=== PATIENT | female | born 1935 | race Hispanic/Latino ===

== ENCOUNTER 2017-06-08 20:28 | Emergency (ER) | payer MEDICARE, OTHER ==
[2017-06-08 20:29] VITALS: BMI 43.8
[2017-06-08] MEDS ORDERED: Sodium Chloride 0.9% 1,000 ML IV SCH (20:45)
[2017-06-08 21:02] LABS: HEMOGLOBIN 10.6 g/dL (12.0-16.0); MEAN CELL VOLUME 77.6 fl (80.0-105.0); MEAN CORPUSCULAR HEMOGLOBIN 25.8 pg (25.0-35.0); MEAN CORPUSCULAR HGB CONC 33.2 g/dl (31.0-37.0); MEAN PLATELET VOLUME 9.8 fl (7.0-11.0); RBC 4.11 10^6/uL (3.5-6.1); RED CELL DISTRIBUTION WIDTH 13.7 % (11.5-14.5); WHITE BLOOD COUNT 10.4 10^3/ul (4.5-11.0)
--- NOTE | 2017-06-08 21:04 | ED PDOC ---
Arrival/HPI - General Chief Complaint: GI Problem Time Seen by Provider: 06/08/17 20:30 Historian: Patient - History of Present Illness Narrative History of Present Illness (Text): 06/08/17 20:35 Basia Ruiz is an 82 year old female, whose past medical history includes hypertension, CABG, aortic valve replacement, CAD, type 2 diabetes, anemia, peripheral vascular disease, and bilateral AKA, who presents to the Emergency department complaining of diarrhea for the past 5 days. Patient reports occasional nausea.Some abdominal cramping earlier in the week none now.. Patient denies any history of known fever, recent travel, vomiting, chest pain, shortness of breath, or any other complaints. Patient states she has been toleration PO liquids and her appetite has been fine. PMD: Dr. Nidia Grover Time/Duration: < week (5 days) Symptom Onset: Gradual Symptom Course: Unchanged Quality: Cramping Activities at Onset: Light Context: Home Past Medical History - Provider Review Nursing Documentation Reviewed: Yes - Past History Past History: Non-Contributing - Infectious Disease Hx of Infectious Diseases: None - Tetanus Immunization Tetanus Immunization: Unknown - Reproductive Menopause: No - Cardiac Hx Cardiac Disorders: Yes Hx Hypertension: Yes - Pulmonary Hx Respiratory Disorders: No Other/Comment: FORMER SMOKER - Neurological Hx Paralysis: No - HEENT Hx Deafness: Yes - Renal Hx Renal Disorder: No - Endocrine/Metabolic Hx Diabetes Mellitus Type 1: Yes Hx Diabetes Mellitus Type 2: Yes - Hematological/Oncological Hx Blood Transfusions: Yes Hx Blood Transfusion Reaction: No - Integumentary Hx Dermatological Disorder: No - Musculoskeletal/Rheumatological Hx Musculoskeletal Disorders: Yes - Gastrointestinal Hx Gastrointestinal Disorders: No - Genitourinary/Gynecological Hx Genitourinary Disorders: Yes Hx Incontinence: Yes - Psychiatric Hx Emotional Abuse: No Hx Physical Abuse: No Hx Substance Use: No - Surgical History Other/Comment: BILAT BKA left leg stump surgery 2 months ago ,suman in place - Anesthesia Hx Anesthesia Reactions: No Hx Malignant Hyperthermia: No - Suicidal Assessment Feels Threatened In Home Enviroment: No Family/Social History - Physician Review Nursing Documentation Reviewed: Yes Family/Social History: Unknown Family HX Smoking Status: Former Smoker Hx Alcohol Use: No Hx Substance Use: No Hx Substance Use Treatment: No Allergies/Home Meds Allergies/Adverse Reactions: Allergies No Known Allergies Allergy (Verified 07/08/15 16:38) Home Medications: Home Meds Medication Instructions Recorded Confirmed Insulin Lispro Protamin/Lispro 10 ml SC AMHS 11/16/15 11/16/15 [Humalog Mix75/25 75 U/ml-25 U/ml 3 ml] amLODIPine [Norvasc] 10 mg PO DAILY 11/16/15 06/08/17 ALPRAZolam [Xanax] 0.25 mg PO DAILY PRN 06/08/17 06/08/17 Aspirin [Aspirin Chewable] 81 mg PO DAILY 06/08/17 06/08/17 Cetirizine HCl [All Day Allergy 10 mg PO DAILY 06/08/17 06/08/17 Relief] Review of Systems - Physician Review All systems were reviewed & negative as marked: Yes - Review of Systems Constitutional: Normal. absent: Fevers Eyes: Normal ENT: Normal Respiratory: Normal. absent: SOB, Cough Cardiovascular: Normal. absent: Chest Pain Gastrointestinal: Abdominal Pain, Diarrhea, Nausea. absent: Vomiting, Appetite Changes Genitourinary Female: Normal. absent: Dysuria, Frequency, Hematuria, Urine Output Changes Musculoskeletal: Normal. absent: Back Pain, Neck Pain Skin: Normal. absent: Rash Neurological: Normal. absent: Headache, Dizziness Endocrine: Normal Hemo/Lymphatic: Normal Psychiatric: Normal Physical Exam Vital Signs Reviewed: Yes Vital Signs Temp Pulse Resp BP Pulse Ox 06/08/17 23:00 98.7 F 75 17 145/84 98 06/08/17 21:28 100.3 F H 75 17 160/88 H 96 Temperature: Febrile Blood Pressure: Normal Pulse: Regular Respiratory Rate: Normal Appearance: Positive for: Well-Appearing, Non-Toxic, Comfortable Pain Distress: None Mental Status: Positive for: Alert and Oriented X 3 - Systems Exam Head: Present: Atraumatic, Normocephalic Pupils: Present: PERRL Extroacular Muscles: Present: EOMI Conjunctiva: Present: Normal Mouth: Present: Moist Mucous Membranes Neck: Present: Normal Range of Motion. No: Meningeal Signs, MIDLINE TENDERNESS , Paraspinal Tenderness Respiratory/Chest: Present: Clear to Auscultation, Good Air Exchange. No: Respiratory Distress, Accessory Muscle Use Cardiovascular: Present: Regular Rate and Rhythm, Normal S1, S2. No: Murmurs Abdomen: Present: Normal Bowel Sounds. No: Tenderness, Distention, Peritoneal Signs Back: Present: Normal Inspection Upper Extremity: Present: Normal Inspection. No: Cyanosis, Edema Lower Extremity: Present: NORMAL PULSES, Normal ROM, Neurovascularly Intact, Capillary Refill < 2 s, Other (Bilateral AKA). No: Edema, Tenderness, Swelling , Erythema, Deformity, Temperature Abnormalties Neurological: Present: GCS=15, CN II-XII Intact, Speech Normal Skin: Present: Warm, Dry, Normal Color. No: Rashes Psychiatric: Present: Alert, Oriented x 3, Normal Insight, Normal Concentration Medical Decision Making ED Course and Treatment: 06/08/17 20:35 Impression: 82 year old female complaining of diarrhea with occasional nausea, abdominal cramping, and chills x5 days. Differential Diagnosis included but are not limited to: gastroenteritis Plan: -- EKG -- Chest X-ray -- Labs, VBG, lipase, blood cultures -- Urinalysis, urine cultures -- IV fluids -- Zofran -- Pepcid -- Tylenol -- Reassess and disposition Prior Visits: Notes and results from previous visits were reviewed. On 10/31/2016, pt was seen in the Emergency department for high blood pressure. Pt was d/c home. Progress Notes: Reviewed EKG, sinus rhythm at 79 bpm. 1st degree AV block. Sinus arrhythmia. Anterior infarct. Non-specific ST/T wave changes. 06/08/17 22:45 Reviewed radiology, Chest X-ray shows no acute processes. 06/08/17 23:[address] Grover, who is aware and agrees with plan.Recommends short course of Cipro.Pt is stable for d/c home and outpatient follow-up in his office. 06/08/17 23:18 On reevaluation the patient is in no acute distress. I have discussed the results and plan with the patient, who expresses understanding. Patient is stable for discharge. - Lab Interpretations Lab Results: 06/08/17 20:50 06/08/17 20:50 Lab Results 06/08/17 20:50: pO2 48, VBG pH 7.34, VBG pCO2 50.0, VBG HCO3 27.0, VBG Total CO2 28.5 H, VBG O2 Sat (Calc) 87.3 H, VBG Base Excess 0.6, VBG Potassium 3.6, Sodium 136.0, Chloride 104.0, Glucose 162 H, Lactate 0.9, FiO2 21.0, Venous Blood Potassium 3.6 06/08/17 20:50: PT 11.4, INR 1.06, APTT 28.2 06/08/17 20:50: WBC 10.4, RBC 4.11, Hgb 10.6 L, Hct 31.9 L, MCV 77.6 L, MCH 25.8 , MCHC 33.2, RDW 13.7, Plt Count 232, MPV 9.8 06/08/17 20:50: Sodium 136, Chloride 99, Potassium 3.7, Carbon Dioxide 24, Anion Gap 17, BUN 28 H, Creatinine 0.9, Est GFR ( Amer) > 60, Est GFR ( Non-Af Amer) > 60, Random Glucose 159 H, Calcium 9.4, Total Bilirubin 0.5, AST 17, ALT 14, Alkaline Phosphatase 85, Total Protein 7.4, Albumin 3.7, Globulin 3.6, Albumin/Globulin Ratio 1.0 L, Lipase 18 L I have reviewed the lab results: Yes - RAD Interpretation Radiology Orders: 06/08/17 20:54 CHEST PORTABLE [RAD] Stat Rolling Machine Operator: ED Physician - EKG Interpretation Interpreted by ED Physician: Yes Type: 12 lead EKG - Medication Orders Current Medication Orders: Discontinued Medications Acetaminophen (Tylenol 325mg Tab) 650 mg PO STAT STA Stop: 06/08/17 20:56 Last Admin: 06/08/17 21:09 Dose: 650 mg Ciprofloxacin (Cipro) 250 mg PO STAT STA PRN Reason: Protocol Stop: 06/08/17 23:12 Last Admin: 06/09/17 00:04 Dose: 250 mg Famotidine (Pepcid) 20 mg IVP STAT STA Stop: 06/08/17 20:46 Last Admin: 06/08/17 21:09 Dose: 20 mg Sodium Chloride (Sodium Chloride 0.9%) 1,000 mls @ 100 mls/hr IV .Q10H CONSUELO Last Admin: 06/08/17 21:06 Dose: 100 mls/hr Ondansetron HCl (Zofran Inj) 4 mg IVP ONCE ONE Stop: 06/08/17 20:46 Last Admin: 06/08/17 21:09 Dose: 4 mg - Scribe Statement The provider has reviewed the documentation as recorded by the Gabriella Cazares Provider Scribe Attestation: All medical record entries made by the Scribe were at my direction and personally dictated by me. I have reviewed the chart and agree that the record accurately reflects my personal performance of the history, physical exam, medical decision making, and the department course for this patient. I have also personally directed, reviewed, and agree with the discharge instructions and disposition. Disposition/Present on Arrival - Present on Arrival Any Indicators Present on Arrival: No History of DVT/PE: No History of Uncontrolled Diabetes: Yes Urinary Catheter: No History of Decub. Ulcer: No History Surgical Site Infection Following: None - Disposition Have Diagnosis and Disposition been Completed?: Yes Diagnosis: Gastroenteritis Disposition: HOME/ ROUTINE Disposition Time: 23:18 Patient Plan: Discharge Condition: GOOD Discharge Instructions (ExitCare): Gastroenteritis (ED) Additional Instructions: Take meds as prescribed/continue to drink liquids to remain well hydrated/ follow up with on Saturday as he requested Prescriptions: Ciprofloxacin HCl [Cipro] 250 mg PO BID #6 tablet Referrals: Donald Grover JD, MD [Primary Care Provider] - Follow up with primary Forms: [employer] (Maori)
[2017-06-08 21:14] LABS: INR 1.06 (0.93-1.08); PARTIAL THROMBOPLASTIN TIME 28.2 Seconds (23.7-30.8); PROTHROMBIN TIME 11.4 Seconds (9.9-11.8); VENOUS BLOOD GAS BASE EXCESS 0.6 mmol/L (0.0-2.0); VENOUS BLOOD GAS PO2 48 mm/Hg (30-55); VENOUS BLOOD PH 7.34 (7.32-7.43)
[2017-06-08 21:17] LABS: ALBUMIN 3.7 g/dL (3.0-4.8); ALT/SGPT 14 U/L (7-56); AST/SGOT 17 U/L (15-39); BLOOD UREA NITROGEN 28 mg/dL (7-21); CALCIUM 9.4 mg/dL (8.4-10.5); GFR AFRICAN-AMERICAN > 60; GFR NON-AFRICAN AMERICAN > 60; LIPASE 18 U/L (23-300)
[2017-06-08 21:29] VITALS: PULSE 75; RESP 17
[2017-06-09 05:47] VITALS: BP 145/84; TEMP 98.7; O2SAT 98
--- NOTE | 2017-06-09 08:59 | RAD ---
HISTORY: Sepsis Patient Technique: Portable study performed @ 22:21. COMPARISON: 03/16/2015. FINDINGS: LUNGS: No active pulmonary disease. PLEURA: No significant pleural effusion identified, no pneumothorax apparent. CARDIOVASCULAR: No radiographic findings to suggest acute or significant cardiovascular disease. OSSEOUS STRUCTURES: No significant abnormalities. VISUALIZED UPPER ABDOMEN: Normal. OTHER FINDINGS: None. IMPRESSION: No active disease. No significant interval change compared to the prior examination(s). No preliminary report provided by emergency department personnel.
--- NOTE | 2017-06-09 13:58 | CARD ---
APPROVED REPORT EKG Measurement Heart [id number] <Conclusion> Sinus rhythm with marked sinus arrhythmia with 1st degree AV block Anterior infarct, age undetermined Abnormal ECG
== END 2017-06-09 00:25 | disposition home or self-care (01) ==
LOC: ED 20:28
DX: K52.9 Noninfective gastroenteritis and colitis, unspecified (principal); I25.10 Atherosclerotic heart disease of native coronary artery without angina pectoris; I10 Essential (primary) hypertension; E11.9 Type 2 diabetes mellitus without complications; I73.9 Peripheral vascular disease, unspecified; Z95.1 Presence of aortocoronary bypass graft; Z95.2 Presence of prosthetic heart valve; Z87.891 Personal history of nicotine dependence
CPT/HCPCS: 71010; 80053; 82803; 83690; 85027; 85610; 85730; 87040; 93005; 96374; 96375; 99284; J2405; J7040

== ENCOUNTER 2017-10-13 17:18 | Observation (INO) | payer MEDICARE, OTHER ==
[2017-10-13 17:34] VITALS: BMI 36.6
[2017-10-13] MEDS ORDERED: Oxycodone/Acetaminophen 5/325 mg Tab PO STA (17:47)
--- NOTE | 2017-10-13 17:47 | ED PDOC ---
"Arrival/HPI - General Historian: Patient <Jeramie Pino - Last Filed: 10/13/17 22:04> <Luke Fleming - Last Filed: 10/13/17 22:26> - General Chief Complaint: Back Pain Time Seen by Provider: 10/13/17 17:31 - History of Present Illness Narrative History of Present Illness (Text): 10/13/17 17:39 82 year old female, pmh including chf/htn, nkda, complaining of lt. sided rib pain and lower back s/p fall from the wheel chair today. Pt. stated that she is chronic wheel chair bound, trying to get on the van with one of the belts came loose, making her fall on the lower back and landed on the lt. sided rib region against the handle of the wheel chair, no abdominal or pelvic pain, no numbness or tingling, no night sweat, no rash, no LOC, no chest pain or shortness of breath, no other medical or psychological complaints. (Jeramie Pino) Past Medical History - Provider Review Nursing Documentation Reviewed: Yes - Past History Past History: Non-Contributing - Infectious Disease Hx of Infectious Diseases: None - Tetanus Immunization Tetanus Immunization: Unknown - Cardiac Hx Cardiac Disorders: Yes Hx Hypertension: Yes - Pulmonary Hx Respiratory Disorders: No Other/Comment: FORMER SMOKER - Neurological Hx Neurological Disorder: No Hx Paralysis: No - HEENT Hx HEENT Disorder: Yes Hx Deafness: Yes - Renal Hx Renal Disorder: No - Endocrine/Metabolic Hx Diabetes Mellitus Type 1: Yes Hx Diabetes Mellitus Type 2: Yes - Hematological/Oncological Hx Blood Transfusions: Yes Hx Blood Transfusion Reaction: No - Integumentary Hx Dermatological Disorder: No - Musculoskeletal/Rheumatological Hx Musculoskeletal Disorders: Yes - Gastrointestinal Hx Gastrointestinal Disorders: No - Genitourinary/Gynecological Hx Genitourinary Disorders: Yes Hx Incontinence: Yes - Psychiatric Hx Emotional Abuse: No Hx Physical Abuse: No Hx Substance Use: No - Surgical History Other/Comment: BILAT BKA - Anesthesia Hx Anesthesia: Yes Hx Anesthesia Reactions: No Hx Malignant Hyperthermia: No - Suicidal Assessment Feels Threatened In Home Enviroment: No <Jeramie Pino - Last Filed: 10/13/17 22:04> Family/Social History - Physician Review Nursing Documentation Reviewed: Yes Family/Social History: Unknown Family HX Smoking Status: Former Smoker Hx Alcohol Use: No Hx Substance Use: No Hx Substance Use Treatment: No <Jeramie Pino - Last Filed: 10/13/17 22:04> Allergies/Home Meds <Jeramie Pino - Last Filed: 10/13/17 22:04> <Luke Fleming - Last Filed: 10/13/17 22:26> Allergies/Adverse Reactions: Allergies No Known Allergies Allergy (Verified 10/13/17 17:28) Home Medications: Home Meds Medication Instructions Recorded Confirmed Insulin Lispro Protamin/Lispro 10 ml SC AMHS 11/16/15 10/13/17 [Humalog Mix75/25 75 U/ml-25 U/ml 3 ml] amLODIPine [Norvasc] 10 mg PO DAILY 11/16/15 10/13/17 Aspirin [Aspirin Chewable] 81 mg PO DAILY 06/08/17 10/13/17 Review of Systems - Review of Systems Constitutional: absent: Fatigue, Fevers Eyes: absent: Vision Changes ENT: absent: Hearing Changes Respiratory: absent: SOB, Cough Cardiovascular: absent: Chest Pain Gastrointestinal: absent: Abdominal Pain, Nausea, Vomiting Musculoskeletal: Back Pain, Myalgias. absent: Arthralgias, Neck Pain, Joint Swelling Skin: absent: Rash, Pruritis, Skin Lesions Neurological: absent: Headache, Dizziness Psychiatric: absent: Anxiety, Depression, Suicidal Ideation <PinoJeramie Tom - Last Filed: 10/13/17 22:04> Physical Exam Vital Signs Reviewed: Yes Temperature: Afebrile Blood Pressure: Hypertensive Pulse: Regular Respiratory Rate: Normal Appearance: Positive for: Well-Appearing, Non-Toxic, Comfortable Pain Distress: None Mental Status: Positive for: Alert and Oriented X 3 - Systems Exam Head: Present: Atraumatic, Normocephalic Pupils: Present: PERRL Extroacular Muscles: Present: EOMI Conjunctiva: Present: Normal Ears: Present: NORMAL TM, Normal Canal. No: Erythema Mouth: Present: Moist Mucous Membranes Pharnyx: No: ERYTHEMA, EXUDATE, TONSILS ENLARGED, Uvular Deviation, Muffled/ Hoarse Voice Nose (External): Present: Atraumatic. No: Abrasion, Contusion, Laceration Nose (Internal): Present: Normal Inspection, No Active Bleeding, Moist. No: Septal Deviation, Septal Hematoma, Epistaxis Neck: Present: Normal Range of Motion, Trachea Midline. No: MIDLINE TENDERNESS , Paraspinal Tenderness, Lymphadenopathy Respiratory/Chest: Present: Clear to Auscultation, Good Air Exchange, Other ( Chest: mild +ttp on lt. lateral rib region, no bruising, no ecchymosis, FROM without limitation, sensation intact, motor 5/5. ). No: Respiratory Distress, Accessory Muscle Use, Wheezes, Decreased Breath Sounds, Rales (.), Retracting, Rhonchi Cardiovascular: Present: Regular Rate and Rhythm, Normal S1, S2. No: Murmurs Abdomen: Present: Normal Bowel Sounds. No: Tenderness, Distention, Peritoneal Signs Back: Present: Normal Inspection, Other (LS spine: +ttp on the lt. paraspinal muscle region, no midline tenderness or step off, no bruising or ecchymosis, FROM without limitation, sensation intact, motor 5/5. ). No: CVA Tenderness, Midline Tenderness, Pain with Leg Raise, Decubitus Ulcer Upper Extremity: Present: Normal Inspection, Other (Bilateral shoulder: no tenderness or swelling, no clavicle tenderness, FROM without limitation, sensation intact, motor 5/5. ). No: Cyanosis, Edema Lower Extremity: Present: Normal Inspection, NORMAL PULSES, Normal ROM, Neurovascularly Intact, Capillary Refill < 2 s. No: Edema, Tenderness, Swelling , Deformity Neurological: Present: GCS=15, Speech Normal, Motor Func Grossly Intact, Gait Normal, Memory Normal Skin: Present: Warm, Dry, Normal Color. No: Rashes Psychiatric: Present: Alert, Oriented x 3, Normal Insight, Normal Concentration <Jeramie Pino - Last Filed: 10/13/17 22:04> Vital Signs Temp Pulse Resp BP Pulse Ox 10/13/17 21:00 98.6 F 80 18 150/77 100 10/13/17 19:28 97 H 198/70 H 10/13/17 19:20 98.5 F 70 16 146/89 100 10/13/17 17:32 97.9 F 88 15 205/74 H 98 Medical Decision Making - RAD Interpretation Portrait Studio Photographer: Radiologist <Jeramie Pino - Last Filed: 10/13/17 22:04> <Luke Fleming - Last Filed: 10/13/17 22:26> ED Course and Treatment: 10/13/17 17:59 -CT head -Lt. rib/chest xray -Percocet/clonidine -Observe and reassess 10/13/17 21:12 -Lt. rib xray: Unremarkable left rib x-rays. -Chest xray: Emergency room wet read, no active disease -LS spine: IMPRESSION: Deformity involving L4-S1 as visualized. Concern for underlying fracture. Followup cross-sectional imaging recommended. Multilevel degenerative changes. Loss in disc height with disc osteophyte formation. -CT Head: Moderate age-appropriate atrophy and associated chronic white matter ischemic changes, with no evidence of an acute intracranial abnormality. An extra-axial lesion near the brainstem likely meningioma 1.9 cm. No significant mass effect. Also noted is a chronic calcified meningioma located in the anterior vertex left of midline, 12 mm. -Pt. has no headache/dizziness/change in vision, no numbness or tingling, bilateral lower extremities amputated, no radiating pain on the upper extremities, no neurological deficits. -Case discussed with Dr. Fleming and endorsed to him about the CT head and other radiology studies, suggest observation over night, he will put in labs/ radiology study and call Dr. Grover. (Jeramie Pino) 10/13/17 22:23 Case was d/w PMD who accepted to his service.Requested on consult. (Luke Fleming) - Lab Interpretations Lab Results: Lab Results 10/13/17 21:14: POC Glucose (mg/dL) 237 H - RAD Interpretation Radiology Orders: 10/13/17 17:47 HEAD W/O CONTRAST [CT] Stat 10/13/17 17:52 CHEST PORTABLE [RAD] Stat LS SPINE WITH OBL > 18 YRS OLD [RAD] Stat RIBS LEFT [RAD] Stat Lt. rib: FINDINGS: Lungs: Unremarkable as visualized. No consolidation. Pleural space: Unremarkable. No pneumothorax. Bones/joints: There are sternal wires consistent with previous sternotomy incision. No acute fracture. IMPRESSION: Unremarkable left rib x-rays. Thank you for allowing us to participate in the care of your patient. Dictated and Authenticated by: Gaston Hodge MD 10/13/2017 9:02 PM Eastern Time ([place] & [place]) -------- Chest xray: LS spine: FINDINGS: Vertebrae/discs: Deformity involving L4-S1 as visualized. Concern for underlying fracture. Followup cross-sectional imaging recommended. Multilevel degenerative changes. Loss in disc height with disc osteophyte formation. Soft tissues: Vascular calcification. IMPRESSION: Deformity involving L4-S1 as visualized. Concern for underlying fracture. Followup cross-sectional imaging recommended. Multilevel degenerative changes. Loss in disc height with disc osteophyte formation. Thank you for allowing us to participate in the care of your patient. Dictated and Authenticated by: Madeline Morrissey MD 10/13/2017 9:53 PM Eastern Time ([place] & [place]) --------- CT Head: FINDINGS: Brain: A calcified meningioma is present involving the left anterior vertex a tear to the falx left of midline 12 mm. Benign bilateral globus pallidus calcifications are present. Additional intra-axial densities present in the cerebellopontine angle anterior to the mukund measuring approximately 1.9 cm. Image 8 series #2. No deformity of the adjacent brain stem or mass effect seen. Moderate volume loss is seen in keeping with age, with moderate decrease in attenuation of the periventricular white matter likely related to small vessel ischemic change. The brain otherwise appears unremarkable. ROCIO CORADO | Preliminary Radiology Report SLIP SHEETER (QA) DISCREPANCY? If there is a discrepancy between the preliminary and final interpretation, please notify [facility] via [email or web address]. If you do not have access to our QA portal, call our QA team at [phone] CONFIDENTIALITY STATEMENT This report is intended only for the use of the referring physician, and only in accordance with law, If you received this in error, call [phone] Page 2 of 2 There is normal padgett-white matter differentiation, demonstrating no edema, mass effect, acute hemorrhage, or additional focal mass. Ventricles: Unremarkable. No ventriculomegaly. Bones/joints: Unremarkable. No acute fracture. Soft tissues: Unremarkable. Sinuses: Sinuses are clear without air-fluid levels, or mucoperiosteal thickening. Mastoid air cells: Unremarkable as visualized. No mastoid effusion. IMPRESSION: Moderate age-appropriate atrophy and associated chronic white matter ischemic changes, with no evidence of an acute intracranial abnormality. An extra-axial lesion near the brainstem likely meningioma 1.9 cm. No significant mass effect. Also noted is a chronic calcified meningioma located in the anterior vertex left of midline, 12 mm. Thank you for allowing us to participate in the care of your patient. Dictated and Authenticated by: Gaston Hodge MD 10/13/2017 8:42 PM Eastern Time ([place] & [place]) (Jeramie Pino) - Medication Orders Current Medication Orders: Oxycodone/Acetaminophen (Percocet 5/325 Mg Tab) 1 tab PO Q4H PRN PRN Reason: Pain, moderate (4-7) Stop: 10/14/17 11:00 Discontinued Medications Clonidine HCl (Catapres) 0.2 mg PO STAT STA Stop: 10/13/17 17:48 Last Admin: 10/13/17 19:28 Dose: 0.2 mg MAR Pulse and Blood Pressure Document 10/13/17 19:28 AB (Rec: 10/13/17 19:29 AB [id number]) Pulse Pulse Rate (60-90 beats/min) 97 Blood Pressure Blood Pressure (100/60-150/90 mm Hg) 198/70 Oxycodone/Acetaminophen (Percocet 5/325 Mg Tab) 1 tab PO STAT STA Stop: 10/13/17 17:48 Last Admin: 10/13/17 19:24 Dose: 1 tab MAR Pain Assessment Document 10/13/17 19:24 AB (Rec: 10/13/17 19:28 AB [facility] [id number]) Pain Reassessment Is this a pain reassessment? Yes Sleep Is patient sleeping during reassessment? No Presence of Pain Presence of Pain Yes Pain Scale Used Pain Scale Used Numeric Location Pain Location Body Site Back Description Description Constant Aggravating Factors ADL's Alleviating Factors/Management Medication Techniques Alleviating Factors Medication - PA / TRANSFORMER BUILDER / Resident Statement LELIA has reviewed & agrees with the documentation as recorded. <Jeramie Pino - Last Filed: 10/13/17 22:04> - PA / TRANSFORMER BUILDER / Resident Statement / has reviewed & agrees with the documentation as recorded. / has examined the patient and agrees with the treatment plan. <Luke Fleming - Last Filed: 10/13/17 22:26> Disposition/Present on Arrival - Present on Arrival Any Indicators Present on Arrival: No History of DVT/PE: No History of Uncontrolled Diabetes: Yes Urinary Catheter: No History of Decub. Ulcer: No History Surgical Site Infection Following: None - Disposition Have Diagnosis and Disposition been Completed?: Yes Disposition Time: 22:02 Patient Plan: Observation <Jeramie Pino - Last Filed: 10/13/17 22:04> <Luke Fleming - Last Filed: 10/13/17 22:26> - Disposition Diagnosis: Accidental fall, Meningioma, Rib injury, Back pain, Lumbar vertebral fracture Patient Problems: Current Active Problems Problem Status Onset Accidental fall Acute Back pain Acute Lumbar vertebral fracture Acute Meningioma Acute Rib injury Acute Condition: STABLE Prescriptions: Acetaminophen [Tylenol 325mg tab] 2 tab PO QID PRN #30 tab PRN Reason: Other Lidocaine 5% [Lidoderm] 1 patch TOP DAILY PRN #14 patch PRN Reason: Other"
--- NOTE | 2017-10-13 21:53 | RAD ---
EXAM: XR Lumbar Spine CLINICAL HISTORY: 82 years old, female; Injury or trauma; Fall; Initial encounter; Blunt trauma (contusions or hematomas); Additional info: Lower back pain S/P fall TECHNIQUE: Frontal, lateral and views of the lumbar spine. COMPARISON: CR - LS SPINE WITH OBL > 18 YRS OLD 2015-11-16 16:18 FINDINGS: Vertebrae/discs: Deformity involving L4-S1 as visualized. Concern for underlying fracture. Followup cross-sectional imaging recommended. Multilevel degenerative changes. Loss in disc height with disc osteophyte formation. Soft tissues: Vascular calcification. IMPRESSION: Deformity involving L4-S1 as visualized. Concern for underlying fracture. Followup cross-sectional imaging recommended. Multilevel degenerative changes. Loss in disc height with disc osteophyte formation.
[2017-10-13] MEDS ORDERED: Oxycodone/Acetaminophen 5/325 mg Tab PO PRN (22:21)
[2017-10-13 23:01] LABS: HEMATOCRIT 31.2 % (36.0-48.0); MEAN CELL VOLUME 80.8 fl (80.0-105.0); MEAN CORPUSCULAR HEMOGLOBIN 25.1 pg (25.0-35.0); MEAN CORPUSCULAR HGB CONC 31.1 g/dl (31.0-37.0); RED CELL DISTRIBUTION WIDTH 14.5 % (11.5-14.5); WHITE BLOOD COUNT 9.4 10^3/ul (4.5-11.0)
[2017-10-13 23:05] LABS: ALB/GLOB RATIO 0.9 (1.1-1.8); ALKALINE PHOSPHATASE 98 U/L (38-126); ALT/SGPT 23 U/L (7-56); AST/SGOT 25 U/L (14-36); BILIRUBIN,TOTAL 0.3 mg/dL (0.2-1.3); BLOOD UREA NITROGEN 32 mg/dL (7-21); CALCIUM 9.5 mg/dL (8.4-10.5); CARBON DIOXIDE 27 mmol/L (21-33); CHLORIDE 102 mmol/L (98-107); GFR AFRICAN-AMERICAN > 60; GLUCOSE,RANDOM 284 mg/dL (70-110); POTASSIUM 4.9 mmol/L (3.6-5.0); SODIUM 137 mmol/L (132-148); TOTAL PROTEIN 7.6 g/dL (5.8-8.3)
[2017-10-13 23:21] LABS: INR 1.06 (0.93-1.08); PARTIAL THROMBOPLASTIN TIME 28.4 Seconds (25.1-36.5)
[2017-10-14 02:27] VITALS: RESP 20
[2017-10-14 08:28] VITALS: PULSE 67; TEMP 98; O2SAT 96
--- NOTE | 2017-10-14 08:48 | CT ---
PROCEDURE: CT HEAD WITHOUT CONTRAST. HISTORY: fall COMPARISON: 03/22/2014 TECHNIQUE: Axial computed tomography images were obtained through the head/brain without intravenous contrast. Radiation dose: Total exam DLP = 678.13 mGy-cm. This CT exam was performed using one or more of the following dose reduction techniques: Automated exposure control, adjustment of the mA and/or kV according to patient size, and/or use of iterative reconstruction technique. FINDINGS: HEMORRHAGE: No intracranial hemorrhage. 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 Apparent extra-axial mass left anterior to mukund/ medulla (series 2, image 7 and 8). Possible meningioma. Recommend evaluation with gadolinium enhanced magnetic resonance imaging. No other cranial mass. Mild diffuse age-appropriate cerebral atrophy. Mild periventricular white matter lucency consistent with chronic white matter ischemic change. VENTRICLES: Unremarkable. No hydrocephalus. CALVARIUM: Unremarkable. PARANASAL SINUSES: Unremarkable as visualized. No significant inflammatory changes. MASTOID AIR CELLS: Unremarkable as visualized. No inflammatory changes. OTHER FINDINGS: None. IMPRESSION: Calcified left anterior falx meningioma. Suspect extra-axial mass left antro lateral to midbrain/medulla. Recommend further evaluation with gadolinium enhanced magnetic resonance imaging. Age-appropriate involutional change. No intracranial hemorrhage or evidence of acute infarct. Preliminary interpretation of this examination was reported by [facility]) at 8:42 p.m. on 10/13/2017. There is concurrence of this report with the preliminary interpretation.
[2017-10-14 09:22] VITALS: BP 179/69
--- NOTE | 2017-10-14 10:29 | RAD ---
HISTORY: medical clearance COMPARISON: Chest x-ray performed 06/08/17 TECHNIQUE: Chest, one view. FINDINGS: LUNGS: No focal consolidation. Please note that chest x-ray has limited sensitivity for the detection of pulmonary masses. PLEURA: No significant pleural effusion identified. No definite pneumothorax . CARDIOVASCULAR: Median sternotomy wires. Heart size appears top normal. OSSEOUS STRUCTURES: Degenerative changes. VISUALIZED UPPER ABDOMEN: Unremarkable. OTHER FINDINGS: None. IMPRESSION: No acute findings identified. See above.
[2017-10-14] MEDS ORDERED: Insulin Reg-MEDIUM-Coverage SC SCH (11:30)
[2017-10-14] MEDS ORDERED: Influenza Vaccine 60 mcg/0.5 mL SYR (4YR UP) IM ONE (12:25)
--- NOTE | 2017-10-14 12:45 | HP ---
HISTORY OF PRESENT ILLNESS: The patient is an 82-year-old female, admitted through the emergency department on 10/13/2017 after a fall from a wheelchair with complaint of back pain. X-ray of the lumbosacral spine showed a possible compression fracture of L5 and the patient was admitted for further evaluation and management. The patient's pain is greatly diminished and she is requesting discharge. PAST MEDICAL HISTORY: Includes type 2 diabetes mellitus and hypertension. She is status post coronary artery bypass graft and aortic valve replacement. PAST SURGICAL HISTORY: The patient is status post bilateral above knee amputations for peripheral vascular disease with history of gangrene of the lower extremities. MEDICATIONS: The patient is on amlodipine 10 mg daily as well as Lispro 75/25 10 units daily. SOCIAL HISTORY: The patient has no history of alcohol or tobacco use. She lives at home with her family. She is dependent with ADLs and IADLs and is essentially bed and wheelchair bound. ALLERGIES: SHE HAS NO KNOWN DRUG ALLERGIES. REVIEW OF SYSTEMS: The patient denies any chest pain, shortness of breath. No swelling of the stumps of the lower extremities. PHYSICAL EXAMINATION: GENERAL: The patient is a well-developed female, in no acute distress. VITAL SIGNS: Blood pressure 179/69, temperature 98, pulse 67, respiratory rate 20. HEENT: Head is normocephalic, atraumatic. Pupils equal, round and reactive to light. Extraocular movements intact. NECK: Supple. No thyromegaly. No carotid bruit. No adenopathy. LUNGS: Clear. HEART: Regular rate and rhythm. ABDOMEN: Soft, nontender. Bowel sounds are normoactive. EXTREMITIES: Status post bilateral above-knee amputations. Stumps are clear and healed. NEUROLOGICAL: The patient is awake and oriented x3 without focal sensorimotor deficits. SKIN: Warm and dry. LABORATORY DATA: WBC is 9.4, hemoglobin 9.7, hematocrit 31.2. Sodium 137, potassium 4.9, chloride 102, CO2 of 27, BUN 32, creatinine 0.9, glucose is 284. IMPRESSION: 1. Back pain, status post fall. No evidence of syncope with possible compression fracture of lumbar spine. 2. Type 2 diabetes mellitus. 3. Hypertension. 4. Coronary artery disease, status post coronary artery bypass graft/aortic valve replacement. PLAN: The patient is medically stable and requesting discharge to home at the present time. Her pain is greatly diminished.. ALMA DELIA Lowe MD
--- NOTE | 2017-10-14 14:05 | RAD ---
PROCEDURE: Radiographs of the Chest and Left Ribs. HISTORY: lt. rib pain s/p fall COMPARISON: None available. TECHNIQUE: Frontal radiograph of the chest and multiple oblique radiographs of the left ribs were obtained. FINDINGS: LEFT RIBS: No appreciable displaced fracture. LUNGS: No focal consolidation identified. PLEURA: No significant pleural effusion. No definite pneumothorax. CARDIOVASCULAR: Median sternotomy wires. Prosthetic cardiac valve. Atherosclerotic calcifications of the aorta. OTHER FINDINGS: None. IMPRESSION: No appreciable displaced left rib fracture.
[2017-10-16] MEDS ORDERED: Influenza Vaccine 60 mcg/0.5 mL SYR (4YR UP) IM ONE (10:00)
[2017-10-16] MEDS ORDERED: Pneumococcal 23-Valent Vaccine IM ONE (10:00)
== END 2017-10-14 15:42 | disposition home or self-care (01) ==
LOC: ED 17:18 → ERH 22:19 → 5RNO 10-14 00:49
PROVIDERS: ADMIT Internal Medicine; ATTEND Internal Medicine
DX: M54.9 Dorsalgia, unspecified (principal); W05.0XXA Fall from non-moving wheelchair, initial encounter; E11.51 Type 2 diabetes mellitus with diabetic peripheral angiopathy without gangrene; I25.10 Atherosclerotic heart disease of native coronary artery without angina pectoris; I11.0 Hypertensive heart disease with heart failure; I50.9 Heart failure, unspecified; D32.9 Benign neoplasm of meninges, unspecified; Z99.3 Dependence on wheelchair; Z89.611 Acquired absence of right leg above knee; Z89.612 Acquired absence of left leg above knee; Z95.2 Presence of prosthetic heart valve; Z95.1 Presence of aortocoronary bypass graft; Y93.9 Activity, unspecified; Y92.9 Unspecified place or not applicable; Z87.891 Personal history of nicotine dependence
CPT/HCPCS: 70450; 71010; 71100; 72110; 80053; 82948; 85027; 85610; 85730; 90674; 99284; G0008; G0378

== ENCOUNTER 2018-05-06 15:04 | Inpatient (IN) | payer MEDICARE, OTHER ==
--- NOTE | 2018-05-06 16:26 | RAD ---
Date of service: 05/06/2018 HISTORY: r/o infiltrate COMPARISON: 10/13/2017. FINDINGS: LUNGS: The lungs are well inflated. There is mild pulmonary venous congestion. No focal consolidation. PLEURA: No significant pleural effusion identified, no pneumothorax apparent. CARDIOVASCULAR: The heart is normal in size. Status post CABG. There is prominent central vasculature. OSSEOUS STRUCTURES: No significant abnormalities. VISUALIZED UPPER ABDOMEN: Normal. OTHER FINDINGS: None. IMPRESSION: No active pulmonary disease.
--- NOTE | 2018-05-06 16:28 | ED PDOC ---
Arrival/HPI - General Historian: Patient - History of Present Illness Time/Duration: 24 hours Symptom Course: Unchanged Activities at Onset: Rest Context: Home <Lisa Beltran - Last Filed: 05/06/18 18:43> <Martin Power DO - Last Filed: 05/07/18 11:16> - General Chief Complaint: Female Genitourinary Time Seen by Provider: 05/06/18 15:53 - History of Present Illness Narrative History of Present Illness (Text): 05/06/18 16:23 This is a 83 year old female with PMH of DM2, HT, CAD s/p CABG and aortic valve placement, CHF, and double above knee amputee presenting to the ED for one day history of unverified fever, shakiness, headache and generalized malaise. She also has burning on urination that began today. Patient was symptom free yesterday. She states her glucose levels are typically around 200, but today it was 270. She states she is compliant with her medications. She took one tylenol with unknown dose today with minimal improvement. PMD is Dr. Grover. Denies CP, SOB, nausea, vomiting, fatigue, sick contacts at home and recent travel. ( Lisa Beltran) Past Medical History - Provider Review Nursing Documentation Reviewed: Yes - Past History Past History: Non-Contributing - Infectious Disease Hx of Infectious Diseases: None - Tetanus Immunization Tetanus Immunization: Unknown - Cardiac Hx Cardiac Disorders: Yes Hx Hypertension: Yes - Pulmonary Hx Respiratory Disorders: No Other/Comment: FORMER SMOKER - Neurological Hx Neurological Disorder: No - HEENT Hx HEENT Disorder: Yes Hx Deafness: Yes - Renal Hx Renal Disorder: No - Endocrine/Metabolic Hx Endocrine Disorders: Yes Hx Diabetes Mellitus Type 1: Yes Hx Diabetes Mellitus Type 2: Yes - Hematological/Oncological Hx Blood Disorders: Yes Other/Comment: BLOOD TRANSFUSION - Integumentary Hx Dermatological Disorder: No - Musculoskeletal/Rheumatological Hx Musculoskeletal Disorders: Yes Hx Falls: Yes - Gastrointestinal Hx Gastrointestinal Disorders: No - Genitourinary/Gynecological Hx Genitourinary Disorders: Yes Hx Incontinence: Yes - Psychiatric Hx Psychophysiologic Disorder: No Hx Substance Use: No - Surgical History Other/Comment: BILAT AKA. - Anesthesia Hx Anesthesia: Yes Hx Anesthesia Reactions: No Hx Malignant Hyperthermia: No - Suicidal Assessment Feels Threatened In Home Enviroment: No <Lisa Beltran - Last Filed: 05/06/18 18:43> Family/Social History - Physician Review Nursing Documentation Reviewed: Yes Family/Social History: Unknown Family HX Smoking Status: Former Smoker Hx Alcohol Use: No Hx Substance Use: No Hx Substance Use Treatment: No <Lisa Beltran - Last Filed: 05/06/18 18:43> Allergies/Home Meds <Lisa Beltran - Last Filed: 05/06/18 18:43> <Tono Martin - Last Filed: 05/07/18 11:16> Allergies/Adverse Reactions: Allergies No Known Allergies Allergy (Verified 05/06/18 22:30) Home Medications: Home Meds Medication Instructions Recorded Confirmed Insulin Lispro Protamin/Lispro 10 ml SC AMHS 11/16/15 05/06/18 [Humalog Mix 75-25 Kwikpen] amLODIPine [Norvasc] 10 mg PO DAILY 11/16/15 05/06/18 Aspirin [Aspirin Chewable] 81 mg PO DAILY 06/08/17 05/06/18 Review of Systems - Physician Review All systems were reviewed & negative as marked: Yes - Review of Systems Constitutional: Fevers, Other (shakiness). absent: Fatigue, Weight Change Eyes: Normal ENT: Normal Respiratory: Normal. absent: SOB Cardiovascular: Normal. absent: Chest Pain Gastrointestinal: Normal. absent: Abdominal Pain Genitourinary Female: Dysuria. absent: Frequency Musculoskeletal: Normal Skin: Normal Neurological: Headache Psychiatric: Normal <Lisa Beltran - Last Filed: 05/06/18 18:43> Physical Exam Vital Signs Reviewed: Yes Temperature: Afebrile Blood Pressure: Hypertensive Pulse: Regular Respiratory Rate: Normal Appearance: Positive for: Well-Appearing, Non-Toxic, Comfortable Pain Distress: None Mental Status: Positive for: Alert and Oriented X 3 - Systems Exam Head: Present: Atraumatic, Normocephalic Pupils: Present: PERRL Extroacular Muscles: Present: EOMI Conjunctiva: Present: Normal Mouth: Present: Moist Mucous Membranes Neck: Present: Normal Range of Motion Respiratory/Chest: Present: Clear to Auscultation, Good Air Exchange. No: Respiratory Distress, Accessory Muscle Use Cardiovascular: Present: Regular Rate and Rhythm, Normal S1, S2. No: Murmurs Abdomen: No: Tenderness, Distention, Peritoneal Signs Back: Present: Normal Inspection Upper Extremity: Present: Normal Inspection. No: Cyanosis, Edema Lower Extremity: Present: Other (double above knee amputee ) Neurological: Present: Speech Normal, Motor Func Grossly Intact, Normal Sensory Function Skin: Present: Warm, Dry, Normal Color. No: Rashes Psychiatric: Present: Alert, Oriented x 3, Normal Insight, Normal Concentration <Lisa Beltran - Last Filed: 05/06/18 18:43> Vital Signs Temp Pulse Resp BP Pulse Ox 05/06/18 22:59 73 16 164/80 H 95 05/06/18 20:53 76 16 161/86 H 97 05/06/18 17:54 196/69 H 05/06/18 17:53 97.9 F 88 18 93 L Medical Decision Making <Lisa Beltran - Last Filed: 05/06/18 18:43> <Martin Power DO - Last Filed: 05/07/18 11:16> ED Course and Treatment: 05/06/18 16:31 This is a 83 year old female with PMH of DM2, HT, CAD s/p CABG and aortic valve placement, CHF, and double above knee amputee presenting to the ED for one day history of unverified fever, shakiness, headache and generalized malaise. Differential: UTI vs. other infection Plan: -CBC, CMP -EKG, troponin, Mg -CXY -U/A, culture Progress: 05/06/18 17:58 EKG: rate of 96, VT of 276ms, QRS of 88ms, sinus rhythm with 1st degree block 05/06/18 18:41 CXY 05/06/2018: No active pulmonary disease. (Lisa Beltran) - Lab Interpretations Lab Results: 05/06/18 17:01 05/06/18 17:01 Lab Results 05/06/18 20:51: POC Glucose (mg/dL) 189 H 05/06/18 18:45: Urine Color Colorless, Urine Appearance Clear, Urine pH 6.5, Ur Specific [place] 1.010, Urine Protein 100 H, Urine Glucose (UA) 100 H, Urine Ketones Negative, Urine Blood Small H, Urine Nitrate Negative, Urine Bilirubin Negative, Urine Urobilinogen 0.2, Ur Leukocyte Esterase Moderate H, Urine RBC 0 - 2, Urine WBC 2 - 5, Ur Epithelial Cells 4 - 5, Urine Bacteria Trace 05/06/18 17:01: Sodium 137, Potassium 5.4 H, Chloride 99, Carbon Dioxide 26, Anion Gap 17, BUN 29 H, Creatinine 0.8, Est GFR ( Amer) > 60, Est GFR ( Non-Af Amer) > 60, Random Glucose 221 H, Calcium 9.7, Magnesium 1.6 L, Total Bilirubin 0.5, AST 23, ALT 23, Alkaline Phosphatase 127 H D, Lactate Dehydrogenase 640, Total Creatine Kinase 32 L, Troponin I < 0.01, Total Protein 8.2, Albumin 4.1, Globulin 4.1, Albumin/Globulin Ratio 1.0 L 05/06/18 17:01: WBC 7.2 D, RBC 4.53, Hgb 11.3 L, Hct 34.7 L, MCV 76.6 L D, MCH 24.9 L, MCHC 32.6, RDW 13.9, Plt Count 217, MPV 10.7, Gran % 75.4 H, Lymph % ( Auto) 17.3 L, [place] % (Auto) 5.0, Eos % (Auto) 1.9, Baso % (Auto) 0.4, Gran # 5.43, Lymph # (Auto) 1.3, [place] # (Auto) 0.4, Eos # (Auto) 0.1, Baso # (Auto) 0.03 - RAD Interpretation Radiology Orders: 05/06/18 16:10 CHEST PORTABLE [RAD] Stat 05/06/18 18:05 HEAD W/O CONTRAST [CT] Stat - Medication Orders Current Medication Orders: Amlodipine Besylate (Norvasc) 10 mg PO DAILY [facility] Last Admin: 05/07/18 10:06 Dose: 10 mg MAR Blood Pressure Document 05/07/18 10:06 LO (Rec: 05/07/18 10:07 LO [id number]) Blood Pressure Blood Pressure (100/60-150/90) 186/90 Citalopram Hydrobromide (Celexa) 10 mg PO DAILY [facility] Last Admin: 05/07/18 10:06 Dose: 10 mg Ceftriaxone Sodium (Rocephin 1 Gram Ivpb) 1 gm in 100 mls @ 100 mls/hr IVPB DAILY [facility] PRN Reason: Protocol Last Admin: 05/07/18 10:07 Dose: 100 mls/hr eMAR Start Stop Document 05/07/18 10:07 LO (Rec: 05/07/18 10:07 LO [id number]) Intravenous Solution Start Date 05/07/18 Start Time 10:07 Insulin Human Regular (Humulin R Low) 0 units SC ACHS [facility] PRN Reason: Protocol Insulin Human Regular (Humulin R Low) 0 units SC ACHS [facility] PRN Reason: Protocol Losartan Potassium (Cozaar) 50 mg PO DAILY [facility] Last Admin: 05/07/18 10:06 Dose: 50 mg Discontinued Medications Hydralazine HCl (Apresoline) 10 mg IVP ONCE ONE Stop: 05/07/18 06:01 Last Admin: 05/07/18 06:14 Dose: 10 mg IVP Administration Document 05/07/18 06:14 TTC (Rec: 05/07/18 06:14 [id number]) Charges for Administration # of IVP Administrations 1 MAR Pulse and Blood Pressure Document 05/07/18 06:14 TTC (Rec: 05/07/18 06:14 TTC [id number]) Blood Pressure Blood Pressure (100/60-150/90) 186/90 Hydrochlorothiazide (Microzide) 12.5 mg PO STAT STA Stop: 05/06/18 18:18 Last Admin: 05/06/18 19:53 Dose: 12.5 mg Ceftriaxone Sodium (Rocephin 1 Gram Ivpb) 1 gm in 100 mls @ 100 mls/hr IVPB STAT STA PRN Reason: Protocol Stop: 05/06/18 23:19 Last Admin: 05/06/18 22:50 Dose: 100 mls/hr eMAR Start Stop Document 05/06/18 22:50 CNR (Rec: 05/06/18 22:52 CNR [id number]) Intravenous Solution Start Date 05/06/18 Start Time 22:52 End Date 05/06/18 End time 23:52 Total Infusion Time 60 Sodium Polystyrene Sulfonate (Kayexalate Susp) 15 gm PO STAT STA Stop: 05/07/18 01:18 Last Admin: 05/07/18 01:49 Dose: 15 gm - PA / OVERLAY OPERATOR / Resident Statement LELIA has reviewed & agrees with the documentation as recorded. LELIA has examined the patient and agrees with the treatment plan. <Lisa Beltran - Last Filed: 05/06/18 18:43> Disposition/Present on Arrival - Present on Arrival History of DVT/PE: No History of Uncontrolled Diabetes: No Urinary Catheter: No History of Decub. Ulcer: No History Surgical Site Infection Following: None <Lisa Beltran - Last Filed: 05/06/18 18:43> - Present on Arrival Any Indicators Present on Arrival: No - Disposition Have Diagnosis and Disposition been Completed?: Yes Disposition Time: 19:30 <Martin Power DO - Last Filed: 05/07/18 11:16> - Disposition Diagnosis: UTI (urinary tract infection), General weakness Disposition: HOSPITALIZED Patient Problems: Current Active Problems Problem Status Onset UTI (urinary tract infection) Acute General weakness Acute Condition: FAIR
[2018-05-06 17:31] LABS: BASO # 0.03 K/mm3 (0.0-2.0); BASO % 0.4 % (0.0-3.0); EOS # 0.1 (0.0-0.7); EOS % 1.9 % (1.5-5.0); GRAN # 5.43 (1.4-6.5); GRAN % 75.4 % (50.0-68.0); HEMOGLOBIN 11.3 g/dL (12.0-16.0); LYMPH # 1.3 (1.2-3.4); LYMPH % 17.3 % (22.0-35.0); MEAN CELL VOLUME 76.6 fl (80.0-105.0); MEAN CORPUSCULAR HEMOGLOBIN 24.9 pg (25.0-35.0); MEAN CORPUSCULAR HGB CONC 32.6 g/dl (31.0-37.0); MEAN PLATELET VOLUME 10.7 fl (7.0-11.0); MONO # 0.4 (0.1-0.6); RBC 4.53 10^6/uL (3.5-6.1); RED CELL DISTRIBUTION WIDTH 13.9 % (11.5-14.5); WHITE BLOOD COUNT 7.2 10^3/ul (4.5-11.0)
[2018-05-06 17:48] LABS: ALBUMIN 4.1 g/dL (3.0-4.8); ALT/SGPT 23 U/L (7-56); AST/SGOT 23 U/L (14-36); BLOOD UREA NITROGEN 29 mg/dL (7-21); CALCIUM 9.7 mg/dL (8.4-10.5); GFR AFRICAN-AMERICAN > 60; GFR NON-AFRICAN AMERICAN > 60
[2018-05-06 17:58] LABS: TROPONIN I < 0.01 ng/mL
[2018-05-06 19:08] LABS: PH,URINE 6.5 (4.7-8.0); URINE APPEARANCE CLEAR (CLEAR); URINE BILIRUBIN NEGATIVE (NEGATIVE); URINE BLOOD SMALL (NEGATIVE); URINE COLOR COLORLESS (YELLOW); URINE GLUCOSE (UA) 100 mg/dL (NEGATIVE); URINE LEUKOCYTE ESTERASE MODERATE Leu/uL (NEGATIVE); URINE PROTEIN 100 mg/dL (<30 mg/dL); URINE UROBILINOGEN 0.2 E.U./dL (<1 E.U./dL)
[2018-05-06 19:13] LABS: URINE BACTERIA TRACE (NEG); URINE RBC 0 - 2 /hpf (0-2)
--- NOTE | 2018-05-06 22:09 | CARD ---
APPROVED REPORT Date of service: 05/06/2018 EKG Measurement Heart [id number] <Conclusion> Sinus rhythm with 1st degree AV block Possible Left atrial enlargement Nonspecific T wave abnormality Abnormal ECG
[2018-05-06] MEDS ORDERED: cefTRIAXone 1 gm 1 GM/100 ML BAG IVPB STA (22:20)
--- NOTE | 2018-05-06 22:22 | ED PDOC ---
Physical Exam - Physical Exam Narrative Physical Exam (Text): Signed out to me at change of shift pending CT Head and UA. UA shows infection. In light of patient's age, general weakness and fever, will benefit from inpatient hospitalization and IV antibiotics. Dr. Grover accepts patient to his service. CT HEAD IMPRESSION: 1. Chronic ischemic changes bilaterally. 2. 15 x 8 mm left anterior parafalcine extra-axial calcified lesion. Finding is consistent with a meningioma. No interval change compared to prior study. Vital Signs Temp Pulse Resp BP Pulse Ox 05/06/18 20:53 76 16 161/86 H 97 05/06/18 17:54 196/69 H 05/06/18 17:53 97.9 F 88 18 93 L Finger Stick Blood Glucose: 189 Medical Decision Making - Lab Interpretations Lab Results: 05/06/18 17:01 05/06/18 17:01 Lab Results 05/06/18 18:45: Urine Color Colorless, Urine Appearance Clear, Urine pH 6.5, Ur Specific [place] 1.010, Urine Protein 100 H, Urine Glucose (UA) 100 H, Urine Ketones Negative, Urine Blood Small H, Urine Nitrate Negative, Urine Bilirubin Negative, Urine Urobilinogen 0.2, Ur Leukocyte Esterase Moderate H, Urine RBC 0 - 2, Urine WBC 2 - 5, Ur Epithelial Cells 4 - 5, Urine Bacteria Trace 05/06/18 17:01: Sodium 137, Potassium 5.4 H, Chloride 99, Carbon Dioxide 26, Anion Gap 17, BUN 29 H, Creatinine 0.8, Est GFR ( Amer) > 60, Est GFR ( Non-Af Amer) > 60, Random Glucose 221 H, Calcium 9.7, Magnesium 1.6 L, Total Bilirubin 0.5, AST 23, ALT 23, Alkaline Phosphatase 127 H D, Lactate Dehydrogenase 640, Total Creatine Kinase 32 L, Troponin I < 0.01, Total Protein 8.2, Albumin 4.1, Globulin 4.1, Albumin/Globulin Ratio 1.0 L 05/06/18 17:01: WBC 7.2 D, RBC 4.53, Hgb 11.3 L, Hct 34.7 L, MCV 76.6 L D, MCH 24.9 L, MCHC 32.6, RDW 13.9, Plt Count 217, MPV 10.7, Gran % 75.4 H, Lymph % ( Auto) 17.3 L, [place] % (Auto) 5.0, Eos % (Auto) 1.9, Baso % (Auto) 0.4, Gran # 5.43, Lymph # (Auto) 1.3, [place] # (Auto) 0.4, Eos # (Auto) 0.1, Baso # (Auto) 0.03 - RAD Interpretation Radiology Orders: 05/06/18 16:10 CHEST PORTABLE [RAD] Stat 05/06/18 18:05 HEAD W/O CONTRAST [CT] Stat - Medication Orders Current Medication Orders: Ceftriaxone Sodium (Rocephin 1 Gram Ivpb) 1 gm in 100 mls @ 100 mls/hr IVPB STAT STA PRN Reason: Protocol Stop: 05/06/18 23:19 Discontinued Medications Hydrochlorothiazide (Microzide) 12.5 mg PO STAT STA Stop: 05/06/18 18:18 Last Admin: 05/06/18 19:53 Dose: 12.5 mg Disposition/Present on Arrival - Present on Arrival Any Indicators Present on Arrival: No History of DVT/PE: No History of Uncontrolled Diabetes: No Urinary Catheter: No History of Decub. Ulcer: No History Surgical Site Infection Following: None - Disposition Have Diagnosis and Disposition been Completed?: Yes Diagnosis: UTI (urinary tract infection), General weakness Disposition: HOSPITALIZED Disposition Time: 22:22 Patient Plan: Admission Condition: FAIR Discharge Instructions (ExitCare): Weakness (ED) Forms: Sr[employer]Pago ([place]i)
[2018-05-07] MEDS ORDERED: Sod Polystyrene Sulf 15 gm/60 ml Susp PO STA (01:17)
[2018-05-07 03:25] VITALS: BMI 26.2
[2018-05-07] MEDS ORDERED: Labetalol 5 mg/ml Inj 20ML IV STA (05:47)
[2018-05-07 07:05] LABS: BASO # 0.05 K/mm3 (0.0-2.0); BASO % 0.9 % (0.0-3.0); EOS # 0.1 (0.0-0.7); EOS % 2.4 % (1.5-5.0); GRAN # 3.42 (1.4-6.5); GRAN % 63.7 % (50.0-68.0); HEMOGLOBIN 10.4 g/dL (12.0-16.0); LYMPH # 1.5 (1.2-3.4); MEAN CELL VOLUME 77.4 fl (80.0-105.0); MEAN CORPUSCULAR HEMOGLOBIN 24.7 pg (25.0-35.0); MEAN CORPUSCULAR HGB CONC 31.9 g/dl (31.0-37.0); MONO # 0.3 (0.1-0.6); RBC 4.21 10^6/uL (3.5-6.1); RED CELL DISTRIBUTION WIDTH 13.9 % (11.5-14.5); WHITE BLOOD COUNT 5.4 10^3/ul (4.5-11.0)
[2018-05-07 07:09] LABS: ALBUMIN 3.6 g/dL (3.0-4.8); ALT/SGPT 13 U/L (7-56); AST/SGOT 19 U/L (14-36); BLOOD UREA NITROGEN 27 mg/dL (7-21); CALCIUM 9.4 mg/dL (8.4-10.5); GFR AFRICAN-AMERICAN > 60; GFR NON-AFRICAN AMERICAN > 60
--- NOTE | 2018-05-07 07:22 | CT ---
Date of service: 05/06/2018 PROCEDURE: CT HEAD WITHOUT CONTRAST. HISTORY: r/o ICH COMPARISON: None available. TECHNIQUE: Axial computed tomography images were obtained through the head/brain without intravenous contrast. Radiation dose: Total exam DLP = mGy-cm. This CT exam was performed using one or more of the following dose reduction techniques: Automated exposure control, adjustment of the mA and/or kV according to patient size, and/or use of iterative reconstruction technique. FINDINGS: HEMORRHAGE: No intracranial hemorrhage. BRAIN: No mass effect or edema. No atrophy or chronic microvascular ischemic changes. VENTRICLES: Unremarkable. No hydrocephalus. CALVARIUM: Unremarkable. PARANASAL SINUSES: Unremarkable as visualized. No significant inflammatory changes. MASTOID AIR CELLS: Unremarkable as visualized. No inflammatory changes. OTHER FINDINGS: None. IMPRESSION: Normal CT of the Head.
[2018-05-07] MEDS: cefTRIAXone 1 gm 1 GM/100 ML BAG IVPB SCH (10:07)
[2018-05-07] MEDS ORDERED: Insulin Reg-LOW-Coverage SC SCH (11:30)
[2018-05-07] MEDS: Insulin Reg-LOW-Coverage SC SCH ×3 (11:40→21:45)
[2018-05-08] MEDS ORDERED: Labetalol 5 mg/ml Inj 20ML IV ONE (05:01)
[2018-05-08 07:13] LABS: BASO # 0.02 K/mm3 (0.0-2.0); BASO % 0.3 % (0.0-3.0); EOS % 0.6 % (1.5-5.0); GRAN # 5.49 (1.4-6.5); GRAN % 81.5 % (50.0-68.0); LYMPH % 15.1 % (22.0-35.0); MEAN CORPUSCULAR HEMOGLOBIN 24.5 pg (25.0-35.0); MEAN CORPUSCULAR HGB CONC 31.8 g/dl (31.0-37.0); MEAN PLATELET VOLUME 10.2 fl (7.0-11.0); MONO # 0.2 (0.1-0.6); MONO % 2.5 % (1.0-6.0); RBC 4.08 10^6/uL (3.5-6.1); RED CELL DISTRIBUTION WIDTH 14.1 % (11.5-14.5); WHITE BLOOD COUNT 6.7 10^3/ul (4.5-11.0)
[2018-05-08 07:48] LABS: ALB/GLOB RATIO 1.1 (1.1-1.8); ALBUMIN 3.7 g/dL (3.0-4.8); CALCIUM 9.2 mg/dL (8.4-10.5)
[2018-05-08] MEDS: Insulin Reg-LOW-Coverage SC SCH ×4 (08:45→21:21)
[2018-05-08] MEDS: cefTRIAXone 1 gm 1 GM/100 ML BAG IVPB SCH (09:51)
--- NOTE | 2018-05-09 03:09 | HP ---
HISTORY OF PRESENT ILLNESS: The patient is an 83-year-old female, admitted through the Emergency Department with generalized weakness, fever, and possible urinary tract infection. Blood pressure was also markedly elevated. Patient was admitted to the medical-surgical floor for further evaluation and management. PAST MEDICAL HISTORY: Patient's past medical history includes type 2 diabetes mellitus, aortic stenosis, hypertension, hypertensive cardiovascular disease, and congestive heart failure. PAST SURGICAL HISTORY: Includes peripheral vascular disease, status post bilateral below-knee amputations. CURRENT MEDICATIONS: Include amlodipine 10 mg daily, NovoLog as well as Xanax 0.25 mg p.r.n. ALLERGIOES: PATIENT HAS NO KNOWN ALLERGIES. FAMILY HISTORY: Noncontributory. SOCIAL HISTORY: Patient lives with her family. She is dependent with IADLs and ADLs. There is no history of tobacco or alcohol use. REVIEW OF SYSTEMS: The patient denies any chest pain or shortness of breath. There is no swelling of her stumps. No nausea, no vomiting, no diarrhea. Mild suprapubic discomfort, but no abdominal pain, no hematuria. No melena, no bright red blood per rectum. No rash or jaundice. PHYSICAL EXAMINATION: GENERAL: The patient is a well-developed male, in no acute distress. VITAL SIGNS: Blood pressure 207/92, temperature 98, pulse 89, respiratory rate 20. HEENT: Head: Normocephalic, atraumatic. Pupils equal, round, reactive to light. Extraocular movements intact. NECK: Supple. No thyromegaly. No carotid bruit. LUNGS: Clear. HEART: Regular rate and rhythm. Grade 2 to 3/6 systolic murmur. ABDOMEN: Soft, nontender. Bowel sounds are normoactive. EXTREMITIES: This patient is status post bilateral [id number] amputations. Stumps are well-healed with no swelling. NEUROLOGIC: The patient is awake and oriented x3 without focal sensory or motor deficits. SKIN: Warm and dry. LABORATORY DATA: WBC 6.7, hemoglobin 10, hematocrit 31.4. Sodium 136, potassium 5.4, chloride 99, CO2 of 25, BUN 34, creatinine 1.3, glucose 257. Urine shows small blood, moderate leukocyte esterase. IMPRESSION: 1. Urinary tract infection. 2. Uncontrolled hypertension. 3. Type 2 diabetes mellitus. 4. History of congestive heart failure. 5. Peripheral vascular disease status post bilateral below-knee amputation. 6. History of aortic stenosis status post valve replacement surgery. PLAN: Patient has been admitted to the medical-surgical floor, empirically started on Rocephin 1 g IV every 24 hours. Will continue amlodipine 10 mg daily. We will discontinue ARB due to hyperkalemia and start carvedilol 6.25 mg daily. Will also obtain renal consultation by Dr. Rasmussen for mild azotemia as well as hypertension. Physical therapy and social work for discharge planning. ALMA DELIA Lowe MD
[2018-05-09 06:25] LABS: BASO # 0.02 K/mm3 (0.0-2.0); BASO % 0.3 % (0.0-3.0); EOS # 0.2 (0.0-0.7); EOS % 3.7 % (1.5-5.0); GRAN # 3.28 (1.4-6.5); GRAN % 53.2 % (50.0-68.0); LYMPH # 2.3 (1.2-3.4); LYMPH % 36.6 % (22.0-35.0); MEAN CORPUSCULAR HEMOGLOBIN 24.2 pg (25.0-35.0); MEAN PLATELET VOLUME 10.8 fl (7.0-11.0); MONO # 0.4 (0.1-0.6); MONO % 6.2 % (1.0-6.0); RBC 3.72 10^6/uL (3.5-6.1); RED CELL DISTRIBUTION WIDTH 14.3 % (11.5-14.5); WHITE BLOOD COUNT 6.2 10^3/ul (4.5-11.0)
[2018-05-09 06:48] LABS: ALBUMIN 3.4 g/dL (3.0-4.8); CALCIUM 8.9 mg/dL (8.4-10.5)
[2018-05-09] MEDS: Insulin Reg-LOW-Coverage SC SCH ×4 (08:00→22:10)
[2018-05-09] MEDS: cefTRIAXone 1 gm 1 GM/100 ML BAG IVPB SCH (09:17)
--- NOTE | 2018-05-09 10:55 | CP.PCM.PN ---
Subjective - Date & Time of Evaluation Date of Evaluation: 05/09/18 Time of Evaluation: 10:40 - Subjective Subjective: feels better, NAD, demies chest pain, no SOB Objective - Vital Signs/Intake and Output Vital Signs (last 24 hours): Temp Pulse Resp BP Pulse Ox 98 F 55 L 20 130/52 L 94 L 05/09/18 06:00 05/09/18 06:00 05/09/18 06:00 05/09/18 09:16 05/09/18 06:00 Intake and Output: 05/09/18 05/09/18 06:59 18:59 Intake Total 640 Balance 640 - Medications Medications: Current Medications Alprazolam (Xanax) 0.5 mg PO TID PRN; Protocol PRN Reason: Anxiety Last Admin: 05/09/18 09:15 Dose: 0.5 mg Amlodipine Besylate (Norvasc) 10 mg PO DAILY [facility] Last Admin: 05/09/18 09:16 Dose: 10 mg Carvedilol (Coreg) 6.25 mg PO BID [facility] Last Admin: 05/09/18 09:15 Dose: 6.25 mg Ceftriaxone Sodium (Rocephin 1 Gram Ivpb) 1 gm in 100 mls @ 100 mls/hr IVPB DAILY [facility] PRN Reason: Protocol Last Admin: 05/09/18 09:17 Dose: 100 mls/hr Insulin Human Regular (Humulin R Low) 0 units SC ACHS [facility] PRN Reason: Protocol Last Admin: 05/09/18 08:00 Dose: Not Given - Labs Labs: 05/09/18 05:30 05/09/18 05:30 - Respiratory Exam Respiratory Exam: Clear to Ausculation Bilateral, NORMAL BREATHING PATTERN - Cardiovascular Exam Cardiovascular Exam: REGULAR RHYTHM - GI/Abdominal Exam GI & Abdominal Exam: Soft, Normal Bowel Sounds - Neurological Exam Neurological Exam: Alert, Awake Assessment and Plan (1) UTI (urinary tract infection) Status: Acute (2) HTN (hypertension) Status: Acute (3) Type II diabetes mellitus Status: Acute (4) Hyperkalemia Status: Acute (5) Azotemia Status: Acute - Assessment and Plan (Free Text) Plan: monitor BUN/Cr and lytes, continue Abx, renal consult
--- NOTE | 2018-05-09 17:06 | US ---
Date of service: 05/09/2018 PROCEDURE: Ultrasound of the Kidneys HISTORY: azotemia COMPARISON: None available. TECHNIQUE: Sonogram of the kidneys. FINDINGS: RIGHT KIDNEY: Measures: 10.3 x 4.2 x 4.5 cm. Normal in size contour and echogenicity. No stone, solid mass lesion or hydronephrosis visualized. LEFT KIDNEY: Measures: 11.2 x 4.8 x 5.2 cm. Normal in size contour and echogenicity. No stone, solid mass lesion or hydronephrosis visualized. OTHER FINDINGS: None. IMPRESSION: Unremarkable renal sonogram.
[2018-05-09] MEDS: Sodium Chloride 0.45% 1,000 ML IV SCH (22:34)
--- NOTE | 2018-05-10 00:34 | CON ---
DATE: 05/09/2018 REASON FOR CONSULTATION: Hyperkalemia, acute kidney injury. HISTORY OF PRESENTING ILLNESS: An 83-year-old lady previously unknown to me, was admitted on 05/06/2018 with complaints of not feeling right. She reports that she woke up and did not feel right and so asked her son to bring her to the emergency room. She denies any nausea, vomiting, or diarrhea. She denies any chest pain. She denies any shortness of breath. In the emergency room, she was found to be hypertensive. Her blood pressure initially was 196/69. She was afebrile. Initial blood work showed a WBC count of 7.2, hemoglobin of 11.3. Her initial labs showed a potassium of 5.4 with a BUN of 29 and a creatinine of 0.8. Patient was found to have pyuria. Urinalysis showed some small blood and moderate leukocyte esterase. Her urine culture showed Klebsiella pneumonia. Patient was treated with labetalol 10 mg IV push in the emergency room, she also got 1 g of Rocephin on 05/06/2018. She got 15 g of Kayexalate on 05/07/2018. Yesterday, her creatinine nicolas to 1.3, her potassium remained high at 5.3. Hence consultation was requested. But today her creatinine is actually 2. PAST MEDICAL AND SURGICAL HISTORY: Aortic valve replacement, CAD, CABG, NIDDM, hypertension, peripheral vascular disease, bilateral AKA. FAMILY HISTORY: Noncontributory. SOCIAL HISTORY: Ex-smoker, no alcohol use, no IV drug abuse, lives with son. ALLERGIES: NO KNOWN DRUG ALLERGIES. MEDICATIONS: At home included amlodipine, insulin, aspirin. REVIEW OF SYSTEMS: All systems are reviewed, pertinent positives as mentioned in history of presenting illness, rest unremarkable. PHYSICAL EXAMINATION: GENERAL: Morbidly obese elderly lady sitting in bed. VITAL SIGNS: Blood pressure 130/52, heart rate 55, respiratory rate 20, temperature 98. HEENT: Normocephalic, atraumatic, positive pallor. NECK: Supple, no JVD. LUNGS: Bilateral equal air entry, bilateral equal expansion. CARDIAC: S1, S2. Regular rate and rhythm. No murmur, no rub. ABDOMEN: Obese, distended, soft, nontender, bowel sounds present. EXTREMITIES: Bilateral AKA. INTAKE AND OUTPUT: Not charted. LABORATORY DATA: Sodium 134, potassium 5.3, chloride 98, CO2 of 26, BUN 44, creatinine 2, glucose 160, calcium 8.9. AST 23, ALT 17, albumin 3.4. WBC 6.2, hemoglobin 9, hematocrit 29, platelets 208. Urinalysis: Color is clear, pH 6, specific 1.010, protein 100, glucose 100, blood small, leukocyte esterase moderate. Urine culture: Klebsiella. Sensitive to Bactrim, cefazolin, ciprofloxacin, cefepime. CURRENT MEDICATIONS: Coreg 6.25 b.i.d., insulin, amlodipine, Rocephin 1 g, Xanax. ASSESSMENT: 1. Acute kidney injury, creatinine was 0.8 at the time of admission. Patient found to have Klebsiella urinary tract infection. Patient is on Rocephin. In this setting, the need to consider acute interstitial nephritis as the cause of her acute kidney injury. Prerenal azotemia also is in the differential diagnosis. 2. Hyperkalemia. Patient was hyperkalemic at presentation. Unclear etiology of hyperkalemia, (?) constipation. As per the list, patient was not on an angiotensin-converting enzyme inhibitor or angiotensin receptor penelope at home. 3. Severe uncontrolled hypertension. 4. History of noninsulin-dependent diabetes mellitus. 5. Coronary artery disease, history of coronary artery bypass graft. 6. Klebsiella urinary tract infection. PLAN: 1. Repeat urinalysis. 2. Check urine eosinophils. 3. Discontinue cefepime. 4. Use Levaquin or ciprofloxacin for the urinary tract infection. 5. IV fluids half-normal saline at 60 mL/hour. 6. Monitor daily labs. Thank you for the courtesy of this consultation. We will follow this patient closely with you. Ysabel Mehta MD
[2018-05-10 06:54] LABS: BASO # 0.02 K/mm3 (0.0-2.0); BASO % 0.2 % (0.0-3.0); EOS # 0.3 (0.0-0.7); EOS % 3.2 % (1.5-5.0); GRAN # 6.47 (1.4-6.5); GRAN % 70.1 % (50.0-68.0); HEMOGLOBIN 8.6 g/dL (12.0-16.0); LYMPH # 2.1 (1.2-3.4); LYMPH % 22.4 % (22.0-35.0); MEAN CELL VOLUME 76.6 fl (80.0-105.0); MEAN CORPUSCULAR HEMOGLOBIN 24.6 pg (25.0-35.0); MEAN CORPUSCULAR HGB CONC 32.1 g/dl (31.0-37.0); MEAN PLATELET VOLUME 10.4 fl (7.0-11.0); MONO # 0.4 (0.1-0.6); MONO % 4.1 % (1.0-6.0); RBC 3.5 10^6/uL (3.5-6.1); WHITE BLOOD COUNT 9.2 10^3/ul (4.5-11.0)
[2018-05-10 07:42] LABS: ALBUMIN 3.3 g/dL (3.0-4.8); CALCIUM 8.4 mg/dL (8.4-10.5)
[2018-05-10] MEDS: Insulin Reg-LOW-Coverage SC SCH ×4 (08:00→22:20)
[2018-05-10] MEDS: cefTRIAXone 1 gm 1 GM/100 ML BAG IVPB SCH (10:22)
[2018-05-10] MEDS: Sodium Chloride 0.45% 1,000 ML IV SCH (10:25)
[2018-05-10] MEDS ORDERED: Albuterol 0.083% Inhal Sol (2.5 mg/3 mL) UD IH STA (10:40)
[2018-05-10] MEDS ORDERED: Sod Polystyrene Sulf 15 gm/60 ml Susp PO ONE ×2 (11:13→11:58)
[2018-05-10 11:16] LABS: IRON 44 ug/dL (45-180)
[2018-05-10 11:26] LABS: % IRON SATURATION 17 % (20-55); TOTAL IRON BINDING CAPACITY 263 ug/dL (265-497)
--- NOTE | 2018-05-10 18:03 | PN ---
DATE: 05/10/2018 SUBJECTIVE: The patient is seen lying in bed. Son is at bedside. She denies any pain. She denies any shortness of breath. She has not had a bowel movement today. PHYSICAL EXAMINATION: GENERAL: Obese elderly lady sitting in bed. VITAL SIGNS: Blood pressure 156/72, heart rate 68, respiratory rate 20, temperature 98.5. HEENT: Normocephalic, atraumatic, positive pallor. NECK: Supple, no JVD. LUNGS: Bilateral equal air entry, bilateral equal expansion, no rales. CARDIAC: S1 and S2, regular rate and rhythm, no murmur, no rub. ABDOMEN: Obese, distended, soft, nontender, bowel sounds are present. EXTREMITIES: Bilateral AKA. INTAKE AND OUTPUT: 640/not charted. LABORATORY DATA: WBC 9.2, hemoglobin 8.6, hematocrit 27, platelets 203. Sodium 131, potassium 5.7, chloride 97, CO2 of 24, BUN 55, creatinine 1.9, glucose 168, calcium 8.4. Iron saturation 17, iron 44. Albumin 3.3. CURRENT MEDICATIONS: Coreg 6.25 b.i.d., insulin, amlodipine 10, half normal saline at 60, Xanax 0.5 t.i.d., Zofran, Kayexalate 30 g, Rocephin 1 g, and DuoNeb. ASSESSMENT: 1. Acute kidney injury, etiology unclear, acute interstitial nephritis secondary to cephalosporin?, prerenal azotemia. 2. Hyperkalemia, secondary to acute kidney injury?, hemoglobin trending down,? gastrointestinal blood loss. 3. Hypertension. 4. Coronary artery disease, coronary artery bypass graft. 5. Imo-gzghoxo-bfqjvrnzq diabetes mellitus. 6. Peripheral vascular disease, bilateral above-knee amputation. 7. Klebsiella urinary tract infection. PLAN: 1. Discontinue Rocephin. 2. Continue gentle hydration. 3. Check stool occults. 4. Check urine eosinophils, ordered yesterday also. 5. Venofer 200 mg IV piggyback today. 6. Levaquin 250 mg daily. Ysabel Mehta MD [facility] # [id number]
[2018-05-10 18:22] LABS: HEMOGLOBIN 8.8 g/dL (12.0-16.0); MEAN CELL VOLUME 76.3 fl (80.0-105.0); MEAN CORPUSCULAR HEMOGLOBIN 24.9 pg (25.0-35.0); MEAN CORPUSCULAR HGB CONC 32.6 g/dl (31.0-37.0); MEAN PLATELET VOLUME 10.7 fl (7.0-11.0); RBC 3.54 10^6/uL (3.5-6.1); RED CELL DISTRIBUTION WIDTH 13.7 % (11.5-14.5); WHITE BLOOD COUNT 6.4 10^3/ul (4.5-11.0)
[2018-05-10 19:02] LABS: ALBUMIN 3.5 g/dL (3.0-4.8); CALCIUM 8.4 mg/dL (8.4-10.5)
--- NOTE | 2018-05-10 20:52 | CP.PCM.PN ---
Subjective - Date & Time of Evaluation Date of Evaluation: 05/10/18 Time of Evaluation: 20:00 - Subjective Subjective: no chest pain, no SOB, no melena, no BRBPR Objective - Vital Signs/Intake and Output Vital Signs (last 24 hours): Temp Pulse Resp BP Pulse Ox 98 F 68 20 141/60 98 05/10/18 14:00 05/10/18 17:29 05/10/18 14:00 05/10/18 17:29 05/10/18 14:00 Intake and Output: 05/10/18 05/11/18 18:59 06:59 Intake Total 760 Balance 760 - Medications Medications: Current Medications Alprazolam (Xanax) 0.5 mg PO TID PRN; Protocol PRN Reason: Anxiety Last Admin: 05/09/18 09:15 Dose: 0.5 mg Amlodipine Besylate (Norvasc) 10 mg PO DAILY [facility] Last Admin: 05/10/18 10:24 Dose: 10 mg Carvedilol (Coreg) 6.25 mg PO BID [facility] Last Admin: 05/10/18 17:29 Dose: 6.25 mg Sodium Chloride (Sodium Chloride 0.45%) 1,000 mls @ 60 mls/hr IV .[id number] [facility] Last Admin: 05/10/18 10:25 Dose: 60 mls/hr Insulin Human Regular (Humulin R Low) 0 units SC ACHS [facility] PRN Reason: Protocol Last Admin: 05/10/18 17:26 Dose: Not Given Levofloxacin (Levaquin) 250 mg PO DAILY [facility] PRN Reason: Protocol Ondansetron HCl (Zofran Inj) 4 mg IVP Q6H PRN PRN Reason: Nausea/Vomiting Last Admin: 05/10/18 07:03 Dose: 4 mg Pantoprazole Sodium (Protonix Ec Tab) 40 mg PO 0600 [facility] - Labs Labs: 05/10/18 18:17 05/10/18 18:17 - Respiratory Exam Respiratory Exam: Clear to Ausculation Bilateral, NORMAL BREATHING PATTERN - Cardiovascular Exam Cardiovascular Exam: REGULAR RHYTHM - GI/Abdominal Exam GI & Abdominal Exam: Normal Bowel Sounds - Neurological Exam Neurological Exam: Alert, Awake - Skin Skin Exam: Dry, Warm Assessment and Plan (1) UTI (urinary tract infection) Status: Acute (2) HTN (hypertension) Status: Acute (3) Type II diabetes mellitus Status: Acute (4) Hyperkalemia Status: Acute (5) Azotemia Status: Acute (6) Anemia Status: Acute - Assessment and Plan (Free Text) Plan: monitor lytes, Hb/Hct, stool OB, GI consult, continue renal follow-up, Kayexalate given
[2018-05-11] MEDS: Sodium Chloride 0.45% 1,000 ML IV SCH (04:37)
[2018-05-11] MEDS: Pantoprazole 40 mg EC Tab PO SCH (05:22)
[2018-05-11 07:39] LABS: BASO # 0.06 K/mm3 (0.0-2.0); EOS # 0.2 (0.0-0.7); EOS % 3.4 % (1.5-5.0); GRAN # 3.94 (1.4-6.5); GRAN % 64.3 % (50.0-68.0); HEMOGLOBIN 8.8 g/dL (12.0-16.0); LYMPH # 1.5 (1.2-3.4); LYMPH % 24.3 % (22.0-35.0); MEAN CELL VOLUME 76.6 fl (80.0-105.0); MEAN CORPUSCULAR HEMOGLOBIN 24.2 pg (25.0-35.0); MEAN CORPUSCULAR HGB CONC 31.5 g/dl (31.0-37.0); MEAN PLATELET VOLUME 11.1 fl (7.0-11.0); MONO # 0.4 (0.1-0.6); RBC 3.64 10^6/uL (3.5-6.1); RED CELL DISTRIBUTION WIDTH 13.8 % (11.5-14.5); WHITE BLOOD COUNT 6.1 10^3/ul (4.5-11.0)
[2018-05-11] MEDS: Insulin Reg-LOW-Coverage SC SCH ×3 (08:00→18:03)
[2018-05-11 08:02] LABS: ALBUMIN 3.2 g/dL (3.0-4.8); CALCIUM 8.4 mg/dL (8.4-10.5)
--- NOTE | 2018-05-11 11:34 | CP.PCM.PN ---
Subjective - Date & Time of Evaluation Date of Evaluation: 05/11/18 Time of Evaluation: 11:20 - Subjective Subjective: NAD, no chest pain, no SOB, no melena, no BRBPR Objective - Vital Signs/Intake and Output Vital Signs (last 24 hours): Temp Pulse Resp BP Pulse Ox 98.1 F 62 20 151/60 H 95 05/11/18 08:19 05/11/18 10:28 05/11/18 08:19 05/11/18 10:28 05/11/18 08:19 Intake and Output: 05/11/18 05/11/18 06:59 18:59 Intake Total 480 Output Total 0 Balance 480 - Medications Medications: Current Medications Alprazolam (Xanax) 0.5 mg PO TID PRN; Protocol PRN Reason: Anxiety Last Admin: 05/09/18 09:15 Dose: 0.5 mg Amlodipine Besylate (Norvasc) 10 mg PO DAILY [facility] Last Admin: 05/11/18 10:28 Dose: 10 mg Carvedilol (Coreg) 6.25 mg PO BID [facility] Last Admin: 05/11/18 10:28 Dose: 6.25 mg Sodium Chloride (Sodium Chloride 0.45%) 1,000 mls @ 60 mls/hr IV .[id number] [facility] Last Admin: 05/11/18 04:37 Dose: 60 mls/hr Insulin Human Regular (Humulin R Low) 0 units SC ACHS [facility] PRN Reason: Protocol Last Admin: 05/11/18 08:00 Dose: Not Given Levofloxacin (Levaquin) 250 mg PO DAILY [facility] PRN Reason: Protocol Last Admin: 05/11/18 10:28 Dose: 250 mg Ondansetron HCl (Zofran Inj) 4 mg IVP Q6H PRN PRN Reason: Nausea/Vomiting Last Admin: 05/11/18 04:28 Dose: 4 mg Pantoprazole Sodium (Protonix Ec Tab) 40 mg PO 0600 [facility] Last Admin: 05/11/18 05:22 Dose: 40 mg - Labs Labs: 05/11/18 07:00 05/11/18 07:00 - Respiratory Exam Respiratory Exam: Clear to Ausculation Bilateral, NORMAL BREATHING PATTERN - Cardiovascular Exam Cardiovascular Exam: REGULAR RHYTHM - GI/Abdominal Exam GI & Abdominal Exam: Soft, Normal Bowel Sounds - Neurological Exam Neurological Exam: Alert, Awake - Skin Skin Exam: Dry, Warm Assessment and Plan (1) UTI (urinary tract infection) Status: Resolved (2) HTN (hypertension) Status: Resolved (3) Type II diabetes mellitus Status: Chronic (4) Hyperkalemia Status: Resolved (5) Azotemia Status: Resolved (6) Anemia Status: Acute - Assessment and Plan (Free Text) Plan: monitor lytes, Hb/Hct, renal and GI follow-up
[2018-05-11 12:25] LABS: FERRITIN 70.5 ng/mL
--- NOTE | 2018-05-11 13:05 | CP.PCM.CON ---
<Ansley Morse - Last Filed: 05/11/18 13:05> History of Present Illness - History of Present Illness History of Present Illness: Gastroenterology Fellow/PGY6 Consult Note for Dr. Galvan 83 year old female with PMH of Iron deficiency anemia, T2DM, HTN, PVD s/p B/L AKA, s/p aortic valve replacement presenting with weakness. Patient notes loss of energy for one week. Associated dysuria, polyuria, and dizziness. Active treatment of K. pneumonia UTI. GI consultation for anemia. Denies chest pain, shortness of breath, nausea, vomiting, hematemesis, abdominal pain, diarrhea, melena, hematochezia, or unintentional weight loss. Admits to bowel movement every 2-3 days with straining. No prior EGD or colonoscopy. Family History- son- colon cancer at 52 years of age- ; denies stomach cancer Social History- quit tobacco use and social alcohol use 30 years ago, denies illicit drug use Surgical History- B/L AKA, aortic valve replacement Review of Systems - Review of Systems Review of Systems: 12-point review of systems negative except for as above Past Patient History - Infectious Disease Hx of Infectious Diseases: None - Tetanus Immunizations Tetanus Immunization: Unknown - Past Social History Smoking Status: Former Smoker - CARDIAC Hx Cardiac Disorders: Yes Hx Congestive Heart Failure: Yes Hx Hypertension: Yes - PULMONARY Hx Respiratory Disorders: No Other/Comment: FORMER SMOKER - NEUROLOGICAL Hx Neurological Disorder: No - HEENT Hx HEENT Problems: Yes Hx Deafness: Yes - RENAL Hx Chronic Kidney Disease: No - ENDOCRINE/METABOLIC Hx Diabetes Mellitus Type 2: Yes - HEMATOLOGICAL/ONCOLOGICAL Hx Blood Disorders: Yes Other/Comment: BLOOD TRANSFUSION - INTEGUMENTARY Hx Dermatological Problems: No - MUSCULOSKELETAL/RHEUMATOLOGICAL Hx Falls: No - GASTROINTESTINAL Hx Gastrointestinal Disorders: No - GENITOURINARY/GYNECOLOGICAL Hx Genitourinary Disorders: Yes Hx Incontinence: Yes - PSYCHIATRIC Hx Substance Use: No - SURGICAL HISTORY Hx Amputation: Yes (B/L AKA) Hx Valve Replacement: Yes Other/Comment: CABG - ANESTHESIA Hx Anesthesia: Yes Hx Anesthesia Reactions: No Hx Malignant Hyperthermia: No Meds Allergies/Adverse Reactions: Allergies Allergy/AdvReac Type Severity Reaction Status Date / Time No Known Allergies Allergy Verified 05/06/18 22:30 - Medications Medications: Current Medications Alprazolam (Xanax) 0.5 mg PO TID PRN; Protocol PRN Reason: Anxiety Last Admin: 05/09/18 09:15 Dose: 0.5 mg Amlodipine Besylate (Norvasc) 10 mg PO DAILY [facility] Last Admin: 05/11/18 10:28 Dose: 10 mg Carvedilol (Coreg) 6.25 mg PO BID [facility] Last Admin: 05/11/18 10:28 Dose: 6.25 mg Sodium Chloride (Sodium Chloride 0.45%) 1,000 mls @ 60 mls/hr IV .[id number] [facility] Last Admin: 05/11/18 04:37 Dose: 60 mls/hr Insulin Human Regular (Humulin R Low) 0 units SC ACHS [facility] PRN Reason: Protocol Last Admin: 05/11/18 12:25 Dose: 1 units Levofloxacin (Levaquin) 250 mg PO DAILY [facility] PRN Reason: Protocol Last Admin: 05/11/18 10:28 Dose: 250 mg Ondansetron HCl (Zofran Inj) 4 mg IVP Q6H PRN PRN Reason: Nausea/Vomiting Last Admin: 05/11/18 04:28 Dose: 4 mg Pantoprazole Sodium (Protonix Ec Tab) 40 mg PO 0600 [facility] Last Admin: 05/11/18 05:22 Dose: 40 mg Physical Exam - Constitutional Appears: Non-toxic, No Acute Distress - Head Exam Head Exam: ATRAUMATIC, NORMOCEPHALIC - Eye Exam Eye Exam: EOMI, PERRL. absent: Scleral icterus Pupil Exam: PERRL. absent: Miosis, Mydriatic - ENT Exam ENT Exam: Mucous Membranes Moist, Normal Oropharynx - Neck Exam Neck exam: Positive for: Full Rom, Normal Inspection - Respiratory Exam Respiratory Exam: Clear to Auscultation Bilateral. absent: Rales, Rhonchi, Wheezes - Cardiovascular Exam Cardiovascular Exam: RRR, +S1, +S2. absent: Gallop, Rubs - GI/Abdominal Exam GI & Abdominal Exam: Normal Bowel Sounds, Soft. absent: Distended, Firm, Organomegaly, Rigid, Tenderness - Rectal Exam Rectal Exam: absent: Black Stool, Bloody Stool, Fecal Impaction Additional comments: brown stool in rectal vault - Extremities Exam Additional comments: B/L AKA - Neurological Exam Neurological exam: Alert, Oriented x3 - Psychiatric Exam Psychiatric exam: Normal Affect, Normal Mood - Skin Skin Exam: Dry, Intact, Normal Color, Warm Results - Vital Signs Recent Vital Signs: Last Vital Signs Temp 98.1 F 05/11/18 08:19 Pulse 62 05/11/18 10:28 Resp 20 05/11/18 08:19 BP 151/60 H 05/11/18 10:28 Pulse Ox 95 05/11/18 08:19 - Labs Result Diagrams: 05/11/18 07:00 05/11/18 07:00 Labs: Laboratory Results - last 24 hr 05/10/18 05/10/18 05/10/18 10:50 16:11 18:17 WBC 6.4 D RBC 3.54 Hgb 8.8 L Hct 27.0 L MCV 76.3 L MCH 24.9 L MCHC 32.6 RDW 13.7 Plt Count 197 MPV 10.7 Gran % Lymph % (Auto) Calhoun % (Auto) Eos % (Auto) Baso % (Auto) Gran # Lymph # (Auto) Calhoun # (Auto) Eos # (Auto) Baso # (Auto) Sodium Potassium Chloride Carbon Dioxide Anion Gap BUN Creatinine Est GFR ( Amer) Est GFR (Non-Af Amer) POC Glucose (mg/dL) 141 H Random Glucose Calcium Ferritin 35.2 Total Bilirubin AST ALT Alkaline Phosphatase Total Protein Albumin Globulin Albumin/Globulin Ratio 05/10/18 05/10/18 05/11/18 18:17 21:31 06:59 WBC RBC Hgb Hct MCV MCH MCHC RDW Plt Count MPV Gran % Lymph % (Auto) Calhoun % (Auto) Eos % (Auto) Baso % (Auto) Gran # Lymph # (Auto) [place]oun # (Auto) Eos # (Auto) Baso # (Auto) Sodium 130 L Potassium 4.7 Chloride 96 L Carbon Dioxide 24 Anion Gap 15 BUN 54 H Creatinine 1.6 H Est GFR ( Amer) 37 Est GFR (Non-Af Amer) 31 POC Glucose (mg/dL) 206 H 139 H Random Glucose 193 H Calcium 8.4 Ferritin Total Bilirubin 0.3 AST 22 ALT 18 Alkaline Phosphatase 88 Total Protein 6.9 Albumin 3.5 Globulin 3.4 Albumin/Globulin Ratio 1.0 L 05/11/18 05/11/18 05/11/18 07:00 07:00 10:49 WBC 6.1 RBC 3.64 Hgb 8.8 L Hct 27.9 L MCV 76.6 L MCH 24.2 L MCHC 31.5 RDW 13.8 Plt Count 193 MPV 11.1 H Gran % 64.3 Lymph % (Auto) 24.3 Calhoun % (Auto) 7.0 H Eos % (Auto) 3.4 Baso % (Auto) 1.0 Gran # 3.94 Lymph # (Auto) 1.5 Calhoun # (Auto) 0.4 Eos # (Auto) 0.2 Baso # (Auto) 0.06 Sodium 132 Potassium 4.3 Chloride 98 Carbon Dioxide 26 Anion Gap 13 BUN 51 H Creatinine 1.4 H Est GFR ( Amer) 44 Est GFR (Non-Af Amer) 36 POC Glucose (mg/dL) 192 H Random Glucose 143 H Calcium 8.4 Ferritin 70.5 Total Bilirubin 0.2 AST 19 ALT 12 Alkaline Phosphatase 78 Total Protein 6.4 Albumin 3.2 Globulin 3.2 Albumin/Globulin Ratio 1.0 L Assessment & Plan - Assessment and Plan (Free Text) Assessment: 83 year old female with PMH of Iron deficiency anemia, T2DM, HTN, PVD s/p B/L AKA, s/p aortic valve replacement presenting with weakness. Active treatment of K. pneumonia UTI. GI consultation for anemia. No prior EGD or colonoscopy. Plan: -likely multifactorial- iron deficiency, hemodilutional, possible underlying GI pathology- PUD, vascular malformation, neoplasia; non-GI source of blood loss -no active overt GI blood loss- rectal -brown stool -H/H noted to slowly trend down since admission Hb 11.3 to 8.8 -continue to monitor H/H -iron 44 ferritin 35.2 -received IV iron infusion yesterday -no prior cross-section abdominal imaging -ordered CT A/P PO contrast only given renal insufficiency -patient counselled on recommendation for endoscopic evaluation with EGD and colonoscopy -patient prefers to hold off on performing endoscopic procedures at present discussion during inpatient stay -risks vs benefits of procedures discussed in length in setting of chronic iron deficiency anemia and family history of colon cancer -will continue to provide counselling and follow up on any change in patient decision to proceed with endoscopic evaluation <Erin Galvan V - Last Filed: 05/11/18 23:51> Meds - Medications Medications: Current Medications Alprazolam (Xanax) 0.5 mg PO TID PRN; Protocol PRN Reason: Anxiety Last Admin: 05/09/18 09:15 Dose: 0.5 mg Amlodipine Besylate (Norvasc) 10 mg PO DAILY [facility] Last Admin: 05/11/18 10:28 Dose: 10 mg Carvedilol (Coreg) 6.25 mg PO BID [facility] Last Admin: 05/11/18 18:09 Dose: 6.25 mg Sodium Chloride (Sodium Chloride 0.45%) 1,000 mls @ 60 mls/hr IV .[id number] [facility] Last Admin: 05/11/18 04:37 Dose: 60 mls/hr Insulin Human Regular (Humulin R Low) 0 units SC ACHS [facility] PRN Reason: Protocol Last Admin: 05/11/18 18:03 Dose: Not Given Levofloxacin (Levaquin) 250 mg PO DAILY [facility] PRN Reason: Protocol Last Admin: 05/11/18 10:28 Dose: 250 mg Ondansetron HCl (Zofran Inj) 4 mg IVP Q6H PRN PRN Reason: Nausea/Vomiting Last Admin: 05/11/18 04:28 Dose: 4 mg Pantoprazole Sodium (Protonix Ec Tab) 40 mg PO 0600 [facility] Last Admin: 05/11/18 05:22 Dose: 40 mg Polyethylene Glycol (Miralax) 17 gm PO DAILY [facility] Results - Vital Signs Recent Vital Signs: Last Vital Signs Temp 98.1 F 05/11/18 21:58 Pulse 59 L 05/11/18 21:58 Resp 18 05/11/18 21:58 BP 150/45 L 05/11/18 21:58 Pulse Ox 98 05/11/18 21:58 - Labs Result Diagrams: 05/11/18 07:00 05/11/18 07:00 Labs: Laboratory Results - last 24 hr 05/11/18 05/11/18 05/11/18 06:59 07:00 07:00 WBC 6.1 RBC 3.64 Hgb 8.8 L Hct 27.9 L MCV 76.6 L MCH 24.2 L MCHC 31.5 RDW 13.8 Plt Count 193 MPV 11.1 H Gran % 64.3 Lymph % (Auto) 24.3 Calhoun % (Auto) 7.0 H Eos % (Auto) 3.4 Baso % (Auto) 1.0 Gran # 3.94 Lymph # (Auto) 1.5 Calhoun # (Auto) 0.4 Eos # (Auto) 0.2 Baso # (Auto) 0.06 Sodium 132 Potassium 4.3 Chloride 98 Carbon Dioxide 26 Anion Gap 13 BUN 51 H Creatinine 1.4 H Est GFR ( Amer) 44 Est GFR (Non-Af Amer) 36 POC Glucose (mg/dL) 139 H Random Glucose 143 H Calcium 8.4 Ferritin 70.5 Total Bilirubin 0.2 AST 19 ALT 12 Alkaline Phosphatase 78 Total Protein 6.4 Albumin 3.2 Globulin 3.2 Albumin/Globulin Ratio 1.0 L Urine Color Urine Appearance Urine pH Ur Specific Narrows Urine Protein Urine Glucose (UA) Urine Ketones Urine Blood Urine Nitrate Urine Bilirubin Urine Urobilinogen Ur Leukocyte Esterase Urine RBC Urine WBC Ur Epithelial Cells Urine Bacteria Urine Other 05/11/18 05/11/18 05/11/18 10:49 13:10 16:21 WBC RBC Hgb Hct MCV MCH MCHC RDW Plt Count MPV Gran % Lymph % (Auto) Calhoun % (Auto) Eos % (Auto) Baso % (Auto) Gran # Lymph # (Auto) Calhoun # (Auto) Eos # (Auto) Baso # (Auto) Sodium Potassium Chloride Carbon Dioxide Anion Gap BUN Creatinine Est GFR ( Amer) Est GFR (Non-Af Amer) POC Glucose (mg/dL) 192 H 136 H Random Glucose Calcium Ferritin Total Bilirubin AST ALT Alkaline Phosphatase Total Protein Albumin Globulin Albumin/Globulin Ratio Urine Color Light yellow Urine Appearance Turbid Urine pH 6.0 Ur Specific [place] 1.020 Urine Protein 100 H Urine Glucose (UA) Negative Urine Ketones Negative Urine Blood Moderate H Urine Nitrate Negative Urine Bilirubin Negative Urine Urobilinogen 0.2 Ur Leukocyte Esterase Large H Urine RBC 5 - 10 Urine WBC Tntc Ur Epithelial Cells 0 - 2 Urine Bacteria Mod Urine Other Uyeast 05/11/18 21:24 WBC RBC Hgb Hct MCV MCH MCHC RDW Plt Count MPV Gran % Lymph % (Auto) Calhoun % (Auto) Eos % (Auto) Baso % (Auto) Gran # Lymph # (Auto) Calhoun # (Auto) Eos # (Auto) Baso # (Auto) Sodium Potassium Chloride Carbon Dioxide Anion Gap BUN Creatinine Est GFR ( Amer) Est GFR (Non-Af Amer) POC Glucose (mg/dL) 188 H Random Glucose Calcium Ferritin Total Bilirubin AST ALT Alkaline Phosphatase Total Protein Albumin Globulin Albumin/Globulin Ratio Urine Color Urine Appearance Urine pH Ur Specific [place] Urine Protein Urine Glucose (UA) Urine Ketones Urine Blood Urine Nitrate Urine Bilirubin Urine Urobilinogen Ur Leukocyte Esterase Urine RBC Urine WBC Ur Epithelial Cells Urine Bacteria Urine Other Attending/Attestation - Attestation I have personally seen and examined this patient.: Yes I have fully participated in the care of the patient.: Yes I have reviewed all pertinent clinical information: Yes Notes (Text): This is an addendum to GI consult report dictated by the GI Fellow.The patient was seen and examined earlier. Medical records, lab studies, imagings were reviewed. Last 24 hours events reviewed. Agreed with the above treatment plan as outlined in GI Fellow 's notes the with the addition of the following on exam abdomen soft no tenderness dw patient at length refusing Endo Agreeable for CT will follow the scan followup hct 05/11/18 23:45
[2018-05-11 13:17] LABS: URINE BILIRUBIN NEGATIVE (NEGATIVE); URINE BLOOD MODERATE (NEGATIVE); URINE GLUCOSE (UA) NEGATIVE (NEGATIVE); URINE LEUKOCYTE ESTERASE LARGE Leu/uL (NEGATIVE); URINE PROTEIN 100 mg/dL (<30 mg/dL); URINE UROBILINOGEN 0.2 E.U./dL (<1 E.U./dL)
[2018-05-11 13:18] LABS: URINE APPEARANCE TURBID (CLEAR); URINE COLOR LIGHT YELLOW (YELLOW)
[2018-05-11 13:25] LABS: URINE BACTERIA MOD (NEG); URINE EPITHELIAL CELLS 0 - 2 /hpf (0-5); URINE WBC TNTC /hpf (0-6)
[2018-05-11] MEDS ORDERED: Iohexol 240 (50 ml) ONE (13:35)
[2018-05-12] MEDS: Insulin Reg-LOW-Coverage SC SCH ×4 (01:03→17:11)
[2018-05-12] MEDS: Pantoprazole 40 mg EC Tab PO SCH (06:35)
[2018-05-12 09:49] LABS: BASO # 0.04 K/mm3 (0.0-2.0); BASO % 0.6 % (0.0-3.0); EOS # 0.1 (0.0-0.7); EOS % 2.1 % (1.5-5.0); GRAN # 4.68 (1.4-6.5); GRAN % 70.2 % (50.0-68.0); HEMOGLOBIN 8.9 g/dL (12.0-16.0); LYMPH # 1.3 (1.2-3.4); LYMPH % 20.1 % (22.0-35.0); MEAN CELL VOLUME 76.7 fl (80.0-105.0); MEAN CORPUSCULAR HEMOGLOBIN 24.7 pg (25.0-35.0); MEAN CORPUSCULAR HGB CONC 32.1 g/dl (31.0-37.0); MEAN PLATELET VOLUME 10.4 fl (7.0-11.0); MONO # 0.5 (0.1-0.6); RBC 3.61 10^6/uL (3.5-6.1); RED CELL DISTRIBUTION WIDTH 13.9 % (11.5-14.5); WHITE BLOOD COUNT 6.7 10^3/ul (4.5-11.0)
[2018-05-12] MEDS: POLYETHYLENE GLYCOL 3350 17 GM/Dose PACKET PO SCH (09:57)
[2018-05-12 10:02] LABS: ALBUMIN 3.5 g/dL (3.0-4.8); CALCIUM 8.7 mg/dL (8.4-10.5)
--- NOTE | 2018-05-12 10:40 | CT ---
Date of service: 05/11/2018 PROCEDURE: CT Abdomen and Pelvis without intravenous contrast HISTORY: anemia, constipatio assess for abdominal pathology COMPARISON: None. TECHNIQUE: Without contrast.. Contrast dose: Radiation dose: Total exam DLP = 945 mGy-cm. This CT exam was performed using one or more of the following dose reduction techniques: Automated exposure control, adjustment of the mA and/or kV according to patient size, and/or use of iterative reconstruction technique. FINDINGS: LOWER THORAX: Small pleural effusions LIVER: Unremarkable. No gross lesion or ductal dilatation. GALLBLADDER AND BILE DUCTS: Unremarkable. PANCREAS: Unremarkable. No gross lesion or ductal dilatation. SPLEEN: Unremarkable. ADRENALS: Unremarkable. No mass. KIDNEYS AND URETERS: Unremarkable. No hydronephrosis. No solid mass. VASCULATURE: Unremarkable. No aortic aneurysm. BOWEL: Unremarkable. No obstruction. No gross mural thickening. Mild constipation APPENDIX: Unremarkable. Normal appendix. PERITONEUM: Unremarkable. No free fluid. No free air. LYMPH NODES: Unremarkable. No enlarged lymph nodes. BLADDER: Unremarkable. REPRODUCTIVE: Unremarkable. BONES: Multilevel disc degeneration OTHER FINDINGS: The report concurs with the preliminary [facility] report IMPRESSION: No acute intra-abdominal findings
--- NOTE | 2018-05-12 11:29 | CP.PCM.PN ---
<Gomez Cameron - Last Filed: 05/12/18 18:30> Subjective - Date & Time of Evaluation Date of Evaluation: 05/12/18 Time of Evaluation: 08:30 - Subjective Subjective: GI Progress Note for Dr. Mandy Cameron, PGY-3 IM Patient seen and examined at bedside. No acute complaints at time of exam, still some generalized weakness but no acute complaints, and no acute overnight events reported by nursing. Reviewed CT scan results with patient, constipated with stool and sigmoid/descending colon diverticulosis. Reviewed purpose of EGD /colonoscopy, reviewed how procedure is done, now patient willing to think it over, will have answer regarding procedure later today. Objective - Vital Signs/Intake and Output Vital Signs (last 24 hours): Temp Pulse Resp BP Pulse Ox 98.2 F 63 18 158/65 H 94 L 05/12/18 06:00 05/12/18 07:31 05/12/18 06:00 05/12/18 09:58 05/12/18 06:00 - Medications Medications: Current Medications Alprazolam (Xanax) 0.5 mg PO TID PRN; Protocol PRN Reason: Anxiety Last Admin: 05/09/18 09:15 Dose: 0.5 mg Amlodipine Besylate (Norvasc) 10 mg PO DAILY [facility] Last Admin: 05/12/18 09:58 Dose: 10 mg Carvedilol (Coreg) 6.25 mg PO BID [facility] Last Admin: 05/12/18 09:56 Dose: 6.25 mg Sodium Chloride (Sodium Chloride 0.45%) 1,000 mls @ 60 mls/hr IV .[id number] [facility] Last Admin: 05/11/18 04:37 Dose: 60 mls/hr Insulin Human Regular (Humulin R Low) 0 units SC ACHS [facility] PRN Reason: Protocol Last Admin: 05/12/18 10:00 Dose: 1 units Ondansetron HCl (Zofran Inj) 4 mg IVP Q6H PRN PRN Reason: Nausea/Vomiting Last Admin: 05/11/18 04:28 Dose: 4 mg Pantoprazole Sodium (Protonix Ec Tab) 40 mg PO 0600 [facility] Last Admin: 05/12/18 06:35 Dose: 40 mg Polyethylene Glycol (Miralax) 17 gm PO DAILY [facility] Last Admin: 05/12/18 09:57 Dose: 17 gm - Labs Labs: 05/12/18 09:30 05/12/18 09:30 - Constitutional Appears: Non-toxic, No Acute Distress, Chronically Ill - Head Exam Head Exam: ATRAUMATIC, NORMAL INSPECTION, NORMOCEPHALIC - Eye Exam Eye Exam: EOMI, Normal appearance. absent: Conjunctival injection, Scleral icterus Pupil Exam: absent: Fixed, Irregular - ENT Exam ENT Exam: Mucous Membranes Moist - Neck Exam Neck Exam: Full ROM, Normal Inspection. absent: Lymphadenopathy, Thyromegaly - Respiratory Exam Respiratory Exam: Clear to Ausculation Bilateral, NORMAL BREATHING PATTERN. absent: Accessory Muscle Use, Chest Wall Tenderness, Decreased Breath Sounds, Prolonged Expiratory Phase, Rales, Rhonchi, Wheezes, Respiratory Distress - Cardiovascular Exam Cardiovascular Exam: REGULAR RHYTHM, RRR, +S1, +S2. absent: Bradycardia, Tachycardia, Irregular Rhythm, JVD, +S4 - GI/Abdominal Exam GI & Abdominal Exam: Soft, Normal Bowel Sounds. absent: Distended, Firm, Guarding, Rigid, Tenderness, Diminished Bowel Sounds, Hyperactive Bowel Sounds, Hypoactive Bowel Sounds - Extremities Exam Additional comments: bilateral AKA, no active oozing or ulcerations appreciated at stumps - Neurological Exam Neurological Exam: Alert, Awake, Oriented x3 - Psychiatric Exam Psychiatric exam: Normal Affect, Normal Mood - Skin Skin Exam: Dry, Intact, Normal Color, Warm Assessment and Plan - Assessment and Plan (Free Text) Assessment: 83 year old female with PMH of Iron deficiency anemia, T2DM, HTN, PVD s/p B/L AKA, s/p aortic valve replacement presenting with weakness. Active treatment of K. pneumonia UTI. GI consultation for anemia. No prior EGD or colonoscopy. Plan: Iron deficiency anemia weakness DM-II HTN PVD s/p B/L AKA s/p aortic valve replacement -likely multifactoria; iron deficiency, hemodilutional, possible underlying GI pathology (PUD, vascular malformation, neoplasia) vs non-GI source of blood loss -no active overt GI blood loss, brown stool on initial rectal exam and pt denies any BM since yesterday, no tarry black movements reports by nursing -H/H noted to slowly trend down since admission Hb 11.3 to 8.8, baseline per prior charting appears to be 8-10, so remains at baseline -continue to monitor H/H -iron 44 ferritin 35.2, s/p received IV iron infusion on 05/10/18 -CT abd/pelvis with PO contrast notable for sigmoid/descending colon diverticulosis, constipation without obstruction, non-calcified stones vs sludge in GB -re-reviewed purpose, risks and benefits, and reasoning for EGD/Colonoscopy, pt now reconsidering, will give answer later in day Reviewed, discussed, and seen with attending, Dr. Galvan <Erin Galvan V - Last Filed: 05/12/18 23:05> Objective - Vital Signs/Intake and Output Vital Signs (last 24 hours): Temp Pulse Resp BP Pulse Ox 98 F 56 L 18 145/68 97 05/12/18 14:00 05/12/18 14:00 05/12/18 14:00 05/12/18 17:11 05/12/18 14:00 Intake and Output: 05/12/18 05/13/18 18:59 06:59 Intake Total 960 480 Balance 960 480 - Medications Medications: Current Medications Alprazolam (Xanax) 0.5 mg PO TID PRN; Protocol PRN Reason: Anxiety Last Admin: 05/12/18 22:41 Dose: 0.5 mg Amlodipine Besylate (Norvasc) 10 mg PO DAILY [facility] Last Admin: 05/12/18 09:58 Dose: 10 mg Carvedilol (Coreg) 6.25 mg PO BID [facility] Last Admin: 05/12/18 17:11 Dose: 6.25 mg Iron Sucrose 200 mg/ Sodium (Chloride) 110 mls @ 110 mls/hr IVPB DAILY [facility] Stop: 05/16/18 10:59 Insulin Human Regular (Humulin R Low) 0 units SC ACHS [facility] PRN Reason: Protocol Last Admin: 05/12/18 17:11 Dose: Not Given Ondansetron HCl (Zofran Inj) 4 mg IVP Q6H PRN PRN Reason: Nausea/Vomiting Last Admin: 05/12/18 18:40 Dose: 4 mg Pantoprazole Sodium (Protonix Ec Tab) 40 mg PO 0600 [facility] Last Admin: 05/12/18 06:35 Dose: 40 mg Polyethylene Glycol (Miralax) 17 gm PO DAILY [facility] Last Admin: 05/12/18 09:57 Dose: 17 gm - Labs Labs: 05/12/18 09:30 05/12/18 09:30 Attending/Attestation - Attestation I have personally seen and examined this patient.: Yes I have fully participated in the care of the patient.: Yes I have reviewed all pertinent clinical information, including history, physical exam and plan: Yes Notes (Text): This is an addendum to GI progress report dictated by the Dry Roaster.The patient was seen and examined earlier. Medical records, lab studies, imagings were reviewed. Last 24 hours events reviewed. Agreed with the above treatment plan as outlined in Dry Roaster 's notes the with the addition of the following Denies any GI symptoms drop in hct ct reviewed patient agreeable for GI eval scheduled for tomorrow 05/12/18 23:03
--- NOTE | 2018-05-12 12:21 | CP.PCM.PCO ---
Assessment & Plan - Assessment and Plan (Free Text) Assessment: Pt is an 83 yo f ho cad, aortic stenosis sp aortic valve replacement, dm, PVD sp b/l AKA presents with weakness etc. Pt is scheduled for EGD with dr. durant in am. 1) Pt has a ho CAD sp Cabg. Optimize hg to >10mg/dl 2) Document medical optimization by primary team prior to procedure.
[2018-05-12] MEDS ORDERED: Peg-Electrolyte Oral Soln 4L (Golytely) PO ONE (13:54)
--- NOTE | 2018-05-12 15:27 | CP.PCM.PN ---
Subjective - Date & Time of Evaluation Date of Evaluation: 05/12/18 Time of Evaluation: 09:30 - Subjective Subjective: NAD, denies chest pain, no SOB, no N/V, no melena or BRBPR Objective - Vital Signs/Intake and Output Vital Signs (last 24 hours): Temp Pulse Resp BP Pulse Ox 98 F 56 L 18 149/68 97 05/12/18 14:00 05/12/18 14:00 05/12/18 14:00 05/12/18 14:00 05/12/18 14:00 Intake and Output: 05/12/18 05/12/18 06:59 18:59 Intake Total 960 Balance 960 - Medications Medications: Current Medications Alprazolam (Xanax) 0.5 mg PO TID PRN; Protocol PRN Reason: Anxiety Last Admin: 05/09/18 09:15 Dose: 0.5 mg Amlodipine Besylate (Norvasc) 10 mg PO DAILY [facility] Last Admin: 05/12/18 09:58 Dose: 10 mg Carvedilol (Coreg) 6.25 mg PO BID [facility] Last Admin: 05/12/18 09:56 Dose: 6.25 mg Sodium Chloride (Sodium Chloride 0.45%) 1,000 mls @ 60 mls/hr IV .[id number] [facility] Last Admin: 05/11/18 04:37 Dose: 60 mls/hr Insulin Human Regular (Humulin R Low) 0 units SC ACHS [facility] PRN Reason: Protocol Last Admin: 05/12/18 12:32 Dose: 2 units Ondansetron HCl (Zofran Inj) 4 mg IVP Q6H PRN PRN Reason: Nausea/Vomiting Last Admin: 05/11/18 04:28 Dose: 4 mg Pantoprazole Sodium (Protonix Ec Tab) 40 mg PO 0600 [facility] Last Admin: 05/12/18 06:35 Dose: 40 mg Polyethylene Glycol (Miralax) 17 gm PO DAILY [facility] Last Admin: 05/12/18 09:57 Dose: 17 gm - Labs Labs: 05/12/18 09:30 05/12/18 09:30 - Respiratory Exam Respiratory Exam: Clear to Ausculation Bilateral, NORMAL BREATHING PATTERN - Cardiovascular Exam Cardiovascular Exam: REGULAR RHYTHM - GI/Abdominal Exam GI & Abdominal Exam: Soft, Normal Bowel Sounds - Neurological Exam Neurological Exam: Alert, Awake - Skin Skin Exam: Dry, Warm Assessment and Plan (1) UTI (urinary tract infection) Status: Resolved (2) HTN (hypertension) Status: Resolved (3) Type II diabetes mellitus Status: Chronic (4) Hyperkalemia Status: Resolved (5) Azotemia Status: Resolved (6) Anemia Status: Acute - Assessment and Plan (Free Text) Plan: monitor lytes, renal function, Hb/Hct, renal & GI follow-up, for possible EGD/ colonoscopy as inpatient
--- NOTE | 2018-05-12 22:44 | PN ---
DATE: 05/12/2018 SUBJECTIVE: Patient was seen sitting in bed. She is awake. She is alert. She is comfortable. PHYSICAL EXAMINATION: GENERAL: Elderly lady sitting in bed. VITAL SIGNS: Blood pressure 145/68, heart rate 56, respiratory rate 18, temperature 98. HEENT: Normocephalic, atraumatic, positive pallor. NECK: Supple, no JVD. LUNGS: Bilateral equal air entry, bilateral equal expansion, no rales. CARDIAC: S1 and S2, regular rate and rhythm, no murmur, no rub. ABDOMEN: Obese, distended, soft, nontender, bowel sounds present. EXTREMITIES: AKA. INTAKE AND OUTPUT: Not charted. LABORATORY DATA: WBC 6.7, hemoglobin 8.9, hematocrit 27.7, platelet 202. Sodium 131, potassium 4.7, chloride 97, CO2 25, BUN 47, creatinine 1.2, glucose 207, calcium 8.7. AST 44, ALT 7. CURRENT MEDICATIONS: Coreg 6.25 b.i.d., MiraLax, amlodipine 10, Protonix, half normal saline at 60, Xanax, Zofran. ASSESSMENT: 1. Resolving acute kidney injury, (?) acute interstitial nephritis in the setting of cefepime. 2. Resolved hyperkalemia. 3. Acute anemia. 4. Non-insulin dependant diabetes mellitus. 5. Hypertension. PLAN: 1. Discontinue IV fluids. 2. Agree with plan for endoscopy and colonoscopy. 3. Venofer 200 mg IV piggyback. Ysabel Mehta MD
[2018-05-13] MEDS: Pantoprazole 40 mg EC Tab PO SCH (05:43)
[2018-05-13] MEDS: Insulin Reg-LOW-Coverage SC SCH ×5 (07:37→21:35)
[2018-05-13] MEDS: POLYETHYLENE GLYCOL 3350 17 GM/Dose PACKET PO SCH (09:03)
--- NOTE | 2018-05-13 09:14 | CP.PCM.PN ---
Subjective - Date & Time of Evaluation Date of Evaluation: 05/13/18 Time of Evaluation: 09:00 - Subjective Subjective: NAD, no chest pain, no SOB, no melena, no BRBPR Objective - Vital Signs/Intake and Output Vital Signs (last 24 hours): Temp Pulse Resp BP Pulse Ox 97.3 F L 60 20 134/60 95 05/13/18 06:00 05/13/18 06:00 05/13/18 06:00 05/13/18 09:03 05/13/18 06:00 Intake and Output: 05/13/18 05/13/18 06:59 18:59 Intake Total 480 Balance 480 - Medications Medications: Current Medications Alprazolam (Xanax) 0.5 mg PO TID PRN; Protocol PRN Reason: Anxiety Last Admin: 05/12/18 22:41 Dose: 0.5 mg Amlodipine Besylate (Norvasc) [address] [facility] Last Admin: 05/13/18 09:03 Dose: 10 mg Carvedilol (Coreg) 6.[address] [facility] Last Admin: 05/13/18 09:03 Dose: 6.25 mg Iron Sucrose 200 mg/ Sodium (Chloride) 110 mls @ 110 mls/hr IVPB DAILY [facility] Stop: 05/16/18 10:59 Insulin Human Regular (Humulin R Low) [address] [facility] PRN Reason: Protocol Last Admin: 05/13/18 08:07 Dose: Not Given Ondansetron HCl (Zofran Inj) 4 mg IVP Q6H PRN PRN Reason: Nausea/Vomiting Last Admin: 05/13/18 05:24 Dose: 4 mg Pantoprazole Sodium (Protonix Ec Tab) [address] [facility] Last Admin: 05/13/18 05:43 Dose: 40 mg Polyethylene Glycol (Miralax) [address] [facility] Last Admin: 05/13/18 09:03 Dose: Not Given - Labs Labs: 05/12/18 09:30 05/12/18 09:30 - Respiratory Exam Respiratory Exam: Clear to Ausculation Bilateral, NORMAL BREATHING PATTERN - Cardiovascular Exam Cardiovascular Exam: REGULAR RHYTHM - GI/Abdominal Exam GI & Abdominal Exam: Soft, Normal Bowel Sounds - Neurological Exam Neurological Exam: Alert, Awake - Skin Skin Exam: Dry, Warm Assessment and Plan (1) UTI (urinary tract infection) Status: Resolved (2) HTN (hypertension) Status: Resolved (3) Type II diabetes mellitus Status: Chronic (4) Hyperkalemia Status: Resolved (5) Azotemia Assessment & Plan: continue present rx, for endoscopy Status: Resolved (6) Anemia Status: Acute
[2018-05-13] MEDS ORDERED: Sodium Chloride 0.9% 1,000 ML IV SCH (14:00)
--- NOTE | 2018-05-13 15:20 | CP.PCM.PN ---
<Gomez Cameron - Last Filed: 05/13/18 15:15> Subjective - Date & Time of Evaluation Date of Evaluation: 05/13/18 Time of Evaluation: 08:40 - Subjective Subjective: GI Progress Note for Dr. Mandy Cameron, PGY-3 IM Patient seen and examined at bedside. No acute complaints at time of exam, no acute events overnight. Was originally pending EGD and colonoscopy today, but prior to procedure, telemetry strip for patient appeared abnormal, so 12-lead EKG was obtained and was notable for AV dissociation with junctional rhythm and prolonged QTc, not seen on EKG 1 week prior. Procedure cancelled, patient transferred to telemetry, GI attending to discuss with patients PMD. Objective - Vital Signs/Intake and Output Vital Signs (last 24 hours): Temp Pulse Resp BP Pulse Ox 97.3 F L 57 L 18 134/60 98 05/13/18 14:45 05/13/18 14:45 05/13/18 14:45 05/13/18 14:45 05/13/18 14:45 Intake and Output: 05/13/18 05/13/18 06:59 18:59 Intake Total 480 0 Balance 480 0 - Medications Medications: Current Medications Alprazolam (Xanax) 0.5 mg PO TID PRN; Protocol PRN Reason: Anxiety Last Admin: 05/12/18 22:41 Dose: 0.5 mg Amlodipine Besylate (Norvasc) 10 mg PO DAILY [facility] Last Admin: 05/13/18 09:03 Dose: 10 mg Carvedilol (Coreg) 6.25 mg PO BID [facility] Last Admin: 05/13/18 09:03 Dose: 6.25 mg Iron Sucrose 200 mg/ Sodium (Chloride) 110 mls @ 110 mls/hr IVPB DAILY [facility] Stop: 05/16/18 10:59 Last Admin: 05/13/18 10:17 Dose: 110 mls/hr Sodium Chloride (Sodium Chloride 0.9%) 1,000 mls @ 75 mls/hr IV .[id number] [facility] Stop: 05/13/18 16:01 Insulin Human Regular (Humulin R Low) 0 units SC ACHS [facility] PRN Reason: Protocol Last Admin: 05/13/18 12:09 Dose: Not Given Ondansetron HCl (Zofran Inj) 4 mg IVP Q6H PRN PRN Reason: Nausea/Vomiting Last Admin: 05/13/18 05:24 Dose: 4 mg Pantoprazole Sodium (Protonix Ec Tab) 40 mg PO 0600 [facility] Last Admin: 05/13/18 05:43 Dose: 40 mg Polyethylene Glycol (Miralax) 17 gm PO DAILY [facility] Last Admin: 05/13/18 09:03 Dose: Not Given - Labs Labs: 05/12/18 09:30 05/12/18 09:30 - Additional Findings Additional findings: - Constitutional Appears: Non-toxic, No Acute Distress, Chronically Ill - Head Exam Head Exam: ATRAUMATIC, NORMAL INSPECTION, NORMOCEPHALIC - Eye Exam Eye Exam: EOMI, Normal appearance. absent: Conjunctival injection, Scleral icterus Pupil Exam: absent: Fixed, Irregular - ENT Exam ENT Exam: Mucous Membranes Moist - Neck Exam Neck Exam: Full ROM, Normal Inspection. absent: Lymphadenopathy, Thyromegaly - Respiratory Exam Respiratory Exam: Clear to Ausculation Bilateral, NORMAL BREATHING PATTERN. absent: Accessory Muscle Use, Chest Wall Tenderness, Decreased Breath Sounds, Prolonged Expiratory Phase, Rales, Rhonchi, Wheezes, Respiratory Distress - Cardiovascular Exam Cardiovascular Exam: REGULAR RHYTHM, RRR, +S1, +S2. absent: Bradycardia, Tachycardia, Irregular Rhythm, JVD, +S4 - GI/Abdominal Exam GI & Abdominal Exam: Soft, Normal Bowel Sounds. absent: Distended, Firm, Guarding, Rigid, Tenderness, Diminished Bowel Sounds, Hyperactive Bowel Sounds, Hypoactive Bowel Sounds - Extremities Exam bilateral AKA, no active oozing or ulcerations appreciated at stumps - Neurological Exam Neurological Exam: Alert, Awake, Oriented x3 - Psychiatric Exam Psychiatric exam: Normal Affect, Normal Mood - Skin Skin Exam: Dry, Intact, Normal Color, Warm Assessment and Plan - Assessment and Plan (Free Text) Assessment: 83 year old female with PMH of Iron deficiency anemia, T2DM, HTN, PVD s/p B/L AKA, s/p aortic valve replacement presenting with weakness. Active treatment of K. pneumonia UTI. GI consultation for anemia. No prior EGD or colonoscopy. Plan: Iron deficiency anemia weakness DM-II HTN PVD s/p B/L AKA s/p aortic valve replacement -likely multifactorial; iron deficiency, hemodilutional possible underlying GI pathology (PUD, vascular malformation, neoplasia) vs non-GI source of blood loss -no active overt GI blood loss, brown stool on initial rectal exam, no tarry- black or melanotic movements reports by nursing or pt -H/H noted to slowly trend down since admission Hb 11.3 to 8.8 (8.9 today), baseline per prior charting appears to be 8-10, remains at baseline -continue to monitor H/H -iron 44 ferritin 35.2, s/p IV iron infusion on 05/10/18 -CT abd/pelvis with PO contrast notable for sigmoid/descending colon diverticulosis, constipation without obstruction, non-calcified stones vs sludge in GB -patient now amenable to EGD/Colonoscopy, but due to abnormal cardiac rhythm obtained on 12-lead EKG prior to procedure (AV dissociation with junctional rhythm) the procedure was cancelled pending cardiac eval and clearance. Patient to be transferred to telemetry, would high recommend cardiac consult. GI attending to discuss with pt's PMD. Reviewed, discussed, and seen with attending, Dr. Galvan <Erin Galvan V - Last Filed: 05/13/18 22:30> Objective - Vital Signs/Intake and Output Vital Signs (last 24 hours): Temp Pulse Resp BP Pulse Ox 98.1 F 52 L 19 148/61 98 05/13/18 16:45 05/13/18 18:00 05/13/18 16:45 05/13/18 16:45 05/13/18 14:45 Intake and Output: 05/13/18 05/14/18 18:59 06:59 Intake Total 120 Output Total 50 Balance 70 - Medications Medications: Current Medications Alprazolam (Xanax) 0.5 mg PO TID PRN; Protocol PRN Reason: Anxiety Last Admin: 05/12/18 22:41 Dose: 0.5 mg Amlodipine Besylate (Norvasc) 10 mg PO DAILY [facility] Last Admin: 05/13/18 09:03 Dose: 10 mg Iron Sucrose 200 mg/ Sodium (Chloride) 110 mls @ 110 mls/hr IVPB DAILY [facility] Stop: 05/16/18 10:59 Last Admin: 05/13/18 10:17 Dose: 110 mls/hr Insulin Human Regular (Humulin R Low) 0 units SC ACHS [facility] PRN Reason: Protocol Last Admin: 05/13/18 21:35 Dose: Not Given Ondansetron HCl (Zofran Inj) 4 mg IVP Q6H PRN PRN Reason: Nausea/Vomiting Last Admin: 05/13/18 05:24 Dose: 4 mg Pantoprazole Sodium (Protonix Ec Tab) 40 mg PO 0600 [facility] Last Admin: 05/13/18 05:43 Dose: 40 mg Polyethylene Glycol (Miralax) 17 gm PO DAILY [facility] Last Admin: 05/13/18 09:03 Dose: Not Given - Labs Labs: 05/12/18 09:30 05/12/18 09:30 Attending/Attestation - Attestation I have personally seen and examined this patient.: Yes I have fully participated in the care of the patient.: Yes I have reviewed all pertinent clinical information, including history, physical exam and plan: Yes Notes (Text): This is an addendum to GI consult report dictated by the Track Welder.The patient was seen and examined earlier. Medical records, lab studies, imagings were reviewed. Last 24 hours events reviewed. Agreed with the above treatment plan as outlined in Track Welder 's notes the with the addition of the following patient's comfortable and Patient endoscopy and colonoscopy procedures canceled in view of cardiac dysrhythmia, AV dissociation with the junctional rhythm Would need cardiac clearance and optimization prior to reschedule the patient's for endoscopy evaluation 05/14 22:28
--- NOTE | 2018-05-13 18:16 | PN ---
DATE: 05/13/2018 SUBJECTIVE: The patient is currently seen on 2-R. She was transferred from the endoscopy suite because of an arrhythmia. The procedure was aborted. She was scheduled for an endoscopy and colonoscopy for evaluation of her iron deficiency anemia. Apparently, the patient had a junctional arrhythmia and she is currently in first-degree heart block, Mobitz type 1. MEDICATIONS: Medication list reviewed. The patient is on sliding scale insulin, Venofer, MiraLax, Norvasc, Protonix, Xanax, and Zofran. She had completed a course of antibiotics for her urinary tract infection. OBJECTIVE: INTAKE/OUTPUT: Intake is 1440, output is not charted. VITAL SIGNS: Blood pressure 148/61, earlier 134/60; temperature 98.1; pulse is ranging from the mid 40s to the upper 50 range. Respiratory rate is 19, pulse ox is 98%. HEENT: Show her to be normocephalic and atraumatic. Conjunctivae are pale. Sclerae are nonicteric. NECK: Supple. No neck vein distention. CHEST: Clear to auscultation and percussion with no rales, rhonchi, or wheezing. CARDIOVASCULAR: Shows a normal S1, S2. Soft systolic murmur at the left lower sternal border. No rubs. No gallops. ABDOMEN: Soft. Mild distention. Bowel sounds normal. No rebound, guarding, or masses. EXTREMITIES: Show a bilateral AKA. LABORATORY DATA AND IMAGING: Abdominal and pelvic ultrasound done on 05/11/2018, shows no acute findings. Kidneys were normal. Renal ultrasound done on 05/09, showed no abnormal findings. Right kidney 10.3 cm, left kidney 11.2 cm. Labs: CBC: White blood cell count 6.7, hemoglobin 8.9, platelet count is 202,000 with a low MCV and MCH. Chemistries showed a sodium of 131 yesterday. BUN was 47 yesterday down from a high of 55, baseline when she came in the hospital was 29. Creatinine is 1.2 down from a high of 2, when she came into the hospital, it was 0.8. Calcium is 8.7. Magnesium level was 1.6 on admission. Albumin is 3.5. Urine showed 2 to 3 plus protein. Positive red blood cells, positive white blood cells. Microbiology, urine cultures are positive for Klebsiella. ASSESSMENT: 1. Acute renal failure, for the most part improved. Creatinine has fallen close to baseline levels. BUN is lower. Perhaps secondary to her urinary tract infection, perhaps secondary to receiving IV antibiotic therapy for her UTI. Perhaps the patient has some mild underlying diabetic kidney disease with proteinuria as noted above. 2. Status post hyperkalemia. Potassium had dropped from 5.7 to 4.7. 3. Anemia with iron saturation of 17%. The patient was due to have an endoscopy and colonoscopy today. This was aborted because of her arrhythmia. 4. History of diabetes mellitus. The patient will continue insulin. In the outpatient setting, she was on combination therapy with insulin. 5. History of hypertension. Blood pressure control is acceptable. The patient will be restarted back on Norvasc at 5 mg a day. PLAN: 1. Encouraged the patient to increase p.o. fluid intake. 2. Post stabilization of her cardiac issue, perhaps repeat endoscopy and colonoscopy. 3. Continue IV Venofer for her iron-deficiency anemia. 4. Continue to monitor labs on a daily basis. 5. Close monitoring on telemetry. The patient will be seen by Cardiology. 6. Try and obtain accurate I's and O's. Luke Rasmussen MD
[2018-05-14] MEDS: Pantoprazole 40 mg EC Tab PO SCH (05:39)
[2018-05-14 06:39] LABS: BASO # 0.03 K/mm3 (0.0-2.0); BASO % 0.5 % (0.0-3.0); EOS # 0.2 (0.0-0.7); EOS % 2.7 % (1.5-5.0); GRAN # 4.1 (1.4-6.5); HEMOGLOBIN 8.9 g/dL (12.0-16.0); LYMPH # 1.3 (1.2-3.4); LYMPH % 20.7 % (22.0-35.0); MEAN CORPUSCULAR HEMOGLOBIN 24.8 pg (25.0-35.0); MEAN CORPUSCULAR HGB CONC 31.8 g/dl (31.0-37.0); MEAN PLATELET VOLUME 10.7 fl (7.0-11.0); MONO # 0.6 (0.1-0.6); MONO % 10.1 % (1.0-6.0); RBC 3.59 10^6/uL (3.5-6.1); RED CELL DISTRIBUTION WIDTH 14.2 % (11.5-14.5); WHITE BLOOD COUNT 6.2 10^3/ul (4.5-11.0)
[2018-05-14 07:07] LABS: ALBUMIN 3.4 g/dL (3.0-4.8); CALCIUM 8.8 mg/dL (8.4-10.5); T4 5.5 ug/dL (5.5-11.0)
[2018-05-14] MEDS: Insulin Reg-LOW-Coverage SC SCH ×4 (08:01→21:22)
[2018-05-14] MEDS: POLYETHYLENE GLYCOL 3350 17 GM/Dose PACKET PO SCH (09:39)
--- NOTE | 2018-05-14 09:43 | CARD ---
APPROVED REPORT Date of service: 05/14/2018 EKG Measurement Heart [id number] <Conclusion> Sinus Rythm. Markedly Prolonged OR Interval. Poor R Progression V1-V3. ST-T Changes.
--- NOTE | 2018-05-14 09:49 | CP.PCM.PN ---
<Gomez Cameron - Last Filed: 05/14/18 09:33> Subjective - Date & Time of Evaluation Date of Evaluation: 05/14/18 Time of Evaluation: 09:33 - Subjective Subjective: GI Progress Note for Dr. Mandy Cameron, PGY-3 IM Patient seen and examined at bedside. No acute complaints at time of exam, no acute events overnight. Was originally pending EGD and colonoscopy yesterday, but due to incidentally found arrhythmia, procedures cancelled. Patient now resting on telemetry floor for cardiac monitoring, to be evaluated by Cardio. Objective - Vital Signs/Intake and Output Vital Signs (last 24 hours): Temp Pulse Resp BP Pulse Ox 97.9 F 55 L 20 141/53 L 94 L 05/14/18 05:49 05/14/18 06:00 05/14/18 05:49 05/14/18 05:49 05/14/18 05:49 Intake and Output: 05/14/18 05/14/18 06:59 18:59 Intake Total 240 Balance 240 - Medications Medications: Current Medications Alprazolam (Xanax) 0.5 mg PO TID PRN; Protocol PRN Reason: Anxiety Last Admin: 05/12/18 22:41 Dose: 0.5 mg Amlodipine Besylate (Norvasc) 10 mg PO DAILY [facility] Last Admin: 05/13/18 09:03 Dose: 10 mg Iron Sucrose 200 mg/ Sodium (Chloride) 110 mls @ 110 mls/hr IVPB DAILY [facility] Stop: 05/16/18 10:59 Last Admin: 05/13/18 10:17 Dose: 110 mls/hr Insulin Human Regular (Humulin R Low) 0 units SC ACHS [facility] PRN Reason: Protocol Last Admin: 05/14/18 08:01 Dose: Not Given Ondansetron HCl (Zofran Inj) 4 mg IVP Q6H PRN PRN Reason: Nausea/Vomiting Last Admin: 05/13/18 05:24 Dose: 4 mg Pantoprazole Sodium (Protonix Ec Tab) 40 mg PO 0600 [facility] Last Admin: 05/14/18 05:39 Dose: 40 mg Polyethylene Glycol (Miralax) 17 gm PO DAILY [facility] Last Admin: 05/13/18 09:03 Dose: Not Given - Labs Labs: 05/14/18 06:05/14/18 06:00 - Additional Findings Additional findings: - Constitutional Appears: Non-toxic, No Acute Distress, Chronically Ill - Head Exam Head Exam: ATRAUMATIC, NORMAL INSPECTION, NORMOCEPHALIC - Eye Exam Eye Exam: EOMI, Normal appearance. absent: Conjunctival injection, Scleral icterus Pupil Exam: absent: Fixed, Irregular - ENT Exam ENT Exam: Mucous Membranes Moist - Neck Exam Neck Exam: Full ROM, Normal Inspection. absent: Lymphadenopathy, Thyromegaly - Respiratory Exam Respiratory Exam: Clear to Ausculation Bilateral, NORMAL BREATHING PATTERN. absent: Accessory Muscle Use, Chest Wall Tenderness, Decreased Breath Sounds, Prolonged Expiratory Phase, Rales, Rhonchi, Wheezes, Respiratory Distress - Cardiovascular Exam Cardiovascular Exam: REGULAR RHYTHM, RRR, +S1, +S2. absent: Bradycardia, Tachycardia, Irregular Rhythm, JVD, +S4 - GI/Abdominal Exam GI & Abdominal Exam: Soft, Normal Bowel Sounds. absent: Distended, Firm, Guarding, Rigid, Tenderness, Diminished Bowel Sounds, Hyperactive Bowel Sounds, Hypoactive Bowel Sounds - Extremities Exam bilateral AKA, no active oozing or ulcerations appreciated at stumps - Neurological Exam Neurological Exam: Alert, Awake, Oriented x3 - Psychiatric Exam Psychiatric exam: Normal Affect, Normal Mood - Skin Skin Exam: Dry, Intact, Normal Color, Warm Assessment and Plan - Assessment and Plan (Free Text) Assessment: 83 year old female with PMH of Iron deficiency anemia, T2DM, HTN, PVD s/p B/L AKA, s/p aortic valve replacement presenting with weakness. Active treatment of K. pneumonia UTI. GI consultation for anemia. No prior EGD or colonoscopy. Plan: Iron deficiency anemia weakness DM-II HTN PVD s/p B/L AKA s/p aortic valve replacement -likely multifactorial; iron deficiency, hemodilutional possible underlying GI pathology (PUD, vascular malformation, neoplasia) vs non-GI source of blood loss -no active overt GI blood loss, brown stool on initial rectal exam, no tarry- black or melanotic movements reports by nursing or pt -H/H noted to slowly trend down since admission Hb 11.3 to 8.8 (8.9 again today) ; baseline per prior charting appears to be 8-10, so remains at baseline -continue to monitor H/H -iron 44 ferritin 35.2, s/p IV iron infusion on 05/10/18 -CT abd/pelvis with PO contrast notable for sigmoid/descending colon diverticulosis, constipation without obstruction, non-calcified stones vs sludge in GB -patient now amenable to EGD/Colonoscopy, but due to abnormal cardiac rhythm obtained on 12-lead EKG prior to procedure (AV dissociation with junctional rhythm) the procedure was cancelled pending cardiac eval and clearance. Seen by Dr. Trimble today, pending his recs and cardiac risk assessment for this patient -Patient now amenable to follow up and obtain EGD/Colonoscopy as outpatient; will make further determination whether to obtain inpatient or outpatient based on Cardio recs and follow-up labs Reviewed, discussed, and seen with attending, Dr. Galvan <Erin Galvan V - Last Filed: 05/14/18 23:29> Objective - Vital Signs/Intake and Output Vital Signs (last 24 hours): Temp Pulse Resp BP Pulse Ox 98.6 F 66 18 146/61 94 L 05/14/18 17:49 05/14/18 22:00 05/14/18 17:49 05/14/18 17:49 05/14/18 05:49 Intake and Output: 05/14/18 05/15/18 18:59 06:59 Intake Total 1000 Balance 1000 - Medications Medications: Current Medications Alprazolam (Xanax) 0.5 mg PO TID PRN; Protocol PRN Reason: Anxiety Last Admin: 05/12/18 22:41 Dose: 0.5 mg Amlodipine Besylate (Norvasc) 10 mg PO DAILY [facility] Last Admin: 05/14/18 09:39 Dose: 10 mg Iron Sucrose 200 mg/ Sodium (Chloride) 110 mls @ 110 mls/hr IVPB DAILY [facility] Stop: 05/16/18 10:59 Last Admin: 05/14/18 09:39 Dose: 110 mls/hr Insulin Human Regular (Humulin R Low) 0 units SC ACHS [facility] PRN Reason: Protocol Last Admin: 05/14/18 21:22 Dose: Not Given Levothyroxine Sodium (Synthroid) 25 mcg PO 0600 [facility] Ondansetron HCl (Zofran Inj) 4 mg IVP Q6H PRN PRN Reason: Nausea/Vomiting Last Admin: 05/13/18 05:24 Dose: 4 mg Pantoprazole Sodium (Protonix Ec Tab) 40 mg PO 0600 [facility] Last Admin: 05/14/18 05:39 Dose: 40 mg Polyethylene Glycol (Miralax) 17 gm PO DAILY [facility] Last Admin: 05/14/18 09:39 Dose: 17 gm - Labs Labs: 05/14/18 06:00 05/14/18 06:00 Attending/Attestation - Attestation I have personally seen and examined this patient.: Yes I have fully participated in the care of the patient.: Yes I have reviewed all pertinent clinical information, including history, physical exam and plan: Yes Notes (Text): This is an addendum to GI progress report dictated by the Bindery Technician.The patient was seen and examined earlier. Medical records, lab studies, imagings were reviewed. Last 24 hours events reviewed. Agreed with the above treatment plan as outlined in Bindery Technician 's notes the with the addition of the following asymptomatic Tolerating diet EGD colonoscopy when optimized by cardiology Discussed with Dr TRIMBLE earlier today 06/14 23:27
--- NOTE | 2018-05-14 12:32 | CARD ---
APPROVED REPORT Date of service: 05/13/2018 EKG Measurement Heart [id number] <Conclusion> Sinus rhythm with AV dissociation and Junctional rhythm with sinus/atrial capture with occasional premature ventricular compl Prolonged QT Non Specific ST_T Changes.
--- NOTE | 2018-05-14 13:50 | CP.PCM.PN ---
Subjective - Date & Time of Evaluation Date of Evaluation: 05/14/18 Time of Evaluation: 13:30 - Subjective Subjective: no chest pain, no SOB, endoscopy on hold due to cardiac arrythmia Objective - Vital Signs/Intake and Output Vital Signs (last 24 hours): Temp Pulse Resp BP Pulse Ox 97.9 F 55 L 20 129/56 L 94 L 05/14/18 05:49 05/14/18 06:00 05/14/18 05:49 05/14/18 09:39 05/14/18 05:49 Intake and Output: 05/14/18 05/14/18 06:59 18:59 Intake Total 240 Balance 240 - Medications Medications: Current Medications Alprazolam (Xanax) 0.5 mg PO TID PRN; Protocol PRN Reason: Anxiety Last Admin: 05/12/18 22:41 Dose: 0.5 mg Amlodipine Besylate (Norvasc) 10 mg PO DAILY [facility] Last Admin: 05/14/18 09:39 Dose: 10 mg Iron Sucrose 200 mg/ Sodium (Chloride) 110 mls @ 110 mls/hr IVPB DAILY [facility] Stop: 05/16/18 10:59 Last Admin: 05/14/18 09:39 Dose: 110 mls/hr Insulin Human Regular (Humulin R Low) 0 units SC ACHS [facility] PRN Reason: Protocol Last Admin: 05/14/18 12:15 Dose: 1 units Levothyroxine Sodium (Synthroid) 25 mcg PO 0600 [facility] Ondansetron HCl (Zofran Inj) 4 mg IVP Q6H PRN PRN Reason: Nausea/Vomiting Last Admin: 05/13/18 05:24 Dose: 4 mg Pantoprazole Sodium (Protonix Ec Tab) 40 mg PO 0600 [facility] Last Admin: 05/14/18 05:39 Dose: 40 mg Polyethylene Glycol (Miralax) 17 gm PO DAILY [facility] Last Admin: 05/14/18 09:39 Dose: 17 gm - Labs Labs: 05/14/18 06:00 05/14/18 06:00 - Respiratory Exam Respiratory Exam: Clear to Ausculation Bilateral, NORMAL BREATHING PATTERN - Cardiovascular Exam Cardiovascular Exam: REGULAR RHYTHM - GI/Abdominal Exam GI & Abdominal Exam: Soft - Neurological Exam Neurological Exam: Alert, Awake Assessment and Plan (1) UTI (urinary tract infection) Status: Resolved (2) HTN (hypertension) Status: Resolved (3) Type II diabetes mellitus Status: Chronic (4) Hyperkalemia Status: Resolved (5) Azotemia Status: Resolved (6) Anemia Status: Acute (7) Arrhythmia Status: Acute - Assessment and Plan (Free Text) Plan: Holter/ECHO result pending, Hct/Hb stable, cardio, GI, renal follow-up, endoscopy when stable
--- NOTE | 2018-05-14 17:45 | CON ---
DATE: 05/14/2018 SERVICE: Cardiology. REASON FOR THE CONSULTATION: Junctional bradycardia during evaluation for endoscopy, occasional Mobitz type 1. BRIEF CLINICAL HISTORY: This is an 83-year-old female with past medical history significant for open heart surgery x4 at [facility], no details available; history of coronary artery disease; hypertension; severe PAD, status post bilateral amputation; admitted for generalized weakness, fever, urinary tract infection on the [facility] floor 5R. Yesterday, the patient went for endoscopy and during hookup with monitor, the patient was found to be at junctional bradycardia, so procedure was aborted and transferred to telemetry and Cardiology consult was called for cardiac evaluation. The patient denies any chest pain, denies any shortness of breath, denies any palpitations, although very limited mobility since the patient's bilateral amputation, shift herself from bed to bathroom on the wheelchair, but no rest chest pain or shortness of breath on exertion while moving herself from bed to wheelchair. No complaint of palpitation. PAST HISTORY: Significant for coronary artery disease, hypertension, status post possible 3 or 4 bypass done at [facility] four years ago, history of diabetes, history of hypertension, history of congestive heart failure. PAST SURGICAL HISTORY: As mentioned, history of coronary artery bypass surgery, possible 3 or 4, four years ago. 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 CURRENT MEDICATIONS: Include amlodipine 10 mg daily, NovoLog, and Xanax p.r.n. ALLERGIES: NO KNOWN DRUG ALLERGY. FAMILY HISTORY: Noncontributory. SOCIAL HISTORY: Ex-smoker, quit 15 years ago. Denies any history of alcohol abuse or any substance abuse. REVIEW OF SYSTEMS: As per HPI, no history of chest pain, shortness of breath, or dyspnea on exertion. PHYSICAL EXAMINATION: VITAL SIGNS: Temperature afebrile, heart rate 55, blood pressure 141/53. HEENT: PERRLA. Extraocular muscles intact. NECK: Supple. No carotid bruit or thyromegaly. CHEST: Clear to auscultation. HEART: S1 and S2 regular. ABDOMEN: Soft. EXTREMITIES: Bilateral above knee amputation and stump appears healed. No edema noted. No cyanosis. LABORATORY DATA: Blood workup as follows: WBC 6.2, hemoglobin 8.9, hematocrit 28, and platelet count 223. Chemistry shows sodium 133, potassium 4.5, chloride 99, carbon dioxide 23, anion gap of 13. BUN 40 and creatinine 1.2. EKG admitting shows sinus tachycardia, first-degree prolonged AV block, SD around 275 to 300 millisecond dated 05/06/2018. Subsequent telemetry yesterday a strip in PACU showed Mobitz type 1 with progressively prolonging the SD and dropping the PV. Subsequent telemetry strip shows junctional bradycardia to a junctional bradycardic heart rate 55. IMPRESSION: An 83-year-old female with past medical history significant for diabetes; hypertension; hyperlipidemia; obesity; severe peripheral arterial disease, status post bilateral above knee amputation; history of coronary artery disease with coronary artery bypass graft four years ago; admitted with lethargy, urinary tract infection, low hemoglobin, going for endoscopy yesterday, found to be junctional bradycardia when hookup with monitor. Though the patient was on Coreg at home that was held. RECOMMENDATIONS: Continue to hold Coreg. We will start Holter monitor 24 hours after the washing out and monitor the heart rate. If the patient becomes hemodynamically unstable, consider pacemaker. Discussing the patient at length the possibility of pacemaker versus medical treatment. If secondary to beta-penelope, probably it will improve. Though the patient had baseline normal sinus with prolonged SD interval 270 milliseconds to 300 milliseconds SD interval. We will follow with you. Avoid beta-penelope, rate-limiting calcium channel penelope. Continue [id number] calcium channel penelope or CONNER inhibitors. Hold endoscopy until the patient becomes hemodynamically stable. Continue baby aspirin. We will get more information from [facility] in reference with coronary artery bypass surgery. The patient is a very poor historian and unable to give any detail. We will get echo, lipid profile, TSH, and hemoglobin A1c. I will put on hold it for 24 hours. Further recommendations will be made upon the hospital course. We will get EKG now and we will get EKG in the morning as well to assess arrhythmia. Omero Carrion MD
--- NOTE | 2018-05-14 19:15 | PN ---
DATE: 05/14/2018 SUBJECTIVE: The patient is seen, sitting in bed. Son was at her bedside. She is awake and alert. She is comfortable. Her endoscopy was canceled because of bradycardia. She denies any chest pain. She denies any shortness of breath. PHYSICAL EXAMINATION: GENERAL: Morbidly obese, elderly lady, sitting in bed. VITAL SIGNS: Blood pressure 129/56, heart rate 55, respiratory rate 18 to 20, and temperature 97.9. HEENT: Normocephalic, atraumatic, positive pallor. NECK: Supple, no JVD. LUNGS: Bilateral equal air entry, bilateral equal expansion. CARDIAC: S1 and S2, regular rate and rhythm, no murmur, no rub. ABDOMEN: Obese, distended, soft, nontender, bowel sounds present. EXTREMITIES: Bilateral AKA. INTAKE AND OUTPUT: Not charted. LABORATORY DATA: WBC 6.2, hemoglobin 8.9, hematocrit 28, and platelets 223. Sodium 133, potassium 4.5, chloride 97, CO2 of 27. BUN 40, creatinine 1.2. Glucose 127. Calcium 8.8, phosphorus 3.2, magnesium 1.9. AST 17, ALT 19. Urine culture, Klebsiella from 05/06. CURRENT MEDICATIONS: Insulin, Venofer 200 mg, MiraLax, Norvasc, Protonix, Synthroid, Xanax, and Zofran. ASSESSMENT: 1. Acute kidney injury, resolving. 2. Hyperkalemia, resolved. 3. Acute anemia. 4. Klebsiella urinary tract infection. 5. Hypertension. 6. Peripheral vascular disease. 7. Morbid obesity. PLAN: 1. Renal function is approaching baseline, the patient is off IV fluids now. 2. Awaiting endoscopy. 3. Potassium normal. 4. Blood pressure well controlled. 5. Bradycardia secondary to Coreg? Ysabel Mehta MD
--- NOTE | 2018-05-14 19:24 | CARD ---
APPROVED REPORT Date of service: 05/14/2018 EXAM: Two-dimensional and M-mode echocardiogram with Doppler and color Doppler. INDICATION Abnormal EKG/Arrhythmia LV Function:SystolicDiastolic 2D DIMENSIONS Left Atrium (2D)4.3 (1.6-4.0cm)IVSd1.2 (0.7-1.1cm) LVDd4.2 (3.9-5.9cm)LVOT Diameter1.7 (1.8-2.4cm) PWd1.3 (0.7-1.1cm)LVDs2.8 (2.5-4.0cm) FS (%) 33.5 %LVEF (%)62.5 (>50%) M-Mode DIMENSIONS Aortic Root2.40 (2.2-3.7cm) Aortic Valve AoV Peak Dmkzunvm698.0cm/sAoV VTI64.9cmAO Peak GR.27mmHg LVOT Peak Rlyqikql27.6cm/sLVOT VTI20.40cmAO Mean GR.15mmHg LUIS MANUEL (VMAX)0.29qq6JQE (VTI)0.71cm2 Mitral Valve MV E Ljydgtnz544.0cm/sMV A Atzjlhsv526.0cm/sMV YRG19lx E/A ratio2.1MVA (PHT)2.59cm2 TDI E/Lateral E'0.0E/Medial E'0.0 Tricuspid Valve TR Peak Xijailyd678sl/sRAP QGHXNULU95foNaLE Peak Gr.51mmHg VMBC79nfTf LEFT VENTRICLE The left ventricle is normal size. There is mild to moderate concentric left ventricular hypertrophy. The left ventricular function is normal.EF-55% There is mild to moderate hypokinesis in the mid-inferolateral wall. Transmitral Doppler flow pattern is Grade II-pseudonormal filling dynamics. No left ventricle thrombus noted on this study. There is no ventricular septal defect visualized. There is no left ventricular aneurysm. There is no mass noted in the left ventricle. RIGHT VENTRICLE The right ventricle is normal size. There is normal right ventricular wall thickness. The right ventricular systolic function is normal. ATRIA The left atrium is mildly dilated. The right atrium size is normal. The interatrial septum is intact with no evidence for an atrial septal defect. AORTIC VALVE The aortic valve is calcified and displays decreased opening. There is mild aortic regurgitation. There is moderate to severe valvular aortic stenosis. There is no aortic valvular vegetation. MITRAL VALVE The mitral valve is calcified but opens well. Mitral annular calcification is severe. Mitral regurgitation is moderate. There is no mitral valve stenosis. There is no evidence of mitral valve prolapse. TRICUSPID VALVE The tricuspid valve leaflets are thickened , but open well. There is moderate tricuspid regurgitation.RVSDP_61 mmof Hg There is no tricuspid valve stenosis. There is no tricuspid valve prolapse or vegetation. PULMONIC VALVE The pulmonic valve is not well visualized. GREAT VESSELS The aortic root is normal in size. The ascending aorta is normal in size. The pulmonary artery is normal. The IVC is normal in size and collapses >50% with inspiration. PERICARDIAL EFFUSION There is no pleural effusion. There is no pericardial effusion. <Conclusion> The left ventricle is normal size. There is mild to moderate concentric left ventricular hypertrophy. The left ventricular function is normal.EF-55% There is mild to moderate hypokinesis in the mid-inferolateral wall. There is mild aortic regurgitation. There is moderate to severe valvular aortic stenosis. Mitral regurgitation is moderate. There is moderate tricuspid regurgitation.RVSDP_61 mmof Hg The IVC is normal in size and collapses >50% with inspiration. There is no pericardial effusion.
[2018-05-15 03:16] LABS: BASO # 0.04 K/mm3 (0.0-2.0); BASO % 0.4 % (0.0-3.0); EOS # 0.2 (0.0-0.7); EOS % 2.4 % (1.5-5.0); GRAN # 6.49 (1.4-6.5); GRAN % 66.1 % (50.0-68.0); HEMOGLOBIN 10.2 g/dL (12.0-16.0); LYMPH # 2.4 (1.2-3.4); MEAN CELL VOLUME 77.9 fl (80.0-105.0); MEAN CORPUSCULAR HEMOGLOBIN 25.1 pg (25.0-35.0); MEAN CORPUSCULAR HGB CONC 32.2 g/dl (31.0-37.0); MEAN PLATELET VOLUME 10.3 fl (7.0-11.0); MONO # 0.7 (0.1-0.6); MONO % 7.1 % (1.0-6.0); RBC 4.07 10^6/uL (3.5-6.1); RED CELL DISTRIBUTION WIDTH 14.5 % (11.5-14.5)
[2018-05-15 03:18] LABS: WHITE BLOOD COUNT 9.8 10^3/ul (4.5-11.0)
--- NOTE | 2018-05-15 03:23 | PCM.RRT ---
NATIONAL OPELINT ANALYST Nurse Assessment - Situation Date: 05/15/18 Time NATIONAL OPELINT ANALYST was called: 02:57 NATIONAL OPELINT ANALYST Responder Arrival Time: 02:57 NATIONAL OPELINT ANALYST Location:: [address] [place] [address] NATIONAL OPELINT ANALYST Reason for Call: Respiratory Distress NATIONAL OPELINT ANALYST Called By: RN - IV IV Inserted during NATIONAL OPELINT ANALYST?: No - Respiratory Oxygen Delivery Method: Face Mask @% Received Nebulizer Treatments:: Yes Was the Patient Ventilated with Bag/Mask 100% O2?: No Secretions Suctioned?: No Was the Patient Intubated?: No Was the Patient Placed on a Ventilator?: No - Medication Medications Administered During NATIONAL OPELINT ANALYST: Duoneb, 40mg lasix IVP, ASA 325mg, Plavix 300mg, Heparin Bolus per weight base protocol, heparin drip per ACS based protocol - Diagnostic Test Ordered EKG: Yes Chest X-Ray: Yes CT Scan: No - Stat Labs Ordered NATIONAL OPELINT ANALYST Stat Labs Ordered: CBC, BMP, PT/PTT, TROPONIN CPR started during NATIONAL OPELINT ANALYST?: No - Vital Signs Vital Sign: T 98 HR 76 BP 155/64 SPO2 83% - Finger Stick Blood Glucose Finger Stick Blood Glucose: 190 - Cassie Coma Scale Coma Scale Eye Opening: Spontaneous Coma Scale Motor: Obeys Commands Movement Coma Scale Verbal: Oriented - Time NATIONAL OPELINT ANALYST Ended Time NATIONAL OPELINT ANALYST Ended: 03:22 - Vital Signs at end of NATIONAL OPELINT ANALYST Vital Signs at end of NATIONAL OPELINT ANALYST: HR 62, BP 181/76, O2 98% - Recommendations 5) NATIONAL OPELINT ANALYST Level of Care Recommendations: Remain in current setting Notifications: Attending Physician (Dr. Saucedo [facility]) I.Reason for NATIONAL OPELINT ANALYST - A) Acute Change in Patient: (Select all that apply): Acute change in SpO2 less Subjective: Pt diaphoretic w/ increasing c/o SOB/ Respiratory Distress - Neurological Status (Select all that apply): Alert, Responsive, Oriented, Verbal, Follows Commands - Respiratory Oxygen Delivery Method: Face Mask @% - Constitutional Additional Comments: Moderate respiratory distress; diaphoretic; uncomfortable - Head Head Exam: ATRAUMATIC, NORMOCEPHALIC Additional Comments: Diaphoretic - Respiratory Exam Respiratory Exam: Respiratory Distress Additional comments: BL Crackles, Diffuse wheezing, Prolonged expiratory phase - Cardiovascular Exam Cardiovascular Exam: RRR - GI/Abdominal Exam GI & Abdominal Exam: Soft. absent: Tenderness - Neurological Exam Neurological Exam: Alert, Awake, CN II-XII Intact, Oriented x3 Plan - Assessment of Findings&Treatment Plan 83F Room 277-2 PMH of DM2, HT, CAD s/p CABG and aortic valve placement, CHF, and double above knee amputee. NATIONAL OPELINT ANALYST Called for SOB/ Diaphoresis. On arrival, vitals T 98 HR 76 BP 155/64 SPO2 83% Patient was assessed at bedside, found to be in moderate respiratory distress. Cardiac exam RRR; Lung exam showed significant wheezing and crackles. Pt denied any complaints of chest pain or palpitations at time. Non rebreather mask was applied, and duonebs administered. CBC/CMP/Coagulation panel/ Troponin/ EKG/ CXR were ordered and drawn. EKG did not show any ST segment elevation, did show sinus rhythm w/ 1st degree block, and nonspecific ST/T wave abnormalities. CXR showed blunted angles, RLL infiltration/ haziness, and vascular congestion. Pt was administered 40 mg lassie, and O2 sats further improved. Troponin returned elevated 0.24. Pt was given ASA 325, Plavix 300mg, heparin bolus per protocol, and heparin drip was started. Troponins will be trended Q6H and follow up EKG ordered for AM. PMD - Brian Bond, and Manager Trust Omero So were notified of NATIONAL OPELINT ANALYST. Plan moving forward: NSTEMI Follow AM Labs, continue to trend troponin Q6H, Follow up AM EKG, Continue patient on NSTEMI treatment, ASA, Plavix, Heparin drip. Appreciate recommendations by Manager Trust Omero So NATIONAL OPELINT ANALYST Overseen/ Directed by Attending Physician Jerri Galvez DO PGY1 Internal Medicine Measurement And Sensing Technician
[2018-05-15 03:41] LABS: CALCIUM 9.5 mg/dL (8.4-10.5); TROPONIN I 0.24 ng/mL
[2018-05-15] MEDS ORDERED: Nitroglycerin 2% Ointment Foilpak UD TOP ONE (03:50)
[2018-05-15] MEDS ORDERED: Heparin25000 units/250ml 1/2NS 25,000 UNITS/250 ML BAG IV SCH (04:15)
[2018-05-15 04:29] LABS: INR 1.01 (0.93-1.08); PARTIAL THROMBOPLASTIN TIME 32.6 Seconds (25.1-36.5); PROTHROMBIN TIME 11.5 SECONDS (9.4-12.5)
[2018-05-15] MEDS ORDERED: Heparin 25,000units in 1/2NS 250 ML BAG IV SCH (04:30)
[2018-05-15] MEDS: Levothyroxine 25 MCG TAB PO SCH (05:15)
[2018-05-15] MEDS: Pantoprazole 40 mg EC Tab PO SCH (05:16)
--- NOTE | 2018-05-15 07:17 | RAD ---
Date of service: 05/15/2018 HISTORY: COMPUTING ARCHITECT COMPARISON: 05/06/2018 FINDINGS: LUNGS: No active pulmonary disease. PLEURA: No significant pleural effusion identified, no pneumothorax apparent. CARDIOVASCULAR: Perihilar infiltrates consistent with CHF OSSEOUS STRUCTURES: Sternal wires VISUALIZED UPPER ABDOMEN: Normal. OTHER FINDINGS: None. IMPRESSION: CHF
[2018-05-15] MEDS: Insulin Reg-LOW-Coverage SC SCH ×4 (07:30→22:00)
--- NOTE | 2018-05-15 08:49 | CP.PCM.PN ---
<Gomez Cameron - Last Filed: 05/16/18 11:29> Subjective - Date & Time of Evaluation Date of Evaluation: 05/15/18 Time of Evaluation: 08:10 - Subjective Subjective: GI Progress Note for Dr. Mandy Cameron, PGY-3 IM Patient seen and examined at bedside. Overnight, underwent rapid response due to SOB and diaphoresis (please see FINDING FASTENER note for further details). Found to have elevated troponin of 0.24 after FINDING FASTENER, now down to 0.19 this AM. Currently, no acute complaints of chest pain. Objective - Vital Signs/Intake and Output Vital Signs (last 24 hours): Temp Pulse Resp BP Pulse Ox 98.0 F 64 20 122/47 L 93 L 05/15/18 06:00 05/15/18 06:00 05/15/18 06:00 05/15/18 06:00 05/15/18 06:00 Intake and Output: 05/15/18 05/15/18 06:59 18:59 Intake Total 540 Balance 540 - Medications Medications: Current Medications Alprazolam (Xanax) 0.5 mg PO TID PRN; Protocol PRN Reason: Anxiety Last Admin: 05/12/18 22:41 Dose: 0.5 mg Amlodipine Besylate (Norvasc) 10 mg PO DAILY [facility] Last Admin: 05/14/18 09:39 Dose: 10 mg Atorvastatin Calcium (Lipitor) 40 mg PO DAILY [facility] Iron Sucrose 200 mg/ Sodium (Chloride) 110 mls @ 110 mls/hr IVPB DAILY [facility] Stop: 05/16/18 10:59 Last Admin: 05/14/18 09:39 Dose: 110 mls/hr Insulin Human Regular (Humulin R Low) 0 units SC ACHS [facility] PRN Reason: Protocol Last Admin: 05/14/18 21:22 Dose: Not Given Levothyroxine Sodium (Synthroid) 25 mcg PO 0600 [facility] Last Admin: 05/15/18 05:15 Dose: 25 mcg Ondansetron HCl (Zofran Inj) 4 mg IVP Q6H PRN PRN Reason: Nausea/Vomiting Last Admin: 05/15/18 03:44 Dose: 4 mg Pantoprazole Sodium (Protonix Ec Tab) 40 mg PO 0600 [facility] Last Admin: 05/15/18 05:16 Dose: 40 mg Polyethylene Glycol (Miralax) 17 gm PO DAILY [facility] Last Admin: 05/14/18 09:39 Dose: 17 gm - Labs Labs: 05/15/18 03:05 05/15/18 03:05 PT 11.5 SECONDS (9.4-12.5) 05/15/18 03:05 INR 1.01 (0.93-1.08) 05/15/18 03:05 APTT 32.6 Seconds (25.1-36.5) 05/15/18 03:05 - Additional Findings Additional findings: - Constitutional Appears: Non-toxic, No Acute Distress, Chronically Ill - Head Exam Head Exam: ATRAUMATIC, NORMAL INSPECTION, NORMOCEPHALIC - Eye Exam Eye Exam: Normal appearance. absent: Conjunctival injection, Scleral icterus Pupil Exam: absent: Fixed, Irregular - ENT Exam ENT Exam: Mucous Membranes Moist - Neck Exam Neck Exam: Full ROM, Normal Inspection. absent: Lymphadenopathy, Thyromegaly - Respiratory Exam Respiratory Exam: Clear to Ausculation Bilateral, NORMAL BREATHING PATTERN. absent: Accessory Muscle Use, Chest Wall Tenderness, Decreased Breath Sounds, Prolonged Expiratory Phase, Rales, Rhonchi, Wheezes, Respiratory Distress - Cardiovascular Exam Cardiovascular Exam: REGULAR RHYTHM, RRR, +S1, +S2. absent: Bradycardia, Tachycardia, Irregular Rhythm, JVD, +S4 - GI/Abdominal Exam GI & Abdominal Exam: Soft, Normal Bowel Sounds. absent: Distended, Firm, Guarding, Rigid, Tenderness, Diminished Bowel Sounds, Hyperactive Bowel Sounds, Hypoactive Bowel Sounds - Extremities Exam bilateral AKA, no active oozing or ulcerations appreciated at stumps - Neurological Exam Neurological Exam: Alert, Awake, Oriented x3 - Psychiatric Exam Psychiatric exam: Normal Affect, Normal Mood - Skin Skin Exam: Dry, Intact, Normal Color, Warm Assessment and Plan - Assessment and Plan (Free Text) Assessment: 83 year old female with PMH of Iron deficiency anemia, T2DM, HTN, PVD s/p B/L AKA, s/p aortic valve replacement presenting with weakness. Active treatment of K. pneumonia UTI. GI consultation for anemia. No prior EGD or colonoscopy. S /p FINDING FASTENER overnight for SOB and diaphoresis, found to have trop 0.[address] segment elevations/depressions on EKG at the time. Plan: Iron deficiency anemia weakness DM-II HTN PVD s/p B/L AKA s/p aortic valve replacement NSTEMI - acute -likely multifactorial; iron deficiency, hemodilutional possible underlying GI pathology (PUD, vascular malformation, neoplasia) vs non-GI source of blood loss -no active overt GI blood loss, brown stool on initial rectal exam, no tarry- black or melanotic movements reports by nursing or pt -H/H noted to slowly trend down since admission Hb 11.3 to 8.8 (8.9 again today) ; baseline per prior charting appears to be 8-10, so remains at baseline -continue to monitor H/H -iron 44 ferritin 35.2, s/p IV iron infusion on 05/10/18 -CT abd/pelvis with PO contrast notable for sigmoid/descending colon diverticulosis, constipation without obstruction, non-calcified stones vs sludge in GB -patient now amenable to EGD/Colonoscopy, but due to abnormal cardiac rhythm obtained on 12-lead EKG prior to procedure (AV dissociation with junctional rhythm) the procedure was cancelled pending cardiac eval and clearance. Seen by Dr. Carrion today, pending his recs and cardiac risk assessment for this patient S/p FINDING FASTENER with likely NSTEMI overnight, pending possible cardiac cath today as per cardio; will await further input and clearance from cardio Doesn't appear to be demand ischemia from bleeding, Hgb remained stable overnight and mildly elevated today (s/p Lasix) -Patient now amenable to follow up and obtain EGD/Colonoscopy as outpatient; will make further determination whether to obtain inpatient or outpatient based on Cardio recs and follow-up labs Reviewed, discussed, and seen with attending, Dr. Galvan <Erin Galvan V - Last Filed: 05/18/18 10:46> Objective - Vital Signs/Intake and Output Vital Signs (last 24 hours): Temp Pulse Resp BP Pulse Ox 97.2 F L 62 18 137/52 L 93 L 05/15/18 18:10 05/15/18 18:10 05/15/18 18:10 05/15/18 18:10 05/15/18 06:00 Intake and Output: 05/15/18 05/16/18 18:59 06:59 Intake Total 275 180 Output Total 0 Balance 275 180 - Medications Medications: Current Medications Alprazolam (Xanax) 0.5 mg PO TID PRN; Protocol PRN Reason: Anxiety Last Admin: 05/12/18 22:41 Dose: 0.5 mg Amlodipine Besylate (Norvasc) 10 mg PO DAILY [facility] Last Admin: 05/15/18 12:43 Dose: 10 mg Aspirin (Ecotrin) 81 mg PO DAILY [facility] Atorvastatin Calcium (Lipitor) 80 mg PO DAILY [facility] Clopidogrel Bisulfate (Plavix) 75 mg PO DAILY [facility] Docusate Sodium (Colace) 100 mg PO BID [facility] Last Admin: 05/15/18 17:25 Dose: 100 mg Iron Sucrose 200 mg/ Sodium (Chloride) 110 mls @ 110 mls/hr IVPB DAILY [facility] Stop: 05/16/18 10:59 Last Admin: 05/15/18 13:22 Dose: 110 mls/hr Sodium Chloride (Sodium Chloride 0.9%) 1,000 mls @ 50 mls/hr IV .Q20H [facility] Stop: 05/16/18 23:59 Last Admin: 05/15/18 12:30 Dose: 50 mls/hr Insulin Human Regular (Humulin R Low) 0 units SC ACHS [facility] PRN Reason: Protocol Last Admin: 05/15/18 17:25 Dose: 1 units Isosorbide Mononitrate (Imdur Er) 30 mg PO DAILY [facility] Levothyroxine Sodium (Synthroid) 25 mcg PO 0600 [facility] Last Admin: 05/15/18 05:15 Dose: 25 mcg Ondansetron HCl (Zofran Inj) 4 mg IVP Q6H PRN PRN Reason: Nausea/Vomiting Last Admin: 05/15/18 03:44 Dose: 4 mg Pantoprazole Sodium (Protonix Ec Tab) 40 mg PO 0600 [facility] Last Admin: 05/15/18 05:16 Dose: 40 mg Polyethylene Glycol (Miralax) 17 gm PO DAILY [facility] Last Admin: 05/15/18 12:43 Dose: 17 gm - Labs Labs: 05/15/18 17:00 05/15/18 17:00 PT 11.5 SECONDS (9.4-12.5) 05/15/18 03:05 INR 1.01 (0.93-1.08) 05/15/18 03:05 APTT 32.6 Seconds (25.1-36.5) 05/15/18 03:05 Attending/Attestation - Attestation I have personally seen and examined this patient.: Yes I have fully participated in the care of the patient.: Yes I have reviewed all pertinent clinical information, including history, physical exam and plan: Yes Notes (Text): This is an addendum to GI progress report dictated by the Lineworker.The patient was seen and examined earlier. Medical records, lab studies, imagings were reviewed. Last 24 hours events reviewed. Agreed with the above treatment plan as outlined in Lineworker 's notes the with the addition of the following status post stent placement of LAD and circumflex on 719 Plan states STATISTICAL CLERK ADVERTISING off RCA in 4 weeks Patient is on aspirin and Plavix H/O anemia ,EGD colon cancelled earlier due to cardiac status REc PPI Close monitoring of Hb/Hct 05/15/18 23:38
--- NOTE | 2018-05-15 09:11 | CP.PCM.PN ---
Subjective - Date & Time of Evaluation Date of Evaluation: 05/15/18 Time of Evaluation: 09:00 - Subjective Subjective: had sudden onset SOB last night, no chest pain, NAD at present Objective - Vital Signs/Intake and Output Vital Signs (last 24 hours): Temp Pulse Resp BP Pulse Ox 98.0 F 64 20 122/47 L 93 L 05/15/18 06:00 05/15/18 06:00 05/15/18 06:00 05/15/18 06:00 05/15/18 06:00 Intake and Output: 05/15/18 05/15/18 06:59 18:59 Intake Total 540 Balance 540 - Medications Medications: Current Medications Alprazolam (Xanax) 0.5 mg PO TID PRN; Protocol PRN Reason: Anxiety Last Admin: 05/12/18 22:41 Dose: 0.5 mg Amlodipine Besylate (Norvasc) 10 mg PO DAILY [facility] Last Admin: 05/14/18 09:39 Dose: 10 mg Atorvastatin Calcium (Lipitor) 40 mg PO DAILY [facility] Iron Sucrose 200 mg/ Sodium (Chloride) 110 mls @ 110 mls/hr IVPB DAILY [facility] Stop: 05/16/18 10:59 Last Admin: 05/14/18 09:39 Dose: 110 mls/hr Insulin Human Regular (Humulin R Low) 0 units SC ACHS [facility] PRN Reason: Protocol Last Admin: 05/14/18 21:22 Dose: Not Given Levothyroxine Sodium (Synthroid) 25 mcg PO 0600 [facility] Last Admin: 05/15/18 05:15 Dose: 25 mcg Ondansetron HCl (Zofran Inj) 4 mg IVP Q6H PRN PRN Reason: Nausea/Vomiting Last Admin: 05/15/18 03:44 Dose: 4 mg Pantoprazole Sodium (Protonix Ec Tab) 40 mg PO 0600 [facility] Last Admin: 05/15/18 05:16 Dose: 40 mg Polyethylene Glycol (Miralax) 17 gm PO DAILY [facility] Last Admin: 05/14/18 09:39 Dose: 17 gm - Labs Labs: 05/15/18 03:05 05/15/18 03:05 PT 11.5 SECONDS (9.4-12.5) 05/15/18 03:05 INR 1.01 (0.93-1.08) 05/15/18 03:05 APTT 32.6 Seconds (25.1-36.5) 05/15/18 03:05 - Respiratory Exam Respiratory Exam: Clear to Ausculation Bilateral, NORMAL BREATHING PATTERN - Cardiovascular Exam Cardiovascular Exam: REGULAR RHYTHM - GI/Abdominal Exam GI & Abdominal Exam: Soft, Normal Bowel Sounds - Neurological Exam Neurological Exam: Alert, Awake - Skin Skin Exam: Dry, Warm Assessment and Plan (1) UTI (urinary tract infection) Status: Resolved (2) HTN (hypertension) Status: Resolved (3) Type II diabetes mellitus Status: Chronic (4) Hyperkalemia Status: Resolved (5) Azotemia Status: Resolved (6) Anemia Status: Acute (7) Arrhythmia Status: Acute (8) Coronary artery disease Status: Acute - Assessment and Plan (Free Text) Plan: elevated troponin c/w NSTEMI, for possible cardiac cath today, anemia/GI work- up on hold
--- NOTE | 2018-05-15 09:38 | CARD ---
APPROVED REPORT Date of service: 05/15/2018 EKG Measurement Heart [id number] CT [id number] <Conclusion> Sinus rhythm with sinus arrhythmia with 1st degree AV block Nonspecific ST and T wave abnormality Abnormal ECG
--- NOTE | 2018-05-15 09:39 | CARD ---
APPROVED REPORT Date of service: 05/15/2018 EKG Measurement Heart [id number] [place] [id number] <Conclusion> Sinus rhythm with 1st degree AV block Nonspecific ST and T wave abnormality Abnormal ECG
[2018-05-15] MEDS ORDERED: Iodixanol 320 MG/ML 200 ML BOTTLE IV ONE (10:40)
[2018-05-15] MEDS ORDERED: Lidocaine 2 GM Vial 2 GM/50 ML VIAL IV ONE (10:40)
[2018-05-15] MEDS ORDERED: Iohexol 350mgl/ml 50 ML ONE (10:40)
[2018-05-15] MEDS ORDERED: Midazolam 2 MG/2 ML VIAL ONE (11:09)
[2018-05-15] MEDS ORDERED: Eptifibatide 20 mg/10mL Inj IVP ONE (11:25)
[2018-05-15] MEDS ORDERED: Sodium Chloride 0.9% 1,000 ML IV SCH (12:15)
[2018-05-15] MEDS: POLYETHYLENE GLYCOL 3350 17 GM/Dose PACKET PO SCH (12:43)
--- NOTE | 2018-05-15 15:16 | PN ---
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 BRIEF CLINICAL HISTORY: This is an 83-year-old female with past medical history significant for open heart surgery at [facility]. According to the patient, had a 4-vessel bypass, who was admitted initially for the GI bleed and lethargy while the patient was in Telemetry. While the patient was in PACU, found to be in junctional bradycardia and Mobitz type 1, so admitted to the Telemetry. sorter pricer, the patient was diaphoretic, rapid response and some shortness of breath, though denies any chest pain. Troponin is positive, so the patient started on heparin. Started aspirin and Plavix. The patient was scheduled for cardiac catheterization this morning. Agreed for cardiac catheterization. Denies any chest pain. PHYSICAL EXAMINATION: VITAL SIGNS: As follows, temperature afebrile, heart rate 64, and blood pressure 136/47. HEENT: PERRLA, intact. NECK: Supple. No carotid bruits or thyromegaly. CHEST: Clear to auscultation. HEART: S1 and S2 regular. ABDOMEN: Soft. EXTREMITIES: Clubbing and cyanosis negative. LABORATORY DATA: Blood workup, WBC 9.8, hemoglobin 10.3, hematocrit 31.7, platelet count 253. Chemistry shows sodium 134, potassium 5.1, chloride 96, carbon dioxide 28, anion gap of 15, BUN 37, creatinine 1.3. Troponin is 0.24. Triglyceride 172, total cholesterol 307, LDL 172, HDL 59, TSH 5.16. EKG shows sinus tachycardia, first-degree, [place], but no acute ST-T wave changes noted. IMPRESSION AND PLAN: An 83-year-old female with past medical history of open heart surgery and significant for diabetes, hypertension, hyperlipidemia, peripheral artery disease, status post bilateral below knee amputation, history of coronary artery disease, history of coronary artery bypass grafting by history, last night had unstable angina, acute coronary syndrome, contacted [facility] to get the operative report and that revealed the patient has been operated on 06/20/2014 for critical aortic stenosis and thought to be very high risk for a standard surgical aortic valve replacement by Dr. Meza and by Dr. Edmondson, so the patient underwent a transcutaneous transcatheter aortic valve replacement on 06/20/2014, but no bypass was done, operative report from the [facility]. So, we will do the cardiac catheterization today. Tried to get in touch with the son named, Darrell and left the message and an update on the patient's condition. We will load with aspirin, Plavix, and discontinue heparin and we will do the cardiac catheterization in the next hour or so. Thank you Dr. Whitman for providing us the opportunity in taking care of the patient, Sara Flor. Omero Carrion MD
--- NOTE | 2018-05-15 16:05 | CPOSTOP ---
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 TYPE OF ANESTHESIA: Moderate conscious sedation, total 1 mg of Versed and 50 of fentanyl given. PRE-PROCEDURE DIAGNOSES: Unstable angina, acute coronary syndrome. PROCEDURES PERFORMED: 1. Left heart catheterization. 2. Stenting of left anterior descending artery, stenting of circumflex. FINDINGS: Triple-vessel disease. FINAL DIAGNOSIS: Triple-vessel disease. POST PROCEDURE CONDITION: The patient's condition is stable. VASCULAR ACCESS SITE: Right femoral artery. CLOSURE DEVICE: Mynx. TOTAL RADIATION DOSE: 57884.1 milligray unit. FLUORO TIME: 12.9 minutes. Omero Carrion MD
--- NOTE | 2018-05-15 16:35 | CARD ---
APPROVED REPORT Date of service: 05/15/2018 EKG Measurement Heart [id number] <Conclusion> NSR with prolong first degree AV block Nonspecific ST and T wave abnormality Abnormal ECG
[2018-05-15 17:08] LABS: BASO # 0.04 K/mm3 (0.0-2.0); BASO % 0.6 % (0.0-3.0); EOS # 0.1 (0.0-0.7); EOS % 1.7 % (1.5-5.0); GRAN # 4.76 (1.4-6.5); GRAN % 68.8 % (50.0-68.0); HEMOGLOBIN 8.3 g/dL (12.0-16.0); LYMPH # 1.5 (1.2-3.4); LYMPH % 21.4 % (22.0-35.0); MEAN CELL VOLUME 78.2 fl (80.0-105.0); MEAN CORPUSCULAR HEMOGLOBIN 25.2 pg (25.0-35.0); MEAN CORPUSCULAR HGB CONC 32.2 g/dl (31.0-37.0); MEAN PLATELET VOLUME 10.2 fl (7.0-11.0); MONO # 0.5 (0.1-0.6); MONO % 7.5 % (1.0-6.0); RBC 3.3 10^6/uL (3.5-6.1); RED CELL DISTRIBUTION WIDTH 14.7 % (11.5-14.5); WHITE BLOOD COUNT 6.9 10^3/ul (4.5-11.0)
[2018-05-15 17:13] LABS: CALCIUM 8.6 mg/dL (8.4-10.5)
--- NOTE | 2018-05-15 17:31 | PN ---
DATE: 05/15/2018 SUBJECTIVE: The patient is seen sitting in bed. She is awake. She is alert. She is comfortable. She denies any pain. She denies any shortness of breath. PHYSICAL EXAMINATION: GENERAL: Morbidly obese, elderly lady, sitting in bed. VITAL SIGNS: Blood pressure 127/54, heart rate 64, respiratory rate 18, temperature 97.7. HEENT: Normocephalic, atraumatic, positive pallor. NECK: Supple. No JVD. LUNGS: Bilateral equal air entry, bilateral equal expansion, no rales. CARDIAC: S1 and S2, regular rate and rhythm, no murmur, no rub. ABDOMEN: Obese, distended, soft, nontender, bowel sounds present. EXTREMITIES: Bilateral AKA. LABORATORY DATA: WBC 6.9, hemoglobin 8.3, hematocrit 26, platelets 206. Potassium 4.8, creatinine 1.2. MEDICATIONS: List reviewed. ASSESSMENT: 1. Hyperkalemia, resolved. 2. Acute kidney injury, resolved. 3. 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 4. Severe anemia. 5. Hypertension. 6. Peripheral vascular disease. PLAN: 1. Continue current management. 2. Continue current antihypertensives. 3. Avoid nephrotoxins. Ysabel Mehta MD
--- NOTE | 2018-05-15 18:13 | CARD ---
APPROVED REPORT Date of service: 05/15/2018 Procedure(s) performed: Left Heart Catheterization PTCA with Stenting of proximal Cx with JAYME PTCA with Stenting of Mid LAD with JAYME HISTORY The patient is a 83 year-old female with a history of : most recent EF: 62.5%. (EF Method: Echocardiogram), peripheral vascular disease, diabetes mellitus with insulin treatment , previous diagnostic cath, tobacco history() : The patient is a former smoker , hypertension , dyslipidemia , previous valve surgery (The previous valve surgery date was ), S/p Transaortic Transcatheter Aortic Valve replacement with 23 mm Delgado Vikki (open sternotomy TAVR) on 06/24/2014 at [facility], Hx of severe PAD S/p B/L AKA, admitted with bradycardia, ACS,/NSTEMI and rapid response at 5;00am in telemetry.. INDICATION The indication(s) include : unstable angina , non-STEMI , chest pain, abnormal ECG, arrhythmia, dyspnea, valvular heart disease. CASE TECHNIQUE The patient was brought urgently to the Cardiac Catheterization Laboratory in a fasting state and was prepped and draped in a sterile manner. The right femoral groin was infiltrated with 2% Lidocaine subcutaneous anesthesia. A 6 Fr x 10 cm [place] sheath was inserted into the right femoral artery without difficulty. Coronary angiography was performed using coronary diagnostic catheters. The left coronary system was accessed and visualized with a Diagnostic ,5 Fr JL 4 catheter. The right coronary system was accessed and visualized with a Diagnostic ,5 Fr JR 3.5 catheter. The left ventricle was accessed and visualized with a 5 Fr Pigtail 145 (Angled) catheter. The patient tolerated the procedure well and there were no complications associated with the procedure. LV gram not obtained b/C of AVR. Vessel Analysis The patient's coronary anatomy is co-dominant. The left main coronary artery is a medium size vessel with diffuse calcification noted throughout this vessel and without significant stenosis. Very short left main The left main bifurcates to the left anterior descending and circumflex. The left anterior descending artery is a medium size vessel with diffuse calcification noted throughout this vessel and with significant stenosis. There is a 90-95% stenosis in the mid segment. long tubular stenosis The first diagonal branch is a small size vessel with diffuse calcification noted throughout this vessel and without significant stenosis. The second diagonal branch is a small size vessel with diffuse calcification noted throughout this vessel and without significant stenosis. The third diagonal branch is a small size vessel with diffuse calcification noted throughout this vessel and without significant stenosis. The circumflex artery is a medium size vessel with diffuse calcification noted throughout this vessel and with significant stenosis. There is a 90% stenosis in the proximal segment. The first obtuse marginal branch is a small size vessel with diffuse calcification noted throughout this vessel and without significant stenosis. There is a 70% stenosis in the proximal segment. The left posterior descending artery is a medium size vessel with diffuse calcification noted throughout this vessel and without significant stenosis. The right coronary artery is a medium size vessel with diffuse calcification noted throughout this vessel and with significant stenosis. There is a 80% stenosis in the proximal segment. The right posterolateral branch is a medium size vessel with diffuse calcification noted throughout this vessel and with significant stenosis. There is a 80-90% stenosis in the proximal segment. Left Ventricle LV gram N/A b/c of AVR PCI Technique Lesion Anticoagulation was achieved with Heparin and Integrilin bollus only.. Percutaneous coronary intervention was performed on the mid left anterior descending artery segment. The lesion stenosis prior to intervention was 90-95% with RITA 1 flow. A 6 Fr XB 3 Guide Catheter was used to engage the ostium. A Luge 182 Interventional Guidewire was used to cross the lesion. BALLOON DILATION A Balloon catheter 2.5 x 15 mm Sprinter RX was inserted and inflated up to 6.00atm for 10seconds. STENT DEPLOYMENT A drug-eluting stent STENT RESOLUTE RUTH 2.5 X38 was inserted and inflated up to 12.00atm for 120seconds. Final angiography reveals 0 % stenosis with RITA 3 flow. PCI Technique Lesion 2 Percutaneous Coronary Intervention was performed on the proximal circumflex artery segment. The lesion stenosis prior to intervention was 90% with RITA 2 flow. A 6 Fr XB 3 Guide Catheter was used to engage the ostium. A Luge 182 Interventional Guidewire was used to cross the lesion. BALLOON DILATION A Balloon catheter 2.5 x 15 mm Sprinter RX was inserted and inflated up to 6.00atm for 11seconds. STENT DEPLOYMENT A drug-eluting stent STENT RESOLUTE RUTH 3.0 X 18 was inserted and inflated up to 12.00atm for 120seconds. Final angiography reveals 0 % stenosis with RITA 3 flow. Conclusion Three vessel diseases S/p TAVR Succesful PTCA with JAYME of Proximal Cx and Mid LAD Recommendations Daily ASA with Plavix for at least one year Aggressive Medical TherapyCardiac Risk Reduction Program Weight Loss Reduction Program For staged PTCA of Proxmal RCA and RPDA in Four weeks CC; DRs. Grover / Reuben.
[2018-05-16] MEDS: Pantoprazole 40 mg EC Tab PO SCH (05:45)
[2018-05-16] MEDS: Levothyroxine 25 MCG TAB PO SCH (05:46)
[2018-05-16] MEDS ORDERED: Levothyroxine 25 MCG TAB PO SCH (06:00)
[2018-05-16 06:47] VITALS: O2SAT 96
[2018-05-16 06:54] LABS: BASO # 0.03 K/mm3 (0.0-2.0); BASO % 0.5 % (0.0-3.0); EOS # 0.1 (0.0-0.7); EOS % 2.2 % (1.5-5.0); GRAN # 4.62 (1.4-6.5); GRAN % 72.1 % (50.0-68.0); HEMOGLOBIN 8.2 g/dL (12.0-16.0); LYMPH # 1.2 (1.2-3.4); LYMPH % 17.9 % (22.0-35.0); MEAN CELL VOLUME 79.1 fl (80.0-105.0); MEAN CORPUSCULAR HEMOGLOBIN 24.1 pg (25.0-35.0); MEAN CORPUSCULAR HGB CONC 30.5 g/dl (31.0-37.0); MEAN PLATELET VOLUME 10.4 fl (7.0-11.0); MONO # 0.5 (0.1-0.6); MONO % 7.3 % (1.0-6.0); RBC 3.4 10^6/uL (3.5-6.1); RED CELL DISTRIBUTION WIDTH 14.8 % (11.5-14.5); WHITE BLOOD COUNT 6.4 10^3/ul (4.5-11.0)
[2018-05-16 09:05] LABS: ALB/GLOB RATIO 1.1 (1.1-1.8); ALBUMIN 3.3 g/dL (3.0-4.8); CALCIUM 8.9 mg/dL (8.4-10.5)
[2018-05-16] MEDS: POLYETHYLENE GLYCOL 3350 17 GM/Dose PACKET PO SCH (09:59)
--- NOTE | 2018-05-16 11:35 | CP.PCM.PN ---
<Gomez Cameron - Last Filed: 05/16/18 13:22> Subjective - Date & Time of Evaluation Date of Evaluation: 05/16/18 Time of Evaluation: 08:30 - Subjective Subjective: GI Progress Note for Dr. Mandy Cameron, PGY-3 IM Patient seen and examined at bedside. No acute events overnight. S/p cardiac cath due to suspected NSTEMI 2 nights prior (SOB, diaphoresis, Trop 0.24), found to have triple vessel disease and received 2 drug eluting stents (LAD and Circumflex arteries). Objective - Vital Signs/Intake and Output Vital Signs (last 24 hours): Temp Pulse Resp BP Pulse Ox 98.1 F 67 20 135/59 L 96 05/16/18 06:00 05/16/18 06:00 05/16/18 06:00 05/16/18 09:57 05/16/18 06:00 Intake and Output: 05/16/18 05/16/18 06:59 18:59 Intake Total 900 Output Total 0 Balance 900 - Medications Medications: Current Medications Alprazolam (Xanax) 0.5 mg PO TID PRN; Protocol PRN Reason: Anxiety Last Admin: 05/12/18 22:41 Dose: 0.5 mg Amlodipine Besylate (Norvasc) 10 mg PO DAILY [facility] Last Admin: 05/16/18 09:57 Dose: 10 mg Aspirin (Ecotrin) 81 mg PO DAILY [facility] Last Admin: 05/16/18 09:57 Dose: 81 mg Atorvastatin Calcium (Lipitor) 80 mg PO DAILY [facility] Clopidogrel Bisulfate (Plavix) 75 mg PO DAILY [facility] Last Admin: 05/16/18 09:57 Dose: 75 mg Docusate Sodium (Colace) 100 mg PO BID [facility] Last Admin: 05/16/18 09:57 Dose: 100 mg Sodium Chloride (Sodium Chloride 0.9%) 1,000 mls @ 50 mls/hr IV .Q20H [facility] Stop: 05/16/18 23:59 Last Admin: 05/15/18 12:30 Dose: 50 mls/hr Insulin Human Regular (Humulin R Low) 0 units SC ACHS [facility] PRN Reason: Protocol Last Admin: 05/15/18 22:00 Dose: Not Given Isosorbide Mononitrate (Imdur Er) 30 mg PO DAILY [facility] Last Admin: 05/16/18 09:57 Dose: 30 mg Levothyroxine Sodium (Synthroid) 25 mcg PO 0600 [facility] Last Admin: 05/16/18 05:46 Dose: 25 mcg Ondansetron HCl (Zofran Inj) 4 mg IVP Q6H PRN PRN Reason: Nausea/Vomiting Last Admin: 05/15/18 03:44 Dose: 4 mg Pantoprazole Sodium (Protonix Ec Tab) 40 mg PO 0600 [facility] Last Admin: 05/16/18 05:45 Dose: 40 mg Polyethylene Glycol (Miralax) 17 gm PO DAILY [facility] Last Admin: 05/16/18 09:59 Dose: 17 gm - Labs Labs: 05/16/18 06:30 05/16/18 06:30 PT 11.5 SECONDS (9.4-12.5) 05/15/18 03:05 INR 1.01 (0.93-1.08) 05/15/18 03:05 APTT 32.6 Seconds (25.1-36.5) 05/15/18 03:05 - Additional Findings Additional findings: - Constitutional Appears: Non-toxic, No Acute Distress, Chronically Ill - Head Exam Head Exam: ATRAUMATIC, NORMAL INSPECTION, NORMOCEPHALIC - Eye Exam Eye Exam: Normal appearance. absent: Conjunctival injection, Scleral icterus Pupil Exam: absent: Fixed, Irregular - ENT Exam ENT Exam: Mucous Membranes Moist - Neck Exam Neck Exam: Normal Inspection. absent: Lymphadenopathy, Thyromegaly - Respiratory Exam Respiratory Exam: Clear to Ausculation Bilateral, NORMAL BREATHING PATTERN. absent: Accessory Muscle Use, Chest Wall Tenderness, Decreased Breath Sounds, Prolonged Expiratory Phase, Rales, Rhonchi, Wheezes, Respiratory Distress - Cardiovascular Exam Cardiovascular Exam: REGULAR RHYTHM, RRR, +S1, +S2. absent: Bradycardia, Tachycardia, Irregular Rhythm, JVD, +S4 - GI/Abdominal Exam GI & Abdominal Exam: Soft, Normal Bowel Sounds. absent: Distended, Firm, Guarding, Rigid, Tenderness, Diminished Bowel Sounds, Hyperactive Bowel Sounds, Hypoactive Bowel Sounds - Extremities Exam bilateral AKA, no active oozing or ulcerations appreciated at stumps - Neurological Exam Neurological Exam: Alert, Awake, Oriented x3, following all commands appropriately, spontaneously moving arms and bilateral LE stumps - Psychiatric Exam Psychiatric exam: Normal Affect, Normal Mood - Skin Skin Exam: Dry, Intact, Normal Color, Warm Assessment and Plan - Assessment and Plan (Free Text) Assessment: 83 year old female with PMH of Iron deficiency anemia, T2DM, HTN, PVD s/p B/L AKA, s/p aortic valve replacement presenting with weakness. Active treatment of K. pneumonia UTI. GI consultation for anemia. No prior EGD or colonoscopy. 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 Plan: Iron deficiency anemia weakness DM-II HTN PVD s/p B/L AKA s/p aortic valve replacement NSTEMI s/p cardiac cath, 2 JAYME placed, Triple Vessel disease -likely multifactorial; iron deficiency, hemodilutional possible underlying GI pathology (PUD, vascular malformation, neoplasia) vs non-GI source of blood loss -no active overt GI blood loss, brown stool on initial rectal exam, no tarry- black or melanotic movements reports by nursing or pt -H/H noted to slowly trend down since admission Hb 11.3 to 8.8 (8.9 again today) ; baseline per prior charting appears to be 8-10, so remains at baseline -continue to monitor H/H -iron 44 ferritin 35.2, s/p IV iron infusion on 05/10/18 -CT abd/pelvis with PO contrast notable for sigmoid/descending colon diverticulosis, constipation without obstruction, non-calcified stones vs sludge in GB -patient now amenable to EGD/Colonoscopy, but due to abnormal cardiac rhythm obtained on 12-lead EKG prior to procedure (AV dissociation with junctional rhythm) the procedure was cancelled pending cardiac eval and clearance. Seen by Dr. 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 Galvan <Erin Galvan V - Last Filed: 05/17/18 02:32> Objective - Vital Signs/Intake and Output Vital Signs (last 24 hours): Temp Pulse Resp BP Pulse Ox 98.8 F 66 19 131/58 L 96 05/16/18 12:00 05/16/18 12:00 05/16/18 12:00 05/16/18 12:00 05/16/18 06:00 - Labs Labs: 05/16/18 06:30 05/16/18 15:30 PT 11.5 SECONDS (9.4-12.5) 05/15/18 03:05 INR 1.01 (0.93-1.08) 05/15/18 03:05 APTT 32.6 Seconds (25.1-36.5) 05/15/18 03:05 Attending/Attestation - Attestation I have personally seen and examined this patient.: Yes I have fully participated in the care of the patient.: Yes I have reviewed all pertinent clinical information, including history, physical exam and plan: Yes Notes (Text): 0This is an addendum to GI progress report dictated by the [employer].The patient was seen and examined earlier. Medical records, lab studies, imagings were reviewed. Last 24 hours events reviewed. Agreed with the above treatment plan as outlined in [employer] 's notes the with the addition of the following 05/17/18 02:32
[2018-05-16 12:44] VITALS: BP 131/58; PULSE 66; RESP 19; TEMP 98.8
--- NOTE | 2018-05-16 14:47 | PN ---
DATE: 05/16/2018 REASON FOR CONSULTATION AND FOLLOWUP: Acute coronary syndrome, unstable angina status post multivessel PTCA. SUBJECTIVE: The patient denies any chest pain, shortness of breath, or any palpitations. OBJECTIVE: GENERAL: Not in apparent distress. VITAL SIGNS: Temperature afebrile, heart rate 67, blood pressure 135/59. HEENT: PERRLA. Extraocular muscles intact. NECK: Supple. No carotid bruit or thyromegaly. CHEST: Clear to auscultation. HEART: S1 and S2, regular. ABDOMEN: Soft. EXTREMITIES: Clubbing and cyanosis negative. LABORATORY DATA: Blood workup as follows: WBC is 6.5, hemoglobin 8.2, hematocrit 26.9, platelet count 232. Chemistries shows sodium 135, potassium 5.2, chloride 90, carbon dioxide 25, anion gap of 15, BUN 36, creatinine 1.3. IMPRESSION: Acute coronary syndrome, unstable angina, status post transcatheter aortic valve replacement, status post yesterday multivessel angioplasty of circumflex and left anterior descending; chronic renal insufficiency, baseline creatinine 1.4 to 1.6 and today, it is 1.3. Anemia, rule out gastrointestinal bleed; diabetes; severe peripheral arterial disease, status post bilateral above-knee amputation; history of transcatheter aortic valve replacement secondary to aortic stenosis. The patient had echocardiography done day before yesterday that revealed ejection fraction 55%, secondary to transcatheter aortic valve replacement, moderate mitral regurgitation. RECOMMENDATION: Continue gentle diuretic. Monitor H and H. Continue baby aspirin. Continue Plavix. Continue atorvastatin. Continue amlodipine. Avoid nephrotoxic medication. Continue levothyroxine because of hypothyroidism. Monitor renal function and repeat lab in the morning. We will leave a gentle hydration for the next 24 hours. Repeat SMA-7 today at 3:00 p.m. We will follow with you. We will hold CONNER for now because of renal insufficiency. We will follow. Thank you, Dr. Whitman, for providing us the opportunity in taking care of the patient, Basia Sara. Omero Carrion MD
[2018-05-16 16:01] LABS: CALCIUM 8.7 mg/dL (8.4-10.5)
--- NOTE | 2018-05-16 16:13 | CARD ---
APPROVED REPORT Date of service: 05/16/2018 EKG Measurement Heart [id number] <Conclusion> Accelerated Junctional rhythm Septal infarct, age undetermined Abnormal ECG
--- NOTE | 2018-05-16 16:35 | DS ---
HOSPITAL COURSE: The patient is an 83-year-old female admitted through the emergency department on 05/06/2018 with a markedly elevated blood pressure and possible urinary tract infection. The patient received empiric IV Rocephin. Renal consultation was called for the elevated blood pressure and azotemia with Dr. Mehta and Dr. Rasmussen. The patient received IV fluid and was started on antihypertensive medications with improvement. The patient was also noted to be anemic. GI consultation was called with Dr. Galvan. The patient was scheduled for endoscopy; however, the patient was noted to have arrhythmia and hospital course was complicated by a [id number] elevation myocardial infarction. The patient underwent cardiac catheterization with Dr. Chandler and Dr. Carrion and received stent placement x2. The patient has had an uneventful hospital course post catheterization and is now transferred to the Transitional Care Unit for further rehabilitation and monitoring. PHYSICAL EXAMINATION: VITAL SIGNS: Blood pressure 131/58, temperature 98.8, pulse 66, respiratory rate 19. LUNGS: Clear. HEART: Regular rate and rhythm. ABDOMEN: Soft, nontender. Bowel sounds are normoactive. EXTREMITIES: Stumps are clear without edema. NEUROLOGICAL: The patient is awake and oriented x3 without focal sensory motor deficits. SKIN: Warm and dry. LABORATORY DATA: WBCs 6.4, hemoglobin 8.2, hematocrit 26.9. Sodium 135, potassium 4.2, chloride 98, CO2 27, BUN 36, creatinine 1.3, glucose 133. IMPRESSION: 1. Atherosclerotic cardiovascular disease, status post tyz-CO-[id number] elevation myocardial infarction status post stent placement x2. 2. Chronic kidney disease. 3. Hyperkalemia. 4. Hypertension. 5. Type 2 diabetes mellitus. 6. Peripheral vascular disease status post bilateral above-knee amputation. PLAN: The patient will be discharged to the Transitional Care Unit on the following medications, Ecotrin 81 mg daily, Plavix 75 mg daily, Norvasc 10 mg daily, Lipitor 80 mg daily, Imdur 30 mg daily, regular insulin coverage before meals and at bedtime, low-dose protocol, Protonix 40 mg daily, Synthroid 25 mcg daily, Xanax 0.5 mg t.i.d. p.r.n. The patient will receive consistent carbohydrate diet. Activity is as per rehab in the Transitional Care Unit. ALMA DELIA Lowe MD [facility] # [id number]
--- NOTE | 2018-05-16 16:46 | PN ---
DATE: 05/16/2018 SUBJECTIVE: The patient is seen sitting in bed. She is awake. She is alert. She is comfortable. She is receiving IV iron. She had cardiac catheterization done yesterday. She had an LAD stent placed and a circumflex stent placed. PHYSICAL EXAMINATION: GENERAL: Elderly lady, sitting in bed. VITAL SIGNS: Blood pressure 131/58, heart rate 66, respiratory rate 18, temperature 98.8. HEENT: Normocephalic, atraumatic, positive pallor. NECK: Supple, no JVD. LUNGS: Bilateral equal air entry, no rales. CARDIAC: S1 and S2, regular rate and rhythm, no murmur, no rub. ABDOMEN: Obese, distended, soft, nontender, bowel sounds present. EXTREMITIES: Bilateral AKA. INTAKE AND OUTPUT: 1175/not charted. LABORATORY DATA: WBC 6.4, hemoglobin 8.2, hematocrit 27, platelets 232. Sodium 133, potassium 5.3, chloride 97, CO2 of 28, BUN 37, creatinine 1.5, glucose 193, calcium 8.7. CURRENT MEDICATIONS: Colace, Ecotrin, insulin, Lipitor, MiraLax, amlodipine, Plavix, Protonix, normal saline at 50, Synthroid, Xanax, Zofran. ASSESSMENT: 1. Unstable angina, acute coronary syndrome, status post left heart catheterization, stenting of left anterior descending and circumflex. 2. Acute kidney injury again superimposed on chronic kidney disease stage 2. 3. Hyperkalemia secondary to acute kidney injury. 4. Hypertension. 5. Urinary tract infection. 6. History of coronary artery disease, coronary artery bypass graft, aortic valve replacement. 7. Peripheral vascular disease, history of bilateral above-knee amputation. PLAN: 1. Continue to monitor chemistries closely. 2. Creatinine has risen from 1.2 to 1.5 again. No intervention needed for mild hyperkalemia. 3. Avoid nephrotoxins. 4. Monitor urine output closely. 5. We will continue to follow this patient closely with you. 6. Continue IV Venofer. 7. Continue PPI. Ysabel Mehta MD
--- NOTE | 2018-05-17 12:19 | CARD ---
APPROVED REPORT Date of service: 05/15/2018 Reason for Test: LESLEY/JT ARRHYTHMIA / MOBITZ TYPE BLOCK Hookup date: 2018-05-14 Scan date: 2018-05-15 Recording time: 23 HR 59 MIN Heart Rate Data Total Beats: 72186 Min HR: 41 BPM at 3:49PM Avg HR: 63 BPM Max HR: 87 BPM at 3:56AM Ventricular Ectopy Total VE Beats: 412 (0.5%) Single/Interp PVC: 384/0 Single/Late VE's: 25/3 Supraventricular Ectopy Total VE Beats: 2055 (2.3%) Drop/Late: 10/2054 Longest R-R: 2.1 sec at 4:28 PM Single PAC's: 1
== END 2018-05-16 16:41 | DRG 981 ==
LOC: ED 15:04 → ERH 22:19 → 5RNO 23:41 → 2RSO 05-13 15:59
PROVIDERS: ADMIT Internal Medicine; ATTEND Internal Medicine
PROC: 027135Z Dilation of Coronary Artery, Two Arteries with Two Drug-eluting Intraluminal Devices, Percutaneous Approach (ICD-10-PCS; principal; 2018-05-15)
PROC: 4A023N7 Measurement of Cardiac Sampling and Pressure, Left Heart, Percutaneous Approach (ICD-10-PCS; 2018-05-15)
PROC: B2111ZZ Fluoroscopy of Multiple Coronary Arteries using Low Osmolar Contrast (ICD-10-PCS; 2018-05-15)
PROC: 3E033PZ Introduction of Platelet Inhibitor into Peripheral Vein, Percutaneous Approach (ICD-10-PCS; 2018-05-15)
DX: N39.0 Urinary tract infection, site not specified (principal); I21.4 Non-ST elevation (NSTEMI) myocardial infarction; I25.110 Atherosclerotic heart disease of native coronary artery with unstable angina pectoris; I13.0 Hypertensive heart and chronic kidney disease with heart failure and stage 1 through stage 4 chronic kidney disease, or unspecified chronic kidney disease; N17.9 Acute kidney failure, unspecified; I45.89 Other specified conduction disorders; Z68.42 Body mass index [BMI] 45.0-49.9, adult; N10 Acute pyelonephritis; T36.1X5A Adverse effect of cephalosporins and other beta-lactam antibiotics, initial encounter; E11.22 Type 2 diabetes mellitus with diabetic chronic kidney disease; N18.2 Chronic kidney disease, stage 2 (mild); I50.9 Heart failure, unspecified; I44.1 Atrioventricular block, second degree; B96.1 Klebsiella pneumoniae [K. pneumoniae] as the cause of diseases classified elsewhere; E11.51 Type 2 diabetes mellitus with diabetic peripheral angiopathy without gangrene; E78.5 Hyperlipidemia, unspecified; D50.9 Iron deficiency anemia, unspecified; E66.01 Morbid (severe) obesity due to excess calories; E87.5 Hyperkalemia; K57.30 Diverticulosis of large intestine without perforation or abscess without bleeding; I08.0 Rheumatic disorders of both mitral and aortic valves; E03.9 Hypothyroidism, unspecified; K59.00 Constipation, unspecified; Z80.0 Family history of malignant neoplasm of digestive organs; Z95.2 Presence of prosthetic heart valve; Z87.891 Personal history of nicotine dependence; Z79.4 Long term (current) use of insulin; Z89.512 Acquired absence of left leg below knee; Z89.511 Acquired absence of right leg below knee; Z79.82 Long term (current) use of aspirin; Z79.02 Long term (current) use of antithrombotics/antiplatelets; Z95.1 Presence of aortocoronary bypass graft

== ENCOUNTER 2018-05-16 16:43 | Inpatient (IN) | payer OTHER ==
[2018-05-16] MEDS ORDERED: Sodium Chloride 0.9% 1,000 ML IV SCH (17:00)
[2018-05-16 20:29] VITALS: RESP 20; BMI 43.7
[2018-05-16] MEDS ORDERED: Pneumococcal 23-Valent Vaccine IM ONE (20:29)
[2018-05-16] MEDS: Insulin Reg-LOW-Coverage SC SCH (21:18)
[2018-05-17] MEDS: Levothyroxine 25 MCG TAB PO SCH (05:24)
[2018-05-17] MEDS: Pantoprazole 40 mg EC Tab PO SCH (05:24)
[2018-05-17] MEDS: Insulin Reg-LOW-Coverage SC SCH ×4 (07:23→21:29)
[2018-05-17 08:53] LABS: BASO # 0.03 K/mm3 (0.0-2.0); BASO % 0.4 % (0.0-3.0); EOS # 0.2 (0.0-0.7); EOS % 2.2 % (1.5-5.0); GRAN # 5.69 (1.4-6.5); GRAN % 72.5 % (50.0-68.0); HEMOGLOBIN 8.3 g/dL (12.0-16.0); LYMPH # 1.2 (1.2-3.4); LYMPH % 15.6 % (22.0-35.0); MEAN CELL VOLUME 78.5 fl (80.0-105.0); MEAN CORPUSCULAR HEMOGLOBIN 24.8 pg (25.0-35.0); MEAN CORPUSCULAR HGB CONC 31.6 g/dl (31.0-37.0); MEAN PLATELET VOLUME 10.3 fl (7.0-11.0); MONO # 0.7 (0.1-0.6); MONO % 9.3 % (1.0-6.0); RBC 3.35 10^6/uL (3.5-6.1); RED CELL DISTRIBUTION WIDTH 15.4 % (11.5-14.5); WHITE BLOOD COUNT 7.8 10^3/ul (4.5-11.0)
[2018-05-17 09:07] LABS: ALBUMIN 3.5 g/dL (3.0-4.8); CALCIUM 8.9 mg/dL (8.4-10.5)
[2018-05-17] MEDS ORDERED: POLYETHYLENE GLYCOL 3350 17 GM/Dose PACKET PO SCH (10:00)
--- NOTE | 2018-05-17 10:07 | CP.PCM.CON ---
History of Present Illness - History of Present Illness History of Present Illness: Awake, alert, lying in bed, no distress Reason for consultation: Continuity of care in TCU, junctional bradycardia before endoscopy,NSTEMI, coronary artery disease post stents, history of aortic valve replacement at [facility],diabetes, hypertension, severe peripheral vascular disease post above knee amputation bilateral. Brief history of present illness: A 83 year old female who came in to the ER due to generalized weakness,fever and urinary tract infection. Cardiac consult was called for junctional bradycardia prior to endoscopy. Procedure was aborted and transferred to telemetry. In telemetry. EXTRACTOR FILLER was called due to shortness of breath. Work up showed positive troponins and urgent cardiac cath was done. Cath showed triple vessel disease.Stent placed on LAD and circumflex. Staged PTCA of RCA in 4 weeks. History of aortic valve replacement at [facility],diabetes, hypertension, severe peripheral vascular disease post above knee amputation bilateral.former smoker. Now transferred to TCU for reconditioning and physical therapy. Seen and examined by me and Dr. Carrion Review of Systems - Review of Systems All systems: reviewed and no additional remarkable complaints except Review of Systems: HPI Past Patient History - Infectious Disease Hx of Infectious Diseases: None - Tetanus Immunizations Tetanus Immunization: Unknown - Past Social History Smoking Status: Former Smoker - CARDIAC Hx Cardiac Disorders: Yes Hx Congestive Heart Failure: Yes Hx Hypertension: Yes - PULMONARY Hx Respiratory Disorders: No Other/Comment: FORMER SMOKER - NEUROLOGICAL Hx Neurological Disorder: No - HEENT Hx HEENT Problems: Yes Hx Deafness: Yes - RENAL Hx Chronic Kidney Disease: No - ENDOCRINE/METABOLIC Hx Diabetes Mellitus Type 2: Yes - HEMATOLOGICAL/ONCOLOGICAL Hx Blood Disorders: Yes Other/Comment: BLOOD TRANSFUSION - INTEGUMENTARY Hx Dermatological Problems: No - MUSCULOSKELETAL/RHEUMATOLOGICAL Hx Falls: No - GASTROINTESTINAL Hx Gastrointestinal Disorders: Yes (CONSTIPATION) - GENITOURINARY/GYNECOLOGICAL Hx Genitourinary Disorders: Yes (UTI) Hx Reproductive Disorders: No - PSYCHIATRIC Hx Substance Use: No - SURGICAL HISTORY Hx Amputation: Yes (B/L AKA) Hx Valve Replacement: Yes Other/Comment: CABG - ANESTHESIA Hx Anesthesia: Yes Hx Anesthesia Reactions: No Hx Malignant Hyperthermia: No Meds Allergies/Adverse Reactions: Allergies Allergy/AdvReac Type Severity Reaction Status Date / Time No Known Allergies Allergy Verified 05/16/18 20:11 - Medications Medications: Current Medications Alprazolam (Xanax) 0.5 mg PO TID PRN; Protocol PRN Reason: Anxiety Last Admin: 05/16/18 22:21 Dose: 0.5 mg Amlodipine Besylate (Norvasc) 10 mg PO DAILY [facility] Last Admin: 05/17/18 09:03 Dose: 10 mg Aspirin (Aspirin Chewable) 81 mg PO 0800 [facility] Last Admin: 05/17/18 09:00 Dose: 81 mg Atorvastatin Calcium (Lipitor) 80 mg PO DIN [facility] Last Admin: 05/16/18 18:33 Dose: 80 mg Clopidogrel Bisulfate (Plavix) 75 mg PO DAILY [facility] Last Admin: 05/17/18 09:04 Dose: 75 mg Docusate Sodium (Colace) 100 mg PO BID [facility] Last Admin: 05/17/18 09:03 Dose: 100 mg Furosemide (Lasix) 60 mg IVP ONCE ONE Stop: 05/17/18 09:57 Insulin Human Regular (Humulin R Low) 0 units SC ACHS [facility] PRN Reason: Protocol Last Admin: 05/17/18 07:23 Dose: Not Given Isosorbide Mononitrate (Imdur Er) 30 mg PO 0600 [facility] Last Admin: 05/17/18 05:24 Dose: 30 mg Levothyroxine Sodium (Synthroid) 25 mcg PO 0600 [facility] Last Admin: 05/17/18 05:24 Dose: 25 mcg Ondansetron HCl (Zofran Inj) 4 mg IVP Q6H PRN PRN Reason: Nausea/Vomiting Pantoprazole Sodium (Protonix Ec Tab) 40 mg PO 0600 [facility] Last Admin: 05/17/18 05:24 Dose: 40 mg Polyethylene Glycol (Miralax) 17 gm PO DAILY [facility] Last Admin: 05/17/18 09:03 Dose: 17 gm Physical Exam - Constitutional Appears: No Acute Distress - Head Exam Head Exam: NORMOCEPHALIC - Eye Exam Eye Exam: Normal appearance - ENT Exam ENT Exam: Mucous Membranes Moist - Respiratory Exam Respiratory Exam: Decreased Breath Sounds, Clear to Auscultation Bilateral, Rhonchi, NORMAL BREATHING PATTERN - Cardiovascular Exam Cardiovascular Exam: +S1, +S2 - GI/Abdominal Exam GI & Abdominal Exam: Normal Bowel Sounds, Soft - Extremities Exam Additional comments: bilateral AKA - Neurological Exam Neurological exam: Alert, Oriented x3 - Psychiatric Exam Psychiatric exam: Normal Affect - Skin Skin Exam: Intact, Normal Color, Warm Results - Vital Signs Recent Vital Signs: Last Vital Signs Temp 98.2 F 05/17/18 06:00 Pulse 62 05/17/18 06:00 Resp 20 05/17/18 06:00 BP 129/59 L 05/17/18 09:03 Pulse Ox - Labs Result Diagrams: 05/17/18 08:30 05/17/18 08:30 Labs: Laboratory Results - last 24 hr 05/16/18 05/17/18 05/17/18 21:17 07:05 08:30 WBC 7.8 D RBC 3.35 L Hgb 8.3 L Hct 26.3 L MCV 78.5 L MCH 24.8 L MCHC 31.6 RDW 15.4 H Plt Count 246 MPV 10.3 Gran % 72.5 H Lymph % (Auto) 15.6 L [place] % (Auto) 9.3 H Eos % (Auto) 2.2 Baso % (Auto) 0.4 Gran # 5.69 Lymph # (Auto) 1.2 [place] # (Auto) 0.7 H Eos # (Auto) 0.2 Baso # (Auto) 0.03 Sodium Potassium Chloride Carbon Dioxide Anion Gap BUN Creatinine Est GFR ( Amer) Est GFR (Non-Af Amer) POC Glucose (mg/dL) 189 H 127 H Random Glucose Calcium Phosphorus Magnesium Total Bilirubin AST ALT Alkaline Phosphatase Total Protein Albumin Globulin Albumin/Globulin Ratio 05/17/18 08:30 WBC RBC Hgb Hct MCV MCH MCHC RDW Plt Count MPV Gran % Lymph % (Auto) [place] % (Auto) Eos % (Auto) Baso % (Auto) Gran # Lymph # (Auto) [place] # (Auto) Eos # (Auto) Baso # (Auto) Sodium 133 Potassium 5.1 H Chloride 98 Carbon Dioxide 26 Anion Gap 15 BUN 40 H Creatinine 2.1 H Est GFR ( Amer) 27 Est GFR (Non-Af Amer) 23 POC Glucose (mg/dL) Random Glucose 133 H Calcium 8.9 Phosphorus 3.2 Magnesium 1.7 Total Bilirubin 0.6 AST 33 ALT 21 Alkaline Phosphatase 83 Total Protein 7.0 Albumin 3.5 Globulin 3.5 Albumin/Globulin Ratio 1.0 L Assessment & Plan - Assessment and Plan (Free Text) Assessment: A 83 year old female who came in to the ER due to generalized weakness,fever and urinary tract infection. Cardiac consult was called for junctional bradycardia prior to endoscopy. Procedure was aborted and transferred to telemetry. In telemetry. EXTRACTOR FILLER was called due to shortness of breath. Work up showed positive troponins and urgent cardiac cath was done. Cath showed triple vessel disease.Stent placed on LAD and circumflex. Staged PTCA of RCA in 4 weeks. History of aortic valve replacement at [facility],diabetes, hypertension, severe peripheral vascular disease post above knee amputation bilateral.former smoker. Now transferred to TCU for reconditioning and physical therapy. Plan: Physical therapy Cardiac status stable Heart rate and blood pressure stable On Norvasc 10 mg daily, ASA 81 mg daily,Lipitor 80 mg daily, Plavix 75 mg daily,Imdur ER 30 mg daily, Synhtroid 25 mcg daily Continue current treatment Continue current medications On IV antibiotics for UTI, ID on consult Will follow up Plan and treatment discussed with Dr. Carrion Thank you Dr. Grover for the opportunity of taking care of Ms. Basia Ruiz. - Date & Time Date: 05/17/18 Time: 07:00
[2018-05-17] MEDS ORDERED: Levalbuterol 0.63 MG/3 ML Inhal Soln UD IH PRN (10:21)
--- NOTE | 2018-05-17 13:08 | PN ---
DATE: 05/17/2018 SUBJECTIVE: The patient was transferred to the TCU for followup care. She is status post cardiac catheterization on 05/15/2018 with placement of a stent. Patient is currently seen in the TCU together with her [id number] who is a nurse. She is complaining of increased shortness of breath. Her pulse and oxygen saturations were low. Of note, her creatinine is back up to 2.1, 48 hours post cardiac catheterization and stent placement. MEDICATIONS: Medication list reviewed. Patient is currently on aspirin, Colace, insulin, Imdur, Lipitor, MiraLax, Norvasc, Plavix, Protonix, Synthroid, Xanax and Zofran. OBJECTIVE: VITAL SIGNS: Blood pressure 129/59, temperature 98.2, pulse is 62 with a respiratory rate of 20. Her last pulse ox was 91%. HEENT: Shows her to be normocephalic, atraumatic. Conjunctivae pale. Sclerae nonicteric. NECK: Supple. No neck vein distention. CHEST: Scattered crackles at the bases. No rhonchi or wheezing. CARDIOVASCULAR: Shows a regular rate and rhythm with MR. She is status post TAVR. No rubs or gallops. ABDOMEN: Soft. Mild distention. Bowel sounds normal. No rebound, guarding or masses. EXTREMITIES: Positive for bilateral AKA. LABORATORY DATA AND IMAGING: CBC from today: White blood cell count 7.8; hemoglobin 8.3, down from a high of 10.2; platelet count is 246,000. Chemistry: Sodium 133, potassium 5.1, BUN is 40 today, creatinine is up to 2.1 and had gone as low as 1.2. Glucose is 133. Calcium, phosphorus, magnesium levels are normal. Albumin is 3.5. Microbiology: Patient had positive urine cultures for Klebsiella and she was treated in Acute Care. ASSESSMENT: 1. Rising BUN and creatinine, this is 48 hours post cardiac catheterization for unstable angina and placement of a stent. In all likelihood, the patient has some mild contrast nephrotoxicity with superimposed acute renal failure on chronic kidney disease stage III. Patient does appear to be mildly short of breath. I will not start her on any intravenous fluid hydration. I will encourage her to increase p.o. fluids. 2. Shortness of breath. Perhaps developing very mild congestive heart failure, perhaps one dose of diuretic therapy to be given in the Transitional Care Unit today. Agree with decision to hold her angiotensin receptor penelope in light of her elevated BUN and creatinine. 3. Status post hyperkalemia. Potassium level was initially 5.7, it did fall into the 4 range, it is currently 5.1. 4. History of anemia with low iron levels. Patient was to have an endoscopy and colonoscopy, this was placed on hold because of the arrhythmia that she had when she was down in the Endoscopy suite. 5. History of diabetes mellitus. Patient will continue present therapy with insulin. 6. History of hypertension. Blood pressure control was acceptable. Patient may continue on Norvasc therapy. 7. History of atherosclerotic heart disease, status post cardiac catheterization, multivessel coronary artery disease. 8. History of a transcatheter aortic valve replacement for aortic stenosis with mitral regurgitation. PLAN: 1. Patient needs close followup in the TCU in light of her shortness of breath and low oxygen saturations. This was discussed with her [id number] who is a nurse in the TCU. 2. I will give the patient one dose of Lasix today because of her mild shortness of breath and perhaps mild volume overload. 3. Need to monitor BUN and creatinine closely over the next several days in light of her recent rising BUN and creatinine, perhaps secondary to mild contrast nephrotoxicity. 4. Aranesp and iron for her anemia. 5. Continue present blood pressure medication. 6. Continue close followup by Cardiology. Luke Rasmussen MD [facility]
[2018-05-17 13:20] VITALS: PULSE 65; TEMP 97.4; O2SAT 94
--- NOTE | 2018-05-17 13:33 | RAD ---
Date of service: 05/17/2018 HISTORY: SOB COMPARISON: 05/15/2018. FINDINGS: LUNGS: There is presumable pulmonary edema, worse in the left lung. There is mild pulmonary venous congestion. PLEURA: Small pleural effusions, no pneumothorax apparent. CARDIOVASCULAR: The heart is normal in size. Status post median sternotomy and prosthetic valve placement. OSSEOUS STRUCTURES: No significant abnormalities. VISUALIZED UPPER ABDOMEN: Normal. OTHER FINDINGS: None. IMPRESSION: Findings are concerning for pulmonary edema, worse in the left lung and small pleural effusions. Follow-up is advised.
--- NOTE | 2018-05-17 15:35 | HP ---
ADMISSION HISTORY AND PHYSICAL HISTORY OF PRESENT ILLNESS: The patient is an 83-year-old female, recently admitted to the hospital on 05/06/2018 with elevated blood pressure and urinary tract infection. The patient's hospital course was complicated by a [id number]-ZS-[id number] elevation myocardial infarction. She underwent cardiac catheterization and stent placement by Dr. Carrion. She had been seen in consultation by doctors, Dr. Mehta and Dr. Rasmussen for elevated blood pressure and azotemia, which improved with hydration and antihypertensive medications. She also was noted to have anemia, was seen in consultation by GI, Dr. Galvan, who had scheduled an endoscopy, which was canceled due to the cardiac problem. The patient is now admitted to the Transitional Care Unit for further rehabilitation and monitoring status post hospital discharge. PAST MEDICAL HISTORY: The patient's past medical history includes type 2 diabetes mellitus, coronary artery disease, chronic kidney disease, hypertension. PAST SURGICAL HISTORY: Includes peripheral vascular disease, status post bilateral knee amputation. CURRENT MEDICATIONS: The patient's current medications include Plavix 75 mg daily, Ecotrin 81 mg daily, Lipitor 80 mg daily, Synthroid 25 mcg daily, Xanax 0.5 mg three times daily. FAMILY HISTORY: Noncontributory. ALLERGIES: THE PATIENT HAS NO KNOWN DRUG ALLERGIES. SOCIAL HISTORY: The patient has no history of tobacco or alcohol use. She currently lives with her family. PHYSICAL EXAMINATION: GENERAL: The patient is a well-developed, mildly obese female, in no acute distress. VITAL SIGNS: Temperature 98.2, pulse 62, blood pressure 129/59, respiratory rate 20. HEENT: Head is normocephalic, atraumatic. Pupils equal, round, reactive to light. Extraocular movements intact. NECK: Supple. No thyromegaly. No carotid bruit. LUNGS: Clear. HEART: Regular rate and rhythm. ABDOMEN: Soft, obese, nontender. Bowel sounds are normoactive. EXTREMITIES: Status post bilateral above-knee amputations. Stumps are healed with no edema. NEUROLOGICAL: The patient is awake and oriented x3 without focal sensory or motor deficits. SKIN: Warm and dry. IMPRESSION: 1. Coronary artery disease, status post haa-NV-[id number] elevation myocardial infarction, status post stent placement x2. 2. Chronic kidney disease. 3. Hyperkalemia. 4. Hypertension. 5. Type 2 diabetes mellitus. 6. Peripheral vascular disease, status post bilateral above-knee amputation. 7. Anemia of uncertain etiology. PLAN: Continue present care and monitoring. Cardiology consultation, Dr. Carrion. Continue Renal followup with Dr. Valery santos GI followup with Dr. Galvan. Physical Therapy and Social Work for discharge placement. ALMA DELIA Lowe MD
[2018-05-18] MEDS: Pantoprazole 40 mg EC Tab PO SCH (05:36)
[2018-05-18] MEDS: Levothyroxine 25 MCG TAB PO SCH (05:36)
[2018-05-18] MEDS: Insulin Reg-LOW-Coverage SC SCH (06:36)
--- NOTE | 2018-05-18 07:37 | CP.PCM.PN ---
Subjective - Date & Time of Evaluation Date of Evaluation: 05/18/18 Time of Evaluation: 06:45 - Subjective Subjective: easily awaken, alert, lying in bed, no distress, denies shortness of breath Reason for consultation: Continuity of care in TCU, junctional bradycardia before endoscopy,NSTEMI, coronary artery disease post stents, history of aortic valve replacement at [facility],diabetes, hypertension, severe peripheral vascular disease post above knee amputation bilateral. came in to the ER due to generalized weakness,fever and urinary tract infection Now transferred to TCU for reconditioning and physical therapy. Seen and examined by me and Dr. Carrion Objective - Vital Signs/Intake and Output Vital Signs (last 24 hours): Temp Pulse Resp BP Pulse Ox 97.4 F L 65 20 132/54 L 94 L 05/17/18 10:00 05/17/18 10:00 05/17/18 10:00 05/17/18 10:50 05/17/18 10:00 Intake and Output: 05/18/18 05/18/18 06:59 18:59 Intake Total 240 Balance 240 - Medications Medications: Current Medications Alprazolam (Xanax) 0.5 mg PO TID PRN; Protocol PRN Reason: Anxiety Last Admin: 05/18/18 05:44 Dose: 0.5 mg Amlodipine Besylate (Norvasc) 10 mg PO DAILY [facility] Last Admin: 05/17/18 09:03 Dose: 10 mg Aspirin (Aspirin Chewable) 81 mg PO 0800 [facility] Last Admin: 05/17/18 09:00 Dose: 81 mg Atorvastatin Calcium (Lipitor) 80 mg PO DIN [facility] Last Admin: 05/17/18 17:38 Dose: 80 mg Clopidogrel Bisulfate (Plavix) 75 mg PO DAILY [facility] Last Admin: 05/17/18 09:04 Dose: 75 mg Docusate Sodium (Colace) 100 mg PO BID [facility] Last Admin: 05/17/18 17:39 Dose: 100 mg Furosemide (Lasix) 40 mg PO DAILY [facility] Insulin Human Regular (Humulin R Low) 0 units SC ACHS [facility] PRN Reason: Protocol Last Admin: 05/18/18 06:36 Dose: 1 unit Isosorbide Mononitrate (Imdur Er) 30 mg PO 0600 [facility] Last Admin: 05/18/18 05:36 Dose: 30 mg Levalbuterol HCl (Xopenex) 0.63 mg IH [id number] PRN PRN Reason: Shortness of Breath Levothyroxine Sodium (Synthroid) 25 mcg PO 0600 [facility] Last Admin: 05/18/18 05:36 Dose: 25 mcg Ondansetron HCl (Zofran Inj) 4 mg IVP Q6H PRN PRN Reason: Nausea/Vomiting Pantoprazole Sodium (Protonix Ec Tab) 40 mg PO 0600 [facility] Last Admin: 05/18/18 05:36 Dose: 40 mg Polyethylene Glycol (Miralax) 17 gm PO DAILY [facility] Last Admin: 05/17/18 09:03 Dose: 17 gm - Labs Labs: 05/17/18 08:30 05/17/18 08:30 - Constitutional Appears: No Acute Distress - Eye Exam Eye Exam: Normal appearance - ENT Exam ENT Exam: Mucous Membranes Moist - Respiratory Exam Respiratory Exam: Decreased Breath Sounds, Clear to Ausculation Bilateral, NORMAL BREATHING PATTERN - Cardiovascular Exam Cardiovascular Exam: +S1, +S2 - GI/Abdominal Exam GI & Abdominal Exam: Soft, Normal Bowel Sounds - Extremities Exam Additional comments: bilateral above knee amputation - Neurological Exam Neurological Exam: Alert, Awake, Oriented x3 - Psychiatric Exam Psychiatric exam: Normal Affect - Skin Skin Exam: Dry, Warm Assessment and Plan - Assessment and Plan (Free Text) Assessment: 83 year old female who came in to the ER due to generalized weakness,fever and urinary tract infection. Cardiac consult was called for junctional bradycardia prior to endoscopy. Procedure was aborted and transferred to telemetry. In telemetry. 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 Work up showed positive troponins and urgent cardiac cath was done. Cath showed triple vessel disease.Stent placed on LAD and circumflex. Staged PTCA of RCA in 4 weeks. History of aortic valve replacement at [facility],diabetes, hypertension, severe peripheral vascular disease post above knee amputation bilateral.former smoker. Now transferred to TCU for reconditioning and physical therapy. Plan: Denies chest pain and shortness of breath Cardiac status stable Heart rate and blood pressure stable Staged PTCA of RCA in 4 weeks (out patient) Physical therapy in progress Discharge planning, wanted to go home,son lives with her On Norvasc 10 mg daily, ASA 81 mg daily,Lipitor 80 mg daily, Plavix 75 mg daily,Imdur ER 30 mg daily, Synhtroid 25 mcg daily Continue current treatment Continue current medications Hemoglobin dropped to 7.8 and 24.7 hematocrit Will order to transfuse 2 units PRBC. Will follow up Plan and treatment discussed with Dr. Carrion
[2018-05-18 08:05] LABS: HEMOGLOBIN 7.8 g/dL (12.0-16.0); MEAN CELL VOLUME 79.4 fl (80.0-105.0); MEAN CORPUSCULAR HEMOGLOBIN 25.1 pg (25.0-35.0); MEAN CORPUSCULAR HGB CONC 31.6 g/dl (31.0-37.0); MEAN PLATELET VOLUME 10.2 fl (7.0-11.0); RBC 3.11 10^6/uL (3.5-6.1); RED CELL DISTRIBUTION WIDTH 15.9 % (11.5-14.5); WHITE BLOOD COUNT 6.7 10^3/ul (4.5-11.0)
[2018-05-18 08:19] LABS: ALBUMIN 3.2 g/dL (3.0-4.8); CALCIUM 8.6 mg/dL (8.4-10.5)
[2018-05-18 08:46] LABS: BASO # 0.04 K/mm3 (0.0-2.0); BASO % 0.6 % (0.0-3.0); EOS # 0.2 (0.0-0.7); EOS % 3.3 % (1.5-5.0); GRAN # 4.52 (1.4-6.5); GRAN % 65.6 % (50.0-68.0); LYMPH # 1.5 (1.2-3.4); LYMPH % 21.6 % (22.0-35.0); MONO # 0.6 (0.1-0.6); MONO % 8.9 % (1.0-6.0)
[2018-05-18 08:52] VITALS: BP 140/59
--- NOTE | 2018-05-18 10:51 | CP.PCM.PN ---
Addendum entered and electronically signed by Dana Bolaños DO 05/18/18 11:52: Pt seen and evaluated in ER, pt SOB and planned to have blood transfusion. Pt with no active/overt GI bleeding. Rectal exam with light brown stool. Plan to continue PPI po daily, add Pepcid qhs, Carafate and clear liquid diet. Case discussed with Dr. Galvan and he agrees with the above mentioned plan. Addendum entered and electronically signed by Dana Bolaños DO 05/18/18 10:58: 05/18/2018-Pt with low Hgb 7.8, trending down, SOB and Hypoxia , pt transferred to ER for blood transfusion per nursing. No reported rectal bleeding. Original Note: <Dana Bolaños - Last Filed: 05/18/18 10:51> Subjective - Date & Time of Evaluation Date of Evaluation: 05/17/18 Time of Evaluation: 12:00 - Subjective Subjective: GI Fellow PGY5 Progress Note, Late entry Pt seen and evaluated at bedside. No acute events overnight. No reported rectal bleeding per pt or nursing staff. s/p cardiac cath due to suspected NSTEMI 2 nights prior (SOB, diaphoresis, Trop 0.24), found to have triple vessel disease and received 2 drug eluting stents (LAD and Circumflex arteries). ROS: A 12pt ROS was negative except as above. Objective - Vital Signs/Intake and Output Vital Signs (last 24 hours): Temp Pulse Resp BP Pulse Ox 97.4 F L 65 20 140/59 L 94 L 05/17/18 10:00 05/17/18 10:00 05/17/18 10:00 05/18/18 08:47 05/17/18 10:00 Intake and Output: 05/18/18 05/18/18 06:59 18:59 Intake Total 240 Balance 240 - Medications Medications: Current Medications Alprazolam (Xanax) 0.5 mg PO TID PRN; Protocol PRN Reason: Anxiety Last Admin: 05/18/18 05:44 Dose: 0.5 mg Amlodipine Besylate (Norvasc) 10 mg PO DAILY [facility] Last Admin: 05/17/18 09:03 Dose: 10 mg Aspirin (Aspirin Chewable) 81 mg PO 0800 [facility] Last Admin: 05/18/18 07:55 Dose: 81 mg Atorvastatin Calcium (Lipitor) 80 mg PO DIN [facility] Last Admin: 05/17/18 17:38 Dose: 80 mg Clopidogrel Bisulfate (Plavix) 75 mg PO DAILY [facility] Last Admin: 05/17/18 09:04 Dose: 75 mg Docusate Sodium (Colace) 100 mg PO BID [facility] Last Admin: 05/17/18 17:39 Dose: 100 mg Furosemide (Lasix) 40 mg PO DAILY [facility] Insulin Human Regular (Humulin R Low) 0 units SC ACHS [facility] PRN Reason: Protocol Last Admin: 05/18/18 06:36 Dose: 1 unit Isosorbide Mononitrate (Imdur Er) 30 mg PO 0600 [facility] Last Admin: 05/18/18 05:36 Dose: 30 mg Levalbuterol HCl (Xopenex) 0.63 mg IH [id number] PRN PRN Reason: Shortness of Breath Levothyroxine Sodium (Synthroid) 25 mcg PO 0600 [facility] Last Admin: 05/18/18 05:36 Dose: 25 mcg Ondansetron HCl (Zofran Inj) 4 mg IVP Q6H PRN PRN Reason: Nausea/Vomiting Pantoprazole Sodium (Protonix Ec Tab) 40 mg PO 0600 [facility] Last Admin: 05/18/18 05:36 Dose: 40 mg Polyethylene Glycol (Miralax) 17 gm PO DAILY [facility] Last Admin: 05/17/18 09:03 Dose: 17 gm - Labs Labs: 05/18/18 07:50 05/18/18 07:50 - Constitutional Appears: Non-toxic, No Acute Distress - Head Exam Head Exam: ATRAUMATIC, NORMAL INSPECTION, NORMOCEPHALIC - Eye Exam Eye Exam: EOMI, Normal appearance, PERRL Pupil Exam: PERRL - ENT Exam ENT Exam: Mucous Membranes Moist - Neck Exam Neck Exam: Full ROM - Respiratory Exam Respiratory Exam: NORMAL BREATHING PATTERN - Cardiovascular Exam Cardiovascular Exam: REGULAR RHYTHM - GI/Abdominal Exam GI & Abdominal Exam: Soft. absent: Distended, Rigid, Normal Bowel Sounds - Rectal Exam Rectal Exam: Deferred - Neurological Exam Neurological Exam: Alert, Awake, Oriented x3 - Psychiatric Exam Psychiatric exam: Normal Affect, Normal Mood - Skin Skin Exam: Dry, Intact, Pallor, Warm Assessment and Plan - Assessment and Plan (Free Text) Assessment: This is a 83 year old female with PMH of Iron deficiency anemia, T2DM, HTN, PVD s/p B/L AKA, s/p aortic valve replacement presenting with weakness. GI consultation for anemia. 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 1. Iron deficiency anemia 2. NSTEMI s/p cardiac cath, 2 JAYME placed, Triple Vessel disease 3. DM-II 4. HTN 5. PVD s/p B/L AKA 6. s/p aortic valve replacement Plan: -Continue supportive care -Anemia, Hgb stable, no active overt GI blood loss, brown stool, no tarry-black or melanotic movements reports by nursing or pt -H/H noted to slowly trending down since admission -Iron 44 ferritin 35.2, s/p IV iron infusion on 05/10/18 -CT abd/pelvis with PO contrast notable for sigmoid/descending colon diverticulosis, constipation without obstruction, non-calcified stones vs sludge in GB -Patient did not have EGD/Colonoscopy due to abnormal cardiac rhythm obtained on 12-lead EKG prior to procedure (AV dissociation with junctional rhythm) the procedure was cancelled pending cardiac eval and clearance. -s/p PROGRAM CONSULTANT with likely NSTEMI; s/p cardiac cath, found to have triple vessel disease, JAYME x2 placed (LAD and Circumflex), on Plavix/ASA as per Cardio -Patient now amenable to follow up and obtain EGD/Colonoscopy as outpatient; will make further determination whether to obtain inpatient or outpatient based on Cardio recs and follow-up labs -Will continue to follow pt closely Reviewed, discussed, and seen with attending, Dr. Galvan <Erin Galvan V - Last Filed: 05/18/18 22:26> Objective - Vital Signs/Intake and Output Vital Signs (last 24 hours): Temp Pulse Resp BP Pulse Ox 97.4 F L 65 20 140/59 L 94 L 05/17/18 10:00 05/17/18 10:00 05/17/18 10:00 05/18/18 08:47 05/17/18 10:00 - Medications Medications: Current Medications Aspirin (Aspirin Chewable) 81 mg PO DAILY [facility] Atorvastatin Calcium (Lipitor) 80 mg PO DIN [facility] Clopidogrel Bisulfate (Plavix) 75 mg PO DAILY [facility] Isosorbide Mononitrate (Imdur Er) 30 mg PO 0600 [facility] - Labs Labs: 05/18/18 07:50 05/18/18 07:50 Attending/Attestation - Attestation I have personally seen and examined this patient.: Yes I have fully participated in the care of the patient.: Yes I have reviewed all pertinent clinical information, including history, physical exam and plan: Yes Notes (Text): This is a delayed addendum to GI progress report dictated by the GI Fellow.The patient was seen and examined earlier. Medical records, lab studies , imagings were reviewed. Last 24 hours events reviewed. Agreed with the above treatment plan as outlined in GI Fellow 's notes the with the addition of the following patient is on aspirin and Plavix status post PCI and stent placement of LAD and circumflex. Also planned by a bone puller for staged RCA angioplasty in few weeks History of anemia significant drop in blood count with no obvious melena or bright red blood per rectum Patient is being transferred to tele via ER Continue to follow up hemogbin and hematocrit and Continue PPI and Carafate and also famotidine 05/18/18 22:22
--- NOTE | 2018-05-18 12:17 | PN ---
DATE: 05/18/2018 SUBJECTIVE: The patient is lying in bed and she complains of mild shortness of breath. There is no chest pain. PHYSICAL EXAMINATION: VITAL SIGNS: Blood pressure 140/59, temperature 97.4, pulse 65, respiratory rate 20. LUNGS: Show bibasilar crackles. HEART: Regular rate and rhythm, grade 2/6 systolic murmur. ABDOMEN: Soft, nontender. EXTREMITIES: Stumps are clean with no edema. NEUROLOGICAL: The patient is awake and oriented x3 without focal sensory or motor deficits. SKIN: Warm and dry. LABORATORY DATA: WBC is 6.7, hemoglobin 7.8, hematocrit 24.7. Sodium 131, potassium 5.2, chloride 97, CO2 26, BUN 48, creatinine 2.8, glucose 158, troponin is elevated at markedly elevated at 33,300. Chest x-ray is consistent with pulmonary edema. IMPRESSION: 1. Pulmonary edema. 2. Increased azotemia, status post catheterization/intravenous contrast. 3. Coronary artery disease, status post non-ST segment elevation myocardial infarction. 4. Type 2 diabetes mellitus. 5. Anemia of undetermined etiology. PLAN: The patient will be transferred to the Emergency Department for transfusion of packed red cells, IV Lasix has been given. Continue Cardiology followup with Dr. Carrion and Renal followup with Dr. Rasmussen/Dr. Mehta. Monitor electrolytes, BUN, creatinine. Prognosis guarded. Donald Grover JD/
--- NOTE | 2018-05-19 23:59 | DS ---
HOSPITAL COURSE: The patient is an 83-year-old female who was admitted to the Transitional Care Unit for subacute rehab, status post hospitalization for elevated blood pressure and urinary tract infection. Her hospital course was complicated by a [id number] elevation [place] and underwent cardiac catheterization. She was found to be progressively anemic as well as develop pulmonary edema in the Transitional Care Unit and was transferred to the emergency department for further evaluation and management as well as transfusion. IMPRESSION: 1. Pulmonary edema. 2. Coronary artery disease, status post zge-VK-[id number] elevation myocardial infarction. 3. Chronic kidney disease. 4. Hypertension. 5. Type 2 diabetes mellitus. 6. Peripheral vascular disease, status post bilateral above-knee amputations. 7. Anemia of uncertain etiology. DISCHARGE MEDICATIONS: The patient was transferred to the emergency department on the following medications, Plavix 75 mg daily, Ecotrin 81 mg daily, Lipitor 80 mg daily, Synthroid 25 mcg daily and Xanax 0.5 mg three times daily. She is maintained on a consistent carbohydrate heart-healthy diet. Activity and further management, the patient will be readmitted to the telemetry unit. Donald Grover JD/
== END 2018-05-18 09:47 | disposition short-term general hospital (02) | DRG 689 ==
LOC: TRCU 16:43
PROVIDERS: ADMIT Internal Medicine; ATTEND Internal Medicine
PROC: F07Z5FZ Bed Mobility Treatment using Assistive, Adaptive, Supportive or Protective Equipment (ICD-10-PCS; principal; 2018-05-17)
PROC: F07Z8FZ Transfer Training Treatment using Assistive, Adaptive, Supportive or Protective Equipment (ICD-10-PCS; 2018-05-17)
DX: N39.0 Urinary tract infection, site not specified (principal); I21.4 Non-ST elevation (NSTEMI) myocardial infarction; I13.0 Hypertensive heart and chronic kidney disease with heart failure and stage 1 through stage 4 chronic kidney disease, or unspecified chronic kidney disease; I50.9 Heart failure, unspecified; D50.9 Iron deficiency anemia, unspecified; I25.10 Atherosclerotic heart disease of native coronary artery without angina pectoris; E11.51 Type 2 diabetes mellitus with diabetic peripheral angiopathy without gangrene; E11.22 Type 2 diabetes mellitus with diabetic chronic kidney disease; N18.3 Chronic kidney disease, stage 3 (moderate); I08.0 Rheumatic disorders of both mitral and aortic valves; E87.5 Hyperkalemia; B96.1 Klebsiella pneumoniae [K. pneumoniae] as the cause of diseases classified elsewhere; R09.02 Hypoxemia; Z79.82 Long term (current) use of aspirin; Z89.611 Acquired absence of right leg above knee; Z89.612 Acquired absence of left leg above knee; Z79.02 Long term (current) use of antithrombotics/antiplatelets; Z95.5 Presence of coronary angioplasty implant and graft; Z95.1 Presence of aortocoronary bypass graft; Z87.891 Personal history of nicotine dependence; Z95.2 Presence of prosthetic heart valve

== ENCOUNTER 2018-05-18 09:56 | Inpatient (IN) | payer MEDICARE, OTHER ==
--- NOTE | 2018-05-18 10:28 | ED PDOC ---
Arrival/HPI - General Time Seen by Provider: 05/18/18 09:59 Historian: Patient, Caregiver - History of Present Illness Narrative History of Present Illness (Text): 05/18/18 10:23 83yo female with pmhx of DM2, hypertension, s/p aortic value placement 2013, CHF, double AKA, anemia, dysrhythemia with NSTEMI s/p 2stents 05/14/18 who was referred from [facility] for blood transfusion. Patients hemoglobin dropped during her course of stay in the hospital from 10.8 to 7.8 this morning. She reports worsening SOB for the past few days. Reports previous history of transfusion and was scheduled for colonoscopy/endoscopy to determine source of bleeding when she had NSTEMI and procedure was cancelled. She otherwise denies chest pain , fever, chills, headache, visual cheeses, dizziness, nausea, vomiting, abdominal pain, any other complaint. Past Medical History - Provider Review Nursing Documentation Reviewed: Yes - Past History Past History: Non-Contributing - Infectious Disease Hx of Infectious Diseases: None - Tetanus Immunization Tetanus Immunization: Unknown - Cardiac Hx Cardiac Disorders: Yes Hx Congestive Heart Failure: Yes Hx Hypertension: Yes - Pulmonary Hx Respiratory Disorders: No Other/Comment: FORMER SMOKER - Neurological Hx Neurological Disorder: No - HEENT Hx HEENT Disorder: Yes Hx Deafness: Yes - Renal Hx Renal Disorder: Yes Hx Renal Cancer: Yes - Endocrine/Metabolic Hx Endocrine Disorders: Yes Hx Diabetes Mellitus Type 2: Yes - Hematological/Oncological Hx Blood Disorders: Yes Hx Anemia: Yes Other/Comment: BLOOD TRANSFUSION - Integumentary Hx Dermatological Disorder: No - Musculoskeletal/Rheumatological Hx Falls: No - Gastrointestinal Hx Gastrointestinal Disorders: Yes (CONSTIPATION) - Genitourinary/Gynecological Hx Genitourinary Disorders: Yes (UTI) Hx Urinary Tract Infection: Yes - Psychiatric Hx Psychophysiologic Disorder: No Hx Substance Use: No - Surgical History Hx Amputation: Yes (B/L AKA) Hx Coronary Stent: Yes Hx Valve Replacement: Yes Other/Comment: CABG - Anesthesia Hx Anesthesia: Yes Hx Anesthesia Reactions: No Hx Malignant Hyperthermia: No - Suicidal Assessment Feels Threatened In Home Enviroment: No Family/Social History - Physician Review Nursing Documentation Reviewed: Yes Family/Social History: Unknown Family HX Smoking Status: Former Smoker Hx Alcohol Use: No Hx Substance Use: No Hx Substance Use Treatment: No Allergies/Home Meds Allergies/Adverse Reactions: Allergies No Known Allergies Allergy (Verified 05/18/18 10:17) Home Medications: Home Meds Medication Instructions Recorded Confirmed Insulin Lispro Protamin/Lispro 10 ml SC [facility] 11/16/15 05/18/18 [Humalog Mix 75-25 Kwikpen] amLODIPine [Norvasc] 10 mg PO DAILY 11/16/15 05/18/18 Aspirin [Aspirin Chewable] 81 mg PO DAILY 06/08/17 05/18/18 Review of Systems - Physician Review All systems were reviewed & negative as marked: Yes - Review of Systems Constitutional: Normal Eyes: Normal ENT: Normal Respiratory: SOB Cardiovascular: Normal Gastrointestinal: Normal Genitourinary Female: Normal Musculoskeletal: Normal Skin: Normal Neurological: Normal Endocrine: Normal Hemo/Lymphatic: Normal Psychiatric: Normal Physical Exam Vital Signs Reviewed: Yes Vital Signs Temp Pulse Resp BP Pulse Ox 05/18/18 11:58 98.4 F 58 L 18 135/50 L 89 L 05/18/18 11:57 98.4 F 58 L 18 135/50 L 89 L 05/18/18 09:59 97.9 F 62 18 137/69 88 L Temperature: Afebrile Blood Pressure: Normal Pulse: Regular Respiratory Rate: Normal Appearance: Positive for: Well-Appearing, Non-Toxic, Comfortable, Other (Appear pale) Pain Distress: None Mental Status: Positive for: Alert and Oriented X 3 - Systems Exam Head: Present: Atraumatic, Normocephalic Pupils: Present: PERRL Extroacular Muscles: Present: EOMI Conjunctiva: Present: Normal Mouth: Present: Moist Mucous Membranes Neck: Present: Normal Range of Motion Respiratory/Chest: Present: Clear to Auscultation, Good Air Exchange. No: Respiratory Distress, Accessory Muscle Use Cardiovascular: Present: Regular Rate and Rhythm, Normal S1, S2. No: Murmurs Abdomen: No: Tenderness, Distention, Peritoneal Signs Back: Present: Normal Inspection Upper Extremity: Present: Normal Inspection. No: Cyanosis, Edema Lower Extremity: Present: Normal Inspection, Other (B/L AKA noted). No: Edema Neurological: Present: GCS=15, CN II-XII Intact, Speech Normal Skin: Present: Warm, Dry, Normal Color. No: Rashes Psychiatric: Present: Alert, Oriented x 3, Normal Insight, Normal Concentration Medical Decision Making ED Course and Treatment: 05/18/18 20:02 Pt referred to ED from [facility] for blood transfusion. She was not in any distress in ED. appeared pale. Lab from this morning was reviewed and her hgb was 7.8 2units of PRBC was ordered and consent was obtained. PT was seen by Dr. Carrion by the bedside Case was ADAMARIS Grover and pt was admitted. - Lab Interpretations Lab Results: Lab Results 05/18/18 10:50: Blood Type B POSITIVE, Antibody Screen Negative, Crossmatch See Detail, BBK History Checked Patient has bt - Medication Orders Current Medication Orders: Aspirin (Aspirin Chewable) 81 mg PO DAILY [facility] Atorvastatin Calcium (Lipitor) 80 mg PO DIN [facility] TO [facility] Last Admin: 05/18/18 17:56 Dose: 80 mg Clopidogrel Bisulfate (Plavix) 75 mg PO DAILY [facility] Famotidine (Pepcid) 40 mg PO HS [facility] Isosorbide Mononitrate (Imdur Er) 30 mg PO DAILY [facility] Levothyroxine Sodium (Synthroid) 25 mcg PO 0600 [facility] Pantoprazole Sodium (Protonix Ec Tab) 40 mg PO 0600 [facility] Sucralfate (Carafate Oral Susp) 1 gm PO QID [facility] Last Admin: 05/18/18 17:56 Dose: 1 gm Discontinued Medications Furosemide (Lasix) 40 mg IV ONCE ONE Stop: 05/18/18 14:01 Furosemide (Lasix) 40 mg IVP ONCE ONE Stop: 05/18/18 15:01 Last Admin: 05/18/18 15:56 Dose: 40 mg MAR Blood Pressure Document 05/18/18 15:56 KMS (Rec: 05/18/18 15:56 KMS [id number]) Blood Pressure Blood Pressure (100/60-150/90) 153/56 IVP Administration Document 05/18/18 15:56 KMS (Rec: 05/18/18 15:56 KMS [id number]) Charges for Administration # of IVP Administrations 1 Pneumococcal Polyvalent Vaccine (Pneumovax 23 Vaccine) 0.5 ml IM .ONCE ONE Stop: 05/18/18 17:58 Disposition/Present on Arrival - Present on Arrival Any Indicators Present on Arrival: No History of DVT/PE: No History of Uncontrolled Diabetes: No Urinary Catheter: No History of Decub. Ulcer: No History Surgical Site Infection Following: None - Disposition Have Diagnosis and Disposition been Completed?: Yes Diagnosis: Anemia, Type II diabetes mellitus, Arrhythmia, Coronary artery disease Disposition: HOSPITALIZED Disposition Time: 11:05 Patient Plan: Admission Patient Problems: Current Active Problems Problem Status Onset Anemia Acute Arrhythmia Acute Coronary artery disease Acute Type II diabetes mellitus Chronic Condition: STABLE
[2018-05-18] MEDS: Sucralfate 1 gm/10 ml Oral Susp UD PO SCH ×3 (13:31→22:40)
[2018-05-18 17:57] VITALS: BMI 47.2
[2018-05-18] MEDS ORDERED: Pneumococcal 23-Valent Vaccine IM ONE (17:57)
[2018-05-19] MEDS: Pantoprazole 40 mg EC Tab PO SCH (06:14)
[2018-05-19] MEDS: Levothyroxine 25 MCG TAB PO SCH (06:14)
[2018-05-19 06:41] LABS: BASO # 0.04 K/mm3 (0.0-2.0); BASO % 0.6 % (0.0-3.0); EOS # 0.3 (0.0-0.7); EOS % 3.7 % (1.5-5.0); GRAN # 4.77 (1.4-6.5); GRAN % 68.1 % (50.0-68.0); LYMPH # 1.3 (1.2-3.4); LYMPH % 18.6 % (22.0-35.0); MEAN CELL VOLUME 80.9 fl (80.0-105.0); MEAN CORPUSCULAR HEMOGLOBIN 26.1 pg (25.0-35.0); MEAN CORPUSCULAR HGB CONC 32.2 g/dl (31.0-37.0); MEAN PLATELET VOLUME 10.4 fl (7.0-11.0); MONO # 0.6 (0.1-0.6); RBC 4.03 10^6/uL (3.5-6.1); RED CELL DISTRIBUTION WIDTH 15.7 % (11.5-14.5)
[2018-05-19 06:50] LABS: ALBUMIN 3.5 g/dL (3.0-4.8); CALCIUM 8.8 mg/dL (8.4-10.5)
[2018-05-19 07:26] LABS: HEMOGLOBIN 10.5 g/dL (12.0-16.0)
[2018-05-19] MEDS ORDERED: Sod Polystyrene Sulf 15 gm/60 ml Susp PO ONE (08:00)
[2018-05-19] MEDS ORDERED: Levalbuterol 1.25 MG/3 ML Inhal Soln UD IH ONE (08:56)
[2018-05-19] MEDS: Sucralfate 1 gm/10 ml Oral Susp UD PO SCH ×4 (09:23→21:19)
[2018-05-19] MEDS ORDERED: Levalbuterol 0.63 MG/3 ML Inhal Soln UD IH PRN (10:26)
[2018-05-19] MEDS ORDERED: Levalbuterol 1.25 MG/3 ML Inhal Soln UD ONE (11:08)
--- NOTE | 2018-05-19 11:10 | CP.PCM.CON ---
<NishaGomez - Last Filed: 05/19/18 13:58> History of Present Illness - History of Present Illness History of Present Illness: GI Consult Note for Dr. Mandy Cameron, PGY-3 IM This is an 83 yo F with PMH of Iron deficiency anemia, T2DM, HTN, PVD s/p B/L AKA, and s/p aortic valve replacement presenting with weakness. Representing to main hospital (from TCU) due to worsening Hgb (down to 7.8) and shortness of breath, requiring transfusion of pRBCs. GI originally consulted for anemia. No prior EGD or colonoscopy in records; patient was pending EGD/ colonoscopy during last floor admission, but was aborted due to new onset arrhythmia. Later had PILLOW CLEANER for SOB, found to have elevated Trops, underwent cath and received 2x JAYME. Today, complains of still persistent but improved shortness of breath. Denies BRBPR, melena, diarrhea, emesis, constipation, abd pain, chest pain, (productive) cough. All other ROS in 12-system review negative. PMH: as above PSH: B/L AKA, aortic valve replacement Fam Hx: son (colon cancer at 52 years of age, ); denies hx of stomach cancer Soc Hx: former smoker (quit 30 yrs prior), former social EtOH (none in last 30 yrs), denies illicit/IVDA drug use PMD: Dr. Grover Review of Systems - Review of Systems All systems: reviewed and no additional remarkable complaints except (as per HPI ) Past Patient History - Infectious Disease Hx of Infectious Diseases: None - Tetanus Immunizations Tetanus Immunization: Unknown - Past Social History Smoking Status: Former Smoker - CARDIAC Hx Cardiac Disorders: Yes Hx Congestive Heart Failure: Yes Hx Hypertension: Yes - PULMONARY Hx Respiratory Disorders: No Other/Comment: FORMER SMOKER - NEUROLOGICAL Hx Neurological Disorder: No - HEENT Hx HEENT Problems: Yes Hx Deafness: Yes - RENAL Hx Chronic Kidney Disease: Yes Hx Renal (Kidney) Cancer: Yes - ENDOCRINE/METABOLIC Hx Endocrine Disorders: Yes Hx Diabetes Mellitus Type 2: Yes - HEMATOLOGICAL/ONCOLOGICAL Hx Blood Disorders: Yes Hx Anemia: Yes Other/Comment: BLOOD TRANSFUSION - INTEGUMENTARY Hx Dermatological Problems: No - MUSCULOSKELETAL/RHEUMATOLOGICAL Hx Falls: No - GASTROINTESTINAL Hx Gastrointestinal Disorders: Yes (CONSTIPATION) - GENITOURINARY/GYNECOLOGICAL Hx Genitourinary Disorders: Yes (UTI) Hx Urinary Tract Infection: Yes - PSYCHIATRIC Hx Psychophysiologic Disorder: No Hx Substance Use: No - SURGICAL HISTORY Hx Amputation: Yes (B/L AKA) Hx Coronary Stent: Yes Hx Valve Replacement: Yes Other/Comment: CABG - ANESTHESIA Hx Anesthesia: Yes Hx Anesthesia Reactions: No Hx Malignant Hyperthermia: No Meds Allergies/Adverse Reactions: Allergies Allergy/AdvReac Type Severity Reaction Status Date / Time No Known Allergies Allergy Verified 05/18/18 10:17 - Medications Medications: Current Medications Aspirin (Aspirin Chewable) 81 mg PO DAILY [facility] Last Admin: 05/19/18 09:22 Dose: 81 mg Atorvastatin Calcium (Lipitor) 80 mg PO DIN [facility] Last Admin: 05/18/18 17:56 Dose: 80 mg Clopidogrel Bisulfate (Plavix) 75 mg PO DAILY [facility] Famotidine (Pepcid) 40 mg PO HS [facility] Last Admin: 05/18/18 22:40 Dose: 40 mg Isosorbide Mononitrate (Imdur Er) 30 mg PO DAILY [facility] Last Admin: 05/19/18 09:22 Dose: 30 mg Levalbuterol HCl (Xopenex) 0.63 mg IH [id number] PRN PRN Reason: Shortness of Breath Levothyroxine Sodium (Synthroid) 25 mcg PO 0600 [facility] Last Admin: 05/19/18 06:14 Dose: 25 mcg Pantoprazole Sodium (Protonix Ec Tab) 40 mg PO 0600 [facility] Last Admin: 05/19/18 06:14 Dose: 40 mg Sucralfate (Carafate Oral Susp) 1 gm PO QID [facility] Last Admin: 05/19/18 09:23 Dose: 1 gm Physical Exam - Additional Findings Additional findings: - Constitutional Appears: Non-toxic, No Acute Distress, Chronically Ill - Head Exam Head Exam: ATRAUMATIC, NORMAL INSPECTION, NORMOCEPHALIC - Eye Exam Eye Exam: Normal appearance. absent: Conjunctival injection, Scleral icterus Pupil Exam: absent: Fixed, Irregular - ENT Exam ENT Exam: Mucous Membranes Moist, Wearing Nasal Canula for supplemental O2 - Neck Exam Neck Exam: Normal Inspection. absent: Lymphadenopathy, Thyromegaly - Respiratory Exam Respiratory Exam: Clear to Ausculation Bilateral, NORMAL BREATHING PATTERN. absent: Accessory Muscle Use, Chest Wall Tenderness, Decreased Breath Sounds, Prolonged Expiratory Phase, Rales, Rhonchi, Wheezes, Respiratory Distress Additional Comments: Mildly tachypnic with speech, but not tachypnic on exam, and able to take normal deep breaths for auscultation - Cardiovascular Exam Cardiovascular Exam: REGULAR RHYTHM, RRR, +S1, +S2. absent: Bradycardia, Tachycardia, Irregular Rhythm, JVD, +S4 - GI/Abdominal Exam GI & Abdominal Exam: Soft, Normal Bowel Sounds. absent: Distended, Firm, Guarding, Rigid, Tenderness, Diminished Bowel Sounds, Hyperactive Bowel Sounds, Hypoactive Bowel Sounds - Extremities Exam bilateral AKA, no active oozing or ulcerations appreciated at stumps - Neurological Exam Neurological Exam: Alert, Awake, Oriented x3, following all commands appropriately, spontaneously moving arms and bilateral LE stumps - Psychiatric Exam Psychiatric exam: Normal Affect, Normal Mood - Skin Skin Exam: Dry, Intact, Normal Color, Warm Results - Vital Signs Recent Vital Signs: Last Vital Signs Temp 97.0 F L 05/19/18 05:49 Pulse 52 L 05/19/18 10:00 Resp 22 05/19/18 05:49 BP 164/72 H 05/19/18 09:22 Pulse Ox 93 L 05/19/18 05:49 - Labs Result Diagrams: 05/19/18 06:00 05/19/18 06:00 Labs: Laboratory Results - last 24 hr 05/19/18 05/19/18 05/19/18 06:00 06:00 06:00 WBC 7.0 RBC 4.03 Hgb 10.5 L D Hct 32.6 L MCV 80.9 MCH 26.1 MCHC 32.2 RDW 15.7 H Plt Count 247 MPV 10.4 Gran % 68.1 H Lymph % (Auto) 18.6 L [place] % (Auto) 9.0 H Eos % (Auto) 3.7 Baso % (Auto) 0.6 Gran # 4.77 Lymph # (Auto) 1.3 [place] # (Auto) 0.6 Eos # (Auto) 0.3 Baso # (Auto) 0.04 Sodium 133 Potassium 5.4 H Chloride 96 L Carbon Dioxide 27 Anion Gap 15 BUN 55 H Creatinine 3.2 H Est GFR ( Amer) 17 Est GFR (Non-Af Amer) 14 Random Glucose 169 H Calcium 8.8 Phosphorus 3.8 Magnesium 1.8 Total Bilirubin 0.8 AST 22 ALT 20 Alkaline Phosphatase 84 Total Protein 7.0 Albumin 3.5 Globulin 3.5 Albumin/Globulin Ratio 1.0 L Triglycerides 153 Cholesterol 210 H LDL Cholesterol Direct 107 HDL Cholesterol 49 TSH 3rd Generation 5.15 H Assessment & Plan - Assessment and Plan (Free Text) Assessment: 83 year old female with PMH of Iron deficiency anemia, T2DM, HTN, PVD s/p B/L AKA, s/p aortic valve replacement presenting with weakness. S/p PILLOW CLEANER for SOB and diaphoresis, found to have trop 0.[address] segment elevations/ depressions on EKG at the time. 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 Now re-admitted for worsening Hgb requiring transfusion and shortness of breath. Plan: -likely multifactorial; iron deficiency, hemodilutional possible underlying GI pathology (PUD, vascular malformation, neoplasia) vs non-GI source of blood loss -no active overt GI blood loss, brown stool on initial rectal exam, again on repeat ED exam, no tarry-black or melanotic movements reports by nursing or pt -Hgb 7.8 in TCU, transferred to ED and transfused 2 units pRBCs, Hgb 10.5 today (appropriate response); continue to monitor H/H -iron 44 ferritin 35.2, s/p IV iron infusion on 05/10/18 -CT abd/pelvis with PO contrast (on initial admission) notable for sigmoid/ descending colon diverticulosis, constipation without obstruction, non- calcified stones vs sludge in GB -S/p PILLOW CLEANER with likely NSTEMI; s/p cardiac cath, found to have triple vessel disease, JAYME x2 placed (LAD and Circumflex), on Plavix/ASA as per Cardio With reported GI bleeding on admit and further decrease in Hgb requiring transfusion, will need EGD/C-scope, will coordinate with Cardio Reviewed, discussed, and seen with attending, Dr. Galvan <Erin Galvan V - Last Filed: 05/21/18 23:00> Meds - Medications Medications: Current Medications Amlodipine Besylate (Norvasc) 5 mg PO DAILY [facility] Last Admin: 05/19/18 12:17 Dose: 5 mg Aspirin (Aspirin Chewable) 81 mg PO DAILY [facility] Last Admin: 05/19/18 09:22 Dose: 81 mg Atorvastatin Calcium (Lipitor) 80 mg PO DIN [facility] Last Admin: 05/19/18 17:13 Dose: 80 mg Clopidogrel Bisulfate (Plavix) 75 mg PO DAILY [facility] Last Admin: 05/19/18 12:17 Dose: 75 mg Famotidine (Pepcid) 40 mg PO HS [facility] Last Admin: 05/19/18 21:19 Dose: 40 mg Hydralazine HCl (Apresoline) 10 mg PO QID PRN PRN Reason: for SBP>160 Milrinone Lactate/Dextrose (Primacor 20mg/100ml D5w) 100 mls @ 4.714 mls/hr IV .[id number] PRN; Protocol; 0.2 MCG/KG/MIN PRN Reason: TITRATE PER MD ORDER Last Admin: 05/19/18 12:20 Dose: 0.2 mcg/kg/min, 4.714 mls/hr Isosorbide Mononitrate (Imdur Er) 60 mg PO DAILY [facility] Levalbuterol HCl (Xopenex) 0.63 mg IH [id number] PRN PRN Reason: Shortness of Breath Levothyroxine Sodium (Synthroid) 25 mcg PO 0600 [facility] Last Admin: 05/19/18 06:14 Dose: 25 mcg Pantoprazole Sodium (Protonix Ec Tab) 40 mg PO 0600 [facility] Last Admin: 05/19/18 06:14 Dose: 40 mg Sucralfate (Carafate Oral Susp) 1 gm PO QID [facility] Last Admin: 05/19/18 21:19 Dose: 1 gm Results - Vital Signs Recent Vital Signs: Last Vital Signs Temp 98 F 05/19/18 17:18 Pulse 73 05/19/18 22:00 Resp 20 05/19/18 17:18 BP 147/65 05/19/18 17:18 Pulse Ox 93 L 05/19/18 05:49 - Labs Result Diagrams: 05/21/18 06:15 05/21/18 06:15 Labs: Laboratory Results - last 24 hr 05/19/18 05/19/18 05/19/18 06:00 06:00 06:00 WBC 7.0 RBC 4.03 Hgb 10.5 L D Hct 32.6 L MCV 80.9 MCH 26.1 MCHC 32.2 RDW 15.7 H Plt Count 247 MPV 10.4 Gran % 68.1 H Lymph % (Auto) 18.6 L [place] % (Auto) 9.0 H Eos % (Auto) 3.7 Baso % (Auto) 0.6 Gran # 4.77 Lymph # (Auto) 1.3 [place] # (Auto) 0.6 Eos # (Auto) 0.3 Baso # (Auto) 0.04 Sodium 133 Potassium 5.4 H Chloride 96 L Carbon Dioxide 27 Anion Gap 15 BUN 55 H Creatinine 3.2 H Est GFR ( Amer) 17 Est GFR (Non-Af Amer) 14 POC Glucose (mg/dL) Random Glucose 169 H Hemoglobin A1c 7.5 H Calcium 8.8 Phosphorus 3.8 Magnesium 1.8 Iron TIBC % Saturation Ferritin Total Bilirubin 0.8 AST 22 ALT 20 Alkaline Phosphatase 84 NT-Pro-B Natriuret Pep Total Protein 7.0 Albumin 3.5 Globulin 3.5 Albumin/Globulin Ratio 1.0 L Triglycerides 153 Cholesterol 210 H LDL Cholesterol Direct 107 HDL Cholesterol 49 Vitamin B12 TSH 3rd Generation 05/19/18 05/19/18 05/19/18 06:00 06:00 06:00 WBC RBC Hgb Hct MCV MCH MCHC RDW Plt Count MPV Gran % Lymph % (Auto) [place] % (Auto) Eos % (Auto) Baso % (Auto) Gran # Lymph # (Auto) [place] # (Auto) Eos # (Auto) Baso # (Auto) Sodium Potassium Chloride Carbon Dioxide Anion Gap BUN Creatinine Est GFR ( Amer) Est GFR (Non-Af Amer) POC Glucose (mg/dL) Random Glucose Hemoglobin A1c Calcium Phosphorus Magnesium Iron 44 L TIBC 255 L % Saturation 17 L Ferritin 464.0 Total Bilirubin AST ALT Alkaline Phosphatase NT-Pro-B Natriuret Pep Total Protein Albumin Globulin Albumin/Globulin Ratio Triglycerides Cholesterol LDL Cholesterol Direct HDL Cholesterol Vitamin B12 589 TSH 3rd Generation 5.15 H 05/19/18 05/19/18 05/19/18 06:00 11:22 16:12 WBC RBC Hgb Hct MCV MCH MCHC RDW Plt Count MPV Gran % Lymph % (Auto) [place] % (Auto) Eos % (Auto) Baso % (Auto) Gran # Lymph # (Auto) [place] # (Auto) Eos # (Auto) Baso # (Auto) Sodium Potassium Chloride Carbon Dioxide Anion Gap BUN Creatinine Est GFR ( Amer) Est GFR (Non-Af Amer) POC Glucose (mg/dL) 176 H 183 H Random Glucose Hemoglobin A1c Calcium Phosphorus Magnesium Iron TIBC % Saturation Ferritin Total Bilirubin AST ALT Alkaline Phosphatase NT-Pro-B Natriuret Pep 56129 H Total Protein Albumin Globulin Albumin/Globulin Ratio Triglycerides Cholesterol LDL Cholesterol Direct HDL Cholesterol Vitamin B12 TSH 3rd Generation 05/19/18 21:28 WBC RBC Hgb Hct MCV MCH MCHC RDW Plt Count MPV Gran % Lymph % (Auto) [place] % (Auto) Eos % (Auto) Baso % (Auto) Gran # Lymph # (Auto) [place] # (Auto) Eos # (Auto) Baso # (Auto) Sodium Potassium Chloride Carbon Dioxide Anion Gap BUN Creatinine Est GFR ( Amer) Est GFR (Non-Af Amer) POC Glucose (mg/dL) 203 H Random Glucose Hemoglobin A1c Calcium Phosphorus Magnesium Iron TIBC % Saturation Ferritin Total Bilirubin AST ALT Alkaline Phosphatase NT-Pro-B Natriuret Pep Total Protein Albumin Globulin Albumin/Globulin Ratio Triglycerides Cholesterol LDL Cholesterol Direct HDL Cholesterol Vitamin B12 TSH 3rd Generation Attending/Attestation - Attestation I have personally seen and examined this patient.: Yes I have fully participated in the care of the patient.: Yes I have reviewed all pertinent clinical information: Yes Notes (Text): This is a delayed addendum to GI consult report dictated by the Medical Clerical Assistant.The patient was seen and examined earlier. Medical records, lab studies, imagings were reviewed. Last 24 hours events reviewed. Agreed with the above treatment plan as outlined in Medical Clerical Assistant 's notes the with the addition of the following transferred from TCU significant drop in hemoglob Patient has drug-eluting on aspirin and Plavix Abdomen soft no tenderness Follow-up hemoglobin and he and transfuse will discuss with the manager costing regarding diagnostic GI workup 05/19/18 23:51 05/21/18 22:56
[2018-05-19] MEDS: Milrinone 20mg/100ml D5W 100 ML IV PRN (12:20)
[2018-05-19 14:24] LABS: IRON 44 ug/dL (45-180)
[2018-05-19 14:34] LABS: % IRON SATURATION 17 % (20-55); TOTAL IRON BINDING CAPACITY 255 ug/dL (265-497)
--- NOTE | 2018-05-19 20:01 | HP ---
HISTORY OF PRESENT ILLNESS: The patient is an 83-year-old female who was admitted through the emergency department on 05/06/2018, with a urinary tract infection and elevated blood pressure. The patient received IV antibiotics. Renal consultation was called by Dr. Mehta and Dr. Rasmussen. The patient received antihypertensive medications. She was also noted to be anemic. GI consultation was called with Dr. Galvan. She was scheduled for endoscopy; however, the patient was noted to have an arrhythmia and her hospital course was complicated by a [id number] elevation myocardial infarction. She underwent cardiac catheterization with Dr. Chandler and Dr. Carrion, and received stent placement x2. The patient was transferred to the Transitional Care Unit for further rehabilitation and monitoring. Her course there was complicated by development of pulmonary edema, status post catheterization and increasing renal failure. She was transferred to the emergency department, received 2 units of packed red cells for her anemia, and she is now readmitted to the telemetry unit for further evaluation and management. PAST MEDICAL HISTORY: Includes type 2 diabetes mellitus; hypertension; chronic kidney disease; coronary artery disease, status post stent placement x2; [id number] elevation myocardial infarction. PAST SURGICAL HISTORY: Includes peripheral vascular disease, status post bilateral above-knee amputations. CURRENT MEDICATIONS: Include Lipitor 80 mg daily, amlodipine 5 mg daily, Plavix 75 mg daily, Synthroid 25 mcg daily, Imdur 60 mg daily, and aspirin 81 mg daily. ALLERGIES: THE PATIENT HAS NO KNOWN DRUG ALLERGIES. FAMILY HISTORY: Noncontributory. SOCIAL HISTORY: The patient has no history of tobacco or alcohol use. REVIEW OF SYSTEMS: The patient denies any chest pain, shortness of breath, or swelling of the lower extremities. No nausea, no vomiting, no diarrhea, no melena, no bright red blood per rectum at the present time. PHYSICAL EXAMINATION: VITAL SIGNS: Blood pressure 170/78, pulse 68, temperature 98.1, and respiratory rate 18. HEENT: Head is normocephalic, atraumatic. Pupils equal, round, and reactive to light. Extraocular movements intact. NECK: Supple. No thyromegaly. No carotid bruit. LUNGS: Show a few bibasilar crackles. HEART: Regular rate and rhythm. Grade 2/6 systolic murmur. ABDOMEN: Soft, obese, and nontender. Bowel sounds are normoactive. EXTREMITIES: The patient is status post bilateral above-knee amputations. Stumps are well healed. There is no edema. NEUROLOGIC: The patient is awake and oriented x3 without focal sensory or motor deficits. SKIN: Warm and dry. LABORATORY DATA: WBC 7, hemoglobin 10.5, and hematocrit 32.6. Sodium 133, potassium 5.4, chloride 96. BUN 55, creatinine 3.2. Glucose 169. TSH is slightly elevated at 5.15. IMPRESSION: 1. Congestive heart failure/hypertension and hypertensive cardiovascular disease. 2. Coronary artery disease, status post [id number]-QL-[id number] elevation myocardial infarction/status post catheterization with stent placement x2. 3. Type 2 diabetes mellitus. 4. Hyperkalemia. 5. Chronic kidney disease. 6. Peripheral vascular disease, status post bilateral above-knee amputations. PLAN: The patient is readmitted to the telemetry unit. We will obtain Cardiology consultations as well as Renal consultation. Continue to monitor electrolytes, BUN, creatinine, and hemoglobin and hematocrit status post transfusion. Donald Grover JD/
--- NOTE | 2018-05-19 20:17 | CON ---
DATE: 05/19/2018 REASON FOR CONSULTATION: Hyperkalemia, acute kidney injury. HISTORY OF PRESENT ILLNESS: An 83-year-old lady, known to me from prior evaluation. The patient was seen when she was admitted to [facility] with a UTI. She was found to have Klebsiella UTI. She was treated with cephalosporin. She developed acute kidney injury. There was some question about acute interstitial nephritis. She also was found to be progressively anemic. She had hyperkalemia. Subsequently, her renal function improved. The patient was scheduled to have an endoscopy because of the progressive decline in hemoglobin. Endoscopy was canceled because the patient became bradycardic and then had an acute coronary syndrome. Unstable angina. The patient underwent cardiac catheterization on 05/15/2018. Her creatinine on 05/15/2018, was 1.2. Subsequently, the creatinine has been rising. Creatinine today is 3.2. The patient had IV contrast study on 05/15/2018. Currently, she is sitting in bed. She feels good. She denies any chest pain. She denies any shortness of breath. She complains of constipation. She denies any nausea or vomiting. PAST MEDICAL AND SURGICAL HISTORY: Hypertension, CAD, CABG, AVR, NIDDM, peripheral vascular disease, bilateral AKA, recent acute anemia, hyperkalemia, acute kidney injury. Underlying chronic kidney disease stage II/III suspect. FAMILY HISTORY: Noncontributory. SOCIAL HISTORY: Ex-smoker, no alcohol use, and no IV drug abuse. ALLERGIES: NO KNOWN DRUG ALLERGIES. MEDICATIONS: Currently hydralazine p.r.n., aspirin 81, Carafate, Imdur 60, Lipitor 80, amlodipine 5, Pepcid 40, Plavix 75, milrinone 0.2 mcg/kg/min, Protonix, Synthroid, Xopenex, Kayexalate 15 g was given this morning, Lasix 20 mg IV push was given yesterday. The patient was in the Transitional Care Unit. She was transferred to the emergency room yesterday because of shortness of breath, and rising creatinine and potassium. REVIEW OF SYSTEMS: All systems are reviewed, pertinent positives as mentioned in the history of presenting illness, rest unremarkable. PHYSICAL EXAMINATION: GENERAL: Morbidly obese, elderly lady, sitting in bed, in no acute distress at present. VITAL SIGNS: Blood pressure 167/73, heart rate 60, respiratory rate 18, and temperature 98. HEENT: Normocephalic, atraumatic, positive pallor. NECK: Supple, no JVD. LUNGS: Bilateral equal air entry, bilateral equal expansion. CARDIAC: S1 and S2, regular rate and rhythm, no murmur, no rub. ABDOMEN: Obese, distended, soft, nontender, bowel sounds present. EXTREMITIES: Bilateral AKA. INTAKE AND OUTPUT: 2350/not charted. LABORATORY DATA: WBC 7, hemoglobin 10.5, hematocrit 33, and platelets 247. Sodium 133, potassium 5.4, chloride 96, CO2 of 27. BUN 55, creatinine 3.2. Glucose 169. Calcium 8.8, phosphorus 3.8, and magnesium 1.8. Iron saturation 17, iron 44. BNP 34,300. Hemoglobin A1c 7.5. Chest x-ray from 05/17/2018, consistent with pulmonary edema, worse in the left lung. ASSESSMENT: 1. Acute kidney injury superimposed on chronic kidney disease stage II/III. 2. Hyperkalemia secondary to acute kidney injury. 3. Recent cardiac catheterization/contrast exposure. 4. Progressive anemia, acute anemia, highly suspicious for gastrointestinal blood loss. 5. Coronary artery disease, coronary artery bypass graft, aortic valve replacement. 6. Peripheral vascular disease. 7. Bilateral above-knee amputation. 8. Severe hypertension. 9. Lqd-rzkfsbr-kaitqmeja diabetes mellitus. 10. Pulmonary edema/congestive heart failure. PLAN: 1. Acute contrast nephropathy is in the differential diagnosis. Conservative management. Avoid nephrotoxins. 2. Monitor potassium closely, avoid excessive use of Kayexalate. 3. Continue Primacor, await Cardiology evaluation. 4. Monitor H and H. 5. Consider blood transfusion. 6. Daily labs. 7. Repeat urinalysis. Ysabel Mehta MD
--- NOTE | 2018-05-19 22:18 | CON ---
DATE: 05/19/2018 REASON FOR EVALUATION: Cardiac evaluation followup with status post recently stent placed, dropping H and H, transfer from TCU to the ER and then telemetry for evaluation and further management. BRIEF CLINICAL HISTORY: This is an 83-year-old female with past medical history significant for TAVR through the transaortic valve, open heart surgery done and thought to be at high risk for coronary artery bypass surgery, so patient had aortic valve replacement by open sternotomy transaortic valve replacement with a TAVR. History of severe PAD, status post bilateral amputation, admitted recently with severe anemia, lethargic, non-STEMI, status post successfully stent placed, LAD and circumflex, and is scheduled for RCA in 4 weeks, who was in TCU, dropping H and H, so transferred to the ER for blood transfusion and admitted to 2R. History of renal insufficiency in the past. Denies any chest pain, but complained of mild shortness of breath and feels phlegm in the throat. PAST MEDICAL HISTORY: Significant for coronary artery disease, status post TAVR, initial consultation dated 05/06/2018, mentioned that the patient had 4 vessels bypass, but when operative report reviewed from the [facility], the patient did not have coronary artery bypass surgery, though the patient had open heart surgery and transaortic valve replaced by catheter by open sternotomy, but no bypass was done at that time, thought to be deemed to be very high risk for coronary artery bypass surgery, and then the patient went to the alf, and last followup, admitted here with non-STEMI. So the patient underwent PTCA with LAD and circumflex, history of diabetes, hypertension, hyperlipidemia with severe PAD, status post bilateral AKA. RECENT CARDIAC WORKUP: As follows: The patient had a cardiac catheterization done dated 05/15/2018. No LV gram was done because of the TAVR, but that revealed severe triple vessel disease, successful PTCA with a drug-eluting stent of circumplex and mid LAD was done, and is scheduled for PTCA of RCA on 06/12/2018 at 7:30. History of chronic kidney disease. History of anemia. Also, Holter monitor was done because of initial consultation because of the bradycardia that showed the patient's sinus rhythm, sinus bradycardia, and 2.1 second longest pause, some Mobitz type 1, but then no pause more than 2.1 seconds noted, dated Holter 05/14/2018. The patient had echocardiography done on 05/14/2018. Ejection fraction of 55%, [id number] valvular aortic stenosis reported, but operative report reviewed that the patient has a TAVR could be secondary to TAVR. Moderate mitral regurgitation, moderate tricuspid regurgitation, RV systolic pressure of 61. CURRENT MEDICATIONS: The patient is taking amlodipine, insulin, aspirin, Plavix. REVIEW OF SYSTEMS: As per HPI. PHYSICAL EXAMINATION: VITAL SIGNS: Height of the patient is 4 feet 3 inch because of bilateral amputee, weight of the patient is 173 pounds. Temperature afebrile, heart rate 58, blood pressure 164/72. HEENT: PERRLA. Extraocular muscles intact. NECK: Supple. No carotid bruit. No thyromegaly. CHEST: Clear to auscultation. HEART: S1 and S2 regular. ABDOMEN: Soft. EXTREMITIES: Clubbing and cyanosis negative. LABORATORY DATA: EKG showed, on 05/18/2018, accelerated junctional rhythm, abnormal EKG when the patient was in telemetry last time. Blood workup as follows: WBC 7, hemoglobin 10.5, hematocrit 32.6, platelet count 247. Chemistry shows sodium 136, potassium 5.4, chloride 96, carbon dioxide 26, anion gap of 15, BUN 55, creatinine 3.2. TSH 5.15. Triglyceride of 153, total cholesterol 200, LDL 107, HDL 49. IMPRESSION: An 83-year-old female with a past medical history significant for aortic stenosis, coronary artery disease, status post transaortic transcatheter AVR dated 06/20/2014 at [facility]. No bypass was done at that time. My initial consult dated 05/14/2018, dictated that the patient had bypass by history. but the patient forgot. They did not have coronary artery bypass surgery, though it was sternotomy, midline incision with a sternotomy, the patient had transaortic transcatheter AVR on 06/20/2014. At this time, the patient admitted with acute coronary syndrome, pulmonary edema, rapid response, underwent percutaneous transluminal coronary angioplasty of left anterior descending and circumflex. Now, the patient was in transitional care unit, where the patient dropped hemoglobin and hematocrit, was transferred for blood transfusion, history of chronic renal insufficiency, acute kidney injury, and chronic kidney disease. History of severe peripheral artery disease status post bilateral below knee amputation. RECOMMENDATIONS: Continue aspirin, continue Plavix, minor H and H, continue atorvastatin, hold the beta-penelope. The patient is not in beta-penelope because of significant bradycardia and junctional rhythm. The patient is not in CONNER inhibitor because of renal insufficiency. Avoid rate-limiting calcium channel penelope. Monitor H and H, continue gentle diuretics. The patient is complaining of some wheezing, will get better to agonist Xopenex and continue aspirin and Plavix, resume and we will put amlodipine and then we will put some hydralazine for blood pressure. We will follow with you. If H and H remains stable in 24 hours, we will transfer back to TCU. Thank you Dr. Grover for providing us the opportunity in taking care of the patient, Basia Ruiz. Omero Carrion MD cc: Dr. Grover.
[2018-05-20] MEDS: Levothyroxine 25 MCG TAB PO SCH (06:21)
[2018-05-20] MEDS: Pantoprazole 40 mg EC Tab PO SCH (06:21)
[2018-05-20] MEDS: Milrinone 20mg/100ml D5W 100 ML IV PRN (06:23)
[2018-05-20 06:49] LABS: MEAN CELL VOLUME 79.8 fl (80.0-105.0); MEAN CORPUSCULAR HEMOGLOBIN 26.2 pg (25.0-35.0); MEAN CORPUSCULAR HGB CONC 32.8 g/dl (31.0-37.0); MEAN PLATELET VOLUME 10.3 fl (7.0-11.0); PLATELET COUNT 267 10^3/uL (120.0-450.0); RBC 3.82 10^6/uL (3.5-6.1); RED CELL DISTRIBUTION WIDTH 15.9 % (11.5-14.5); WHITE BLOOD COUNT 6.7 10^3/ul (4.5-11.0)
[2018-05-20 07:11] LABS: ALBUMIN 3.1 g/dL (3.0-4.8); CALCIUM 8.6 mg/dL (8.4-10.5)
--- NOTE | 2018-05-20 07:42 | CP.PCM.PN ---
Subjective - Date & Time of Evaluation Date of Evaluation: 05/20/18 Time of Evaluation: 06:35 - Subjective Subjective: Awake,alert,no distress Reason for consultation and follow up:Cardiac evaluation of junctional bradycardia before endoscopy,NSTEMI, coronary artery disease post stents, history of aortic valve replacement at [facility], diabetes, hypertension, severe peripheral vascular disease post above knee amputation bilateral.Transferred to TCU for reconditioning however at TCU, had low hemoglobin and needed blood transfusion, she was sent to ER and admitted back to telemetry. 2 units of PRBC transfused. Seen and examined by me and Dr. Carrion Objective - Vital Signs/Intake and Output Vital Signs (last 24 hours): Temp Pulse Resp BP Pulse Ox 98.0 F 80 20 157/70 H 94 L 05/20/18 06:00 05/20/18 06:23 05/20/18 06:00 05/20/18 06:23 05/20/18 06:00 Intake and Output: 05/20/18 05/20/18 06:59 18:59 Intake Total 220 56 Output Total 300 Balance -80 56 - Medications Medications: Current Medications Amlodipine Besylate (Norvasc) 5 mg PO DAILY [facility] Last Admin: 05/19/18 12:17 Dose: 5 mg Aspirin (Aspirin Chewable) 81 mg PO DAILY [facility] Last Admin: 05/19/18 09:22 Dose: 81 mg Atorvastatin Calcium (Lipitor) 80 mg PO DIN [facility] Last Admin: 05/19/18 17:13 Dose: 80 mg Clopidogrel Bisulfate (Plavix) 75 mg PO DAILY [facility] Last Admin: 05/19/18 12:17 Dose: 75 mg Famotidine (Pepcid) 40 mg PO HS [facility] Last Admin: 05/19/18 21:19 Dose: 40 mg Hydralazine HCl (Apresoline) 10 mg PO QID PRN PRN Reason: for SBP>160 Milrinone Lactate/Dextrose (Primacor 20mg/100ml D5w) 100 mls @ 4.714 mls/hr IV .[id number] PRN; Protocol; 0.2 MCG/KG/MIN PRN Reason: TITRATE PER MD ORDER Last Admin: 05/20/18 06:23 Dose: 0.2 mcg/kg/min, 4.714 mls/hr Isosorbide Mononitrate (Imdur Er) 60 mg PO DAILY [facility] Levalbuterol HCl (Xopenex) 0.63 mg IH [id number] PRN PRN Reason: Shortness of Breath Levothyroxine Sodium (Synthroid) 25 mcg PO 0600 [facility] Last Admin: 05/20/18 06:21 Dose: 25 mcg Pantoprazole Sodium (Protonix Ec Tab) 40 mg PO 0600 [facility] Last Admin: 05/20/18 06:21 Dose: 40 mg Sucralfate (Carafate Oral Susp) 1 gm PO QID [facility] Last Admin: 05/19/18 21:19 Dose: 1 gm - Labs Labs: 05/20/18 06:00 05/20/18 06:00 - Constitutional Appears: No Acute Distress - Head Exam Head Exam: NORMOCEPHALIC - Eye Exam Eye Exam: Normal appearance - ENT Exam ENT Exam: Mucous Membranes Moist - Respiratory Exam Respiratory Exam: Clear to Ausculation Bilateral, NORMAL BREATHING PATTERN - Cardiovascular Exam Cardiovascular Exam: REGULAR RHYTHM, +S1, +S2 - GI/Abdominal Exam GI & Abdominal Exam: Soft, Normal Bowel Sounds Additional comments: NSR with 1st degree block - Extremities Exam Additional comments: above knee amputation bilateral - Neurological Exam Neurological Exam: Alert, Awake, Oriented x3 - Psychiatric Exam Psychiatric exam: Normal Affect - Skin Skin Exam: Dry, Warm Assessment and Plan - Assessment and Plan (Free Text) Assessment: A 83 year old female who had an episode of junctional bradycardia before endoscopy, procedure aborted, NSTEMI, coronary artery disease post stents, history of aortic valve replacement at [facility], diabetes, hypertension, severe peripheral vascular disease post above knee amputation bilateral. Came in to the ER due to generalized weakness,fever and urinary tract infection Now transferred to TCU for reconditioning and physical therapy.However at TCU, had low hemoglobin and needed blood transfusion, she was sent to ER and admitted back to telemetry. 2 units of PRBC transfused.For possible EGD. Plan: For possible EGD Cleared from cardiac standpoint for EGD procedure Stable Hemoglobin and hematocrit monitoring analyst NSR with 1st degree AV block Holter monitor showed sinus bradycardia Patient aymptomatic, will continue to monitor On Primacor drip Continue current treatment Continue current medications Will follow up Plan and treatment discussed with Dr. Carrion
--- NOTE | 2018-05-20 09:56 | CP.PCM.PN ---
<Gomez Cameron - Last Filed: 05/20/18 17:44> Subjective - Date & Time of Evaluation Date of Evaluation: 05/20/18 Time of Evaluation: 07:30 - Subjective Subjective: GI Progress Note for Dr. Mandy Cameron, PGY-3 IM Patient seen and examined at bedside. Reports resolved shortness of breath after receiving breathing treatment. No acute events overnight. Only complaint is some fluctuating nausea. No emesis, diarrhea, dysuria, hematuria. Hgb stable post-transfusion. Objective - Vital Signs/Intake and Output Vital Signs (last 24 hours): Temp Pulse Resp BP Pulse Ox 98.0 F 80 20 157/70 H 94 L 05/20/18 06:00 05/20/18 06:23 05/20/18 06:00 05/20/18 06:23 05/20/18 06:00 Intake and Output: 05/20/18 05/20/18 06:59 18:59 Intake Total 220 56 Output Total 300 Balance -80 56 - Medications Medications: Current Medications Amlodipine Besylate (Norvasc) 5 mg PO DAILY [facility] Last Admin: 05/19/18 12:17 Dose: 5 mg Aspirin (Aspirin Chewable) 81 mg PO DAILY [facility] Last Admin: 05/19/18 09:22 Dose: 81 mg Atorvastatin Calcium (Lipitor) 40 mg PO DIN [facility] Clopidogrel Bisulfate (Plavix) 75 mg PO DAILY [facility] Last Admin: 05/19/18 12:17 Dose: 75 mg Famotidine (Pepcid) 40 mg PO HS [facility] Last Admin: 05/19/18 21:19 Dose: 40 mg Furosemide (Lasix) 40 mg PO DAILY [facility] Hydralazine HCl (Apresoline) 10 mg PO QID PRN PRN Reason: for SBP>160 Milrinone Lactate/Dextrose (Primacor 20mg/100ml D5w) 100 mls @ 4.714 mls/hr IV .[id number] PRN; Protocol; 0.2 MCG/KG/MIN PRN Reason: TITRATE PER MD ORDER Last Admin: 05/20/18 06:23 Dose: 0.2 mcg/kg/min, 4.714 mls/hr Isosorbide Mononitrate (Imdur Er) 60 mg PO DAILY [facility] Levalbuterol HCl (Xopenex) 0.63 mg IH [id number] PRN PRN Reason: Shortness of Breath Levothyroxine Sodium (Synthroid) 25 mcg PO 0600 [facility] Last Admin: 05/20/18 06:21 Dose: 25 mcg Pantoprazole Sodium (Protonix Ec Tab) 40 mg PO 0600 [facility] Last Admin: 05/20/18 06:21 Dose: 40 mg Sucralfate (Carafate Oral Susp) 1 gm PO QID [facility] Last Admin: 05/19/18 21:19 Dose: 1 gm - Labs Labs: 05/20/18 06:00 05/20/18 06:00 - Additional Findings Additional findings: - Constitutional Appears: Non-toxic, No Acute Distress, Chronically Ill - Head Exam Head Exam: ATRAUMATIC, NORMAL INSPECTION, NORMOCEPHALIC - Eye Exam Eye Exam: Normal appearance. absent: Conjunctival injection or pallor, Scleral icterus Pupil Exam: absent: Fixed, Irregular - ENT Exam ENT Exam: Mucous Membranes Moist, Wearing Nasal Canula for supplemental O2 - Neck Exam Neck Exam: Normal Inspection. absent: Lymphadenopathy, Thyromegaly - Respiratory Exam Respiratory Exam: Clear to Ausculation Bilateral, NORMAL BREATHING PATTERN. absent: Accessory Muscle Use, Chest Wall Tenderness, Decreased Breath Sounds, Prolonged Expiratory Phase, Rales, Rhonchi, Wheezes, Respiratory Distress - Cardiovascular Exam Cardiovascular Exam: REGULAR RHYTHM, RRR, +S1, +S2. absent: Bradycardia, Tachycardia, Irregular Rhythm, JVD, +S4 - GI/Abdominal Exam GI & Abdominal Exam: Soft, Normal Bowel Sounds. absent: Distended, Firm, Guarding, Rigid, Tenderness, Diminished Bowel Sounds, Hyperactive Bowel Sounds, Hypoactive Bowel Sounds - Extremities Exam bilateral AKA, no active oozing or ulcerations appreciated at stumps - Neurological Exam Neurological Exam: Alert, Awake, Oriented x3, following all commands appropriately, spontaneously moving arms and bilateral LE stumps - Psychiatric Exam Psychiatric exam: Normal Affect, Normal Mood - Skin Skin Exam: Dry, Intact, Normal Color, Warm Assessment and Plan - Assessment and Plan (Free Text) Assessment: 83 year old female with PMH of Iron deficiency anemia, T2DM, HTN, PVD s/p B/L AKA, s/p aortic valve replacement presenting with weakness. 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 Now re-admitted for worsening Hgb requiring transfusion and shortness of breath. Plan: -likely multifactorial; iron deficiency, hemodilutional possible underlying GI pathology (PUD, vascular malformation, neoplasia) vs non-GI source of blood loss -no active overt GI blood loss, brown stool on initial rectal exam, again on repeat ED exam, no tarry-black or melanotic movements reports by nursing or pt -Hgb 10 today (was 10.5 s/p transfusion); continue to monitor H/H -iron 44 ferritin 35.2, s/p IV iron infusion on 05/10/18 -CT abd/pelvis with PO contrast (on initial admission) notable for sigmoid/ descending colon diverticulosis, constipation without obstruction, non- calcified stones vs sludge in GB -S/p WORKERS COMPENSATION CLAIMS ASSISTANT with likely NSTEMI; s/p cardiac cath, found to have triple vessel disease, JAYME x2 placed (LAD and Circumflex), on Plavix/ASA as per Cardio -With reported GI bleeding on admit and further decrease in Hgb requiring transfusion, will need EGD/C-scope at some point, will coordinate with Cardio GI attending discussed with cardio attending, fadi'ed for EGD, to be done Saturday (05/23/18) Reviewed, discussed, and seen with attending, Dr. Galvan <Erin Galvan V - Last Filed: 05/21/18 22:54> Objective - Vital Signs/Intake and Output Vital Signs (last 24 hours): Temp Pulse Resp BP Pulse Ox 97.7 F 79 18 143/66 100 05/21/18 18:00 05/21/18 18:00 05/21/18 18:00 05/21/18 18:00 05/21/18 06:00 Intake and Output: 05/21/18 05/22/18 18:59 06:59 Intake Total 836 Output Total 1100 Balance -264 - Medications Medications: Current Medications Amlodipine Besylate (Norvasc) 5 mg PO DAILY [facility] Last Admin: 05/21/18 09:41 Dose: 5 mg Aspirin (Aspirin Chewable) 81 mg PO DAILY [facility] Last Admin: 05/21/18 09:41 Dose: 81 mg Atorvastatin Calcium (Lipitor) 40 mg PO DIN [facility] Last Admin: 05/21/18 18:17 Dose: 40 mg Clopidogrel Bisulfate (Plavix) 75 mg PO DAILY [facility] Last Admin: 05/21/18 09:41 Dose: 75 mg Famotidine (Pepcid) 40 mg PO HS [facility] Last Admin: 05/21/18 21:59 Dose: 40 mg Furosemide (Lasix) 40 mg PO DAILY [facility] Last Admin: 05/21/18 09:41 Dose: 40 mg Hydralazine HCl (Apresoline) 10 mg PO QID PRN PRN Reason: for SBP>160 Milrinone Lactate/Dextrose (Primacor 20mg/100ml D5w) 100 mls @ 4.714 mls/hr IV .[id number] PRN; Protocol; 0.2 MCG/KG/MIN PRN Reason: TITRATE PER MD ORDER Stop: 05/23/18 07:00 Last Admin: 05/21/18 03:00 Dose: 0.2 mcg/kg/min, 4.714 mls/hr Insulin Human Regular (Humulin R Low) 0 units SC ACHS [facility] PRN Reason: Protocol Isosorbide Mononitrate (Imdur Er) 60 mg PO DAILY [facility] Last Admin: 05/21/18 09:41 Dose: 60 mg Levalbuterol HCl (Xopenex) 0.63 mg IH [id number] PRN PRN Reason: Shortness of Breath Levothyroxine Sodium (Synthroid) 25 mcg PO 0600 [facility] Last Admin: 05/21/18 05:47 Dose: 25 mcg Pantoprazole Sodium (Protonix Ec Tab) 40 mg PO 0600 [facility] Last Admin: 05/21/18 05:48 Dose: 40 mg Sucralfate (Carafate Oral Susp) 1 gm PO QID [facility] Last Admin: 05/21/18 21:59 Dose: 1 gm Zolpidem Tartrate (Ambien) 5 mg PO HS PRN; Protocol PRN Reason: Insomnia - Labs Labs: 05/21/18 06:15 05/21/18 06:15 Attending/Attestation - Attestation I have personally seen and examined this patient.: Yes I have fully participated in the care of the patient.: Yes I have reviewed all pertinent clinical information, including history, physical exam and plan: Yes Notes (Text): This is an addendum to GI followup report dictated by the Statistical Methods Professor.The patient was seen and examined earlier. Medical records, lab studies, imagings were reviewed. Last 24 hours events reviewed. Agreed with the above treatment plan as outlined in Statistical Methods Professor 's notes the with the addition of the following DROPPING BLOOD COUNT admitted with anemia and drop in Hb Status post PTCA on aspirin and Plavix drug-eluting stent NSTMI Discussed Dr. Carrion educational institution curator. Would consider diagnostic EGD Follow-up hemoglobin 05/21/18 22:46
[2018-05-20] MEDS: Sucralfate 1 gm/10 ml Oral Susp UD PO SCH ×4 (10:37→22:49)
--- NOTE | 2018-05-20 11:52 | CP.PCM.PN ---
Subjective - Date & Time of Evaluation Date of Evaluation: 05/20/18 Time of Evaluation: 11:45 - Subjective Subjective: resting comfortably,NAD,denies chest pain,noSOB Objective - Vital Signs/Intake and Output Vital Signs (last 24 hours): Temp Pulse Resp BP Pulse Ox 98.0 F 84 20 158/58 H 94 L 05/20/18 06:00 05/20/18 10:37 05/20/18 06:00 05/20/18 10:37 05/20/18 06:00 Intake and Output: 05/20/18 05/20/18 06:59 18:59 Intake Total 220 56 Output Total 300 Balance -80 56 - Medications Medications: Current Medications Amlodipine Besylate (Norvasc) 5 mg PO DAILY [facility] Last Admin: 05/20/18 10:37 Dose: 5 mg Aspirin (Aspirin Chewable) 81 mg PO DAILY [facility] Last Admin: 05/20/18 10:37 Dose: 81 mg Atorvastatin Calcium (Lipitor) 40 mg PO DIN [facility] Clopidogrel Bisulfate (Plavix) 75 mg PO DAILY [facility] Last Admin: 05/20/18 10:37 Dose: 75 mg Famotidine (Pepcid) 40 mg PO HS [facility] Last Admin: 05/19/18 21:19 Dose: 40 mg Furosemide (Lasix) 40 mg PO DAILY [facility] Last Admin: 05/20/18 10:37 Dose: 40 mg Hydralazine HCl (Apresoline) 10 mg PO QID PRN PRN Reason: for SBP>160 Milrinone Lactate/Dextrose (Primacor 20mg/100ml D5w) 100 mls @ 4.714 mls/hr IV .[id number] PRN; Protocol; 0.2 MCG/KG/MIN PRN Reason: TITRATE PER MD ORDER Last Admin: 05/20/18 06:23 Dose: 0.2 mcg/kg/min, 4.714 mls/hr Isosorbide Mononitrate (Imdur Er) 60 mg PO DAILY [facility] Last Admin: 05/20/18 10:37 Dose: 60 mg Levalbuterol HCl (Xopenex) 0.63 mg IH [id number] PRN PRN Reason: Shortness of Breath Levothyroxine Sodium (Synthroid) 25 mcg PO 0600 [facility] Last Admin: 05/20/18 06:21 Dose: 25 mcg Pantoprazole Sodium (Protonix Ec Tab) 40 mg PO 0600 [facility] Last Admin: 05/20/18 06:21 Dose: 40 mg Sucralfate (Carafate Oral Susp) 1 gm PO QID [facility] Last Admin: 05/20/18 10:37 Dose: 1 gm - Labs Labs: 05/20/18 06:00 05/20/18 06:00 - Respiratory Exam Respiratory Exam: Clear to Ausculation Bilateral, NORMAL BREATHING PATTERN - Cardiovascular Exam Cardiovascular Exam: REGULAR RHYTHM - GI/Abdominal Exam GI & Abdominal Exam: Soft, Normal Bowel Sounds - Neurological Exam Neurological Exam: Alert, Awake - Skin Skin Exam: Dry, Warm Assessment and Plan (1) Coronary artery disease Status: Acute (2) Anemia Status: Acute (3) Type II diabetes mellitus Status: Chronic (4) Azotemia Status: Resolved (5) HTN (hypertension) Status: Resolved - Assessment and Plan (Free Text) Plan: continue telemetry monitoring,onIV milrinone,cardio/GI/renal consults, monitorlytes, BUN/Cr,HB/Hct
[2018-05-20 11:55] LABS: PH,URINE 5.5 (4.7-8.0); URINE BILIRUBIN NEGATIVE (NEGATIVE); URINE BLOOD SMALL (NEGATIVE); URINE GLUCOSE (UA) NEGATIVE (NEGATIVE); URINE LEUKOCYTE ESTERASE LARGE Leu/uL (NEGATIVE); URINE PROTEIN TRACE mg/dL (<30 mg/dL); URINE UROBILINOGEN 0.2 E.U./dL (<1 E.U./dL)
[2018-05-20 12:38] LABS: URINE APPEARANCE CLEAR (CLEAR); URINE COLOR YELLOW (YELLOW)
[2018-05-20 12:46] LABS: URINE WBC 25 - 30 /hpf (0-6)
[2018-05-20 12:47] LABS: URINE BACTERIA MANY (NEG)
--- NOTE | 2018-05-20 14:38 | PN ---
DATE: 05/20/2018 SUBJECTIVE: The patient is currently seen on telemetry. She is entirely comfortable. She remains on a Primacor drip. She is status post transfusion 2 units of packed red blood cells. Her CHF is clinically improved. Her creatinine has plateaued at 3.2, it is now down to 3. Her baseline creatinine is in the low 1 range. MEDICATIONS: Medication list reviewed. The patient is currently on hydralazine, aspirin, Carafate, Imdur, Lasix, Lipitor, Norvasc, Pepcid, Plavix, Primacor drip, Protonix, Synthroid and Xopenex. OBJECTIVE: INTAKE/OUTPUT: Intake is 968, output is 300. VITAL SIGNS: Blood pressure 126/56, temperature 98, pulse is 78 with a respiratory rate of 18. HEENT: Exam shows her to be normocephalic, atraumatic. Conjunctivae remain pale. Sclerae are nonicteric. NECK: Supple. No neck vein distention. CHEST: Slight decreased breath sounds at the bases, but no rales, rhonchi or wheezing. CARDIOVASCULAR: Shows a regular rate and rhythm with MR/AI/TR. She is status post TAVR. No rubs or gallops noted. ABDOMEN: Soft. Minimal distention. Minimal obesity. No rebound, guarding or masses. EXTREMITIES: Positive for bilateral lateral AKA with no edema in the stumps. LABORATORY DATA AND IMAGING STUDIES: CBC: White blood cell count today 6.7, hemoglobin 10 with a platelet count of 267,000. Hemoglobin is up from 7.8 status post transfusion of 2 units of packed red blood cells. Chemistries from today showed normal electrolytes. BUN 58 with a creatinine of 3. Her baseline BUN is in the low 30s with a baseline creatinine in the low 1 range. Glucose is 195. Calcium is 8.6. Last phosphorus level was 3.8. Magnesium level was 1.8. Liver enzymes are normal. Albumin is 3.1. Urinalysis showed 5-10 red blood cells and 25-30 white blood cells per high-power field with many bacteria. Urine C and S will be ordered. Microbiology: Her initial urine culture from 05/06/2018 was positive for Klebsiella. ASSESSMENT: 1. 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 This is secondary to unstable angina, placement of a stent, cardiac catheterization. Perhaps mild contrast nephrotoxicity. She appears to have plateaued. Congestive heart failure was treated. Anemia was treated. She remains on ionotropic support with Primacor. Her ejection fraction was 63% on an echocardiogram done on 05/14/2018. 2. Shortness of breath, resolved. This is improved with treatment of her anemia and treatment of her congestive heart failure. 3. Status post hyperkalemia. Potassium level is now normal. 4. History of anemia with low iron stores. The patient was to have had an endoscopy and colonoscopy. This was placed on hold because of an arrhythmia down in the endoscopy suite. The patient has received 2 units of packed red blood cells. Hemoglobin is now up to 10. 5. History of diabetes, currently on insulin. Glucose control is acceptable. 6. History of hypertension. Blood pressure controlled on present medical therapy. The patient will continue calcium channel penelope therapy. 7. History of multivessel coronary artery disease, status post percutaneous transluminal coronary angioplasty and stents, status post open heart surgery. History of transcatheter aortic valve replacement for aortic stenosis. PLAN: 1. Continue to monitor the patient closely in telemetry. She remains on a Primacor drip. 2. Continue to monitor labs on a daily basis. Hoping to see her creatinine fall back to baseline levels, which is in the low to mid 1 range. 3. For any hemoglobin less than 10, the patient may continue Aranesp plus iron. 4. Continue present blood pressure medication. 5. Appreciate cardiology followup. 6. We will obtain another urine culture in light of her pyuria and bacteriuria. The patient earlier this month had a Klebsiella urinary tract infection, which was treated. Luke Rasmussen MD
[2018-05-21] MEDS: Milrinone 20mg/100ml D5W 100 ML IV PRN (03:00)
[2018-05-21] MEDS: Levothyroxine 25 MCG TAB PO SCH (05:47)
[2018-05-21] MEDS: Pantoprazole 40 mg EC Tab PO SCH (05:48)
[2018-05-21 06:38] LABS: HEMOGLOBIN 9.9 g/dL (12.0-16.0); MEAN CELL VOLUME 80.1 fl (80.0-105.0); MEAN CORPUSCULAR HEMOGLOBIN 26.3 pg (25.0-35.0); MEAN CORPUSCULAR HGB CONC 32.9 g/dl (31.0-37.0); MEAN PLATELET VOLUME 10.1 fl (7.0-11.0); RBC 3.76 10^6/uL (3.5-6.1); RED CELL DISTRIBUTION WIDTH 16.2 % (11.5-14.5); WHITE BLOOD COUNT 6.5 10^3/ul (4.5-11.0)
[2018-05-21 06:55] LABS: ALB/GLOB RATIO 0.9 (1.1-1.8); ALBUMIN 3.2 g/dL (3.0-4.8); CALCIUM 8.4 mg/dL (8.4-10.5)
--- NOTE | 2018-05-21 07:36 | CP.PCM.PN ---
Subjective - Date & Time of Evaluation Date of Evaluation: 05/21/18 Time of Evaluation: 06:40 - Subjective Subjective: Sleeping but easily awaken ,alert,no distress Reason for consultation and follow up:Cardiac evaluation of junctional bradycardia before endoscopy,NSTEMI, coronary artery disease post stents, history of aortic valve replacement at [facility], diabetes, hypertension, severe peripheral vascular disease post above knee amputation bilateral.Transferred to TCU for reconditioning however at TCU, had low hemoglobin and needed blood transfusion, she was sent to ER and admitted back to telemetry. 2 units of PRBC transfused. Seen and examined by me and Dr. Carrion Objective - Vital Signs/Intake and Output Vital Signs (last 24 hours): Temp Pulse Resp BP Pulse Ox 97.8 F 76 20 154/66 H 97 05/21/18 00:01 05/21/18 02:00 05/21/18 00:01 05/21/18 00:01 05/21/18 00:01 Intake and Output: 05/21/18 05/21/18 06:59 18:59 Intake Total 340 Output Total 500 Balance -160 - Medications Medications: Current Medications Amlodipine Besylate (Norvasc) 5 mg PO DAILY [facility] Last Admin: 05/20/18 10:37 Dose: 5 mg Aspirin (Aspirin Chewable) 81 mg PO DAILY [facility] Last Admin: 05/20/18 10:37 Dose: 81 mg Atorvastatin Calcium (Lipitor) 40 mg PO DIN [facility] Last Admin: 05/20/18 17:55 Dose: 40 mg Clopidogrel Bisulfate (Plavix) 75 mg PO DAILY [facility] Last Admin: 05/20/18 10:37 Dose: 75 mg Famotidine (Pepcid) 40 mg PO HS [facility] Last Admin: 05/20/18 22:49 Dose: 40 mg Furosemide (Lasix) 40 mg PO DAILY [facility] Last Admin: 05/20/18 10:37 Dose: 40 mg Hydralazine HCl (Apresoline) 10 mg PO QID PRN PRN Reason: for SBP>160 Milrinone Lactate/Dextrose (Primacor 20mg/100ml D5w) 100 mls @ 4.714 mls/hr IV .[id number] PRN; Protocol; 0.2 MCG/KG/MIN PRN Reason: TITRATE PER MD ORDER Last Admin: 05/21/18 03:00 Dose: 0.2 mcg/kg/min, 4.714 mls/hr Isosorbide Mononitrate (Imdur Er) 60 mg PO DAILY [facility] Last Admin: 05/20/18 10:37 Dose: 60 mg Levalbuterol HCl (Xopenex) 0.63 mg IH [id number] PRN PRN Reason: Shortness of Breath Levothyroxine Sodium (Synthroid) 25 mcg PO 0600 [facility] Last Admin: 05/21/18 05:47 Dose: 25 mcg Pantoprazole Sodium (Protonix Ec Tab) 40 mg PO 0600 [facility] Last Admin: 05/21/18 05:48 Dose: 40 mg Sucralfate (Carafate Oral Susp) 1 gm PO QID [facility] Last Admin: 05/20/18 22:49 Dose: 1 gm - Labs Labs: 05/21/18 06:15 05/21/18 06:15 - Constitutional Appears: No Acute Distress - Head Exam Head Exam: NORMOCEPHALIC - Eye Exam Eye Exam: Normal appearance - ENT Exam ENT Exam: Mucous Membranes Moist - Respiratory Exam Respiratory Exam: Clear to Ausculation Bilateral, NORMAL BREATHING PATTERN - Cardiovascular Exam Cardiovascular Exam: +S1, +S2 Additional comments: NSR telemetry 70's - GI/Abdominal Exam GI & Abdominal Exam: Soft, Normal Bowel Sounds - Extremities Exam Additional comments: bilateral AKA - Neurological Exam Neurological Exam: Alert, Awake, Oriented x3 - Psychiatric Exam Psychiatric exam: Normal Affect - Skin Skin Exam: Intact, Warm Assessment and Plan - Assessment and Plan (Free Text) Assessment: A 83 year old female who had an episode of junctional bradycardia before endoscopy, procedure aborted, NSTEMI, coronary artery disease post stents, history of aortic valve replacement at [facility], diabetes, hypertension, severe peripheral vascular disease post above knee amputation bilateral. Came in to the ER due to generalized weakness,fever and urinary tract infection Now transferred to TCU for reconditioning and physical therapy.However at TCU, had low hemoglobin and needed blood transfusion, she was sent to ER and admitted back to telemetry. 2 units of PRBC transfused.For possible EGD. Plan: Cardiac status stable On Primacor drip Blood pressure controlled For possible EGD Cleared from cardiac standpoint for EGD procedure Stable Hemoglobin and hematocrit For repeat urine culture Continue current treatment Continue current medications Will follow up Plan and treatment discussed with Dr. Carrion
[2018-05-21] MEDS: Sucralfate 1 gm/10 ml Oral Susp UD PO SCH ×4 (09:41→21:59)
--- NOTE | 2018-05-21 13:43 | CP.PCM.PN ---
<Gomez Cameron - Last Filed: 05/21/18 13:41> Subjective - Date & Time of Evaluation Date of Evaluation: 05/21/18 Time of Evaluation: 07:30 - Subjective Subjective: GI Progress Note for Dr. Mandy Cameron, PGY-3 IM Patient seen and examined at bedside. No acute events overnight. Improved nausea, no shortness of breath today. No emesis, diarrhea, dysuria, hematuria. Hgb remains stable post-transfusion. Pending CLD tomorrow and EGD Saturday. Objective - Vital Signs/Intake and Output Vital Signs (last 24 hours): Temp Pulse Resp BP Pulse Ox 97.1 F L 84 19 134/63 100 05/21/18 12:00 05/21/18 12:00 05/21/18 12:00 05/21/18 12:00 05/21/18 06:00 Intake and Output: 05/21/18 05/21/18 06:59 18:59 Intake Total 340 Output Total 500 Balance -160 - Medications Medications: Current Medications Amlodipine Besylate (Norvasc) 5 mg PO DAILY [facility] Last Admin: 05/21/18 09:41 Dose: 5 mg Aspirin (Aspirin Chewable) 81 mg PO DAILY [facility] Last Admin: 05/21/18 09:41 Dose: 81 mg Atorvastatin Calcium (Lipitor) 40 mg PO DIN [facility] Last Admin: 05/20/18 17:55 Dose: 40 mg Clopidogrel Bisulfate (Plavix) 75 mg PO DAILY [facility] Last Admin: 05/21/18 09:41 Dose: 75 mg Famotidine (Pepcid) 40 mg PO HS [facility] Last Admin: 05/20/18 22:49 Dose: 40 mg Furosemide (Lasix) 40 mg PO DAILY [facility] Last Admin: 05/21/18 09:41 Dose: 40 mg Hydralazine HCl (Apresoline) 10 mg PO QID PRN PRN Reason: for SBP>160 Milrinone Lactate/Dextrose (Primacor 20mg/100ml D5w) 100 mls @ 4.714 mls/hr IV .[id number] PRN; Protocol; 0.2 MCG/KG/MIN PRN Reason: TITRATE PER MD ORDER Stop: 05/23/18 07:00 Last Admin: 05/21/18 03:00 Dose: 0.2 mcg/kg/min, 4.714 mls/hr Isosorbide Mononitrate (Imdur Er) 60 mg PO DAILY [facility] Last Admin: 05/21/18 09:41 Dose: 60 mg Levalbuterol HCl (Xopenex) 0.63 mg IH [id number] PRN PRN Reason: Shortness of Breath Levothyroxine Sodium (Synthroid) 25 mcg PO 0600 [facility] Last Admin: 05/21/18 05:47 Dose: 25 mcg Pantoprazole Sodium (Protonix Ec Tab) 40 mg PO 0600 [facility] Last Admin: 05/21/18 05:48 Dose: 40 mg Sucralfate (Carafate Oral Susp) 1 gm PO QID [facility] Last Admin: 05/21/18 13:31 Dose: 1 gm - Labs Labs: 05/21/18 06:15 05/21/18 06:15 - Additional Findings Additional findings: - Constitutional Appears: Non-toxic, No Acute Distress, Chronically Ill - Head Exam Head Exam: ATRAUMATIC, NORMAL INSPECTION, NORMOCEPHALIC - Eye Exam Eye Exam: Normal appearance. absent: Conjunctival injection or pallor, Scleral icterus Pupil Exam: absent: Fixed, Irregular - ENT Exam ENT Exam: Mucous Membranes Moist - Neck Exam Neck Exam: Normal Inspection. absent: Lymphadenopathy, Thyromegaly - Respiratory Exam Respiratory Exam: Clear to Ausculation Bilateral, NORMAL BREATHING PATTERN. absent: Accessory Muscle Use, Chest Wall Tenderness, Decreased Breath Sounds, Prolonged Expiratory Phase, Rales, Rhonchi, Wheezes, Respiratory Distress - Cardiovascular Exam Cardiovascular Exam: REGULAR RHYTHM, RRR, +S1, +S2. absent: Bradycardia, Tachycardia, Irregular Rhythm, JVD, +S4 - GI/Abdominal Exam GI & Abdominal Exam: Soft, Normal Bowel Sounds. absent: Distended, Firm, Guarding, Rigid, Tenderness, Diminished Bowel Sounds, Hyperactive Bowel Sounds, Hypoactive Bowel Sounds - Extremities Exam bilateral AKA, no active oozing or ulcerations appreciated at stumps - Neurological Exam Neurological Exam: Alert, Awake, Oriented x3, following all commands appropriately, spontaneously moving arms and bilateral LE stumps - Psychiatric Exam Psychiatric exam: Normal Affect, Normal Mood - Skin Skin Exam: Dry, Intact, Normal Color, Warm Assessment and Plan - Assessment and Plan (Free Text) Assessment: 83 year old female with PMH of Iron deficiency anemia, T2DM, HTN, PVD s/p B/L AKA, s/p aortic valve replacement presenting with weakness. S/p FORENSICS ANALYST for SOB and diaphoresis, found to have trop 0.[address] segment elevations/ depressions on EKG at the time. 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 Now re-admitted for worsening Hgb requiring transfusion and shortness of breath. Shortness of breath resolved, anemia improved and stable post-transfusion. Plan: -likely multifactorial; iron deficiency, hemodilutional possible underlying GI pathology (PUD, vascular malformation, neoplasia) vs non-GI source of blood loss -no active overt GI blood loss, brown stool on initial rectal exam, again on repeat ED exam, no tarry-black or melanotic movements reports by nursing or pt -Hgb 9.9 today (was 10.5 s/p transfusion); continue to monitor H/H -iron 44 ferritin 35.2, s/p IV iron infusion on 05/10/18 -CT abd/pelvis with PO contrast (on initial admission) notable for sigmoid/ descending colon diverticulosis, constipation without obstruction, non- calcified stones vs sludge in GB -S/p FORENSICS ANALYST with likely NSTEMI; s/p cardiac cath, found to have triple vessel disease, JAYME x2 placed (LAD and Circumflex), on Plavix/ASA as per Cardio -With reported GI bleeding on admit and further decrease in Hgb requiring transfusion, will need EGD/C-scope at some point, will coordinate with Cardio GI attending discussed with cardio attending, fadi'ed for EGD, to be done Saturday (05/23/18); will start CLD tomorrow Reviewed, discussed, and seen with attending, Dr. Galvan <Erin Galvan V - Last Filed: 05/21/18 23:06> Objective - Vital Signs/Intake and Output Vital Signs (last 24 hours): Temp Pulse Resp BP Pulse Ox 97.7 F 65 18 143/66 100 05/21/18 18:00 05/21/18 22:00 05/21/18 18:00 05/21/18 18:00 05/21/18 06:00 Intake and Output: 05/21/18 05/22/18 18:59 06:59 Intake Total 836 Output Total 1100 Balance -264 - Medications Medications: Current Medications Amlodipine Besylate (Norvasc) 5 mg PO DAILY [facility] Last Admin: 05/21/18 09:41 Dose: 5 mg Aspirin (Aspirin Chewable) 81 mg PO DAILY [facility] Last Admin: 05/21/18 09:41 Dose: 81 mg Atorvastatin Calcium (Lipitor) 40 mg PO DIN [facility] Last Admin: 05/21/18 18:17 Dose: 40 mg Clopidogrel Bisulfate (Plavix) 75 mg PO DAILY [facility] Last Admin: 05/21/18 09:41 Dose: 75 mg Famotidine (Pepcid) 40 mg PO HS [facility] Last Admin: 05/21/18 21:59 Dose: 40 mg Furosemide (Lasix) 40 mg PO DAILY [facility] Last Admin: 05/21/18 09:41 Dose: 40 mg Hydralazine HCl (Apresoline) 10 mg PO QID PRN PRN Reason: for SBP>160 Milrinone Lactate/Dextrose (Primacor 20mg/100ml D5w) 100 mls @ 4.714 mls/hr IV .[id number] PRN; Protocol; 0.2 MCG/KG/MIN PRN Reason: TITRATE PER MD ORDER Stop: 05/23/18 07:00 Last Admin: 05/21/18 03:00 Dose: 0.2 mcg/kg/min, 4.714 mls/hr Insulin Human Regular (Humulin R Low) 0 units SC ACHS [facility] PRN Reason: Protocol Isosorbide Mononitrate (Imdur Er) 60 mg PO DAILY [facility] Last Admin: 05/21/18 09:41 Dose: 60 mg Levalbuterol HCl (Xopenex) 0.63 mg IH [id number] PRN PRN Reason: Shortness of Breath Levothyroxine Sodium (Synthroid) 25 mcg PO 0600 [facility] Last Admin: 05/21/18 05:47 Dose: 25 mcg Pantoprazole Sodium (Protonix Ec Tab) 40 mg PO 0600 [facility] Last Admin: 05/21/18 05:48 Dose: 40 mg Sucralfate (Carafate Oral Susp) 1 gm PO QID [facility] Last Admin: 05/21/18 21:59 Dose: 1 gm Zolpidem Tartrate (Ambien) 5 mg PO HS PRN; Protocol PRN Reason: Insomnia - Labs Labs: 05/21/18 06:15 07/25/18 06:15 Attending/Attestation - Attestation I have personally seen and examined this patient.: Yes I have fully participated in the care of the patient.: Yes I have reviewed all pertinent clinical information, including history, physical exam and plan: Yes Notes (Text): This is an addendum to GI followup report dictated by the Ct Manager.The patient was seen and examined earlier. Medical records, lab studies, imagings were reviewed. Last 24 hours events reviewed. Agreed with the above treatment plan as outlined in Ct Manager 's notes the with the addition of the following no abdominal complaints Follow-up hemoglobin and hematocrit Abdomen soft nontender diagnostic EGD planned continue PPI Discussed with the patient 05/21/18 23:01
--- NOTE | 2018-05-21 14:18 | CP.PCM.PN ---
Subjective - Date & Time of Evaluation Date of Evaluation: 05/21/18 Time of Evaluation: 12:00 - Subjective Subjective: c/o insomnia, otherwise NAD, denies chest pain, no SOB, no melena, no BRBPR Objective - Vital Signs/Intake and Output Vital Signs (last 24 hours): Temp Pulse Resp BP Pulse Ox 97.1 F L 84 19 134/63 100 05/21/18 12:00 05/21/18 12:00 05/21/18 12:00 05/21/18 12:00 05/21/18 06:00 Intake and Output: 05/21/18 05/21/18 06:59 18:59 Intake Total 340 Output Total 500 Balance -160 - Medications Medications: Current Medications Amlodipine Besylate (Norvasc) 5 mg PO DAILY [facility] Last Admin: 05/21/18 09:41 Dose: 5 mg Aspirin (Aspirin Chewable) 81 mg PO DAILY [facility] Last Admin: 05/21/18 09:41 Dose: 81 mg Atorvastatin Calcium (Lipitor) 40 mg PO DIN [facility] Last Admin: 05/20/18 17:55 Dose: 40 mg Clopidogrel Bisulfate (Plavix) 75 mg PO DAILY [facility] Last Admin: 05/21/18 09:41 Dose: 75 mg Famotidine (Pepcid) 40 mg PO HS [facility] Last Admin: 05/20/18 22:49 Dose: 40 mg Furosemide (Lasix) 40 mg PO DAILY [facility] Last Admin: 05/21/18 09:41 Dose: 40 mg Hydralazine HCl (Apresoline) 10 mg PO QID PRN PRN Reason: for SBP>160 Milrinone Lactate/Dextrose (Primacor 20mg/100ml D5w) 100 mls @ 4.714 mls/hr IV .[id number] PRN; Protocol; 0.2 MCG/KG/MIN PRN Reason: TITRATE PER MD ORDER Stop: 05/23/18 07:00 Last Admin: 05/21/18 03:00 Dose: 0.2 mcg/kg/min, 4.714 mls/hr Isosorbide Mononitrate (Imdur Er) 60 mg PO DAILY [facility] Last Admin: 05/21/18 09:41 Dose: 60 mg Levalbuterol HCl (Xopenex) 0.63 mg IH [id number] PRN PRN Reason: Shortness of Breath Levothyroxine Sodium (Synthroid) 25 mcg PO 0600 [facility] Last Admin: 05/21/18 05:47 Dose: 25 mcg Pantoprazole Sodium (Protonix Ec Tab) 40 mg PO 0600 [facility] Last Admin: 05/21/18 05:48 Dose: 40 mg Sucralfate (Carafate Oral Susp) 1 gm PO QID [facility] Last Admin: 05/21/18 13:31 Dose: 1 gm Zolpidem Tartrate (Ambien) 5 mg PO HS PRN; Protocol PRN Reason: Insomnia - Labs Labs: 05/21/18 06:15 05/21/18 06:15 - Respiratory Exam Respiratory Exam: Clear to Ausculation Bilateral, NORMAL BREATHING PATTERN - Cardiovascular Exam Cardiovascular Exam: REGULAR RHYTHM - GI/Abdominal Exam GI & Abdominal Exam: Soft, Normal Bowel Sounds - Neurological Exam Neurological Exam: Alert, Awake - Skin Skin Exam: Dry, Warm Assessment and Plan (1) Coronary artery disease Status: Acute (2) Anemia Status: Acute (3) Type II diabetes mellitus Status: Chronic - Assessment and Plan (Free Text) Plan: continue telemetry, IV milrinone, cardiology/renal/GI follow-up, monitor lytes, BUN/Cr, Hb/Hct, PT/SW for discharge planning
--- NOTE | 2018-05-21 16:50 | PN ---
DATE: 05/21/2018 SUBJECTIVE: The patient is seen lying in bed. She is awake. She is alert. She complains of increasing urine output. She complains of shortness of breath intermittently. She denies any chest tightness. PHYSICAL EXAMINATION: GENERAL: Obese elderly lady, sitting in bed. VITAL SIGNS: Blood pressure 134/63, heart rate 84, respiratory rate 18, temperature 97.1. HEENT: Normocephalic, atraumatic, positive pallor. NECK: Supple, no JVD. LUNGS: Bilateral equal air entry, bilateral equal expansion, minimal basilar rales. CARDIAC: S1 and S2, regular rate and rhythm, no murmur, no rub. ABDOMEN: Obese, distended, soft, nontender, bowel sounds present. EXTREMITIES: Bilateral AKA. INTAKE AND OUTPUT: 1776/850. LABORATORY DATA: WBC 6.5, hemoglobin 10, hematocrit 30, platelets 266. Sodium 133, potassium 4.2, chloride 98, CO2 of 25, BUN 59, creatinine 2.6, glucose 198, calcium 8.4, phosphorus 3.4, magnesium 1.8, albumin 3.2. CURRENT MEDICATIONS: Ambien, aspirin, Carafate, Imdur 60, Lasix 40 daily, Lipitor, amlodipine 5, Pepcid 40, Plavix 75, milrinone 0.2 mcg/kilogram/minute, Protonix, Synthroid. ASSESSMENT: 1. Acute kidney injury, acute tubular necrosis in the setting of contrast exposure. Renal function slowly improving. 2. 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 3. Decompensated congestive heart failure, improving with milrinone therapy. 4. Resolved hyperkalemia. 5. Acute on chronic anemia, awaiting colonoscopy once stable. 6. [id number] diabetes mellitus. 7. Hypertension. 8. History of coronary artery disease, percutaneous transluminal coronary angioplasty and stent, aortic valve replacement. PLAN: 1. Continue Primacor. 2. Monitor daily labs. 3. Continue current antihypertensives. 4. Follow up urine culture. Ysabel Mehta MD
[2018-05-21] MEDS: Insulin Reg-LOW-Coverage SC SCH (23:15)
[2018-05-22] MEDS: Milrinone 20mg/100ml D5W 100 ML IV PRN ×2 (00:09→21:55)
[2018-05-22] MEDS: Pantoprazole 40 mg EC Tab PO SCH (05:35)
[2018-05-22] MEDS: Levothyroxine 25 MCG TAB PO SCH (05:35)
[2018-05-22 06:59] LABS: HEMOGLOBIN 10.5 g/dL (12.0-16.0); MEAN CELL VOLUME 80.7 fl (80.0-105.0); MEAN CORPUSCULAR HEMOGLOBIN 26.4 pg (25.0-35.0); MEAN CORPUSCULAR HGB CONC 32.7 g/dl (31.0-37.0); MEAN PLATELET VOLUME 10.2 fl (7.0-11.0); RBC 3.98 10^6/uL (3.5-6.1); WHITE BLOOD COUNT 5.4 10^3/ul (4.5-11.0)
[2018-05-22 07:14] LABS: INR 1.02 (0.93-1.08); PROTHROMBIN TIME 11.7 SECONDS (9.4-12.5)
[2018-05-22 07:15] LABS: PARTIAL THROMBOPLASTIN TIME 32.1 Seconds (25.1-36.5)
[2018-05-22 07:18] LABS: ALBUMIN 3.4 g/dL (3.0-4.8); CALCIUM 8.7 mg/dL (8.4-10.5)
--- NOTE | 2018-05-22 08:49 | CP.PCM.PN ---
Subjective - Date & Time of Evaluation Date of Evaluation: 05/22/18 Time of Evaluation: 06:15 - Subjective Subjective: Awake ,alert,no distress, mild shortness of breath Reason for consultation and follow up:Cardiac evaluation of junctional bradycardia before endoscopy,NSTEMI, coronary artery disease post stents, history of aortic valve replacement at [facility], diabetes, hypertension, severe peripheral vascular disease post above knee amputation bilateral.Transferred to TCU for reconditioning however at TCU, had low hemoglobin and needed blood transfusion, she was sent to ER and admitted back to telemetry. 2 units of PRBC transfused. Seen and examined by me and Dr. Carrion Objective - Vital Signs/Intake and Output Vital Signs (last 24 hours): Temp Pulse Resp BP Pulse Ox 97.9 F 78 20 162/66 H 97 05/22/18 06:00 05/22/18 06:00 05/22/18 06:00 05/22/18 06:00 05/22/18 06:00 Intake and Output: 05/22/18 05/22/18 06:59 18:59 Intake Total 276 Output Total 950 Balance -674 - Medications Medications: Current Medications Amlodipine Besylate (Norvasc) 5 mg PO DAILY [facility] Last Admin: 05/21/18 09:41 Dose: 5 mg Aspirin (Aspirin Chewable) 81 mg PO DAILY [facility] Last Admin: 05/21/18 09:41 Dose: 81 mg Atorvastatin Calcium (Lipitor) 40 mg PO DIN [facility] Last Admin: 05/21/18 18:17 Dose: 40 mg Clopidogrel Bisulfate (Plavix) 75 mg PO DAILY [facility] Last Admin: 05/21/18 09:41 Dose: 75 mg Famotidine (Pepcid) 40 mg PO HS [facility] Last Admin: 05/21/18 21:59 Dose: 40 mg Furosemide (Lasix) 40 mg PO DAILY [facility] Last Admin: 05/21/18 09:41 Dose: 40 mg Hydralazine HCl (Apresoline) 10 mg PO QID PRN PRN Reason: for SBP>160 Milrinone Lactate/Dextrose (Primacor 20mg/100ml D5w) 100 mls @ 4.714 mls/hr IV .[id number] PRN; Protocol; 0.2 MCG/KG/MIN PRN Reason: TITRATE PER MD ORDER Stop: 05/23/18 07:00 Last Admin: 05/22/18 00:09 Dose: 0.2 mcg/kg/min, 4.714 mls/hr Insulin Human Regular (Humulin R Low) 0 units SC ACHS [facility] PRN Reason: Protocol Last Admin: 05/21/18 23:15 Dose: Not Given Isosorbide Mononitrate (Imdur Er) 60 mg PO DAILY [facility] Last Admin: 05/21/18 09:41 Dose: 60 mg Levalbuterol HCl (Xopenex) 0.63 mg IH [id number] PRN PRN Reason: Shortness of Breath Levothyroxine Sodium (Synthroid) 25 mcg PO 0600 [facility] Last Admin: 05/22/18 05:35 Dose: 25 mcg Pantoprazole Sodium (Protonix Ec Tab) 40 mg PO 0600 [facility] Last Admin: 05/22/18 05:35 Dose: 40 mg Sucralfate (Carafate Oral Susp) 1 gm PO QID [facility] Last Admin: 05/21/18 21:59 Dose: 1 gm Zolpidem Tartrate (Ambien) 5 mg PO HS PRN; Protocol PRN Reason: Insomnia - Labs Labs: 05/22/18 06:00 05/22/18 06:00 PT 11.7 SECONDS (9.4-12.5) 05/22/18 06:00 INR 1.02 (0.93-1.08) 05/22/18 06:00 APTT 32.1 Seconds (25.1-36.5) 05/22/18 06:00 - Constitutional Appears: No Acute Distress - Eye Exam Eye Exam: Normal appearance - ENT Exam ENT Exam: Mucous Membranes Moist - Respiratory Exam Respiratory Exam: Decreased Breath Sounds, NORMAL BREATHING PATTERN - Cardiovascular Exam Cardiovascular Exam: +S1, +S2 Additional comments: JAYLA Powell 1 - GI/Abdominal Exam GI & Abdominal Exam: Soft, Normal Bowel Sounds - Extremities Exam Additional comments: bilateral above knee amputation - Neurological Exam Neurological Exam: Alert, Awake, Oriented x3 - Psychiatric Exam Psychiatric exam: Normal Affect, Normal Mood - Skin Skin Exam: Intact, Warm Assessment and Plan - Assessment and Plan (Free Text) Assessment: A 83 year old female who had an episode of junctional bradycardia before endoscopy, procedure aborted, NSTEMI, coronary artery disease post stents, history of aortic valve replacement at [facility], diabetes, hypertension, severe peripheral vascular disease post above knee amputation bilateral. Came in to the ER due to generalized weakness,fever and urinary tract infection Now transferred to TCU for reconditioning and physical therapy.However at TCU, had low hemoglobin and needed blood transfusion, she was sent to ER and admitted back to telemetry. 2 units of PRBC transfused.For possible EGD. Plan: For EGD tomorrow Clear liquid diet today Cleared from cardiac standpoint for EGD procedure Cardiac status stable Continue Primacor drip,will discontinue after EGD Stable Hemoglobin and hematocrit BUN/creatinine level trending down. For repeat urine culture Continue current treatment Continue current medications Will follow up Plan and treatment discussed with Dr. Carrion
--- NOTE | 2018-05-22 09:03 | CP.PCM.PN ---
Subjective - Date & Time of Evaluation Date of Evaluation: 05/22/18 Time of Evaluation: 09:00 - Subjective Subjective: resting comfortably, NAD, no chest pain, no SOB Objective - Vital Signs/Intake and Output Vital Signs (last 24 hours): Temp Pulse Resp BP Pulse Ox 97.9 F 78 20 162/66 H 97 05/22/18 06:00 05/22/18 06:00 05/22/18 06:00 05/22/18 06:00 05/22/18 06:00 Intake and Output: 05/22/18 05/22/18 06:59 18:59 Intake Total 276 Output Total 950 Balance -674 - Medications Medications: Current Medications Amlodipine Besylate (Norvasc) 5 mg PO DAILY [facility] Last Admin: 05/21/18 09:41 Dose: 5 mg Aspirin (Aspirin Chewable) 81 mg PO DAILY [facility] Last Admin: 05/21/18 09:41 Dose: 81 mg Atorvastatin Calcium (Lipitor) 40 mg PO DIN [facility] Last Admin: 05/21/18 18:17 Dose: 40 mg Clopidogrel Bisulfate (Plavix) 75 mg PO DAILY [facility] Last Admin: 05/21/18 09:41 Dose: 75 mg Famotidine (Pepcid) 40 mg PO HS [facility] Last Admin: 05/21/18 21:59 Dose: 40 mg Furosemide (Lasix) 40 mg PO DAILY [facility] Last Admin: 05/21/18 09:41 Dose: 40 mg Hydralazine HCl (Apresoline) 10 mg PO QID PRN PRN Reason: for SBP>160 Milrinone Lactate/Dextrose (Primacor 20mg/100ml D5w) 100 mls @ 4.714 mls/hr IV .[id number] PRN; Protocol; 0.2 MCG/KG/MIN PRN Reason: TITRATE PER MD ORDER Stop: 05/23/18 07:00 Last Admin: 05/22/18 00:09 Dose: 0.2 mcg/kg/min, 4.714 mls/hr Insulin Human Regular (Humulin R Low) 0 units SC ACHS [facility] PRN Reason: Protocol Last Admin: 05/21/18 23:15 Dose: Not Given Isosorbide Mononitrate (Imdur Er) 60 mg PO DAILY [facility] Last Admin: 05/21/18 09:41 Dose: 60 mg Levalbuterol HCl (Xopenex) 0.63 mg IH [id number] PRN PRN Reason: Shortness of Breath Levothyroxine Sodium (Synthroid) 25 mcg PO 0600 [facility] Last Admin: 05/22/18 05:35 Dose: 25 mcg Pantoprazole Sodium (Protonix Ec Tab) 40 mg PO 0600 [facility] Last Admin: 05/22/18 05:35 Dose: 40 mg Sucralfate (Carafate Oral Susp) 1 gm PO QID [facility] Last Admin: 05/21/18 21:59 Dose: 1 gm Zolpidem Tartrate (Ambien) 5 mg PO HS PRN; Protocol PRN Reason: Insomnia - Labs Labs: 05/22/18 06:00 05/22/18 06:00 PT 11.7 SECONDS (9.4-12.5) 05/22/18 06:00 INR 1.02 (0.93-1.08) 05/22/18 06:00 APTT 32.1 Seconds (25.1-36.5) 05/22/18 06:00 - Respiratory Exam Respiratory Exam: Clear to Ausculation Bilateral, NORMAL BREATHING PATTERN - Cardiovascular Exam Cardiovascular Exam: REGULAR RHYTHM - GI/Abdominal Exam GI & Abdominal Exam: Soft, Normal Bowel Sounds - Neurological Exam Neurological Exam: Alert, Awake - Skin Skin Exam: Dry, Warm Assessment and Plan (1) Coronary artery disease Status: Acute (2) Anemia Status: Acute (3) Type II diabetes mellitus Status: Chronic - Assessment and Plan (Free Text) Plan: continue present tx/for ndoscopy
[2018-05-22] MEDS: Insulin Reg-LOW-Coverage SC SCH ×4 (09:16→21:54)
[2018-05-22] MEDS: Sucralfate 1 gm/10 ml Oral Susp UD PO SCH ×4 (09:17→21:54)
--- NOTE | 2018-05-22 09:28 | CP.PCM.PN ---
<Gomez Cameron - Last Filed: 05/22/18 09:24> Subjective - Date & Time of Evaluation Date of Evaluation: 05/22/18 Time of Evaluation: 07:10 - Subjective Subjective: GI Progress Note for Dr. Mandy Cameron, PGY-3 IM Patient seen and examined at bedside. No acute events overnight. Still some intermittent nausea, but not inhibiting PO intake. No emesis, diarrhea, dysuria , hematuria. Hgb remains stable post-transfusion. CLD today, pending EGD tomorrow. Objective - Vital Signs/Intake and Output Vital Signs (last 24 hours): Temp Pulse Resp BP Pulse Ox 97.9 F 82 20 144/61 97 05/22/18 06:00 05/22/18 09:18 05/22/18 06:00 05/22/18 09:18 05/22/18 06:00 Intake and Output: 05/22/18 05/22/18 06:59 18:59 Intake Total 276 Output Total 950 Balance -674 - Medications Medications: Current Medications Amlodipine Besylate (Norvasc) 5 mg PO DAILY [facility] Last Admin: 05/22/18 09:18 Dose: 5 mg Aspirin (Aspirin Chewable) 81 mg PO DAILY [facility] Last Admin: 05/22/18 09:18 Dose: 81 mg Atorvastatin Calcium (Lipitor) 40 mg PO DIN [facility] Last Admin: 05/21/18 18:17 Dose: 40 mg Clopidogrel Bisulfate (Plavix) 75 mg PO DAILY [facility] Last Admin: 05/22/18 09:17 Dose: 75 mg Famotidine (Pepcid) 40 mg PO HS [facility] Last Admin: 05/21/18 21:59 Dose: 40 mg Furosemide (Lasix) 40 mg PO DAILY [facility] Last Admin: 05/22/18 09:18 Dose: 40 mg Hydralazine HCl (Apresoline) 10 mg PO QID PRN PRN Reason: for SBP>160 Milrinone Lactate/Dextrose (Primacor 20mg/100ml D5w) 100 mls @ 4.714 mls/hr IV .[id number] PRN; Protocol; 0.2 MCG/KG/MIN PRN Reason: TITRATE PER MD ORDER Stop: 05/23/18 07:00 Last Admin: 05/22/18 00:09 Dose: 0.2 mcg/kg/min, 4.714 mls/hr Insulin Human Regular (Humulin R Low) 0 units SC ACHS [facility] PRN Reason: Protocol Last Admin: 05/22/18 09:16 Dose: 1 unit Isosorbide Mononitrate (Imdur Er) 60 mg PO DAILY [facility] Last Admin: 05/22/18 09:17 Dose: 60 mg Levalbuterol HCl (Xopenex) 0.63 mg IH [id number] PRN PRN Reason: Shortness of Breath Levothyroxine Sodium (Synthroid) 25 mcg PO 0600 [facility] Last Admin: 05/22/18 05:35 Dose: 25 mcg Pantoprazole Sodium (Protonix Ec Tab) 40 mg PO 0600 [facility] Last Admin: 05/22/18 05:35 Dose: 40 mg Sucralfate (Carafate Oral Susp) 1 gm PO QID [facility] Last Admin: 05/22/18 09:17 Dose: 1 gm Zolpidem Tartrate (Ambien) 5 mg PO HS PRN; Protocol PRN Reason: Insomnia - Labs Labs: 05/22/18 06:00 05/22/18 06:00 PT 11.7 SECONDS (9.4-12.5) 05/22/18 06:00 INR 1.02 (0.93-1.08) 05/22/18 06:00 APTT 32.1 Seconds (25.1-36.5) 05/22/18 06:00 - Additional Findings Additional findings: - Constitutional Appears: Non-toxic, No Acute Distress, Chronically Ill - Head Exam Head Exam: ATRAUMATIC, NORMAL INSPECTION, NORMOCEPHALIC - Eye Exam Eye Exam: Normal appearance. absent: Conjunctival injection or pallor, Scleral icterus Pupil Exam: absent: Fixed, Irregular - ENT Exam ENT Exam: Mucous Membranes Moist - Neck Exam Neck Exam: Normal Inspection. absent: Lymphadenopathy, Thyromegaly - Respiratory Exam Respiratory Exam: Clear to Ausculation Bilateral, NORMAL BREATHING PATTERN. absent: Accessory Muscle Use, Chest Wall Tenderness, Decreased Breath Sounds, Prolonged Expiratory Phase, Rales, Rhonchi, Wheezes, Respiratory Distress - Cardiovascular Exam Cardiovascular Exam: REGULAR RHYTHM, RRR, +S1, +S2. absent: Bradycardia, Tachycardia, Irregular Rhythm, JVD, +S4 - GI/Abdominal Exam GI & Abdominal Exam: Soft, Normal Bowel Sounds. absent: Distended, Firm, Guarding, Rigid, Tenderness, Diminished Bowel Sounds, Hyperactive Bowel Sounds, Hypoactive Bowel Sounds - Extremities Exam bilateral AKA, no active oozing or ulcerations appreciated at stumps - Neurological Exam Neurological Exam: Alert, Awake, Oriented x3, following all commands appropriately, spontaneously moving arms and bilateral LE stumps - Psychiatric Exam Psychiatric exam: Normal Affect, Normal Mood - Skin Skin Exam: Dry, Intact, Normal Color, Warm Assessment and Plan - Assessment and Plan (Free Text) Assessment: 83 year old female with PMH of Iron deficiency anemia, T2DM, HTN, PVD s/p B/L AKA, s/p aortic valve replacement presenting with weakness. 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 Now re-admitted for worsening Hgb requiring transfusion and shortness of breath. Shortness of breath resolved, anemia improved/stable post-transfusion. Pending EGD tomorrow. Plan: -anemia likely multifactorial; iron deficiency, hemodilutional possible underlying GI pathology (PUD, vascular malformation, neoplasia) vs non-GI source of blood loss -no active overt GI blood loss, brown stool on initial rectal exam, again on repeat ED exam, no tarry-black or melanotic movements reports by nursing or pt -Hgb 10.5 today (was 10.5 s/p transfusion), stable; continue to monitor H/H -iron 44 ferritin 35.2, s/p IV iron infusion on 05/10/18 -CT abd/pelvis with PO contrast (on initial admission) notable for sigmoid/ descending colon diverticulosis, constipation without obstruction, non- calcified stones vs sludge in GB -S/p CHAIRMAN & CEO with likely NSTEMI; s/p cardiac cath, found to have triple vessel disease, JAYEM x2 placed (LAD and Circumflex), on Plavix/ASA as per Cardio -With reported GI bleeding on admit and further decrease in Hgb requiring transfusion, will need EGD/C-scope at some point, will coordinate with Cardio GI attending discussed with cardio attending, fadi'ed for diagnostic EGD, to be done tomorrow Reviewed, discussed, and seen with attending, Dr. Mandy <Mandy,Kovil V - Last Filed: 05/22/18 23:05> Objective - Vital Signs/Intake and Output Vital Signs (last 24 hours): Temp Pulse Resp BP Pulse Ox 98 F 80 16 138/66 97 05/22/18 17:45 05/22/18 18:00 05/22/18 17:45 05/22/18 17:45 05/22/18 06:00 Intake and Output: 05/22/18 05/23/18 18:59 06:59 Intake Total 416 100 Output Total 600 Balance -184 100 - Medications Medications: Current Medications Amlodipine Besylate (Norvasc) 5 mg PO DAILY [facility] Last Admin: 05/22/18 09:18 Dose: 5 mg Aspirin (Aspirin Chewable) 81 mg PO DAILY [facility] Last Admin: 05/22/18 09:18 Dose: 81 mg Atorvastatin Calcium (Lipitor) 40 mg PO DIN [facility] Last Admin: 05/22/18 17:15 Dose: 40 mg Clopidogrel Bisulfate (Plavix) 75 mg PO DAILY [facility] Last Admin: 05/22/18 09:17 Dose: 75 mg Famotidine (Pepcid) 40 mg PO HS [facility] Last Admin: 05/22/18 21:54 Dose: 40 mg Furosemide (Lasix) 40 mg PO DAILY [facility] Last Admin: 05/22/18 09:18 Dose: 40 mg Hydralazine HCl (Apresoline) 10 mg PO QID PRN PRN Reason: for SBP>160 Milrinone Lactate/Dextrose (Primacor 20mg/100ml D5w) 100 mls @ 4.714 mls/hr IV .[id number] PRN; Protocol; 0.2 MCG/KG/MIN PRN Reason: TITRATE PER MD ORDER Stop: 05/23/18 07:00 Last Admin: 05/22/18 21:55 Dose: 0.2 mcg/kg/min, 4.714 mls/hr Insulin Human Regular (Humulin R Low) 0 units SC ACHS [facility] PRN Reason: Protocol Last Admin: 05/22/18 21:54 Dose: Not Given Isosorbide Mononitrate (Imdur Er) 60 mg PO DAILY [facility] Last Admin: 05/22/18 09:17 Dose: 60 mg Levalbuterol HCl (Xopenex) 0.63 mg IH [id number] PRN PRN Reason: Shortness of Breath Levothyroxine Sodium (Synthroid) 25 mcg PO 0600 [facility] Last Admin: 05/22/18 05:35 Dose: 25 mcg Pantoprazole Sodium (Protonix Ec Tab) 40 mg PO 0600 [facility] Last Admin: 05/22/18 05:35 Dose: 40 mg Sucralfate (Carafate Oral Susp) 1 gm PO QID [facility] Last Admin: 05/22/18 21:54 Dose: 1 gm Zolpidem Tartrate (Ambien) 5 mg PO HS PRN; Protocol PRN Reason: Insomnia Last Admin: 05/22/18 21:54 Dose: 5 mg - Labs Labs: 05/22/18 06:00 05/22/18 06:00 PT 11.7 SECONDS (9.4-12.5) 05/22/18 06:00 INR 1.02 (0.93-1.08) 05/22/18 06:00 APTT 32.1 Seconds (25.1-36.5) 05/22/18 06:00 Attending/Attestation - Attestation I have personally seen and examined this patient.: Yes I have fully participated in the care of the patient.: Yes I have reviewed all pertinent clinical information, including history, physical exam and plan: Yes Notes (Text): This is an addendum to GI followup report dictated by the Fruit Tester.The patient was seen and examined earlier. Medical records, lab studies, imagings were reviewed. Last 24 hours events reviewed. Agreed with the above treatment plan as outlined in Fruit Tester 's notes the with the addition of the following Patient's son was at beds at the time of examination No complaints of any abdominal pain On examination abdomen soft no tenderness sp NSTMI Status post drug-eluting stent acute drop in blood count to rule out any upper GI source of blood loss Scheduled for diagnostic in a.m. 05/22/18 23:01
--- NOTE | 2018-05-22 17:50 | PN ---
DATE: 05/22/2018 SUBJECTIVE: The patient is seen sitting in bed. She is awake, she is alert, she reports feeling better. She denies any chest pain. She denies any shortness of breath. PHYSICAL EXAMINATION: GENERAL: Morbidly obese, elderly lady, sitting in bed. VITAL SIGNS: Blood pressure 149/55, heart rate 73, respiratory rate 18, and temperature 98. HEENT: Normocephalic, atraumatic. NECK: Supple, no JVD. LUNGS: Bilateral equal air entry, bilateral equal expansion. CARDIAC: S1 and S2, regular rate and rhythm, no murmur, no rub. ABDOMEN: Obese, distended, soft, nontender, bowel sounds present. EXTREMITIES: Bilateral AKA. LABORATORY DATA: WBC 5.4, hemoglobin 10.5, hematocrit 32, and platelets 278. Sodium 138, potassium 4, chloride 99, CO2 of 28. BUN 50, creatinine 1.9. Glucose of 183. CURRENT MEDICATIONS: Ambien, aspirin, Carafate, insulin, Imdur 60, Lasix 40, Lipitor 40, amlodipine 5, Pepcid 40, Plavix 75, milrinone, and Synthroid. ASSESSMENT: 1. Acute kidney injury, resolving. 2. Anemia, acute. 3. Hypertension, well controlled. 4. Coronary artery disease, coronary artery bypass graft, aortic valve replacement, stable. 5. Peripheral vascular disease. 6. Bkl-soggkkx-ykxnvsarz diabetes mellitus. PLAN: 1. Continue current management. Renal function is slowly improving. 2. Avoid nephrotoxins. 3. Daily labs. Ysabel Mehta MD
[2018-05-23] MEDS: Levothyroxine 25 MCG TAB PO SCH (06:02)
[2018-05-23] MEDS: Pantoprazole 40 mg EC Tab PO SCH (06:02)
[2018-05-23 06:58] LABS: MEAN CELL VOLUME 81.2 fl (80.0-105.0); MEAN CORPUSCULAR HEMOGLOBIN 26.1 pg (25.0-35.0); MEAN CORPUSCULAR HGB CONC 32.2 g/dl (31.0-37.0); MEAN PLATELET VOLUME 10.3 fl (7.0-11.0); RBC 3.83 10^6/uL (3.5-6.1); RED CELL DISTRIBUTION WIDTH 15.8 % (11.5-14.5); WHITE BLOOD COUNT 5.4 10^3/ul (4.5-11.0)
[2018-05-23 07:18] LABS: ALB/GLOB RATIO 0.9 (1.1-1.8); ALBUMIN 3.1 g/dL (3.0-4.8); CALCIUM 8.5 mg/dL (8.4-10.5)
[2018-05-23 07:36] LABS: INR 1.09 (0.93-1.08); PARTIAL THROMBOPLASTIN TIME 31.8 Seconds (25.1-36.5); PROTHROMBIN TIME 12.5 SECONDS (9.4-12.5)
[2018-05-23] MEDS: Insulin Reg-LOW-Coverage SC SCH ×4 (08:07→21:58)
[2018-05-23] MEDS ORDERED: Potassium Chloride 20 mEq ER Tab PO ONE ×2 (08:57→09:00)
[2018-05-23] MEDS: Sucralfate 1 gm/10 ml Oral Susp UD PO SCH ×4 (09:20→21:56)
--- NOTE | 2018-05-23 10:36 | CP.PCM.PN ---
Subjective - Date & Time of Evaluation Date of Evaluation: 05/23/18 Time of Evaluation: 10:30 - Subjective Subjective: NAD, denies chest pain. No SOB Objective - Vital Signs/Intake and Output Vital Signs (last 24 hours): Temp Pulse Resp BP Pulse Ox 98.6 F 74 20 162/70 H 96 05/23/18 06:00 05/23/18 09:21 05/23/18 06:00 05/23/18 09:21 05/23/18 06:00 Intake and Output: 05/23/18 05/23/18 06:59 18:59 Intake Total 356 Output Total 150 Balance 206 - Medications Medications: Current Medications Amlodipine Besylate (Norvasc) 10 mg PO DAILY [facility] Aspirin (Aspirin Chewable) 81 mg PO DAILY [facility] Last Admin: 05/23/18 09:20 Dose: 81 mg Atorvastatin Calcium (Lipitor) 40 mg PO DIN [facility] Last Admin: 05/22/18 17:15 Dose: 40 mg Clopidogrel Bisulfate (Plavix) 75 mg PO DAILY [facility] Last Admin: 05/23/18 09:20 Dose: 75 mg Famotidine (Pepcid) 40 mg PO HS [facility] Last Admin: 05/22/18 21:54 Dose: 40 mg Furosemide (Lasix) 40 mg PO DAILY [facility] Last Admin: 05/23/18 09:20 Dose: 40 mg Hydralazine HCl (Apresoline) 10 mg PO QID PRN PRN Reason: for SBP>160 Insulin Human Regular (Humulin R Low) 0 units SC ACHS [facility] PRN Reason: Protocol Last Admin: 05/23/18 08:07 Dose: Not Given Isosorbide Mononitrate (Imdur Er) 60 mg PO DAILY [facility] Last Admin: 05/23/18 09:20 Dose: 60 mg Levalbuterol HCl (Xopenex) 0.63 mg IH [id number] PRN PRN Reason: Shortness of Breath Levothyroxine Sodium (Synthroid) 25 mcg PO 0600 [facility] Last Admin: 05/23/18 06:02 Dose: Not Given Pantoprazole Sodium (Protonix Ec Tab) 40 mg PO 0600 [facility] Last Admin: 05/23/18 06:02 Dose: Not Given Sucralfate (Carafate Oral Susp) 1 gm PO QID [facility] Last Admin: 05/23/18 09:20 Dose: 1 gm Zolpidem Tartrate (Ambien) 5 mg PO HS PRN; Protocol PRN Reason: Insomnia Last Admin: 05/22/18 21:54 Dose: 5 mg - Labs Labs: 05/23/18 06:00 05/23/18 06:00 PT 12.5 SECONDS (9.4-12.5) 05/23/18 06:00 INR 1.09 (0.93-1.08) H 05/23/18 06:00 APTT 31.8 Seconds (25.1-36.5) 05/23/18 06:00 - Respiratory Exam Respiratory Exam: Clear to Ausculation Bilateral, NORMAL BREATHING PATTERN - Cardiovascular Exam Cardiovascular Exam: REGULAR RHYTHM - GI/Abdominal Exam GI & Abdominal Exam: Soft, Normal Bowel Sounds - Neurological Exam Neurological Exam: Alert, Awake - Skin Skin Exam: Dry, Warm Assessment and Plan (1) Coronary artery disease Status: Acute (2) Anemia Status: Acute (3) Type II diabetes mellitus Status: Chronic - Assessment and Plan (Free Text) Plan: increase amlodipine 10mg qd for elevated bp, for EGD today
--- NOTE | 2018-05-23 10:41 | PN ---
DATE: 05/23/2018 SUBJECTIVE: The patient is seen sitting in bed. She is awake. She is alert. She is comfortable. She is n.p.o. for endoscopy. She denies any chest pain. She denies any shortness of breath. PHYSICAL EXAMINATION: GENERAL: Obese elderly lady, sitting in bed. VITAL SIGNS: Blood pressure 154/65, heart rate 82, respiratory rate 20, temperature 98.6. HEENT: Normocephalic, atraumatic, positive pallor. NECK: Supple, no JVD. LUNGS: Bilateral equal air entry, bilateral equal expansion, no rales. CARDIAC: S1 and S2, regular rate and rhythm, no murmur, no rub. ABDOMEN: Obese, distended, soft, nontender, bowel sounds present. EXTREMITIES: Bilateral AKA. INTAKE AND OUTPUT: 772/ . LABORATORY DATA: Hemoglobin 10. Sodium 134, potassium 3.4, chloride 100, CO2 of 29, BUN 35, creatinine 1.4, glucose 140, calcium 8.5, AST 23, ALT 26. CURRENT MEDICATIONS: Lasix 40 p.o. daily, Lipitor, amlodipine 5, Pepcid, Plavix, Protonix, Synthroid, Xopenex. Milrinone discontinued last night. ASSESSMENT: 1. Resolving acute kidney injury, contrast acute tubular necrosis plus congestive heart failure. 2. History of coronary artery disease, coronary artery bypass graft, aortic valve replacement. 3. Acute anemia, status post transfusion. 4. Sam-fqvfrfj-dnfhdtccf diabetes mellitus. 5. Hypertension. 6. 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 7. Hypokalemia. PLAN: 1. The patient is scheduled for a colonoscopy today. Give potassium 20 mEq one dose extra now. 2. Renal function is much improved. Creatinine is approaching baseline, avoid nephrotoxins. 3. Continue current antihypertensives. 4. Continue low-dose p.o. Lasix. Ysabel Mehta MD
--- NOTE | 2018-05-23 14:31 | PN ---
DATE: 05/23/2018 REASON FOR CONSULTATION AND FOLLOWUP: Coronary artery disease, anemia, renal insufficiency, status post non-STEMI in the past, transferred from TCU because of severe anemia. SUBJECTIVE: Patient denies any chest pain, shortness of breath, or any palpitations. OBJECTIVE: GENERAL: Not in apparent distress VITAL SIGNS: Temperature afebrile, heart rate 82, and blood pressure 154/65. HEENT: PERRLA. Extraocular muscles intact. NECK: Supple. No carotid bruits. No thyromegaly. CHEST: Clear to auscultation. HEART: S1 and S2, regular. ABDOMEN: Soft. EXTREMITIES: Clubbing and cyanosis negative. LABORATORY DATA: Blood workup as follows: WBC 5.4, hemoglobin 10, hematocrit 31.1, and platelet count 266. Chemistries show sodium 139, potassium 3.4, chloride 100, carbon dioxide 29, anion gap of 12. BUN 35, creatinine 1.4. IMPRESSION: An 83-year-old female with a past medical history significant for aortic stenosis, status post transcatheter aortic valve replacement; severe peripheral arterial disease, status post bilateral above knee amputation, who recently admitted with lethargy, non-ST elevation myocardial infarction. Subsequently, patient underwent cardiac catheterization with two stents deployed in left anterior descending and in circumflex, was transferred to transitional care unit where the patient found to be more anemic, shortness of breath, and then transferred to emergency room for blood transfusion after the patient transferred to . Hospital course was complicated by renal insufficiency. Patient was treated with IV Primacor, diuretics. Now, patient's kidney function back to normal, Primacor is discontinued today at 7 o'clock. Patient is scheduled for endoscopy today. RECOMMENDATIONS: Continue aspirin. Continue Plavix. Patient is cleared to go for endoscopy and colonoscopy if needed. Monitor renal function closely. Avoid nephrotoxic medications. Continue Imdur 60 mg daily. Continue gentle diuretics. Continue atorvastatin. Continue amlodipine and if needed, we will give p.r.n. hydralazine. Once the GI issues cleared, patient will reschedule for PTCA of RCA on 06/12, at 7:30. We will follow with you. CVA status is stable. No further episode of ischemia or OH noted. Thank you Dr. Grover for providing us the opportunity in taking care of patient Basia Ruiz. Omero Carrion MD [facility] # [id number]
[2018-05-23] MEDS ORDERED: Propofol 10 mg/ml Inj (20 ML) ONE (16:12)
[2018-05-23] MEDS ORDERED: Etomidate 20 mg/10ml Inj IV ONE (16:24)
[2018-05-23] MEDS ORDERED: Sodium Chloride 0.9% 1,000 ML IV SCH (17:00)
[2018-05-24] MEDS: Pantoprazole 40 mg EC Tab PO SCH (05:20)
[2018-05-24] MEDS: Levothyroxine 25 MCG TAB PO SCH (05:21)
[2018-05-24] MEDS: Insulin Reg-LOW-Coverage SC SCH ×4 (07:36→22:23)
--- NOTE | 2018-05-24 08:56 | CP.PCM.PN ---
Subjective - Date & Time of Evaluation Date of Evaluation: 05/24/18 Time of Evaluation: 06:15 - Subjective Subjective: Awake ,alert,no distress Reason for consultation and follow up:Cardiac evaluation of junctional bradycardia before endoscopy,NSTEMI, coronary artery disease post stents, history of aortic valve replacement at [facility], diabetes, hypertension, severe peripheral vascular disease post above knee amputation bilateral. Anemia See nad examined by me and Dr. Chandler Objective - Vital Signs/Intake and Output Vital Signs (last 24 hours): Temp Pulse Resp BP Pulse Ox 98.1 F 64 20 150/63 94 L 05/24/18 06:00 05/24/18 06:00 05/24/18 06:00 05/24/18 06:00 05/24/18 06:00 - Medications Medications: Current Medications Amlodipine Besylate (Norvasc) 10 mg PO DAILY [facility] Last Admin: 05/23/18 10:48 Dose: Not Given Aspirin (Aspirin Chewable) 81 mg PO DAILY [facility] Last Admin: 05/23/18 09:20 Dose: 81 mg Atorvastatin Calcium (Lipitor) 40 mg PO DIN [facility] Last Admin: 05/23/18 18:31 Dose: 40 mg Clopidogrel Bisulfate (Plavix) 75 mg PO DAILY [facility] Last Admin: 05/23/18 09:20 Dose: 75 mg Famotidine (Pepcid) 40 mg PO HS [facility] Last Admin: 05/23/18 21:57 Dose: 40 mg Furosemide (Lasix) 40 mg PO DAILY [facility] Last Admin: 05/23/18 09:20 Dose: 40 mg Hydralazine HCl (Apresoline) 10 mg PO QID PRN PRN Reason: for SBP>160 Insulin Human Regular (Humulin R Low) 0 units SC ACHS [facility] PRN Reason: Protocol Last Admin: 05/24/18 07:36 Dose: Not Given Isosorbide Mononitrate (Imdur Er) 60 mg PO DAILY [facility] Last Admin: 05/23/18 09:20 Dose: 60 mg Levalbuterol HCl (Xopenex) 0.63 mg IH [id number] PRN PRN Reason: Shortness of Breath Levothyroxine Sodium (Synthroid) 25 mcg PO 0600 [facility] Last Admin: 05/24/18 05:21 Dose: 25 mcg Pantoprazole Sodium (Protonix Ec Tab) 40 mg PO 0600 [facility] Last Admin: 05/24/18 05:20 Dose: 40 mg Sucralfate (Carafate Oral Susp) 1 gm PO QID [facility] Last Admin: 05/23/18 21:56 Dose: 1 gm Zolpidem Tartrate (Ambien) 5 mg PO HS PRN; Protocol PRN Reason: Insomnia Last Admin: 05/23/18 21:56 Dose: 5 mg - Labs Labs: 05/23/18 06:00 05/23/18 06:00 PT 12.5 SECONDS (9.4-12.5) 05/23/18 06:00 INR 1.09 (0.93-1.08) H 05/23/18 06:00 APTT 31.8 Seconds (25.1-36.5) 05/23/18 06:00 - Constitutional Appears: No Acute Distress - Eye Exam Eye Exam: Normal appearance - ENT Exam ENT Exam: Mucous Membranes Moist - Respiratory Exam Respiratory Exam: Clear to Ausculation Bilateral, NORMAL BREATHING PATTERN - Cardiovascular Exam Cardiovascular Exam: +S1, +S2 - GI/Abdominal Exam GI & Abdominal Exam: Soft, Normal Bowel Sounds - Extremities Exam Additional comments: bilateral above knee amputation - Neurological Exam Neurological Exam: Alert, Awake, Oriented x3 - Psychiatric Exam Psychiatric exam: Normal Affect - Skin Skin Exam: Intact, Warm Assessment and Plan - Assessment and Plan (Free Text) Assessment: A 83 year old female who had an episode of junctional bradycardia before endoscopy, procedure aborted, NSTEMI, coronary artery disease post stents, history of aortic valve replacement at [facility], diabetes, hypertension, severe peripheral vascular disease post above knee amputation bilateral. Came in to the ER due to generalized weakness,fever and urinary tract infection Now transferred to TCU for reconditioning and physical therapy.However at TCU, had low hemoglobin and needed blood transfusion, she was sent to ER and admitted back to telemetry. 2 units of PRBC transfused.post EGD. Plan: EGD done yesterday Small hiatal hernia, no evidence of source of bleeding Cardiac status stable Heart rate bradycardia with Mobitz 1 Asymptomatic Stable Hemoglobin and hematocrit BUN/creatinine level trending down. Repeat urine culture-yeast positive Continue current treatment Continue current medications Scheduled for staged PTCA on 06/12/18 Will follow up Plan and treatment discussed with Dr. Chandler
[2018-05-24] MEDS: Sucralfate 1 gm/10 ml Oral Susp UD PO SCH ×2 (09:27→13:36)
--- NOTE | 2018-05-24 09:53 | PQF ---
PROVIDER RESPONSE TEXT: Combined systolic and diastolic dysfunction REVIEWER QUERY TEXT: Heart Failure Acuity and Type Congestive Heart Failure is documented in the Medical Record. Please document the type and acuity (in cludes probable or suspected) Such as: Type: -- Combined systolic and diastolic (heart failure with reduced ejection fraction and diastolic) dysfu nction -- Diastolic (HFpEF) -- Systolic (HFrEF) -- Left heart failure -- Right heart failure -- Right heart failure due to left heart failure -- High output failure -- End stage heart failure -- Other, please specify Acuity: -- Acute -- Chronic -- Acute on chronic -- Other, please specify Also please document the underlying cause of the CHF (includes probable or suspected) The patient's Clinical Indicators include: Noted to be SOB, elevated BNP [id number]. Treatment with primacor. Please specify type and acuity. Query created by: Savanah Arreola on 05/20/2018 8:37 AM Electronically signed by: Donald Grover MD 05/24/2018 9:50 AM
--- NOTE | 2018-05-24 10:28 | CP.PCM.PN ---
Subjective - Date & Time of Evaluation Date of Evaluation: 05/24/18 Time of Evaluation: 10:00 - Subjective Subjective: resting comfortably, NAD, denies chest pain, no SOB Objective - Vital Signs/Intake and Output Vital Signs (last 24 hours): Temp Pulse Resp BP Pulse Ox 98.1 F 64 20 150/70 94 L 05/24/18 06:00 05/24/18 06:00 05/24/18 06:00 05/24/18 09:29 05/24/18 06:00 - Medications Medications: Current Medications Amlodipine Besylate (Norvasc) 10 mg PO DAILY [facility] Last Admin: 05/24/18 09:29 Dose: 10 mg Aspirin (Aspirin Chewable) 81 mg PO DAILY [facility] Last Admin: 05/24/18 09:27 Dose: 81 mg Atorvastatin Calcium (Lipitor) 40 mg PO DIN [facility] Last Admin: 05/23/18 18:31 Dose: 40 mg Clopidogrel Bisulfate (Plavix) 75 mg PO DAILY [facility] Last Admin: 05/24/18 09:29 Dose: 75 mg Famotidine (Pepcid) 40 mg PO HS [facility] Last Admin: 05/23/18 21:57 Dose: 40 mg Furosemide (Lasix) 40 mg PO DAILY [facility] Last Admin: 05/24/18 09:29 Dose: 40 mg Hydralazine HCl (Apresoline) 10 mg PO QID PRN PRN Reason: for SBP>160 Insulin Human Regular (Humulin R Low) 0 units SC ACHS [facility] PRN Reason: Protocol Last Admin: 05/24/18 07:36 Dose: Not Given Isosorbide Mononitrate (Imdur Er) 60 mg PO DAILY [facility] Last Admin: 05/24/18 09:28 Dose: 60 mg Levalbuterol HCl (Xopenex) 0.63 mg IH [id number] PRN PRN Reason: Shortness of Breath Levothyroxine Sodium (Synthroid) 25 mcg PO 0600 [facility] Last Admin: 05/24/18 05:21 Dose: 25 mcg Pantoprazole Sodium (Protonix Ec Tab) 40 mg PO 0600 [facility] Last Admin: 05/24/18 05:20 Dose: 40 mg Sucralfate (Carafate Oral Susp) 1 gm PO QID [facility] Last Admin: 05/24/18 09:27 Dose: 1 gm Zolpidem Tartrate (Ambien) 5 mg PO HS PRN; Protocol PRN Reason: Insomnia Last Admin: 05/23/18 21:56 Dose: 5 mg - Labs Labs: 05/23/18 06:00 05/23/18 06:00 PT 12.5 SECONDS (9.4-12.5) 05/23/18 06:00 INR 1.09 (0.93-1.08) H 05/23/18 06:00 APTT 31.8 Seconds (25.1-36.5) 05/23/18 06:00 - Respiratory Exam Respiratory Exam: Clear to Ausculation Bilateral, NORMAL BREATHING PATTERN - Cardiovascular Exam Cardiovascular Exam: REGULAR RHYTHM - GI/Abdominal Exam GI & Abdominal Exam: Soft, Normal Bowel Sounds - Neurological Exam Neurological Exam: Alert, Awake - Skin Skin Exam: Dry, Warm Assessment and Plan (1) Coronary artery disease Status: Acute (2) Anemia Status: Acute (3) Type II diabetes mellitus Status: Chronic - Assessment and Plan (Free Text) Plan: s/p EGD w/hiatal hernia, pt scheduled for PTCA/stent placement 2 wks, no further GI w/u planned pending cardiac intervention, SW for DC planning
--- NOTE | 2018-05-24 12:26 | CP.PCM.PN ---
<Magdaleno Dumont - Last Filed: 05/24/18 12:20> Subjective - Date & Time of Evaluation Date of Evaluation: 05/24/18 Time of Evaluation: 08:00 - Subjective Subjective: PGY4 GI Follow-up Pt seen and examined bedside Denies any abd pain Denies any rectal bleeding tolerating diet ROS: 12 point ROS conducted, neg other than above Objective - Vital Signs/Intake and Output Vital Signs (last 24 hours): Temp Pulse Resp BP Pulse Ox 98.1 F 71 20 150/70 94 L 05/24/18 06:00 05/24/18 11:07 05/24/18 06:00 05/24/18 09:29 05/24/18 06:00 - Medications Medications: Current Medications Amlodipine Besylate (Norvasc) 10 mg PO DAILY [facility] Last Admin: 05/24/18 09:29 Dose: 10 mg Aspirin (Aspirin Chewable) 81 mg PO DAILY [facility] Last Admin: 05/24/18 09:27 Dose: 81 mg Atorvastatin Calcium (Lipitor) 40 mg PO DIN [facility] Last Admin: 05/23/18 18:31 Dose: 40 mg Clopidogrel Bisulfate (Plavix) 75 mg PO DAILY [facility] Last Admin: 05/24/18 09:29 Dose: 75 mg Famotidine (Pepcid) 40 mg PO HS [facility] Last Admin: 05/23/18 21:57 Dose: 40 mg Furosemide (Lasix) 40 mg PO DAILY [facility] Last Admin: 05/24/18 09:29 Dose: 40 mg Hydralazine HCl (Apresoline) 10 mg PO QID PRN PRN Reason: for SBP>160 Insulin Human Regular (Humulin R Low) 0 units SC [facility] PRN Reason: Protocol Last Admin: 05/24/18 12:00 Dose: 1 unit Isosorbide Mononitrate (Imdur Er) 60 mg PO DAILY [facility] Last Admin: 05/24/18 09:28 Dose: 60 mg Levalbuterol HCl (Xopenex) 0.63 mg IH [id number] PRN PRN Reason: Shortness of Breath Levothyroxine Sodium (Synthroid) 25 mcg PO 0600 [facility] Last Admin: 05/24/18 05:21 Dose: 25 mcg Pantoprazole Sodium (Protonix Ec Tab) 40 mg PO 0600 [facility] Last Admin: 07/28/18 05:20 Dose: 40 mg Sucralfate (Carafate Oral Susp) 1 gm PO QID [facility] Last Admin: 05/24/18 09:27 Dose: 1 gm Zolpidem Tartrate (Ambien) 5 mg PO HS PRN; Protocol PRN Reason: Insomnia Last Admin: 05/23/18 21:56 Dose: 5 mg - Labs Labs: 05/23/18 06:00 05/23/18 06:00 PT 12.5 SECONDS (9.4-12.5) 05/23/18 06:00 INR 1.09 (0.93-1.08) H 05/23/18 06:00 APTT 31.8 Seconds (25.1-36.5) 05/23/18 06:00 - Constitutional Appears: Well, No Acute Distress - Head Exam Head Exam: ATRAUMATIC, NORMOCEPHALIC - Eye Exam Eye Exam: Normal appearance - ENT Exam ENT Exam: Mucous Membranes Moist, Normal Exam - Neck Exam Neck Exam: Normal Inspection - Respiratory Exam Respiratory Exam: Clear to Ausculation Bilateral, NORMAL BREATHING PATTERN. absent: Rales, Rhonchi, Wheezes, Respiratory Distress - Cardiovascular Exam Cardiovascular Exam: REGULAR RHYTHM, +S1, +S2 - GI/Abdominal Exam GI & Abdominal Exam: Soft, Normal Bowel Sounds. 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 S/p CHAIN TENDER for SOB and diaphoresis, found to have trop 0.[address] segment elevations/ depressions on EKG at the time. 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 Now re-admitted for worsening Hgb requiring transfusion and shortness of breath. Shortness of breath resolved, anemia improved/stable post-transfusion. Normocytic Anemia, etiology unknown, s/p EGD POD #1 gastritis, hiatial hernia hx of CAD s/p JAYME. Plan: -h/h stable, no sign of GI loss -iron 44 ferritin 35.2, s/p IV iron infusion on 05/10/18 -CT abd/pelvis with PO contrast (on initial admission) notable for sigmoid/ descending colon diverticulosis, constipation without obstruction, non- calcified stones vs sludge in GB -would benefit from oupt colonoscopy -decrease protonix to 20mg daily -d/c carafate -diet as tolerated D/W Dr. Galvan <Erin Galvan V - Last Filed: 05/24/18 21:18> Objective - Vital Signs/Intake and Output Vital Signs (last 24 hours): Temp Pulse Resp BP Pulse Ox 99.2 F 66 18 151/67 H 92 L 05/24/18 12:00 05/24/18 12:00 05/24/18 18:06 05/24/18 12:00 05/24/18 15:51 Intake and Output: 05/24/18 05/25/18 18:59 06:59 Intake Total 100 Balance 100 - Medications Medications: Current Medications Amlodipine Besylate (Norvasc) 10 mg PO DAILY [facility] Last Admin: 05/24/18 09:29 Dose: 10 mg Aspirin (Aspirin Chewable) 81 mg PO DAILY [facility] Last Admin: 05/24/18 09:27 Dose: 81 mg Atorvastatin Calcium (Lipitor) 40 mg PO DIN [facility] Last Admin: 05/24/18 17:19 Dose: 40 mg Clopidogrel Bisulfate (Plavix) 75 mg PO DAILY [facility] Last Admin: 05/24/18 09:29 Dose: 75 mg Famotidine (Pepcid) 40 mg PO HS [facility] Last Admin: 05/23/18 21:57 Dose: 40 mg Furosemide (Lasix) 40 mg PO DAILY [facility] Last Admin: 05/24/18 09:29 Dose: 40 mg Hydralazine HCl (Apresoline) 10 mg PO QID PRN PRN Reason: for SBP>160 Insulin Human Regular (Humulin R Low) 0 units SC [facility] PRN Reason: Protocol Last Admin: 05/24/18 17:08 Dose: Not Given Isosorbide Mononitrate (Imdur Er) 60 mg PO DAILY [facility] Last Admin: 05/24/18 09:28 Dose: 60 mg Levalbuterol HCl (Xopenex) 0.63 mg IH [id number] PRN PRN Reason: Shortness of Breath Levothyroxine Sodium (Synthroid) 25 mcg PO 0600 [facility] Last Admin: 05/24/18 05:21 Dose: 25 mcg Pantoprazole Sodium (Protonix Ec Tab) 20 mg PO 0600 [facility] Zolpidem Tartrate (Ambien) 5 mg PO HS PRN; Protocol PRN Reason: Insomnia Last Admin: 05/23/18 21:56 Dose: 5 mg - Labs Labs: 05/24/18 14:53 05/23/18 06:00 PT 12.5 SECONDS (9.4-12.5) 05/23/18 06:00 INR 1.09 (0.93-1.08) H 05/23/18 06:00 APTT 31.8 Seconds (25.1-36.5) 05/23/18 06:00 Attending/Attestation - Attestation I have personally seen and examined this patient.: Yes I have fully participated in the care of the patient.: Yes I have reviewed all pertinent clinical information, including history, physical exam and plan: Yes Notes (Text): This is an addendum to GI progress report dictated by the GI Fellow.The patient was seen and examined earlier. Medical records, lab studies, imagings were reviewed. Last 24 hours events reviewed. Agreed with the above treatment plan as outlined in GI Fellow 's notes the with the addition of the following hemoglobin stable Patient is asymptomatic On examination abdomen soft In view of patient on asa and plavix , recent PCI with drug-eluting stent, recent NSTMI, negative EGD follow close monitoring of hemoglobin and hematocrit and avoid colonoscopy. Since therapeutic intervention is not planned unless patient has active ongoing bleeding would avoid colonoscopy at present time Would consider colonoscopy if further significant decrease in Hb or active bleeding in view of patient being on and plavix Planned FOR repeat PCI in 2 weeks. Would DC Carafate and cut down PPI dose Iron supplements 05/24/18 21:11
[2018-05-24 14:59] LABS: HEMOGLOBIN 10.3 g/dL (12.0-16.0); MEAN CELL VOLUME 82.5 fl (80.0-105.0); MEAN CORPUSCULAR HEMOGLOBIN 26.5 pg (25.0-35.0); MEAN CORPUSCULAR HGB CONC 32.1 g/dl (31.0-37.0); MEAN PLATELET VOLUME 9.5 fl (7.0-11.0); RBC 3.89 10^6/uL (3.5-6.1); RED CELL DISTRIBUTION WIDTH 15.7 % (11.5-14.5); WHITE BLOOD COUNT 5.7 10^3/ul (4.5-11.0)
--- NOTE | 2018-05-24 15:14 | PN ---
DATE: 05/24/2018 SUBJECTIVE: The patient is seen sitting in bed. She is awake. She is alert. She is comfortable. She had an upper endoscopy yesterday. She was found to have hiatal hernia. No active bleeding. Mild inflammation found in the gastric antrum. PHYSICAL EXAMINATION: GENERAL: Obese elderly lady lying in bed. VITAL SIGNS: Blood pressure 151/67, heart rate 66, respiratory rate 18, temperature 99.2, T max is 99.2. HEENT: Normocephalic, atraumatic, positive pallor. NECK: Supple, no JVD. LUNGS: Bilateral equal air entry, bilateral equal expansion. CARDIAC: S1 and S2, regular rate and rhythm, no murmur, no rub. ABDOMEN: Obese, distended, soft, nontender, bowel sounds present. EXTREMITIES: Bilateral AKA. MEDICATIONS: List reviewed. LABORATORY DATA: No new labs. ASSESSMENT AND PLAN: 1. Resolving acute kidney injury, contrast acute tubular necrosis. 2. Status post gastrointestinal bleed, endoscopy showing no active bleeding. 3. Coronary artery disease, history of coronary artery bypass graft, aortic valve replacement. 4. Peripheral vascular disease. 5. Noninsulin-dependent diabetes mellitus. 6. Hypertension. PLAN: 1. The patient is stable from the renal standpoint, continue current management. 2. Avoid nephrotoxins. 3. Monitor labs. Ysabel Mehta MD
[2018-05-25] MEDS: Levothyroxine 25 MCG TAB PO SCH (06:30)
[2018-05-25] MEDS: Pantoprazole 20 mg EC Tab PO SCH (06:30)
--- NOTE | 2018-05-25 07:08 | CP.PCM.PN ---
Subjective - Date & Time of Evaluation Date of Evaluation: 05/25/18 Time of Evaluation: 06:05 - Subjective Subjective: Awake,no distress, watching on IPAD Reason for consultation and follow up:Cardiac evaluation of junctional bradycardia before endoscopy,NSTEMI, coronary artery disease post stents, history of aortic valve replacement at [facility], diabetes, hypertension, severe peripheral vascular disease post above knee amputation bilateral. Anemia See nad examined by me and Dr. Chandler Objective - Vital Signs/Intake and Output Vital Signs (last 24 hours): Temp Pulse Resp BP Pulse Ox 98.1 F 64 20 157/62 H 93 L 05/25/18 06:00 05/25/18 06:00 05/25/18 06:00 05/25/18 06:00 05/25/18 06:00 Intake and Output: 05/25/18 05/25/18 06:59 18:59 Intake Total 300 Output Total 350 Balance -50 - Medications Medications: Current Medications Amlodipine Besylate (Norvasc) 10 mg PO DAILY [facility] Last Admin: 05/24/18 09:29 Dose: 10 mg Aspirin (Aspirin Chewable) 81 mg PO DAILY [facility] Last Admin: 05/24/18 09:27 Dose: 81 mg Atorvastatin Calcium (Lipitor) 40 mg PO DIN [facility] Last Admin: 05/24/18 17:19 Dose: 40 mg Clopidogrel Bisulfate (Plavix) 75 mg PO DAILY [facility] Last Admin: 05/24/18 09:29 Dose: 75 mg Famotidine (Pepcid) 40 mg PO HS [facility] Last Admin: 05/24/18 22:19 Dose: 40 mg Furosemide (Lasix) 40 mg PO DAILY [facility] Last Admin: 05/24/18 09:29 Dose: 40 mg Hydralazine HCl (Apresoline) 10 mg PO QID PRN PRN Reason: for SBP>160 Last Admin: 05/25/18 01:03 Dose: 10 mg Insulin Human Regular (Humulin R Low) 0 units SC ACHS [facility] PRN Reason: Protocol Last Admin: 05/24/18 22:23 Dose: Not Given Isosorbide Mononitrate (Imdur Er) 60 mg PO DAILY [facility] Last Admin: 05/24/18 09:28 Dose: 60 mg Levalbuterol HCl (Xopenex) 0.63 mg IH [id number] PRN PRN Reason: Shortness of Breath Levothyroxine Sodium (Synthroid) 25 mcg PO 0600 [facility] Last Admin: 05/25/18 06:30 Dose: 25 mcg Pantoprazole Sodium (Protonix Ec Tab) 20 mg PO 0600 [facility] Last Admin: 05/25/18 06:30 Dose: 20 mg Zolpidem Tartrate (Ambien) 5 mg PO HS PRN; Protocol PRN Reason: Insomnia Last Admin: 05/23/18 21:56 Dose: 5 mg - Labs Labs: 05/24/18 14:53 05/23/18 06:00 PT 12.5 SECONDS (9.4-12.5) 05/23/18 06:00 INR 1.09 (0.93-1.08) H 05/23/18 06:00 APTT 31.8 Seconds (25.1-36.5) 05/23/18 06:00 - Constitutional Appears: No Acute Distress - Eye Exam Eye Exam: Normal appearance - ENT Exam ENT Exam: Mucous Membranes Moist - Respiratory Exam Respiratory Exam: Decreased Breath Sounds, NORMAL BREATHING PATTERN - Cardiovascular Exam Cardiovascular Exam: +S1, +S2 - GI/Abdominal Exam GI & Abdominal Exam: Soft, Normal Bowel Sounds - Extremities Exam Additional comments: above knee amputation - Neurological Exam Neurological Exam: Alert, Awake, Oriented x3 - Psychiatric Exam Psychiatric exam: Normal Affect - Skin Skin Exam: Intact, Warm Assessment and Plan - Assessment and Plan (Free Text) Assessment: A 83 year old female who had an episode of junctional bradycardia before endoscopy, procedure aborted, NSTEMI, coronary artery disease post stents, history of aortic valve replacement at [facility], diabetes, hypertension, severe peripheral vascular disease post above knee amputation bilateral. Came in to the ER due to generalized weakness,fever and urinary tract infection Now transferred to TCU for reconditioning and physical therapy.However at TCU, had low hemoglobin and needed blood transfusion, she was sent to ER and admitted back to telemetry. 2 units of PRBC transfused.post EGD.EGD done 05/23/18 Small hiatal hernia, no evidence of source of bleeding.Scheduled for staged PTCA on as out patient. Plan: Clinically improved Cardiac status stable Heart rate bradycardia with Mobitz 1 Asymptomatic Stable Hemoglobin and hematocrit Continue current treatment Continue current medications Scheduled for staged PTCA on 06/12/18 Discharge planning Will follow up Plan and treatment discussed with Dr. Chandler
[2018-05-25] MEDS: Insulin Reg-LOW-Coverage SC SCH ×4 (08:02→22:04)
--- NOTE | 2018-05-25 13:23 | CP.PCM.PN ---
<Magdaleno Dumont - Last Filed: 05/25/18 13:27> Subjective - Date & Time of Evaluation Date of Evaluation: 05/25/18 Time of Evaluation: 07:10 - Subjective Subjective: PGY5 GI Follow-up pt seen and examined bedside denies any abd pain denies any rectal bleeding or hematemesis tolerating diet ROS: 12 point ROS conducted neg other than above Objective - Vital Signs/Intake and Output Vital Signs (last 24 hours): Temp Pulse Resp BP Pulse Ox 98.6 F 55 L 18 144/56 L 93 L 05/25/18 12:00 05/25/18 12:27 05/25/18 12:00 05/25/18 12:00 05/25/18 06:00 Intake and Output: 05/25/18 05/25/18 06:59 18:59 Intake Total 300 Output Total 350 Balance -50 - Medications Medications: Current Medications Amlodipine Besylate (Norvasc) 10 mg PO DAILY [facility] Last Admin: 05/25/18 09:33 Dose: 10 mg Aspirin (Aspirin Chewable) 81 mg PO DAILY [facility] Last Admin: 05/25/18 09:33 Dose: 81 mg Atorvastatin Calcium (Lipitor) 40 mg PO DIN [facility] Last Admin: 05/24/18 17:19 Dose: 40 mg Clopidogrel Bisulfate (Plavix) 75 mg PO DAILY [facility] Last Admin: 05/25/18 09:34 Dose: 75 mg Famotidine (Pepcid) 40 mg PO HS [facility] Last Admin: 05/24/18 22:19 Dose: 40 mg Furosemide (Lasix) 40 mg PO DAILY [facility] Last Admin: 05/25/18 09:33 Dose: 40 mg Hydralazine HCl (Apresoline) 10 mg PO QID PRN PRN Reason: for SBP>160 Last Admin: 05/25/18 01:03 Dose: 10 mg Insulin Human Regular (Humulin R Low) 0 units SC ACHS [facility] PRN Reason: Protocol Last Admin: 05/25/18 11:57 Dose: 1 unit Isosorbide Mononitrate (Imdur Er) 60 mg PO DAILY [facility] Last Admin: 05/25/18 09:33 Dose: 60 mg Levalbuterol HCl (Xopenex) 0.63 mg IH [id number] PRN PRN Reason: Shortness of Breath Levothyroxine Sodium (Synthroid) 25 mcg PO 0600 [facility] Last Admin: 05/25/18 06:30 Dose: 25 mcg Pantoprazole Sodium (Protonix Ec Tab) 20 mg PO 0600 [facility] Last Admin: 05/25/18 06:30 Dose: 20 mg Zolpidem Tartrate (Ambien) 5 mg PO HS PRN; Protocol PRN Reason: Insomnia Last Admin: 05/23/18 21:56 Dose: 5 mg - Labs Labs: 05/24/18 14:53 05/23/18 06:00 PT 12.5 SECONDS (9.4-12.5) 05/23/18 06:00 INR 1.09 (0.93-1.08) H 05/23/18 06:00 APTT 31.8 Seconds (25.1-36.5) 05/23/18 06:00 - Constitutional Appears: Well, No Acute Distress - Head Exam Head Exam: ATRAUMATIC, NORMOCEPHALIC - Eye Exam Eye Exam: Normal appearance - ENT Exam ENT Exam: Mucous Membranes Moist, Normal Exam - Neck Exam Neck Exam: Normal Inspection - Respiratory Exam Respiratory Exam: Clear to Ausculation Bilateral, NORMAL BREATHING PATTERN. absent: Rales, Rhonchi, Wheezes, Respiratory Distress - Cardiovascular Exam Cardiovascular Exam: REGULAR RHYTHM, +S1, +S2 - GI/Abdominal Exam GI & Abdominal Exam: Soft, Normal Bowel Sounds. absent: Firm, Guarding, Rigid, Tenderness, Hyperactive Bowel Sounds, Mass, Organomegaly, Rebound - Extremities Exam Extremities Exam: absent: Joint Swelling - Neurological Exam Neurological Exam: Alert, Awake, Oriented x3 - Psychiatric Exam Psychiatric exam: Normal Affect, Normal Mood - Skin Skin Exam: Dry, Intact, Normal Color, Warm Assessment and Plan - Assessment and Plan (Free Text) Assessment: 83 year old female with PMH of Iron deficiency anemia, T2DM, HTN, PVD s/p B/L AKA, s/p aortic valve replacement presenting with weakness. S/p [employer] for SOB and diaphoresis, found to have trop 0.[address] segment elevations/ depressions on EKG at the time. 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 Now re-admitted for worsening Hgb requiring transfusion and shortness of breath. Shortness of breath resolved, anemia improved/stable post-transfusion. Normocytic Anemia, etiology unknown, s/p EGD POD #2 gastritis, hiatial hernia hx of CAD s/p JAYME. Plan: -h/h stable, no sign of GI loss -iron 44 ferritin 35.2, s/p IV iron infusion on 05/10/18 -CT abd/pelvis with PO contrast (on initial admission) notable for sigmoid/ descending colon diverticulosis, constipation without obstruction, non- calcified stones vs sludge in GB -would benefit from oupt colonoscopy -continue protonix to 20mg daily -diet as tolerated -pt is currently on asa and plavix w/ recent PCI with drug-eluting stent -negative EGD follow close monitoring of hemoglobin and hematocrit. -Planned FOR repeat PCI in 2 weeks. D/W Dr. Galvan <Erin Galvan V - Last Filed: 05/25/18 18:22> Objective - Vital Signs/Intake and Output Vital Signs (last 24 hours): Temp Pulse Resp BP Pulse Ox 98.6 F 55 L 18 144/56 L 93 L 05/25/18 12:00 05/25/18 12:27 05/25/18 12:00 05/25/18 12:00 05/25/18 06:00 Intake and Output: 05/25/18 05/25/18 06:59 18:59 Intake Total 300 Output Total 350 Balance -50 - Medications Medications: Current Medications Amlodipine Besylate (Norvasc) 10 mg PO DAILY [facility] Last Admin: 05/25/18 09:33 Dose: 10 mg Aspirin (Aspirin Chewable) 81 mg PO DAILY [facility] Last Admin: 05/25/18 09:33 Dose: 81 mg Atorvastatin Calcium (Lipitor) 40 mg PO DIN [facility] Last Admin: 05/25/18 17:19 Dose: 40 mg Clopidogrel Bisulfate (Plavix) 75 mg PO DAILY [facility] Last Admin: 05/25/18 09:34 Dose: 75 mg Famotidine (Pepcid) 40 mg PO HS [facility] Last Admin: 05/24/18 22:19 Dose: 40 mg Furosemide (Lasix) 40 mg PO DAILY [facility] Last Admin: 05/25/18 09:33 Dose: 40 mg Hydralazine HCl (Apresoline) 10 mg PO QID PRN PRN Reason: for SBP>160 Last Admin: 05/25/18 01:03 Dose: 10 mg Insulin Human Regular (Humulin R Low) 0 units SC ACHS [facility] PRN Reason: Protocol Last Admin: 05/25/18 17:08 Dose: Not Given Isosorbide Mononitrate (Imdur Er) 60 mg PO DAILY [facility] Last Admin: 05/25/18 09:33 Dose: 60 mg Levalbuterol HCl (Xopenex) 0.63 mg IH [id number] PRN PRN Reason: Shortness of Breath Levothyroxine Sodium (Synthroid) 25 mcg PO 0600 [facility] Last Admin: 05/25/18 06:30 Dose: 25 mcg Pantoprazole Sodium (Protonix Ec Tab) 20 mg PO 0600 [facility] Last Admin: 05/25/18 06:30 Dose: 20 mg Zolpidem Tartrate (Ambien) 5 mg PO HS PRN; Protocol PRN Reason: Insomnia Last Admin: 05/23/18 21:56 Dose: 5 mg - Labs Labs: 05/24/18 14:53 05/23/18 06:00 PT 12.5 SECONDS (9.4-12.5) 05/23/18 06:00 INR 1.09 (0.93-1.08) H 05/23/18 06:00 APTT 31.8 Seconds (25.1-36.5) 05/23/18 06:00 Attending/Attestation - Attestation I have personally seen and examined this patient.: Yes I have fully participated in the care of the patient.: Yes I have reviewed all pertinent clinical information, including history, physical exam and plan: Yes Notes (Text): This is an addendum to GI progress report dictated by the GI Fellow.The patient was seen and examined earlier. Medical records, lab studies, imagings were reviewed. Last 24 hours events reviewed. Agreed with the above treatment plan as outlined in GI Fellow 's notes the with the addition of the following hemoglobin stable No obvious GI bleeding Patient is on Plavix and aspirin for drug-eluting Plan for repeat PCI Would consider further workup including colonoscopy if significant drop in hemoglobin or active bleeding as therapeutic intervention is a concern in view of the aspirin and Plavix recommend iron supplement, close follow-up of hemoglobin, low dose PPI at present time 05/25/18 18:19
[2018-05-25] MEDS ORDERED: Potassium Chloride 20 mEq ER Tab PO ONE (17:42)
--- NOTE | 2018-05-25 17:45 | CP.PCM.PN ---
Subjective - Date & Time of Evaluation Date of Evaluation: 05/25/18 Time of Evaluation: 17:35 - Subjective Subjective: resting comfortably, no chest pain, no SOB Objective - Vital Signs/Intake and Output Vital Signs (last 24 hours): Temp Pulse Resp BP Pulse Ox 98.6 F 55 L 18 144/56 L 93 L 05/25/18 12:00 05/25/18 12:27 05/25/18 12:00 05/25/18 12:00 05/25/18 06:00 Intake and Output: 05/25/18 05/25/18 06:59 18:59 Intake Total 300 Output Total 350 Balance -50 - Medications Medications: Current Medications Amlodipine Besylate (Norvasc) 10 mg PO DAILY [facility] Last Admin: 05/25/18 09:33 Dose: 10 mg Aspirin (Aspirin Chewable) 81 mg PO DAILY [facility] Last Admin: 05/25/18 09:33 Dose: 81 mg Atorvastatin Calcium (Lipitor) 40 mg PO DIN [facility] Last Admin: 05/25/18 17:19 Dose: 40 mg Clopidogrel Bisulfate (Plavix) 75 mg PO DAILY [facility] Last Admin: 05/25/18 09:34 Dose: 75 mg Famotidine (Pepcid) 40 mg PO HS [facility] Last Admin: 05/24/18 22:19 Dose: 40 mg Furosemide (Lasix) 40 mg PO DAILY [facility] Last Admin: 05/25/18 09:33 Dose: 40 mg Hydralazine HCl (Apresoline) 10 mg PO QID PRN PRN Reason: for SBP>160 Last Admin: 05/25/18 01:03 Dose: 10 mg Insulin Human Regular (Humulin R Low) 0 units SC [facility] PRN Reason: Protocol Last Admin: 05/25/18 17:08 Dose: Not Given Isosorbide Mononitrate (Imdur Er) 60 mg PO DAILY [facility] Last Admin: 05/25/18 09:33 Dose: 60 mg Levalbuterol HCl (Xopenex) 0.63 mg IH [id number] PRN PRN Reason: Shortness of Breath Levothyroxine Sodium (Synthroid) 25 mcg PO 0600 [facility] Last Admin: 05/25/18 06:30 Dose: 25 mcg Pantoprazole Sodium (Protonix Ec Tab) 20 mg PO 0600 [facility] Last Admin: 07/29/18 06:30 Dose: 20 mg Potassium Chloride (K-Dur 20 Meq Er Tab) 20 meq PO ONCE ONE Stop: 05/25/18 17:43 Zolpidem Tartrate (Ambien) 5 mg PO HS PRN; Protocol PRN Reason: Insomnia Last Admin: 05/23/18 21:56 Dose: 5 mg - Labs Labs: 05/24/18 14:53 05/23/18 06:00 PT 12.5 SECONDS (9.4-12.5) 05/23/18 06:00 INR 1.09 (0.93-1.08) H 05/23/18 06:00 APTT 31.8 Seconds (25.1-36.5) 05/23/18 06:00 - Respiratory Exam Respiratory Exam: Clear to Ausculation Bilateral, NORMAL BREATHING PATTERN - Cardiovascular Exam Cardiovascular Exam: REGULAR RHYTHM - GI/Abdominal Exam GI & Abdominal Exam: Soft, Normal Bowel Sounds - Neurological Exam Neurological Exam: Alert, Awake - Skin Skin Exam: Dry, Warm Assessment and Plan (1) Coronary artery disease Status: Acute (2) Anemia Status: Acute (3) Type II diabetes mellitus Status: Chronic - Assessment and Plan (Free Text) Plan: PT/SW for discharge planning, check labs in am
[2018-05-26 00:58] VITALS: RESP 20; O2SAT 94
[2018-05-26] MEDS: Pantoprazole 20 mg EC Tab PO SCH (06:06)
[2018-05-26] MEDS: Levothyroxine 25 MCG TAB PO SCH (06:06)
[2018-05-26 06:24] LABS: BASO # 0.04 K/mm3 (0.0-2.0); BASO % 0.8 % (0.0-3.0); EOS # 0.3 (0.0-0.7); EOS % 6.3 % (1.5-5.0); GRAN # 2.89 (1.4-6.5); GRAN % 58.8 % (50.0-68.0); HEMOGLOBIN 10.8 g/dL (12.0-16.0); LYMPH # 1.3 (1.2-3.4); MEAN CELL VOLUME 82.3 fl (80.0-105.0); MEAN CORPUSCULAR HEMOGLOBIN 26.2 pg (25.0-35.0); MEAN CORPUSCULAR HGB CONC 31.8 g/dl (31.0-37.0); MEAN PLATELET VOLUME 10.3 fl (7.0-11.0); MONO # 0.4 (0.1-0.6); MONO % 7.1 % (1.0-6.0); RBC 4.13 10^6/uL (3.5-6.1); RED CELL DISTRIBUTION WIDTH 15.6 % (11.5-14.5); WHITE BLOOD COUNT 4.9 10^3/ul (4.5-11.0)
[2018-05-26 06:45] LABS: ALBUMIN 3.5 g/dL (3.0-4.8); CALCIUM 8.8 mg/dL (8.4-10.5)
[2018-05-26 06:51] VITALS: TEMP 98.1
[2018-05-26] MEDS: Insulin Reg-LOW-Coverage SC SCH (07:55)
[2018-05-26] MEDS ORDERED: Magnesium Oxide 400 mg Tab UD PO STA (08:08)
--- NOTE | 2018-05-26 08:38 | PN ---
DATE: 05/25/2018 SUBJECTIVE: The patient is seen lying in bed. She is awake, she is alert, she is comfortable. OBJECTIVE: VITAL SIGNS: Blood pressure 144/56, heart rate 77, respiratory rate 18, temperature 98.6. HEENT: Normocephalic, atraumatic, positive pallor. NECK: Supple, no JVD. LUNGS: Bilateral equal entry, bilateral equal expansion. CARDIAC: S1, S2. Regular rate and rhythm. No murmur, no rub. EXTREMITIES: Bilateral AKA. LABORATORY DATA: No labs. MEDICATIONS: List reviewed. ASSESSMENT AND PLAN: 1. Acute kidney injury, contrast acute tubular necrosis, resolving. 2. GI bleed, severe anemia, now hemoglobin is stable. 3. Status post upper endoscopy showing some gastric inflammation, hiatal hernia but no bleed. 4. Coronary artery disease, coronary artery bypass graft, aortic valve replacement. 5. Peripheral vascular disease. PLAN: 1. The patient's renal function is stable, check labs in the morning. 2. Continue current management of hypertension. 3. The patient is stable from Ysabel Mehta MD
--- NOTE | 2018-05-26 09:21 | CP.PCM.PN ---
Subjective - Date & Time of Evaluation Date of Evaluation: 05/26/18 Time of Evaluation: 08:00 - Subjective Subjective: GI Fellow PGY5 Progress Note Pt seen and evaluated at bedside, pt doing well with no complaints of rectal bleeding. Tolerating diet. ROS: A 12pt ROS was negative except as above Objective - Vital Signs/Intake and Output Vital Signs (last 24 hours): Temp Pulse Resp BP Pulse Ox 98.1 F 64 20 169/64 H 94 L 05/26/18 06:00 05/26/18 06:41 05/26/18 06:00 05/26/18 06:41 05/26/18 06:00 Intake and Output: 05/26/18 05/26/18 06:59 18:59 Intake Total 240 Output Total 300 Balance -60 - Medications Medications: Current Medications Amlodipine Besylate (Norvasc) 10 mg PO DAILY [facility] Last Admin: 05/25/18 09:33 Dose: 10 mg Aspirin (Aspirin Chewable) 81 mg PO DAILY [facility] Last Admin: 05/25/18 09:33 Dose: 81 mg Atorvastatin Calcium (Lipitor) 40 mg PO DIN [facility] Last Admin: 05/25/18 17:19 Dose: 40 mg Clopidogrel Bisulfate (Plavix) 75 mg PO DAILY [facility] Last Admin: 05/25/18 09:34 Dose: 75 mg Famotidine (Pepcid) 40 mg PO HS [facility] Last Admin: 05/25/18 21:20 Dose: 40 mg Furosemide (Lasix) 40 mg PO DAILY [facility] Last Admin: 05/25/18 09:33 Dose: 40 mg Hydralazine HCl (Apresoline) 10 mg PO QID PRN PRN Reason: for SBP>160 Last Admin: 05/26/18 06:41 Dose: 10 mg Insulin Human Regular (Humulin R Low) 0 units SC ACHS [facility] PRN Reason: Protocol Last Admin: 05/26/18 07:55 Dose: Not Given Isosorbide Mononitrate (Imdur Er) 60 mg PO DAILY [facility] Last Admin: 05/25/18 09:33 Dose: 60 mg Levalbuterol HCl (Xopenex) 0.63 mg IH [id number] PRN PRN Reason: Shortness of Breath Levothyroxine Sodium (Synthroid) 25 mcg PO 0600 [facility] Last Admin: 05/26/18 06:06 Dose: 25 mcg Pantoprazole Sodium (Protonix Ec Tab) 20 mg PO 0600 [facility] Last Admin: 05/26/18 06:06 Dose: 20 mg Zolpidem Tartrate (Ambien) 5 mg PO HS PRN; Protocol PRN Reason: Insomnia Last Admin: 05/25/18 23:25 Dose: 5 mg - Labs Labs: 05/26/18 05:30 05/26/18 05:30 PT 12.5 SECONDS (9.4-12.5) 05/23/18 06:00 INR 1.09 (0.93-1.08) H 05/23/18 06:00 APTT 31.8 Seconds (25.1-36.5) 05/23/18 06:00 - Constitutional Appears: Non-toxic, No Acute Distress - Head Exam Head Exam: ATRAUMATIC, NORMAL INSPECTION, NORMOCEPHALIC - Eye Exam Eye Exam: EOMI, Normal appearance, PERRL Pupil Exam: PERRL - ENT Exam ENT Exam: Mucous Membranes Moist - Neck Exam Neck Exam: Full ROM, Normal Inspection - Respiratory Exam Respiratory Exam: Clear to Ausculation Bilateral, NORMAL BREATHING PATTERN - Cardiovascular Exam Cardiovascular Exam: RRR, +S1, +S2 - GI/Abdominal Exam GI & Abdominal Exam: Soft, Normal Bowel Sounds. absent: Distended, Firm, Guarding, Tenderness, Organomegaly - Rectal Exam Rectal Exam: Deferred - Neurological Exam Neurological Exam: Alert, Awake, Oriented x3 - Psychiatric Exam Psychiatric exam: Normal Affect, Normal Mood - Skin Skin Exam: Dry, Intact, Normal Color, Warm Assessment and Plan - Assessment and Plan (Free Text) Assessment: This is a 83 year old female with PMH of Iron deficiency anemia, T2DM, HTN, PVD s/p B/L AKA, s/p aortic valve replacement presenting with weakness. S/p [employer] SUPERINTENDENT for SOB and diaphoresis, found to have trop 0.[address] segment elevations/depressions on EKG at the time. S/p cardiac cath with 2 JAYME placed ( LAD and Circumflex), found to have significant triple vessel disease. Now re- admitted for worsening Hgb requiring transfusion and shortness of breath. Shortness of breath resolved, anemia improved/stable post-transfusion. 1. Anemia 2. CAD s/p JAYME Plan: -Continue supportive care -Hgb stable at 10.8 today, no overt GI bleeding -s/p IV iron infusion on 05/10/18 -s/p EGD, negative for UGIB -Continue protonix 20mg daily -Diet as tolerated -Pt is currently on asa and plavix w/ recent PCI with drug-eluting stent -Planned for repeat PCI in 2 weeks -No plan for colonoscopy at this time unless rectal bleeding or Hgb trending down -Okay for dc home per GI perspective
[2018-05-26 09:54] VITALS: BP 143/61
[2018-05-26 10:43] VITALS: PULSE 57
--- NOTE | 2018-05-26 14:38 | DS ---
HISTORY OF PRESENT ILLNESS: The patient is an 83-year-old female admitted from the Emergency Department on 05/18/2018 after she was transferred to the Emergency Department from the Transitional Care Unit for anemia and pulmonary edema. The patient is approximately 2 to 3 weeks status post [id number] elevation myocardial infarction with stent placement x2. Workup to the anemia included EGD, which showed hiatal hernia with no active bleeding. She is to be discharged to home today in stable condition with followup in approximately two weeks for repeat catheterization with stent placement. PHYSICAL EXAMINATION: VITAL SIGNS: Blood pressure 143/61, pulse 57. The patient is afebrile, respiratory rate 14. LUNGS: Clear. HEART: Regular rate and rhythm. Grade 2/6 systolic murmur. ABDOMEN: Soft, obese, nontender. Bowel sounds are normoactive. EXTREMITIES: Bilateral above-knee amputations. Stumps are healed and without edema. NEUROLOGIC: The patient is awake and oriented x3 without focal sensory or motor deficits. SKIN: Warm and dry. LABORATORY DATA: WBC is 4.9, hemoglobin 10.8, hematocrit 34. Sodium 137, potassium 4.3, chloride 96, CO2 33, BUN 28, creatinine 1.2, glucose 156, magnesium 1.5. IMPRESSION: 1. Coronary artery disease, status post [id number] elevation ID and stent placement x2. 2. Type 2 diabetes mellitus. 3. Chronic kidney disease. 4. Peripheral vascular disease, status post bilateral above-knee amputation. 5. Hypertension, hypertensive cardiovascular disease and congestive heart failure. 6. Hypothyroidism, on Synthroid. PLAN: The patient will be discharged to home today in stable condition on the following medications: Imdur ER 60 mg daily, Lipitor 80 mg daily, Ambien 5 mg at bedtime, amlodipine 10 mg daily, Lasix 40 mg daily, Plavix 75 mg daily, Ecotrin 81 mg daily, Pepcid 40 mg daily, Synthroid 25 mcg daily, Protonix 20 mg daily, Feosol three times daily. The patient will be maintained on a consistent carbohydrate heart-healthy diet. Activities, ad libitum. She will be seen as an outpatient within next 1 to 2 weeks. Donald Grover JD/ [facility] # [id number]
--- NOTE | 2018-05-26 15:48 | PN ---
DATE: 05/26/2018 REASON FOR CONSULTATION AND FOLLOWUP: Anemia, coronary artery disease, STEMI, severe PAD, status post bilateral knee amputation, status post PTCA. SUBJECTIVE: The patient denies any chest pain, shortness of breath or any palpitations. OBJECTIVE: GENERAL: Not in apparent distress VITAL SIGNS: Temperature afebrile, heart rate 64, blood pressure 143/61. HEENT: PERRLA. Extraocular muscles intact. NECK: Supple. No carotid bruits or thyromegaly. CHEST: Clear to auscultation. HEART: S1 and S2 regular. ABDOMEN: Soft. EXTREMITIES: Clubbing and cyanosis negative. LABORATORY DATA: Blood workup as follows: WBC 4.9, hemoglobin 10.8, hematocrit 34, platelet count 259. Chemistries shows sodium 137, potassium 4.3, chloride 96, carbon dioxide 33, anion gap of 13, BUN 20, creatinine 1.2. IMPRESSION AND RECOMMENDATIONS: An 83-year-old female with past medical history significant for critical aortic stenosis, status post transcatheter aortic valve replacement, admitted with gastrointestinal bleeding, non-ST elevation myocardial infarction, status post drug-eluting stent in left anterior descending and circumflex two weeks ago, scheduled for percutaneous transluminal coronary angioplasty of right coronary artery in two weeks on 06/12/2018. Admitted while in the TCU, drop in hemoglobin and hematocrit, underwent endoscopy. No active bleeding. Colonoscopy is deferred because of no active bleeding. Patient has possible discharge and is scheduled for percutaneous transluminal coronary angioplasty of right coronary artery on 06/12/2018. Bradycardia, off beta-penelope. Continue aspirin. Continue Plavix. Monitor hemoglobin and hematocrit. Continue isosorbide nitrate. Continue gentle diuretics. Patient went into acute renal failure after gastrointestinal bleed episode resolved. Possible discharge home in two days. We will discontinue telemetry and follow up in two weeks. Thank you, Dr. Grover, for providing us the opportunity in taking care of the patient, Basia Ruiz. Omero Carrion MD
== END 2018-05-26 11:22 | disposition home or self-care (01) | DRG 811 ==
LOC: ED 09:56 → ERH 11:05 → 2RNO 12:14
PROVIDERS: ADMIT Internal Medicine; ATTEND Internal Medicine
PROC: 30233N1 Transfusion of Nonautologous Red Blood Cells into Peripheral Vein, Percutaneous Approach (ICD-10-PCS; 2018-05-18)
PROC: 0DJ08ZZ Inspection of Upper Intestinal Tract, Via Natural or Artificial Opening Endoscopic (ICD-10-PCS; principal; 2018-05-23 12:30)
DX: D64.9 Anemia, unspecified (principal); N17.0 Acute kidney failure with tubular necrosis; I21.4 Non-ST elevation (NSTEMI) myocardial infarction; I13.0 Hypertensive heart and chronic kidney disease with heart failure and stage 1 through stage 4 chronic kidney disease, or unspecified chronic kidney disease; I25.110 Atherosclerotic heart disease of native coronary artery with unstable angina pectoris; K92.2 Gastrointestinal hemorrhage, unspecified; N39.0 Urinary tract infection, site not specified; E03.9 Hypothyroidism, unspecified; E11.51 Type 2 diabetes mellitus with diabetic peripheral angiopathy without gangrene; E11.22 Type 2 diabetes mellitus with diabetic chronic kidney disease; N18.3 Chronic kidney disease, stage 3 (moderate); E78.5 Hyperlipidemia, unspecified; E87.5 Hyperkalemia; E87.6 Hypokalemia; G47.00 Insomnia, unspecified; H91.90 Unspecified hearing loss, unspecified ear; I08.1 Rheumatic disorders of both mitral and tricuspid valves; I25.2 Old myocardial infarction; I35.0 Nonrheumatic aortic (valve) stenosis; I50.9 Heart failure, unspecified; K29.70 Gastritis, unspecified, without bleeding; K44.9 Diaphragmatic hernia without obstruction or gangrene; K59.00 Constipation, unspecified; B96.1 Klebsiella pneumoniae [K. pneumoniae] as the cause of diseases classified elsewhere; Z95.5 Presence of coronary angioplasty implant and graft; Z95.2 Presence of prosthetic heart valve; Z95.1 Presence of aortocoronary bypass graft; Z89.612 Acquired absence of left leg above knee; Z89.611 Acquired absence of right leg above knee; Z87.891 Personal history of nicotine dependence; Z87.440 Personal history of urinary (tract) infections; Z85.528 Personal history of other malignant neoplasm of kidney; Z80.0 Family history of malignant neoplasm of digestive organs; Z79.82 Long term (current) use of aspirin; Z79.02 Long term (current) use of antithrombotics/antiplatelets; Z79.4 Long term (current) use of insulin

== ENCOUNTER 2018-06-12 06:22 | Day surgery (SDC) | payer MEDICARE, OTHER ==
[2018-06-11 09:40] VITALS: BMI 27.9
--- NOTE | 2018-06-12 03:08 | HP ---
Copied To: Omero Carrion MD Attending MD: Omero Carrion MD REASON FOR ADMISSION: PTCA of right coronary artery and RPDA. BRIEF CLINICAL HISTORY: This is an 83-year-old female who recently admitted for unstable angina, underwent cardiac catheterization and stenting of LAD and circumflex. Now, the patient admitted for elective PTCA of RCA. PAST MEDICAL HISTORY: Significant for critical aortic stenosis, status post TAVR, history of two drug-eluting stents in left anterior descending artery and circumflex on 05/15/2018. PREVIOUS WORKUP: As follows: The patient had a cardiac catheterization recently on 05/15/2018 that shows status post TAVR, triple-vessel disease, status post PTCA with a drug-eluting stent of the proximal circumflex and mid LAD was done. Now, the patient is scheduled for PTCA of RCA. RCA has a critical disease, 80% in the proximal segment, and RPDA shows 90% stenosis, history of non-STEMI, history of severe PAD, history of bilateral AKA, history of TAVR, history of recent cardiac workup as the patient had cardiac catheterization on 05/15/2018. No LV gram done at that time because of the TAVR that revealed severe triple-vessel disease, PTCA of LAD and circumflex done with a drug-eluting stent, was done dated 05/15/2018 and is scheduled for PTCA of RCA today. Holter monitor was done because of the initial consultation because of the bradycardia that shows that patient's sinus bradycardia, 2:1 conduction, longest pause, Mobitz type 1, 2.1 seconds, does need the pacemaker. The patient had echocardiography done 05/14/2018 that shows ejection fraction of 55%, [id number] aortic stenosis reported, but operative report reviewed, the patient has a TAVR. secondary to normal for TAVR, moderate mitral regurgitation, moderate tricuspid regurgitation, RV systolic pressure 61, history of PAD severe, status post bilateral AKA. Of note, it is important to mention that the patient has a transcutaneous aortic valve done, a sternotomy scar there. The patient has actually transaortic transcatheter AVR aortic valve done on 06/20/2014. SOCIAL HISTORY: Denies smoking. Denies any history of alcohol abuse. CURRENT MEDICATIONS: The patient is taking at home amlodipine 10 mg daily, Ambien 5 mg daily, levothyroxine, isosorbide, insulin, Lasix, ferrous sulfate, famotidine, clopidogrel 75 mg daily, atorvastatin 40 mg daily, aspirin 81 mg daily and Xanax 0.5 mg daily. ALLERGIES: NO KNOWN DRUG ALLERGIES. REVIEW OF SYSTEMS: As per HPI. PHYSICAL EXAMINATION: VITAL SIGNS: As follows: Height of the patient 5 feet 4 inches, weight of the patient 163 pounds, though the patient has bilateral AKA, body mass index 28 kg/sq m. Heart rate 60, blood pressure 130/80. HEENT: PERRLA, intact. NECK: Supple. No carotid bruit. No thyromegaly. CHEST: Clear to auscultation. HEART: S1 and S2 regular. ABDOMEN: Soft. EXTREMITIES: Clubbing and cyanosis negative. Bilateral AKA. IMPRESSION AND PLAN: This is an 83-year-old female with past medical history significant for [id number] myocardial infarction, status post percutaneous transluminal coronary angioplasty of left anterior descending and circumflex was done dated 05/15/2018. Today, the patient brought for staged percutaneous transluminal coronary angioplasty of right coronary artery, history of transaortic transcatheter aortic valve replacement by mid sternotomy on 06/24/2014 at [facility], history of chronic kidney disease, history of anemia, moderate mitral regurgitation, moderate tricuspid regurgitation, history of Delgado SCHUYLER valve, 23 mm was placed by open sternotomy, it is a transcatheter transaortic valve replacement. . Further recommendation after the percutaneous transluminal coronary angioplasty. We will get blood workup, and after the blood workup, we will review. The patient is agreeable to proceed for cardiac catheterization. Omero Carrion MD
[2018-06-12] MEDS ORDERED: Iohexol 350mgl/ml 50 ML ONE (07:22)
[2018-06-12] MEDS ORDERED: Iodixanol 320 MG/ML 200 ML BOTTLE IV ONE (07:22)
[2018-06-12] MEDS ORDERED: Lidocaine PF 2% (5 ml) Inj (For Cardiac Arrhy) ONE (07:22)
[2018-06-12 07:53] LABS: BASO # 0.09 K/mm3 (0.0-2.0); BASO % 1.2 % (0.0-3.0); EOS # 0.4 (0.0-0.7); EOS % 5.7 % (1.5-5.0); GRAN # 4.58 (1.4-6.5); GRAN % 63.5 % (50.0-68.0); LYMPH # 1.6 (1.2-3.4); LYMPH % 22.4 % (22.0-35.0); MEAN CELL VOLUME 80.7 fl (80.0-105.0); MEAN CORPUSCULAR HEMOGLOBIN 26.6 pg (25.0-35.0); MEAN PLATELET VOLUME 10.8 fl (7.0-11.0); MONO # 0.5 (0.1-0.6); MONO % 7.2 % (1.0-6.0); RBC 4.51 10^6/uL (3.5-6.1); RED CELL DISTRIBUTION WIDTH 14.9 % (11.5-14.5); WHITE BLOOD COUNT 7.2 10^3/ul (4.5-11.0)
[2018-06-12 08:10] LABS: BLOOD UREA NITROGEN 36 mg/dL (7-21); GFR AFRICAN-AMERICAN > 60; GFR NON-AFRICAN AMERICAN 53; HDL CHOLESTEROL 49 mg/dL (29-60)
[2018-06-12 08:14] LABS: LDL CHOLESTEROL 109 mg/dL (0-129)
[2018-06-12 08:38] LABS: INR 1.03; PARTIAL THROMBOPLASTIN TIME 34.6 Seconds (25.1-36.5); PROTHROMBIN TIME 11.8 SECONDS (9.4-12.5)
[2018-06-12] MEDS ORDERED: Midazolam 2 MG/2 ML VIAL ONE (08:44)
[2018-06-12] MEDS ORDERED: Eptifibatide 20 mg/10mL Inj IVP ONE (08:55)
[2018-06-12] MEDS ORDERED: Phenylephrine 10 mg/ml Inj ONE (09:02)
[2018-06-12] MEDS ORDERED: Sodium Chloride 0.9% 1,000 ML IV SCH (10:00)
[2018-06-12] MEDS ORDERED: Potassium Chloride 10 mEq ER Tab PO SCH (10:00)
--- NOTE | 2018-06-12 10:28 | CPOSTOP ---
Copied To: Omero Carrion MD Attending MD: Omero Carrion MD DATE: 06/12/2018 CARDIOVASCULAR LAB POST PROCEDURE NOTE DICTATING PHYSICIAN: Omero Carrion MD. BARREL TURNER: Lila Armendariz physical therapist technician. TYPE OF ANESTHESIA: Moderate conscious sedation. Total dose 2 mg of Versed, 50 of fentanyl. PRE-PROCEDURE DIAGNOSES: Unstable angina, history of zwf-FX-ztffchoex myocardial infarction in the past. PROCEDURE PERFORMED: 1. Left coronary injection. 2. Stenting of proximal right coronary artery. 3. Plain balloon angioplasty of mid and distal right coronary artery. FINDINGS: Single-vessel critical RCA disease, for staged PTCA of RCA. FINAL DIAGNOSIS: Single-vessel disease. Patent stent in LAD. Patent stent in circumflex. POST PROCEDURE CONDITION: Post procedure, the patient's condition is stable. VASCULAR ACCESS SITE: Right femoral groin. TOTAL RADIATION DOSE: 12,914.8 milligray unit. TOTAL FLUORO TIME: 10.5 minutes. Omero Carrion MD
[2018-06-12] MEDS: Insulin Reg-LOW-Coverage SC SCH ×2 (12:44→17:07)
--- NOTE | 2018-06-12 13:22 | CARD ---
APPROVED REPORT Date of service: 06/12/2018 EKG Measurement Heart [id number] <Conclusion> Sinus rhythm with 1st degree AV block with fusion complexes Otherwise normal ECG
--- NOTE | 2018-06-12 13:47 | CARD ---
APPROVED REPORT Date of service: 06/12/2018 Procedure(s) performed: Selective Right and Left Coronary Angiography PTCA with Stenting of Proximal RCA with SHARON PTCA with Balloon Angioplasty od Mid and Distal RCA PTCA with Balloon Angioplasty of R PDA HISTORY The patient is a 83 year-old female with a history of : most recent EF: 62.5%. (EF Method: Echocardiogram), peripheral vascular disease, diabetes mellitus with insulin treatment , previous diagnostic cath, tobacco history() : The patient is a former smoker , previous PCI (The PCI date was 05/15/2018), hypertension , dyslipidemia , previous valve surgery (The previous valve surgery date was ), Admitted for Staged PTCA or RCA / R PDA, Hx of transcatheter Trans aortic TAVR, B/l AKA for severe PAD.. INDICATION The indication(s) include : For staged PTCA of RCA/ R PDA, had PTCA of LAD and Cx was done 4 weeks ago when she was admitted with ACS/NSTEMI. CASE TECHNIQUE The patient was brought electively to the Cardiac Catheterization Laboratory in a fasting state and was prepped and draped in a sterile manner. The right femoral groin was infiltrated with 2% Lidocaine subcutaneous anesthesia. A 6 Fr x 11 cm Daysi sheath was inserted into the right femoral artery without difficulty. Coronary angiography was performed using coronary diagnostic catheters. The left coronary system was accessed and visualized with a Diagnostic , 6F JL4 CATH DXT 100 CM catheter. The right coronary system was accessed and visualized with a Guided ,6 Fr JR 3.5 catheter. Closure device was deployed with a 6 Fr / 7 Fr MynxGrip without any complications. The patient tolerated the procedure well and there were no complications associated with the procedure. Vessel Analysis The patient's coronary anatomy is co-dominant. The left main coronary artery is a medium size vessel with diffuse calcification noted throughout this vessel and without significant stenosis. The left anterior descending artery is a medium size vessel patent stent in mid segment. The first diagonal branch is a small size vessel with diffuse calcification noted throughout this vessel and without significant stenosis. The second diagonal branch is a small size vessel with diffuse calcification noted throughout this vessel and without significant stenosis. The circumflex artery is a medium size vessel patent stent in proximal cx. The first obtuse marginal branch is a small size vessel with diffuse calcification noted throughout this vessel and without significant stenosis. There is a 60-70% stenosis in the proximal segment. The left posterior descending artery is a medium size vessel with diffuse calcification noted throughout this vessel and without significant stenosis. The right coronary artery is a medium size vessel with diffuse calcification noted throughout this vessel and with significant stenosis. There is a 80-90% stenosis in the proximal segment. Mid to Distal RCA is diffusely diseased with multiple 80-90% stenoses which are continued into R PDA The right posterior descending artery is a small size vessel with diffuse calcification noted throughout this vessel and with significant stenosis. There is a 80-90% stenosis in the proximal segment. The right posterolateral branch is a small size vessel with diffuse calcification noted throughout this vessel and without significant stenosis. Left Ventricle LV gram not done, b/c TAVR PCI Technique Lesion Anticoagulation was achieved with Heparin and integrellin bollus only. Percutaneous coronary intervention was performed on the right posterior descending artery. The lesion stenosis prior to intervention was 80-90% with RITA 1 flow. A 6 Fr JR 3.5 Guide Catheter was used to engage the ostium. A 0.038 x 150 cm J Tip Interventional Guidewire was used to cross the lesion. BALLOON DILATION A Balloon catheter 2.0 x 10 mm Sprinter RX was inserted and inflated up to 6atm for 20seconds. Another Sprinter Balloon 2.25/20 and inflatted upto 8 atmosphere fpor 20 seconds Final angiography reveals 20-30 % stenosis with RITA 3 flow. PCI Technique Lesion 2 Percutaneous Coronary Intervention was performed on the distal right coronary artery. The lesion stenosis prior to intervention was 80-90% with RITA 2 flow. A 6 Fr JR 3.5 Guide Catheter was used to engage the ostium. A Luge 182 Interventional Guidewire was used to cross the lesion. BALLOON DILATION A Balloon catheter 2.0 x 10 mm Sprinter RX was inserted and inflated up to 8atm for 20seconds. Second Balloon 2.25/20 sprinter and inflatted to 10 atmosphere for 20 seconds Final angiography reveals 20 % stenosis with RITA 3 flow. PCI Technique Lesion 3 Percutaneous Coronary Intervention was performed on the mid right coronary artery. The lesion stenosis prior to intervention was 70-80% with RITA 2 flow. A 6 Fr JR 3.5 Guide Catheter was used to engage the ostium. A Luge 182 Interventional Guidewire was used to cross the lesion. BALLOON DILATION A Balloon catheter 2.25 X 20 mm Sprinter RX was inserted and inflated up to 12.00atm for 46seconds. Final angiography reveals 20 % stenosis with RITA 3 flow. PCI Technique Lesion 4 Percutaneous Coronary Intervention was performed on the proximal right coronary artery. The lesion stenosis prior to intervention was 80-90% with RITA 2 flow. A 6 Fr JR 3.5 Guide Catheter was used to engage the RCA ostium. A Luge 182 Interventional Guidewire was used to cross the lesion. BALLOON DILATION A Balloon catheter 2.0 x 10 mm Sprinter RX was inserted and inflated up to 8atm for 20seconds. STENT DEPLOYMENT A drug-eluting stent STENT RESOLUTE RUTH 2.5 X18 was inserted and inflated up to 12atm for 20seconds. POST STENT DEPLOYMENT BALLOON DILATION A Balloon catheter same stent balloon was inserted and inflated up to 16atm for 20seconds. Final angiography reveals 0 % stenosis with RITA 3 flow. Conclusion patent stent in LAD and Cx, deployed four weeks ago Successful PTCa with Sharon of Proximal RCA successful PTCA with POBA of Mid, distal RCA and R PDA Recommendations Daily ASA with Plavix for at least one year Aggressive Medical TherapyCardiac Risk Reduction Program Weight Loss Reduction Program CC; Alfonso Bond MD
--- NOTE | 2018-06-12 14:07 | CON ---
Copied To: ALMA DELIA Lowe MD Attending MD: ALMA DELIA Lowe MD DATE: 06/12/2018 HISTORY OF PRESENT ILLNESS: The patient is an 83-year-old female with a history of coronary artery disease whose hospital course on her admission on 05/18/2018 was complicated by a quf-SN-vscriyk elevation myocardial infarction. She underwent cardiac catheterization with Dr. Chandler and Murali and received stent placement x2. The patient is now here for elective cardiac catheterization and follow-up stent placement. PAST MEDICAL HISTORY: The patient's past medical history includes type 2 diabetes mellitus, hypertension, chronic kidney disease, coronary artery disease and hypercholesterolemia. PAST SURGICAL HISTORY: Includes peripheral vascular disease, status post bilateral above-knee amputations. CURRENT MEDICATIONS: Include Lipitor 80 mg daily, amlodipine 5 mg daily, Plavix 75 mg daily, Synthroid 25 mcg daily, Imdur 60 mg daily and aspirin 81 mg daily. ALLERGIES: THE PATIENT HAS NO KNOWN ALLERGIES. FAMILY HISTORY: Noncontributory. SOCIAL HISTORY: The patient lives with her family. She needs assistance with ADLs and IADLs. There is no history of tobacco or alcohol use. REVIEW OF SYSTEMS: The patient denies any chest pain, shortness of breath or swelling of her lower extremities. There is no nausea, no vomiting, no diarrhea. No melena or bright red blood per rectum. No abdominal pain. No rashes or jaundice. PHYSICAL EXAMINATION: GENERAL: The patient is a well-developed female, in no acute distress. VITAL SIGNS: Blood pressure 127/51, temperature 97.4, pulse 73, respiratory rate 18. HEENT: Head is normocephalic, atraumatic. Pupils equal, round, reactive to light. Extraocular movements are intact. NECK: Supple. No thyromegaly. No carotid bruit. No adenopathy. LUNGS: Clear. HEART: Regular rate and rhythm with a grade II/ systolic murmur. ABDOMEN: Soft. Somewhat obese and nontender. Bowel sounds are normoactive. EXTREMITIES: The patient is status post bilateral above-knee amputations. Stumps are well-healed without edema. NEUROLOGICAL: The patient is awake and oriented x3 without focal sensory or motor deficits. SKIN: Warm and dry. LABORATORY DATA: WBC 7.2, hemoglobin 12, hematocrit 36.4, platelets of 211. Sodium 139, potassium 4.9, chloride 100, CO2 of 27, BUN 36, creatinine 1, glucose 204, cholesterol is 225. IMPRESSION: 1. Coronary artery disease, status post kms-XE-vjbrusc elevation myocardial infarction, for elective catheterization. 2. History of hypertension, hypertensive cardiovascular disease and congestive heart failure. 3. Type 2 diabetes mellitus. 4. Chronic kidney disease, apparently resolved. 5. Peripheral vascular disease, status post bilateral above-knee amputation. 6. Mild hypothyroidism. PLAN: The patient is status post catheterization by Dr. Carrion with stent placement. She is post catheterization and will be discharged to home when medically stable. Follow up as an outpatient within the next 1-2 weeks. ALMA DELIA Lowe MD
[2018-06-12 14:26] LABS: BASO # 0.08 K/mm3 (0.0-2.0); BASO % 1.4 % (0.0-3.0); EOS # 0.2 (0.0-0.7); EOS % 4.1 % (1.5-5.0); GRAN # 3.97 (1.4-6.5); GRAN % 67.1 % (50.0-68.0); HEMOGLOBIN 10.9 g/dL (12.0-16.0); LYMPH # 1.3 (1.2-3.4); LYMPH % 21.3 % (22.0-35.0); MEAN CELL VOLUME 80.4 fl (80.0-105.0); MEAN CORPUSCULAR HEMOGLOBIN 26.1 pg (25.0-35.0); MEAN CORPUSCULAR HGB CONC 32.4 g/dl (31.0-37.0); MEAN PLATELET VOLUME 10.5 fl (7.0-11.0); MONO # 0.4 (0.1-0.6); MONO % 6.1 % (1.0-6.0); RBC 4.18 10^6/uL (3.5-6.1); RED CELL DISTRIBUTION WIDTH 14.8 % (11.5-14.5); WHITE BLOOD COUNT 5.9 10^3/ul (4.5-11.0)
[2018-06-12 14:28] LABS: CALCIUM 9.6 mg/dL (8.4-10.5)
[2018-06-12 16:11] VITALS: RESP 18
[2018-06-12 18:20] VITALS: BP 158/68; PULSE 68; TEMP 98; O2SAT 100
[2018-06-13] MEDS ORDERED: Levothyroxine 25 MCG TAB PO SCH (06:00)
--- NOTE | 2018-06-13 08:08 | CARD ---
APPROVED REPORT Date of service: 06/12/2018 EKG Measurement Heart [id number] <Conclusion> Sinus rhythm with 1st degree AV block Otherwise normal ECG
[2018-06-13] MEDS ORDERED: Potassium Chloride 10 mEq ER Tab PO SCH (10:00)
== END 2018-06-12 18:40 | disposition home or self-care (01) ==
LOC: CATH 06:22 → 2RSO 09:52 → CATH 18:40
PROVIDERS: ATTEND Internal Medicine Cardiovascular Disease
DX: I25.110 Atherosclerotic heart disease of native coronary artery with unstable angina pectoris (principal); I13.0 Hypertensive heart and chronic kidney disease with heart failure and stage 1 through stage 4 chronic kidney disease, or unspecified chronic kidney disease; I50.9 Heart failure, unspecified; N18.9 Chronic kidney disease, unspecified; I44.0 Atrioventricular block, first degree; E03.9 Hypothyroidism, unspecified; E11.22 Type 2 diabetes mellitus with diabetic chronic kidney disease; E11.51 Type 2 diabetes mellitus with diabetic peripheral angiopathy without gangrene; E78.00 Pure hypercholesterolemia, unspecified; E78.5 Hyperlipidemia, unspecified; D64.9 Anemia, unspecified; I08.1 Rheumatic disorders of both mitral and tricuspid valves; I25.2 Old myocardial infarction; Z79.4 Long term (current) use of insulin; Z79.82 Long term (current) use of aspirin; Z87.891 Personal history of nicotine dependence; Z95.5 Presence of coronary angioplasty implant and graft; Z89.612 Acquired absence of left leg above knee; Z89.611 Acquired absence of right leg above knee
CPT/HCPCS: 36415; 80048; 80061; 82948; 85025; 85175; 85610; 85730; 86850; 86900; 93005; 93454; 99152; 99153; C1725 ×2; C1760; C1769 ×2; C1874; C1887; C2629; C9600; J1327; J1644 ×2; J1940; J2250; J2370; J3010; J7030; Q9966; Q9967

== ENCOUNTER 2018-06-23 18:55 | Observation (INO) | payer MEDICARE, OTHER ==
[2018-06-23] MEDS: Sodium Chloride 0.9% 1,000 ML IV SCH (20:07)
--- NOTE | 2018-06-23 20:19 | ED PDOC ---
Arrival/HPI - General Chief Complaint: Abdominal Pain Time Seen by Provider: 06/23/18 19:30 Historian: Patient - History of Present Illness Narrative History of Present Illness (Text): 06/23/18 20:15 An 83 year old female whose past medical history includes diabetes, hypertension , aortic valve replacement, recent cardiac stent placement, congestive heart failure, anemia, and double AKA, presents to the emergency department with a complaint of nausea and vague intermittent upper abdominal /epigastric discomfort for the last couple of days. The patient denies fevers, chills, headache, dizziness, sore throat, cough, chest pain, shortness of breath, dyspnea on exertion, vomiting, diarrhea, neck/back pain, urinary/bowel changes or any other complaint. Time/Duration: Other (Few Days) Symptom Onset: Sudden Symptom Course: Unchanged Activities at Onset: Rest, Light Context: Home Past Medical History - Provider Review Nursing Documentation Reviewed: Yes - Past History Past History: Non-Contributing - Infectious Disease Hx of Infectious Diseases: None - Tetanus Immunization Tetanus Immunization: Unknown - Cardiac Hx Cardiac Disorders: Yes Hx Hypertension: Yes Hx Pacemaker: No Other/Comment: CABG, 2 stents - Pulmonary Hx Respiratory Disorders: No Other/Comment: FORMER SMOKER - Neurological Hx Paralysis: No - HEENT Hx HEENT Disorder: Yes Hx Deafness: Yes - Renal Hx Renal Disorder: Yes Hx Renal Cancer: Yes - Endocrine/Metabolic Hx Endocrine Disorders: Yes Hx Diabetes Mellitus Type 2: Yes - Hematological/Oncological Hx Blood Disorders: Yes Hx Blood Transfusions: Yes Hx Blood Transfusion Reaction: No - Integumentary Hx Dermatological Disorder: No - Musculoskeletal/Rheumatological Hx Musculoskeletal Disorders: Yes - Gastrointestinal Hx Gastrointestinal Disorders: Yes (CONSTIPATION) - Genitourinary/Gynecological Hx Genitourinary Disorders: Yes (UTI) Hx Urinary Tract Infection: Yes - Psychiatric Hx Emotional Abuse: No Hx Physical Abuse: No Hx Substance Use: No - Surgical History Hx Amputation: Yes (Bilateral BKA) Hx Cardiac Catheterization: Yes Hx Coronary Artery Bypass Graft: Yes Other/Comment: 2 stents - Anesthesia Hx Anesthesia Reactions: No Hx Malignant Hyperthermia: No - Suicidal Assessment Feels Threatened In Home Enviroment: No Family/Social History - Physician Review Nursing Documentation Reviewed: Yes Family/Social History: No Known Family HX Smoking Status: Former Smoker Hx Alcohol Use: No Hx Substance Use: No Hx Substance Use Treatment: No Allergies/Home Meds Allergies/Adverse Reactions: Allergies No Known Allergies Allergy (Verified 05/18/18 10:17) Home Medications: Home Meds Medication Instructions Recorded Confirmed Alprazolam [Xanax] 0.5 mg PO DAILY PRN 06/11/18 06/23/18 Ferrous Sulfate [Feosol] 325 mg PO TID 06/11/18 06/23/18 Insulin Human Regular [Novolin R] 4 units SC ACTID 06/11/18 06/23/18 Potassium Chloride [K-Tab ER] 10 meq PO DAILY 06/11/18 06/23/18 Atorvastatin [Lipitor] 40 mg PO HS 06/23/18 06/23/18 Ciprofloxacin [Cipro] 250 mg PO BID 06/23/18 06/23/18 Review of Systems - Physician Review All systems were reviewed & negative as marked: Yes - Review of Systems Constitutional: absent: Fevers ENT: absent: Sore Throat Respiratory: absent: SOB, Cough Cardiovascular: absent: Chest Pain, ROSADO Gastrointestinal: Nausea. absent: Abdominal Pain (Abdominal cramping), Stool Changes, Diarrhea, Vomiting Genitourinary Female: absent: Urine Output Changes Musculoskeletal: absent: Back Pain, Neck Pain Neurological: absent: Headache, Dizziness Physical Exam Vital Signs Reviewed: Yes Vital Signs Temp Pulse Resp BP Pulse Ox 06/23/18 21:08 63 17 146/62 97 06/23/18 19:10 97.7 F 79 18 145/81 98 Temperature: Afebrile Blood Pressure: Normal Pulse: Regular Respiratory Rate: Normal Appearance: Positive for: Well-Appearing, Non-Toxic, Comfortable Pain Distress: None Mental Status: Positive for: Alert and Oriented X 3 - Systems Exam Head: Present: Atraumatic, Normocephalic Pupils: Present: PERRL Extroacular Muscles: Present: EOMI Conjunctiva: Present: Normal Mouth: Present: Moist Mucous Membranes Neck: Present: Normal Range of Motion Respiratory/Chest: Present: Clear to Auscultation, Good Air Exchange. No: Respiratory Distress, Accessory Muscle Use Cardiovascular: Present: Regular Rate and Rhythm, Normal S1, S2. No: Murmurs Abdomen: No: Tenderness, Distention, Peritoneal Signs Back: Present: Normal Inspection Upper Extremity: Present: Normal Inspection. No: Cyanosis, Edema Lower Extremity: Present: Normal Inspection. No: Edema Neurological: Present: GCS=15, CN II-XII Intact, Speech Normal Skin: Present: Warm, Dry, Normal Color. No: Rashes Psychiatric: Present: Alert, Oriented x 3, Normal Insight, Normal Concentration Medical Decision Making ED Course and Treatment: 06/23/18 20:17 Impression: An 83 year old female presents to the emergency department for a complaint of several day duration abdominal cramping and nausea. Plan: -- EKG -- Chest X-ray -- Labs -- Urinalysis -- IV Fluids -- Reassess and disposition Prior Visits: Notes and results from previous visits were reviewed. Progress Notes: 06/23/18 20:19 EKG: Ordered, reviewed, and independently interpreted the EKG. Rate : 77 BPM Rhythm : sinus Interpretation : 2nd degree AV block/ Type 1 RBBB. Comparison : No previous EKG for comparison. 06/23/18 21:53 CXR Impression: As read by me, no acute process. 06/23/18 22:30 Case was d/w Dr. Tsai at request.She accepts to her service.Dr. Carrion on consult. - Lab Interpretations Lab Results: 06/23/18 20:00 06/23/18 20:00 Lab Results 06/23/18 20:00: Lactate Dehydrogenase 584, Total Creatine Kinase 42, Troponin I < 0.01 D 06/23/18 20:00: WBC 7.0, RBC 4.63, Hgb 12.5, Hct 36.9, MCV 79.7 L, MCH 27.0, MCHC 33.9, RDW 14.8 H, Plt Count 209, MPV 11.1 H 06/23/18 20:00: Sodium 137, Potassium 4.5, Chloride 98, Carbon Dioxide 23, Anion Gap 20, BUN 33 H, Creatinine 1.0, Est GFR ( Amer) > 60, Est GFR ( Non-Af Amer) 53, Random Glucose 216 H, Calcium 9.8, Total Bilirubin 0.6, AST 21 , ALT 16, Alkaline Phosphatase 125, Total Protein 8.6 H, Albumin 4.4, Globulin 4.2, Albumin/Globulin Ratio 1.0 L, Lipase 24 I have reviewed the lab results: Yes - RAD Interpretation Radiology Orders: 06/23/18 19:47 CHEST PORTABLE [RAD] Stat - EKG Interpretation Interpreted by ED Physician: Yes Type: 12 lead EKG - Medication Orders Current Medication Orders: Sodium Chloride (Sodium Chloride 0.9%) 1,000 mls @ 100 mls/hr IV .Q10H CONSUELO Last Admin: 06/23/18 20:07 Dose: 100 mls/hr eMAR Start Stop Document 06/23/18 20:07 CNR (Rec: 06/23/18 20:07 CNR [id number]) Intravenous Solution Start Date 06/23/18 Start Time 20:07 Discontinued Medications Famotidine (Pepcid) 20 mg IVP STAT STA Stop: 06/23/18 19:49 Last Admin: 06/23/18 20:07 Dose: 20 mg IVP Administration Document 06/23/18 20:07 CNR (Rec: 06/23/18 20:07 CNR [id number]) Charges for Administration # of IVP Administrations 1 Ondansetron HCl (Zofran Inj) 4 mg IVP ONCE ONE Stop: 06/23/18 19:49 Last Admin: 06/23/18 20:07 Dose: 4 mg IVP Administration Document 06/23/18 20:07 CNR (Rec: 06/23/18 20:07 CNR [id number]) Charges for Administration # of IVP Administrations 1 - Scribe Statement The provider has reviewed the documentation as recorded by the Gabriella Gandhi Provider Scribe Attestation: All medical record entries made by the Scribe were at my direction and personally dictated by me. I have reviewed the chart and agree that the record accurately reflects my personal performance of the history, physical exam, medical decision making, and the department course for this patient. I have also personally directed, reviewed, and agree with the discharge instructions and disposition. Disposition/Present on Arrival - Present on Arrival Any Indicators Present on Arrival: No History of DVT/PE: No History of Uncontrolled Diabetes: No Urinary Catheter: No History of Decub. Ulcer: No History Surgical Site Infection Following: None - Disposition Have Diagnosis and Disposition been Completed?: Yes Diagnosis: Arrhythmia, Epigastric abdominal pain Disposition: HOSPITALIZED Disposition Time: 22:36 Patient Plan: Observation Patient Problems: Current Active Problems Problem Status Onset Arrhythmia Acute Epigastric abdominal pain Acute Condition: STABLE Forms: reBounces (Tajik)
[2018-06-23 20:23] LABS: ALBUMIN 4.4 g/dL (3.0-4.8); ALT/SGPT 16 U/L (7-56); AST/SGOT 21 U/L (14-36); BLOOD UREA NITROGEN 33 mg/dL (7-21); CALCIUM 9.8 mg/dL (8.4-10.5); GFR NON-AFRICAN AMERICAN 53; LIPASE 24 U/L (23-300)
[2018-06-23 20:33] LABS: HEMOGLOBIN 12.5 g/dL (12.0-16.0); MEAN CELL VOLUME 79.7 fl (80.0-105.0); MEAN CORPUSCULAR HGB CONC 33.9 g/dl (31.0-37.0); MEAN PLATELET VOLUME 11.1 fl (7.0-11.0); RBC 4.63 10^6/uL (3.5-6.1); RED CELL DISTRIBUTION WIDTH 14.8 % (11.5-14.5)
[2018-06-23 22:07] LABS: TROPONIN I < 0.01 ng/mL
[2018-06-23 22:22] LABS: URINE BILIRUBIN NEGATIVE (NEGATIVE); URINE BLOOD SMALL (NEGATIVE); URINE GLUCOSE (UA) 250 mg/dL (NEGATIVE); URINE LEUKOCYTE ESTERASE MODERATE Leu/uL (NEGATIVE); URINE PROTEIN 100 mg/dL (<30 mg/dL); URINE UROBILINOGEN 0.2 E.U./dL (<1 E.U./dL)
[2018-06-23 22:34] LABS: URINE APPEARANCE CLEAR (CLEAR); URINE COLOR YELLOW (YELLOW)
[2018-06-23 22:43] LABS: URINE BACTERIA MOD (NEG); URINE WBC 20 - 25 /hpf (0-6)
[2018-06-24 02:54] VITALS: BMI 42.3
[2018-06-24] MEDS: Levothyroxine 25 MCG TAB PO SCH (05:51)
[2018-06-24] MEDS: Sodium Chloride 0.9% 1,000 ML IV SCH ×3 (06:19→16:55)
[2018-06-24] MEDS: Insulin Reg-LOW-Coverage SC SCH ×4 (07:43→22:26)
--- NOTE | 2018-06-24 08:43 | RAD ---
Date of service: 06/23/2018 HISTORY: fever COMPARISON: No prior. FINDINGS: LUNGS: No active pulmonary disease. PLEURA: No significant pleural effusion identified, no pneumothorax apparent. CARDIOVASCULAR: Pulmonary vascular congestion pattern appears to have resolved in the interval. No cardiomegaly. Sternotomy wires reiterated as well as prosthetic valvular stent. OSSEOUS STRUCTURES: No significant abnormalities. VISUALIZED UPPER ABDOMEN: Normal. OTHER FINDINGS: None. IMPRESSION: No interval acute cardiopulmonary disease appreciated.
--- NOTE | 2018-06-24 09:31 | CARD ---
APPROVED REPORT Date of service: 06/23/2018 EKG Measurement Heart [id number] <Conclusion> Undetermined rhythm. AV Dissociation. Right bundle branch block pattern, new Septal infarct, age undetermined Suggest clinical correlation.
--- NOTE | 2018-06-24 09:33 | CARD ---
APPROVED REPORT Date of service: 06/23/2018 EKG Measurement Heart [id number] <Conclusion> Undetermined rhythm: probably sinus with Mobitz type 1 2nd degree AVB Right bundle branch block Septal infarct, age undetermined Suggest clinical correlation.
--- NOTE | 2018-06-24 09:43 | CARD ---
APPROVED REPORT Date of service: 06/24/2018 EKG Measurement Heart [id number] <Conclusion> Sinus rhythm with 2nd degree AV block (Mobitz I) Septal infarct, age undetermined RVCD Suggest clinical correlation.
[2018-06-24] MEDS: Potassium Chloride 10 mEq ER Tab PO SCH (10:08)
[2018-06-24 11:32] LABS: BASO # 0.02 K/mm3 (0.0-2.0); BASO % 0.4 % (0.0-3.0); EOS # 0.3 (0.0-0.7); EOS % 5.1 % (1.5-5.0); GRAN # 3.06 (1.4-6.5); LYMPH # 1.5 (1.2-3.4); LYMPH % 29.2 % (22.0-35.0); MEAN CELL VOLUME 80.5 fl (80.0-105.0); MEAN CORPUSCULAR HGB CONC 32.4 g/dl (31.0-37.0); MEAN PLATELET VOLUME 10.5 fl (7.0-11.0); MONO # 0.3 (0.1-0.6); MONO % 5.3 % (1.0-6.0); RBC 3.84 10^6/uL (3.5-6.1); RED CELL DISTRIBUTION WIDTH 14.8 % (11.5-14.5); WHITE BLOOD COUNT 5.1 10^3/ul (4.5-11.0)
[2018-06-24] MEDS: cefTRIAXone 1 gm 1 GM/100 ML BAG IVPB SCH (11:34)
[2018-06-24 11:49] LABS: TROPONIN I 0.02 ng/mL
[2018-06-24 11:57] LABS: FREE T4 0.97 ng/dL (0.78-2.19)
[2018-06-24 12:02] LABS: ALBUMIN 3.4 g/dL (3.0-4.8); ALT/SGPT 10 U/L (7-56); AST/SGOT 15 U/L (14-36); BLOOD UREA NITROGEN 25 mg/dL (7-21); CALCIUM 8.8 mg/dL (8.4-10.5); GFR NON-AFRICAN AMERICAN 53
[2018-06-24] MEDS: POLYETHYLENE GLYCOL 3350 17 GM/Dose PACKET PO SCH (14:15)
--- NOTE | 2018-06-24 23:34 | CON ---
Copied To: Omero Chandler MD Attending MD: Omero Chandler MD DATE: 06/24/2018 LOCATION: The patient in room 276, bed 1. REASON FOR CONSULTATION AND FOLLOWUP: History of coronary angioplasty stent insertion, history of aortic valve replacement by open heart surgery, but actually this was done TAVR, now patient with abdominal pain and nausea. HISTORY OF PRESENT ILLNESS: The patient is an 83-year-old female who had a stent insertion in proximal RCA and plain balloon angioplasty of mid and distal RCA and RPDA on 06/12/2018. Cath at that time showed previous stents which were in the LAD and subsequently they were opened. The patient also had previous aortic valve replacement, which could not be done through the femoral artery, and patient had open heart surgery and it was still done the TAVR implant. The patient denied any chest pain, shortness of breath or palpitations. The patient now feels that her abdominal pain and nausea are relieved. She denies any vomiting, denies any hematemesis or melena, denies any history of chest pain, shortness of breath or palpitations. PAST MEDICAL HISTORY: Significant for critical aortic stenosis status post TAVR, history of previous two drug-eluting stents put into the LAD and circumflex, and on 06/12/2018 patient had stent in the proximal RCA and plain balloon angioplasty of mid and distal RCA and RPDA. PREVIOUS CARDIAC WORKUP: As mentioned before the patient had TAVR, but it could not be done through the femoral artery, so patient had to be done with the open heart surgery. Patient had stents put in LAD and circumflex in the past, and on 06/12/2018, patient had stents in the proximal RCA and POBA of mid and distal RCA and RPDA. PTCA of LAD and circumflex was done in 05/15/2018 and on 06/12/2018 the patient had stents put in the proximal RCA and POBA of mid and distal RCA and RPDA. Patient at that admission had episodes of 2:1 Wenckebach rhythm also. Patient has history of severe PAD and had bilateral AKA on the both legs. Patient's TAVR with aortic valve replacement with open heart surgery with sternotomy was done on 06/20/2014. PERSONAL HISTORY: Denies smoking, denies any alcohol abuse. ALLERGIES: NO KNOWN ALLERGIES. MEDICATIONS: Home medications included patient is on insulin, Synthroid 25 mcg daily, amlodipine 10 daily, isosorbide mononitrate (Imdur ER) 60 mg daily, aspirin 81 mg daily, Pepcid 40 mg p.o. daily, Lipitor 40 daily, ferrous sulfate 325 mg p.o. t.i.d., Cipro 250 b.i.d., potassium 10 mEq daily, Plavix 75 daily. DIAGNOSES: Abdominal pain, coronary artery disease, history of stent insertion and plain balloon angioplasty, history of aortic valve disease status post transcatheter aortic valve replacement through open sternotomy 4 years ago, severe peripheral arterial disease status post ahtif-qpy-uzni amputation bilateral legs, diabetes mellitus, hypothyroidism, hyperlipidemia. PLAN: Clinically, cardiac status at this time is stable. The patient is on aspirin 81 mg daily, ferrous sulfate 324 mg p.o. t.i.d., insulin as ordered, isosorbide mononitrate ER 60 mg p.o. daily, potassium 10 daily, Lasix 40 mg daily, Lipitor 40 daily, amlodipine 10 daily, Pepcid 40 mg p.o. at bedtime, Plavix 75 daily, ceftriaxone 1 g IV daily, the patient also getting IV fluid therapy, levothyroxine 25 mcg daily. We will repeat SMA-7 and TSH and lipid profile in the morning. In the meantime, we will continue present therapy. Omero Chandler MD
[2018-06-25] MEDS: Sodium Chloride 0.9% 1,000 ML IV SCH (03:00)
--- NOTE | 2018-06-25 03:08 | HP ---
06/24/18 Copied To: Yuridia Tsai MD Attending MD: Yuridia Tsai MD CHIEF COMPLAINT: Abdominal pain, nauseousness. HISTORY OF PRESENT ILLNESS: Ms. Basia Ruiz is an 83-year-old female with past medical history of diabetes mellitus, hypertension, aortic valve replacement, had recent cardiac stent placement, has history of congestive heart failure, anemia, double AKA, came to the emergency department with complaints of nausea and vague intermittent upper abdominal pain, epigastric discomfort for last couple of days. The patient denies fever, chills, headache, dizziness, sore throat. No hematuria or hematochezia, but sometimes, she is feeling shortness of breath on exertion. PAST MEDICAL HISTORY: Hypertension; CABG, 2 stents; former smoker; deafness; history of renal cancer; diabetes mellitus type 2; anemia; status post blood transfusion; COPD; constipation; urinary tract infection; bilateral AKA. FAMILY HISTORY: Father and mother, noncontributory. HABITS: No smoking. No drugs. No ethanol. ALLERGIES: THE PATIENT IS NOT ALLERGIC WITH ANY MEDICATIONS. HOME MEDICATIONS: Xanax, Feosol, Novolin, potassium, Lipitor, Cipro. REVIEW OF SYSTEMS: The patient was seen and examined on the bedside in the telemetry, complaining about nauseousness, abdominal pain, coughing, shortness of breath. No chest pain. No stool changes. No urine output changes. No back pain. No headache or dizziness. PHYSICAL EXAMINATION: VITAL SIGNS: Temperature 97.7, pulse 79, respiratory rate 18, blood pressure 145/81, pulse oximetry 98%. HEENT: Head normocephalic, atraumatic. Eyes PERRLA. Extraocular muscles are intact. Conjunctivae clear. Nose patent. NECK: Supple. No carotid bruit. No JVD or thyromegaly. CHEST: Bilaterally symmetrical. HEART: S1 and S2 positive. LUNGS: Clear to auscultation. ABDOMEN: Soft. Bowel sounds positive. No organomegaly. EXTREMITIES: Upper extremity, no edema. No cyanosis. Lower extremity, no edema. NEUROLOGICAL: The patient is awake and alert. Follows simple commands. Speech is normal. Oriented x3 . LABORATORY DATA: White blood cells 7, hemoglobin 12.5, hematocrit 36.9, platelets 209. Sodium 137, potassium 4.5, BUN 33, creatinine 1, glucose 216. ASSESSMENT AND PLAN: Ms. Basia Ruiz is an 83-year-old lady with diabetes mellitus, arrhythmias, epigastric abdominal pain, history of hypertension, aortic valve replacement, recent cardiac stenting placement, congestive heart failure, double above knee amputation, came with complaints of nausea, vague intermittent upper abdominal pain, epigastric discomfort from couple of days, shortness of breath with exertion. Chest x-ray done reviewed by me. Discussion done with Dr. Stewart. Repeat labs. Gastrointestinal and deep venous thrombosis prophylaxis. We will follow up. Yuridia Tsai MD MTDD
[2018-06-25 05:35] VITALS: RESP 19
[2018-06-25] MEDS: Levothyroxine 25 MCG TAB PO SCH (06:00)
[2018-06-25 07:37] LABS: HEMOGLOBIN 10.5 g/dL (12.0-16.0); MEAN CELL VOLUME 80.4 fl (80.0-105.0); MEAN CORPUSCULAR HEMOGLOBIN 25.7 pg (25.0-35.0); MEAN CORPUSCULAR HGB CONC 31.9 g/dl (31.0-37.0); RBC 4.09 10^6/uL (3.5-6.1); RED CELL DISTRIBUTION WIDTH 14.9 % (11.5-14.5); WHITE BLOOD COUNT 4.9 10^3/ul (4.5-11.0)
[2018-06-25] MEDS: Insulin Reg-LOW-Coverage SC SCH ×2 (07:53→12:26)
[2018-06-25 07:58] LABS: BLOOD UREA NITROGEN 25 mg/dL (7-21); CALCIUM 9.1 mg/dL (8.4-10.5); GFR NON-AFRICAN AMERICAN 53; HDL CHOLESTEROL 43 mg/dL (29-60)
[2018-06-25 08:03] LABS: IRON 151 ug/dL (45-180)
[2018-06-25 08:09] LABS: LDL CHOLESTEROL 87 mg/dL (0-129)
--- NOTE | 2018-06-25 08:11 | CP.PCM.PN ---
Subjective - Date & Time of Evaluation Date of Evaluation: 06/25/18 Time of Evaluation: 06:45 - Subjective Subjective: Awake, alert, no distress, denies shortness of breath, denies chest pain Reason for consultation and follow up: Cardiac evaluation of coronary artery disease, post stents, history of post aortic valve replacement,bilateral above knee amputation for severe peripheral vascular disease,CHF,diabetes, Seen and examined by me and Dr. Carrion Objective - Vital Signs/Intake and Output Vital Signs (last 24 hours): Temp Pulse Resp BP Pulse Ox 97 F L 60 19 151/55 H 95 06/25/18 05:34 06/25/18 05:34 06/25/18 05:34 06/25/18 05:34 06/25/18 05:34 Intake and Output: 06/25/18 06/25/18 06:59 18:59 Intake Total 420 Output Total 100 Balance 320 - Medications Medications: Current Medications Alprazolam (Xanax) 0.5 mg PO DAILY PRN; Protocol PRN Reason: Anxiety Amlodipine Besylate (Norvasc) 10 mg PO DAILY [facility] Last Admin: 06/24/18 10:09 Dose: 10 mg Aspirin (Aspirin Chewable) 81 mg PO DAILY [facility] Last Admin: 06/24/18 10:07 Dose: 81 mg Atorvastatin Calcium (Lipitor) 40 mg PO HS [facility] Last Admin: 06/24/18 22:30 Dose: 40 mg Clopidogrel Bisulfate (Plavix) 75 mg PO DAILY [facility] Last Admin: 06/24/18 10:07 Dose: 75 mg Famotidine (Pepcid) 40 mg PO HS [facility] Last Admin: 06/24/18 22:30 Dose: 40 mg Ferrous Sulfate (Feosol) 324 mg PO TID [facility] Last Admin: 06/24/18 17:00 Dose: 324 mg Fluticasone Propionate (Flonase) 1 actuation NS DAILY [facility] Furosemide (Lasix) 40 mg PO DAILY [facility] Last Admin: 06/24/18 10:08 Dose: 40 mg Sodium Chloride (Sodium Chloride 0.9%) 1,000 mls @ 100 mls/hr IV .Q10H [facility] Last Admin: 06/25/18 03:00 Dose: 100 mls/hr Ceftriaxone Sodium (Rocephin 1 Gram Ivpb) 1 gm in 100 mls @ 100 mls/hr IVPB DAILY [facility] PRN Reason: Protocol Last Admin: 06/24/18 11:34 Dose: 100 mls/hr Insulin Human Regular (Humulin R Low) 0 units SC ACHS CONSUELO PRN Reason: Protocol Last Admin: 06/25/18 07:53 Dose: Not Given Isosorbide Mononitrate (Imdur) 60 mg PO DAILY [facility] Last Admin: 06/24/18 10:08 Dose: 60 mg Levothyroxine Sodium (Synthroid) 25 mcg PO 0600 [facility] Last Admin: 06/25/18 06:00 Dose: 25 mcg Ondansetron HCl (Zofran Inj) 4 mg IVP Q6H PRN PRN Reason: Nausea/Vomiting Last Admin: 06/24/18 19:29 Dose: 4 mg Polyethylene Glycol (Miralax) 17 gm PO DAILY [facility] Last Admin: 06/24/18 14:15 Dose: 17 gm Potassium Chloride (Klor-Con 10) 10 meq PO DAILY [facility] Last Admin: 06/24/18 10:08 Dose: 10 meq Zolpidem Tartrate (Ambien) 5 mg PO HS PRN; Protocol PRN Reason: Insomnia - Labs Labs: 06/25/18 06:30 06/25/18 06:30 - Constitutional Appears: No Acute Distress - Eye Exam Eye Exam: Normal appearance - ENT Exam ENT Exam: Mucous Membranes Moist - Respiratory Exam Respiratory Exam: Decreased Breath Sounds, NORMAL BREATHING PATTERN - Cardiovascular Exam Cardiovascular Exam: +S1, +S2 - GI/Abdominal Exam GI & Abdominal Exam: Soft, Normal Bowel Sounds - Extremities Exam Additional comments: AKA bilateral - Neurological Exam Neurological Exam: Alert, Awake, Oriented x3 - Psychiatric Exam Psychiatric exam: Normal Affect - Skin Skin Exam: Dry, Warm Assessment and Plan - Assessment and Plan (Free Text) Assessment: An 83 year old female who came in to the ER dure to nausea and vague epigastric discomfort.History of coronary artery disease, post stents, history of post aortic valve replacement,bilateral above knee amputation for severe peripheral vascular disease,CHF,diabetes,anemia requiring blood transfusion,urinary tract infection. Had episodes of bradycardia from last admission, Holter monitor done , result unremarkable,(minimum rate- 41/min,average rate-63/min,maximum rate 87/ min) Plan: Feels better,denies nausea Heart rate and blood pressure stable Cardiac status stable Recent cardiac work up done, no further work up Continue current treatment Continue current medications May discharge Will follow up Plan and treatment discussed with Dr. Carrion
[2018-06-25 08:13] LABS: % IRON SATURATION 66 % (20-55); TOTAL IRON BINDING CAPACITY 229 ug/dL (265-497)
--- NOTE | 2018-06-25 08:59 | CON ---
Copied To: Omero Stewart MD Attending MD: Omero Stewart MD DATE: 06/24/2018 PULMONARY CONSULTATION REFERRING PHYSICIAN: Yuridia Tsai MD REASON FOR CONSULT: Short of breath and cough. HISTORY OF PRESENT ILLNESS: This is an 83-year-old female with past medical history significant for hypertension, diabetes, history of aortic valve replacement, coronary stent, heart failure, anemia, has bilateral AKAs, comes in with nausea, vomiting, some abdominal pain, also some shortness of breath and rhinitis, postnasal drip. PAST MEDICAL HISTORY: Diabetes, hypertension, aortic valve replacement, coronary artery disease, heart failure, history of coronary stent, anemia, peripheral vascular disease, recurrent bilateral AKA. ALLERGIES: NONE KNOWN. FAMILY HISTORY: No significant cardiopulmonary disease are reported. SOCIAL HISTORY: Former smoker. Denied any alcohol use. MEDICATIONS: She is on Ambien 5 mg at bedtime p.r.n. aspirin 81 mg daily, ferrous sulfate 324 mg three times a day, Imdur 60 mg daily, potassium 10 mEq daily, Lasix 40 mg daily, Lipitor 40 mg at bedtime, MiraLax 17 g daily, Norvasc 10 mg daily, Pepcid 40 mg daily, Plavix 75 mg daily, Rocephin 1 g IV daily, IV fluid normal saline 100 mL per hour, Synthroid 125 mcg daily, Xanax 0.5 mg daily, and Zofran on p.r.n. basis. REVIEW OF SYSTEMS: No headaches, had some rhinitis, postnasal drip, short of breath. No chest pain at present. Had some nausea and vomiting. No abdominal pain. No dysuria. No leg swelling. PHYSICAL EXAMINATION: GENERAL: In no acute distress. VITAL SIGNS: Temperature is 98, heart rate is 70, respiratory rate is 20, blood pressure is 170/73, pulse ox 96% on room air. HEENT: Moist mucous membranes. Crowded airway. Mallampati score is IV. NECK: Supple. No JVD. LUNGS: Fair airflow with rhonchi. HEART: S1, S2. ABDOMEN: Soft, nontender, no organomegaly. EXTREMITIES: Bilateral AKA, stumps look good. NEUROLOGIC: Awake and alert, follows simple commands. LABORATORY DATA: Shows hemoglobin 10, hematocrit 30.9, WBC 5.1, platelet is 187. Sodium 140, potassium 4.4, chloride 103, bicarbonate 26, BUN 25, creatinine 1, glucose is 127, calcium is 8.8. Phosphorus 3.6. Magnesium 1.7, AST 15, ALT 10, alk phos is 84. Albumin is 3.4. TSH 5.19. Free T4 0.97. Urinalysis shows wbc 20 to 25, rbc 2 to 5. Chest x-ray done in the ER shows low interval cardiopulmonary disease reported. EKG shows undetermined rhythm, probably sinus, Mobitz type 1 second-degree AV block, right bundle-branch block, septal infarct, age undetermined, chronic lung disease, diabetes, anemia, history of coronary artery disease, may have a component of sleep apnea syndrome, history of bilateral above-knee amputation, continue antibiotics, keep head 45 degrees, we will add Flonase one spray each nostril twice a day, inhaled bronchodilators, gastric prophylaxis, deep venous thrombosis prophylaxis. Thank you and we will follow with you. Omero Stewart MD
[2018-06-25] MEDS: POLYETHYLENE GLYCOL 3350 17 GM/Dose PACKET PO SCH (10:07)
[2018-06-25] MEDS: cefTRIAXone 1 gm 1 GM/100 ML BAG IVPB SCH (10:07)
[2018-06-25] MEDS: Potassium Chloride 10 mEq ER Tab PO SCH (10:09)
[2018-06-25] MEDS: Fluticasone Nasal 50 mcg/Spray NS SCH ×2 (10:09→10:33)
[2018-06-25 12:25] VITALS: BP 145/52; PULSE 44; TEMP 98.2
[2018-06-25 14:18] VITALS: O2SAT 94
--- NOTE | 2018-06-25 16:00 | PN ---
Copied To: Omero Stewart MD Attending MD: Omero Stewart MD DATE: 06/25/2018 PULMONARY PROGRESS NOTE REFERRING PHYSICIAN: Yuridia Tsia MD SUBJECTIVE: She is lying in the bed, head at 45 degrees. Feels better. No rhinitis today. No chest pain. No dysuria. No leg pain or leg swelling. OBJECTIVE: GENERAL: In no acute distress. VITAL SIGNS: Temperature is 98, heart rate 60, respiratory rate is 20, blood pressure 145/52. HEENT: Moist mucous membranes. Crowded airway. Mallampati score is 4. NECK: Supple. No JVD. LUNGS: Have a fair airflow with rhonchi. HEART: S1 and S2. ABDOMEN: Soft, nontender. No organomegaly. EXTREMITIES: Has bilateral AKA. NEUROLOGICAL: Awake and alert. Follows simple command. MEDICATIONS: She is on Ambien 5 mg at bedtime p.r.n., aspirin 81 mg daily, ferrous sulfate 324 mg three times a day, Flonase 1 spray each nostril daily, insulin coverage, Imdur 60 mg daily, potassium 10 mEq daily, Lasix 40 mg daily, Lipitor 40 mg daily, MiraLax 17 g daily, Norvasc 10 mg daily, Pepcid 40 mg at bedtime, Plavix 75 mg daily, Rocephin 1 g daily, IV fluid normal saline 100 mL/hour, Synthroid 25 mcg daily, Xanax 0.5 mg p.r.n., Zofran p.r.n. LABORATORY DATA: Shows hemoglobin 10.5, hematocrit 32.9, WBC 4.9, platelet count is 183. Sodium 140, potassium 4.6, chloride 104, bicarbonate 26, BUN 25, creatinine 1, glucose is 141, hemoglobin A1c 8.1, iron is 151, TSH 5.2. IMPRESSION AND PLAN: Chronic lung disease, diabetes, anemia, history of coronary artery disease, may have a component of sleep apnea syndrome, bilateral above-knee amputations in the past, may have a urinary tract infection. Case discussed with nurse practitioner on the floor. May go home with few antibiotics. Gastric and deep vein thrombosis prophylaxis. Sleep apnea precaution. PMD followup as outpatient. Thank you and we will follow with you. Omero Stewart MD [facility] # [id number]
[2018-06-25 19:46] LABS: FOLATE 7.6 ng/mL
== END 2018-06-25 15:25 | disposition home health service (06) ==
LOC: ED 18:55 → ERH 22:36 → 2RSO 06-24 01:20
PROVIDERS: ADMIT Internal Medicine; ATTEND Internal Medicine
DX: R10.13 Epigastric pain (principal); I49.9 Cardiac arrhythmia, unspecified; R11.0 Nausea; E11.51 Type 2 diabetes mellitus with diabetic peripheral angiopathy without gangrene; N39.0 Urinary tract infection, site not specified; E78.5 Hyperlipidemia, unspecified; E03.9 Hypothyroidism, unspecified; I25.10 Atherosclerotic heart disease of native coronary artery without angina pectoris; J44.9 Chronic obstructive pulmonary disease, unspecified; I11.0 Hypertensive heart disease with heart failure; I35.0 Nonrheumatic aortic (valve) stenosis; I50.9 Heart failure, unspecified; G47.30 Sleep apnea, unspecified; H91.90 Unspecified hearing loss, unspecified ear; J31.0 Chronic rhinitis; Z95.5 Presence of coronary angioplasty implant and graft; Z95.1 Presence of aortocoronary bypass graft; Z85.528 Personal history of other malignant neoplasm of kidney; Z79.4 Long term (current) use of insulin; Z87.891 Personal history of nicotine dependence; Z95.2 Presence of prosthetic heart valve; Z89.611 Acquired absence of right leg above knee; Z89.612 Acquired absence of left leg above knee
CPT/HCPCS: 36415; 71045; 80048; 80053; 80061; 81001; 82550; 82607; 82746; 82948; 83036; 83540; 83550; 83615; 83690; 83735; 84100; 84439; 84443; 84484; 85025; 85027; 87086; 93005; 96365; 96366; 96375; 96376; 99285; G0378; J0696; J2405; J7030

== ENCOUNTER 2018-08-25 20:42 | Emergency (ER) | payer MEDICARE, OTHER ==
--- NOTE | 2018-08-25 20:57 | ED PDOC ---
Arrival/HPI - General Time Seen by Provider: 08/25/18 20:50 Historian: Patient, Family (Son) - History of Present Illness Narrative History of Present Illness (Text): 08/25/18 20:53 83 year old female, whose past medical history includes CAD, UTI, hypertension, diabetes, and CHF, presents to the emergency department with son, complaining of pacemaker discomfort. Patient states she had a pacemaker installed [address] Carrion. Patient states she had been progressing well with her pacemaker, and recently began noticing a sharp pinching sensation from that area. Patient denies any fever, chills, tenderness or erythema to incision site, purulent or bloody discharge to incision, or any other complaints. Time/Duration: Prior to Arrival Symptom Onset: Gradual Past Medical History - Provider Review Nursing Documentation Reviewed: Yes - Past History Past History: Non-Contributing - Infectious Disease Hx of Infectious Diseases: None - Tetanus Immunization Tetanus Immunization: Unknown - Cardiac Hx Cardiac Disorders: Yes ( s/p aortic valve placeemnt 2013) - Pulmonary Hx Respiratory Disorders: No Hx Asthma: No Hx Bronchitis: No Hx Chronic Obstructive Pulmonary Disease (COPD): No Hx Emphysema: No Hx Pneumonia: No Hx Respiratory Aspiration: No Hx Respiratory Tract Infection: No Hx Sleep Apnea: No Hx Tuberculosis: No - Neurological Hx Neurological Disorder: No Hx Alzheimer's Disease: No HX Cerebrovascular Accident: No Hx Dementia: No Hx Dizziness: No Hx Meningitis: No Hx Migraine: No Hx Parkinson's Disease: No Hx Seizures: No Hx Transient Ischemic Attacks (TIA): No - HEENT Hx HEENT Disorder: No Hx Blind: No Hx Cataracts: No Hx Deafness: No Hx Difficulty Chewing: No Hx Epistaxis: No Hx Glaucoma: No Hx Macular Degeneration: No - Renal Hx Renal Disorder: No Hx Dialysis: No Hx Kidney Stones: No Hx Neurogenic Bladder: No Hx Pyelonephritis: No Hx Renal Cancer: Yes Hx Renal Failure: No - Endocrine/Metabolic Hx Endocrine Disorders: Yes Hx Adrenal Cancer: No Hx Diabetes Insipidus: No Hx Diabetes Mellitus Type 1: Yes Hx Diabetes Mellitus Type 2: Yes Hx Hyperthyroidism: No Hx Hypothyroidism: Yes Hx Systemic Lupus Erythematosus: No - Hematological/Oncological Hx Blood Disorders: Yes Hx AIDS: No Hx Anemia: Yes Hx Cancer: No Hx Chemotherapy: No Hx Cirrhosis: Yes Hx Hemophilia: No Hx Hepatitis A: No Hx Hepatitis B: No Hx Hepatitis C: No Hx Metastasis: No Hx Shingles: No Hx Sickle Cell Disease: No Hx Unexplained Bleeding: No - Integumentary Hx Dermatological Disorder: No Hx Basal Cell Carcinoma: No Hx Eczema: No Hx Melanoma: No Hx Psoriasis: No Hx Squamous Cell Carcinoma: No - Musculoskeletal/Rheumatological Hx Musculoskeletal Disorders: Yes Hx Arthritis: No Hx Back Pain: Yes Hx Degenerative Joint Disease: No Hx Falls: No Hx Fractures: No Hx Gout: No Hx Herniated Disk: No Hx Myasthenia Gravis: No Hx Osteoarthritis: No Hx Osteomyelitis: Yes Hx Osteoporosis: No Hx Rhabdomyolysis: No Hx Spinal Stenosis: No Hx Unsteady Gait: No - Gastrointestinal Hx Gastrointestinal Disorders: Yes Hx Colostomy: No Hx Crohn's Disease: No Hx Diverticulitis: No Hx Gall Bladder Disease: No Hx Gastroesophageal Reflux: No Hx Gastrointestinal Ulcer: No Hx Ileostomy: No Hx Liver Failure: No Hx Pancreatitis: No HX Swallowing Problems: No Other/Comment: Hemorrhoids - Genitourinary/Gynecological Hx Genitourinary Disorders: Yes Hx Hematuria: No Hx Incontinence: No Hx Prostate Problems: No Hx Sexually Transmitted Diseases: No Hx Urinary Tract Infection: Yes - Psychiatric Hx Psychophysiologic Disorder: Yes Hx Anxiety: Yes Hx Bipolar Disorder: No Hx Depression: No Hx Emotional Abuse: No Hx Hallucinations: No Hx Panic Disorder: No Hx Paranoia: No Hx Post Traumatic Stress Disorder: No Hx Psychosis: No Hx Physical Abuse: No Hx Schizophrenia: No Hx Sexual Abuse: No Hx Substance Use: No - Surgical History Other/Comment: CABG - Anesthesia Hx Anesthesia Reactions: No Hx Malignant Hyperthermia: No - Suicidal Assessment Feels Threatened In Home Enviroment: No Family/Social History - Physician Review Nursing Documentation Reviewed: Yes Family/Social History: No Known Family HX Smoking Status: Former Smoker Hx Alcohol Use: No Hx Substance Use: No Hx Substance Use Treatment: No Allergies/Home Meds Allergies/Adverse Reactions: Allergies No Known Allergies Allergy (Verified 07/14/18 18:13) Home Medications: Home Meds Medication Instructions Recorded Confirmed Alprazolam [Xanax] 0.5 mg PO DAILY PRN 06/11/18 08/25/18 Ferrous Sulfate [Feosol] 325 mg PO TID 06/11/18 08/25/18 Insulin Human Regular [Novolin R] 4 units SC ACTID 06/11/18 08/25/18 Potassium Chloride [K-Tab ER] 10 meq PO DAILY 06/11/18 08/25/18 Atorvastatin [Lipitor] 40 mg PO HS 06/23/18 08/25/18 Clopidogrel [Plavix] 75 mg PO DAILY 08/25/18 08/25/18 Review of Systems - Physician Review All systems were reviewed & negative as marked: Yes - Review of Systems Constitutional: absent: Fevers, Night Sweats Cardiovascular: Chest Pain (Pain from pacemaker). absent: Other (Denies to site of incision any: tenderness; erythema; purulent discharge; bloody discharge ) Physical Exam Vital Signs Reviewed: Yes Temperature: Afebrile Blood Pressure: Normal Pulse: Regular Respiratory Rate: Normal Appearance: Positive for: Well-Appearing, Non-Toxic, Comfortable Pain Distress: None Mental Status: Positive for: Alert and Oriented X 3 Medical Decision Making ED Course and Treatment: 08/25/18 21:59 Impression: 83 year old female presents with pain from pacemaker. Differential Diagnosis Includes But Is Not Limited To: InfectioN Plan: --Labs -- Chest X-ray -- Reassess and disposition Prior Visits: Notes and results from previous visits were reviewed. Progress Notes: 08/25/18 22:33 CXR shows no evidence of pulmonary congestion or pleural fluid present noted within the thoracic cavity. The patient denies any symptoms of dyspnea or edema within the legs. She reports having an appointment with Dr. Carrion(interventional cardiology) 2 weeks ago and has another upcoming appointment. BNP noted to be elevated but within baseline. She reports taking her Lasix today. She is asymptomatic at this time. She is stable for discharge. - EKG Interpretation EKG Interpretation (Text): 08/25/18 21:09 EKG reviewed, shows: Ventricular rate at 77 BPM Electronic Ventricular Pacemaker. Interpreted by ED Physician: Yes Type: 12 lead EKG - Scribe Statement The provider has reviewed the documentation as recorded by the Jonnieibcherise Zaragoza Provider Scribe Attestation: All medical record entries made by the Scribe were at my direction and personally dictated by me. I have reviewed the chart and agree that the record accurately reflects my personal performance of the history, physical exam, medical decision making, and the department course for this patient. I have also personally directed, reviewed, and agree with the discharge instructions and disposition. Disposition/Present on Arrival - Present on Arrival Any Indicators Present on Arrival: Yes History of DVT/PE: No History of Uncontrolled Diabetes: Yes Urinary Catheter: No History Surgical Site Infection Following: None - Disposition Have Diagnosis and Disposition been Completed?: Yes Diagnosis: Cardiac pacemaker recipient, Chest pain Disposition: HOME/ ROUTINE Disposition Time: 22:30 Patient Plan: Discharge Condition: IMPROVED Discharge Instructions (ExitCare): Chest Pain (ED), Pacemaker Generator Change (DC) Additional Instructions: All medical record entries made by the Scribe were at my direction and personally dictated by me. I have reviewed the chart and agree that the record accurately reflects my personal performance of the history, physical exam, medical decision making, and the department course for this patient. I have also personally directed, reviewed, and agree with the discharge instructions and disposition. Please follow up with Dr. Carrion Referrals: Donald Grover JD, MD [Primary Care Provider] - Follow up with primary Omero Carrion MD [Staff Provider] - Follow up with primary Forms: [facility] (Citizen Of [place])
[2018-08-25 21:16] VITALS: TEMP 98; BMI 41.8
[2018-08-25 21:39] LABS: BASO # 0.03 K/mm3 (0.0-2.0); BASO % 0.5 % (0.0-3.0); EOS # 0.1 (0.0-0.7); GRAN # 4.04 (1.4-6.5); GRAN % 68.8 % (50.0-68.0); HEMOGLOBIN 13.2 g/dL (12.0-16.0); LYMPH # 1.4 (1.2-3.4); LYMPH % 23.8 % (22.0-35.0); MEAN CELL VOLUME 82.5 fl (80.0-105.0); MEAN CORPUSCULAR HEMOGLOBIN 26.9 pg (25.0-35.0); MEAN CORPUSCULAR HGB CONC 32.6 g/dl (31.0-37.0); MEAN PLATELET VOLUME 10.7 fl (7.0-11.0); MONO # 0.3 (0.1-0.6); MONO % 4.9 % (1.0-6.0); RBC 4.91 10^6/uL (3.5-6.1); RED CELL DISTRIBUTION WIDTH 14.1 % (11.5-14.5); WHITE BLOOD COUNT 5.9 10^3/uL (4.5-11.0)
[2018-08-25 21:40] LABS: ALB/GLOB RATIO 1.1 (1.1-1.8); ALBUMIN 4.2 g/dL (3.0-4.8); ALT/SGPT 17 U/L (7-56); AST/SGOT 21 U/L (14-36); BLOOD UREA NITROGEN 36 mg/dL (7-21); GFR NON-AFRICAN AMERICAN 53
[2018-08-25 21:48] LABS: B-TYPE NATRIURETIC PEPTIDE 4010 pg/mL (0-450)
[2018-08-26 00:15] VITALS: BP 126/63; PULSE 70; RESP 18; O2SAT 98
--- NOTE | 2018-08-26 09:55 | RAD ---
Date of service: 08/25/2018 HISTORY: sob COMPARISON: Chest radiographs 07/18/2018. FINDINGS: LUNGS: Unipolar permanent pacemaker reiterated as well as prosthetic cardiac valve or valvular stent. No acute airspace disease identified bilaterally. PLEURA: No significant pleural effusion identified, no pneumothorax apparent. CARDIOVASCULAR: Calcific atherosclerotic changes are seen related to the thoracic aorta. Normal cardiac size. No pulmonary vascular congestion. OSSEOUS STRUCTURES: No significant abnormalities. VISUALIZED UPPER ABDOMEN: Normal. OTHER FINDINGS: None. IMPRESSION: No interval acute cardiopulmonary disease appreciated. Permanent pacemaker and prosthetic cardiac valve or valvular stent reiterated.
--- NOTE | 2018-08-26 16:12 | CARD ---
APPROVED REPORT Date of service: 08/25/2018 EKG Measurement Heart [id number] <Conclusion> Electronic ventricular pacemaker
== END 2018-08-26 02:22 | disposition home or self-care (01) ==
LOC: ED 20:42
DX: R07.9 Chest pain, unspecified (principal); Z95.0 Presence of cardiac pacemaker; I25.10 Atherosclerotic heart disease of native coronary artery without angina pectoris; I11.0 Hypertensive heart disease with heart failure; I50.9 Heart failure, unspecified; E11.9 Type 2 diabetes mellitus without complications; Z95.1 Presence of aortocoronary bypass graft; Z87.891 Personal history of nicotine dependence

== ENCOUNTER 2018-10-11 21:29 | Inpatient (IN) | payer MEDICARE, OTHER ==
[2018-10-11 21:29] VITALS: BMI 41.8
--- NOTE | 2018-10-11 22:02 | ED PDOC ---
Arrival/HPI - General Chief Complaint: GI Problem Time Seen by Provider: 10/11/18 21:32 Historian: Patient - History of Present Illness Narrative History of Present Illness (Text): 10/11/18 21:59 83 year old female, whose past medical history includes hypertension, diabetes, CHF, aortic valve replacement, and a double AKA, who presents to the Emergency department complaining of general malaise, nausea, and dysuria. Patient denies any fevers, chills, chest pain, shortness of breath, abdominal pain, vomiting, diarrhea, back pain, neck pain, headache, dizziness, or any other complaint. Symptom Onset: Gradual Symptom Course: Unchanged Activities at Onset: Light Context: Home Past Medical History - Provider Review Nursing Documentation Reviewed: Yes - Past History Past History: Non-Contributing - Infectious Disease Hx of Infectious Diseases: None - Tetanus Immunization Tetanus Immunization: Unknown - Reproductive Menopause: Yes - Cardiac Hx Cardiac Disorders: Yes ( s/p aortic valve placeemnt 2013) - Pulmonary Hx Respiratory Disorders: No Hx Asthma: No Hx Bronchitis: No Hx Chronic Obstructive Pulmonary Disease (COPD): No Hx Emphysema: No Hx Pneumonia: No Hx Respiratory Aspiration: No Hx Respiratory Tract Infection: No Hx Sleep Apnea: No Hx Tuberculosis: No - Neurological Hx Neurological Disorder: No Hx Alzheimer's Disease: No HX Cerebrovascular Accident: No Hx Dementia: No Hx Dizziness: No Hx Meningitis: No Hx Migraine: No Hx Parkinson's Disease: No Hx Seizures: No Hx Transient Ischemic Attacks (TIA): No - HEENT Hx HEENT Disorder: No Hx Blind: No Hx Cataracts: No Hx Deafness: No Hx Difficulty Chewing: No Hx Epistaxis: No Hx Glaucoma: No Hx Macular Degeneration: No - Renal Hx Renal Disorder: No Hx Dialysis: No Hx Kidney Stones: No Hx Neurogenic Bladder: No Hx Pyelonephritis: No Hx Renal Cancer: Yes Hx Renal Failure: No - Endocrine/Metabolic Hx Endocrine Disorders: Yes Hx Adrenal Cancer: No Hx Diabetes Insipidus: No Hx Diabetes Mellitus Type 1: Yes Hx Diabetes Mellitus Type 2: Yes Hx Hyperthyroidism: No Hx Hypothyroidism: Yes Hx Systemic Lupus Erythematosus: No - Hematological/Oncological Hx Blood Disorders: Yes Hx AIDS: No Hx Anemia: Yes Hx Cancer: No Hx Chemotherapy: No Hx Cirrhosis: Yes Hx Hemophilia: No Hx Hepatitis A: No Hx Hepatitis B: No Hx Hepatitis C: No Hx Metastasis: No Hx Shingles: No Hx Sickle Cell Disease: No Hx Unexplained Bleeding: No - Integumentary Hx Dermatological Disorder: No Hx Basal Cell Carcinoma: No Hx Eczema: No Hx Melanoma: No Hx Psoriasis: No Hx Squamous Cell Carcinoma: No - Musculoskeletal/Rheumatological Hx Musculoskeletal Disorders: Yes Hx Arthritis: No Hx Back Pain: Yes Hx Degenerative Joint Disease: No Hx Falls: No Hx Fractures: No Hx Gout: No Hx Herniated Disk: No Hx Myasthenia Gravis: No Hx Osteoarthritis: No Hx Osteomyelitis: Yes Hx Osteoporosis: No Hx Rhabdomyolysis: No Hx Spinal Stenosis: No Hx Unsteady Gait: No - Gastrointestinal Hx Gastrointestinal Disorders: Yes Hx Colostomy: No Hx Crohn's Disease: No Hx Diverticulitis: No Hx Gall Bladder Disease: No Hx Gastroesophageal Reflux: No Hx Gastrointestinal Ulcer: No Hx Ileostomy: No Hx Liver Failure: No Hx Pancreatitis: No HX Swallowing Problems: No Other/Comment: Hemorrhoids - Genitourinary/Gynecological Hx Genitourinary Disorders: Yes Hx Hematuria: No Hx Incontinence: No Hx Prostate Problems: No Hx Sexually Transmitted Diseases: No Hx Urinary Tract Infection: Yes - Psychiatric Hx Psychophysiologic Disorder: Yes Hx Anxiety: Yes Hx Bipolar Disorder: No Hx Depression: No Hx Emotional Abuse: No Hx Hallucinations: No Hx Panic Disorder: No Hx Post Traumatic Stress Disorder: No Hx Psychosis: No Hx Physical Abuse: No Hx Schizophrenia: No Hx Sexual Abuse: No Hx Substance Use: No - Surgical History Hx Amputation: Yes (Bilat LE) Other/Comment: CABG - Anesthesia Hx Anesthesia: Yes Hx Anesthesia Reactions: No Hx Malignant Hyperthermia: No - Suicidal Assessment Feels Threatened In Home Enviroment: No Family/Social History - Physician Review Nursing Documentation Reviewed: Yes Family/Social History: Unknown Family HX Smoking Status: Former Smoker Hx Alcohol Use: No Hx Substance Use: No Hx Substance Use Treatment: No Allergies/Home Meds Allergies/Adverse Reactions: Allergies No Known Allergies Allergy (Verified 10/11/18 21:47) Home Medications: Home Meds Medication Instructions Recorded Confirmed RX: Ferrous Sulfate [Feosol] 325 mg PO TID 06/11/18 10/11/18 RX: Insulin Human Regular [Novolin 4 units SC ACTID 06/11/18 10/11/18 R] RX: Potassium Chloride [K-Tab ER] 10 meq PO DAILY 06/11/18 10/11/18 RX: Atorvastatin [Lipitor] 40 mg PO HS 06/23/18 10/11/18 Clopidogrel [Plavix] 75 mg PO DAILY 08/25/18 10/11/18 Review of Systems - Physician Review All systems were reviewed & negative as marked: Yes - Review of Systems Constitutional: Other Eyes: Normal ENT: Normal Respiratory: Normal. absent: SOB, Cough Cardiovascular: Normal. absent: Chest Pain Gastrointestinal: Nausea. absent: Abdominal Pain, Diarrhea, Vomiting Genitourinary Female: Dysuria Musculoskeletal: Normal Skin: Normal Neurological: Normal Endocrine: Normal Hemo/Lymphatic: Normal Psychiatric: Normal Physical Exam Vital Signs Reviewed: Yes Vital Signs Temp Pulse Resp BP Pulse Ox 10/11/18 21:44 97.6 F 88 18 115/56 L 97 Temperature: Afebrile Blood Pressure: Hypotensive Pulse: Regular Respiratory Rate: Normal Appearance: Positive for: Well-Appearing, Non-Toxic, Comfortable Pain Distress: None Mental Status: Positive for: Alert and Oriented X 3 Finger Stick Blood Glucose: 255 - Systems Exam Head: Present: Atraumatic, Normocephalic Pupils: Present: PERRL Extroacular Muscles: Present: EOMI Conjunctiva: Present: Normal Mouth: Present: Moist Mucous Membranes Neck: Present: Normal Range of Motion Respiratory/Chest: Present: Clear to Auscultation, Good Air Exchange. No: Respiratory Distress, Accessory Muscle Use Cardiovascular: Present: Regular Rate and Rhythm, Normal S1, S2. No: Murmurs Abdomen: No: Tenderness, Distention, Peritoneal Signs Back: Present: Normal Inspection Upper Extremity: Present: Normal Inspection. No: Cyanosis, Edema Lower Extremity: Present: Other (Double AKA). No: Edema Neurological: Present: GCS=15, CN II-XII Intact, Speech Normal Skin: Present: Warm, Dry, Normal Color. No: Rashes Psychiatric: Present: Alert, Oriented x 3, Normal Insight, Normal Concentration Medical Decision Making ED Course and Treatment: 10/11/18 22:03 Impression: 83 year old female presents to the emergency department complaining of general malaise, nausea, and dysuria. Plan: -- Labs -- EKG -- CXR -- Urine Culture -- UA -- Reassess and disposition Progress Notes: 10/12/18 01:25 Case was discussed with PMD Dr. Grover.Accepts to his service.Dr.Murali on consult. - Lab Interpretations Lab Results: Lab Results 10/11/18 21:50: POC Glucose (mg/dL) 255 H - RAD Interpretation Narrative RAD Interpretations (Text): 10/12/18 00:03 CXR-No acute process Radiology Orders: 10/11/18 21:59 CHEST PORTABLE [RAD] Stat [employer]ro[employer] Installer: ED Physician - EKG Interpretation EKG Interpretation (Text): 10/12/18 00:04 EKG-Demand pacemaker,septal infarct,STT changes inferolateral Interpreted by ED Physician: Yes Type: 12 lead EKG - Scribe Statement The provider has reviewed the documentation as recorded by the Scribe Sierra Negrete All medical record entries made by the Scribe were at my direction and personally dictated by me. I have reviewed the chart and agree that the record accurately reflects my personal performance of the history, physical exam, medical decision making, and the department course for this patient. I have also personally directed, reviewed, and agree with the discharge instructions and disposition. Disposition/Present on Arrival - Present on Arrival Any Indicators Present on Arrival: No History of DVT/PE: No History of Uncontrolled Diabetes: Yes Urinary Catheter: No History of Decub. Ulcer: No History Surgical Site Infection Following: None - Disposition Have Diagnosis and Disposition been Completed?: Yes Diagnosis: UTI (urinary tract infection), Elevated troponin Disposition: HOSPITALIZED Disposition Time: 01:56 Patient Plan: Observation Patient Problems: Current Active Problems Problem Status Onset Elevated troponin Acute UTI (urinary tract infection) Acute Condition: STABLE
[2018-10-11] MEDS ORDERED: Sodium Chloride 0.9% 1,000 ML IV SCH (22:15)
[2018-10-11 22:49] LABS: MEAN CELL VOLUME 83.2 fl (80.0-105.0); MEAN CORPUSCULAR HEMOGLOBIN 26.8 pg (25.0-35.0); MEAN CORPUSCULAR HGB CONC 32.2 g/dl (31.0-37.0); MEAN PLATELET VOLUME 11.2 fl (7.0-11.0); RBC 4.11 10^6/uL (3.5-6.1); RED CELL DISTRIBUTION WIDTH 13.5 % (11.5-14.5); WHITE BLOOD COUNT 6.8 10^3/uL (4.5-11.0)
[2018-10-11 23:01] LABS: ALB/GLOB RATIO 1.1 (1.1-1.8); ALBUMIN 3.7 g/dL (3.0-4.8); CALCIUM 9.2 mg/dL (8.4-10.5)
[2018-10-11 23:17] LABS: TROPONIN I 0.55 ng/mL
[2018-10-12 00:46] LABS: URINE BILIRUBIN NEGATIVE (NEGATIVE); URINE BLOOD MODERATE (NEGATIVE); URINE GLUCOSE (UA) 250 mg/dL (NEGATIVE); URINE LEUKOCYTE ESTERASE MODERATE Leu/uL (NEGATIVE); URINE PROTEIN 30 mg/dL (<30 mg/dL); URINE UROBILINOGEN 0.2 E.U./dL (<1 E.U./dL)
[2018-10-12 00:47] LABS: URINE APPEARANCE CLOUDY (CLEAR); URINE COLOR YELLOW (YELLOW)
[2018-10-12 00:56] LABS: URINE WBC TNTC /hpf (0-6)
[2018-10-12 00:57] LABS: URINE AMORPHOUS SEDIMENT SMALL; URINE BACTERIA TRACE (NEG)
[2018-10-12] MEDS ORDERED: cefTRIAXone 1 gm 1 GM/100 ML BAG IV STA (01:30)
--- NOTE | 2018-10-12 08:53 | RAD ---
HISTORY: medical clearance COMPARISON: Chest x-ray performed 08/25/18 TECHNIQUE: Chest, one view. FINDINGS: LUNGS: Central vascular prominence. Mild pulmonary venous congestion. Patchy right lower lobe atelectasis/infiltrate. Please note that chest x-ray has limited sensitivity for the detection of pulmonary masses. PLEURA: No significant pleural effusion identified. No definite pneumothorax . CARDIOVASCULAR: Heart size appears top normal. Median sternotomy wires. Ectatic aorta with atherosclerotic calcifications. Single lead left-sided pacemaker. OSSEOUS STRUCTURES: Osseous demineralization. Degenerative changes. VISUALIZED UPPER ABDOMEN: Unremarkable. OTHER FINDINGS: None. IMPRESSION: Central vascular prominence. Mild pulmonary venous congestion. Patchy right lower lobe atelectasis/infiltrate. Study marked for PA review.
[2018-10-12 09:40] LABS: TROPONIN I 1.16 ng/mL
[2018-10-12] MEDS: Heparin25000 units/250ml 1/2NS 25,000 UNITS/250 ML BAG IV SCH (11:32)
[2018-10-12] MEDS: Azithromycin 500MG/NS 250ml 500 MG/250 ML BAG IVPB SCH (11:35)
--- NOTE | 2018-10-12 12:07 | HP ---
DATE OF EXAM: 10/12/2018 HISTORY OF PRESENT ILLNESS: The patient is an 83-year-old female with a history of coronary artery disease who presented to the emergency room this morning complaining of weakness of the arms nausea, diaphoresis. She denied any fevers, chills, no cough, mild dyspnea with minimal exertion. No chest pain. No nausea, no vomiting. The patient has been admitted to the Telemetry Unit for further evaluation and management. PAST MEDICAL HISTORY: Includes coronary artery disease status post [id number] elevation myocardial infarction in 04/2018. She underwent cardiac catheterization by Dr. Chandler/Murali and had stent placements x2. She is currently on Plavix and aspirin. The patient also has a history of type 2 diabetes mellitus, hypertension, chronic kidney disease. 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 The patient's current medications include Plavix 75 mg, aspirin 81 mg, potassium chloride 10 mEq daily, metoprolol tartrate 25 mg twice daily, Lasix 40 mg daily Pepcid 40 mg daily, Lipitor 40 mg daily and Synthroid 25 mg daily for history of hypothyroidism. ALLERGIES: THE PATIENT NO KNOWN DRUG ALLERGIES. FAMILY HISTORY: Noncontributory. SOCIAL HISTORY The patient has no history of alcohol or tobacco use. REVIEW OF SYSTEMS: As above. PHYSICAL EXAMINATION: GENERAL: The patient is a well-developed, mildly obese female, in no acute distress. VITAL SIGNS: Blood pressure 134/55, temperature 97.9, pulse 76, respiratory rate 19. HEENT: Normocephalic, atraumatic. Pupils equal, round, reactive to light. Extraocular movements intact. NECK: Supple. No thyromegaly. No carotid bruit. No adenopathy. LUNGS: Show a few bibasilar rales with some coarse crackles at the right base. HEART: Regular rate and rhythm. Grade II/ systolic murmur. ABDOMEN: Soft, mildly obese, nontender. Bowel sounds are normoactive. EXTREMITIES: The patient is status post bilateral above-knee amputations. Stumps are healed. There is no edema. NEUROLOGIC: The patient is awake and oriented x3 without focal sensory or motor deficits. SKIN: Warm and dry. LABORATORY DATA: WBC 6.8, hemoglobin 11.0, hematocrit 34.2. Sodium 131, potassium 4.9, chloride 98, CO2 22, BUN 74, creatinine 1.3, glucose elevated 281. Troponin is 0.55 and 1.16 today. Chest x-ray shows right lower lobe atelectasis and/or infiltrate. IMPRESSION: 1. Coronary artery disease, rule out acute myocardial infarct/ischemia. 2. Right lower lobe pneumonia. 3. Congestive heart failure/hypertension and hypertensive cardiovascular disease. 4. Hypertension. 5. Type 2 diabetes mellitus. 6. Chronic kidney disease. 7. Hypothyroidism. 8. Peripheral vascular disease status post bilateral above-knee amputations with immobility. PLAN: The patient is admitted to the telemetry unit. We will start empiric antibiotics with Rocephin 1 g IV every 24 hours and Zithromax 500 mg IV every 24 hours. We will obtain cardiology consultation with Dr. Chandler/Murali, Dr. Alexis has was ordered parenteral heparin for the patient. We will monitor troponin levels, electrolytes, start the patient on low-dose regular insulin coverage Donald Grover JD/
[2018-10-12] MEDS: Insulin Reg-LOW-Coverage SC SCH ×3 (12:36→21:50)
--- NOTE | 2018-10-12 18:30 | CARD ---
APPROVED REPORT Date of service: 10/12/2018 EKG Measurement Heart [id number] <Conclusion> Electronic ventricular pacemaker
--- NOTE | 2018-10-12 18:47 | CARD ---
APPROVED REPORT Date of service: 10/11/2018 EKG Measurement Heart [id number] <Conclusion> Demand pacemaker, interpretation is based on intrinsic rhythm Sinus rhythm with 1st degree AV block Septal infarct, age undetermined ST & T wave abnormality, consider inferolateral ischemia Abnormal ECG
--- NOTE | 2018-10-12 22:46 | CON ---
DATE: 10/12/2018 CARDIOLOGY CONSULTATION Cardiology consultation (for Dr. Carrion). HISTORY: The patient is an 83-year-old woman, who presents with general malaise, abdominal pain with nausea. She denies substernal chest pain. The patient's past medical history is notable for bilateral AKAs, diabetes mellitus, CHF, coronary artery disease, status post aortic valve replacement with open TAVR. Currently, the patient is nauseous, but without shortness of breath and without chest pain. Social history and review of systems are not available at this time. PHYSICAL EXAMINATION: VITAL SIGNS: Blood pressure is 125/57, heart rate is paced. NECK: Negative JVD. LUNGS: Lungs without rales. HEART: Reveals 2/6 systolic ejection murmur. EXTREMITIES: Status post AKAs. LABORATORY DATA: EKG shows diffuse ST-T changes and an unpaced rhythm. Hemoglobin is 11. Chemistries, troponins are elevated, max at 1.16, glucose is 281. BUN and creatinine are 74 and 1.3. IMPRESSION: 1. Non-ST elevation myocardial infarction. 2. History of coronary artery disease. 3. History of aortic valve replacement. 4. Diabetes mellitus. 5. Peripheral vascular disease. 6. Status post bilateral above knee amputations. 7. History of aortic valve replacement via open transcatheter aortic valve replacement. 8. Prerenal azotemia. PLAN: Given these findings, we will start the patient on aspirin today, IV heparin has been started. We will discuss with Dr. Carrion about possible cardiac catheterization in the morning. Wilber Alexis MD
[2018-10-13 07:36] LABS: BASO # 0.05 K/mm3 (0.0-2.0); BASO % 0.7 % (0.0-3.0); EOS # 0.1 (0.0-0.7); EOS % 1.2 % (1.5-5.0); GRAN # 4.41 (1.4-6.5); GRAN % 57.8 % (50.0-68.0); HEMOGLOBIN 10.5 g/dL (12.0-16.0); LYMPH # 2.4 (1.2-3.4); MEAN CELL VOLUME 84.2 fl (80.0-105.0); MEAN CORPUSCULAR HEMOGLOBIN 26.7 pg (25.0-35.0); MEAN CORPUSCULAR HGB CONC 31.7 g/dl (31.0-37.0); MEAN PLATELET VOLUME 11.8 fl (7.0-11.0); MONO # 0.7 (0.1-0.6); MONO % 9.3 % (1.0-6.0); RBC 3.93 10^6/uL (3.5-6.1); WHITE BLOOD COUNT 7.6 10^3/uL (4.5-11.0)
[2018-10-13] MEDS: Insulin Reg-LOW-Coverage SC SCH ×4 (07:52→22:51)
[2018-10-13 07:59] LABS: ALBUMIN 3.5 g/dL (3.0-4.8); CALCIUM 9.3 mg/dL (8.4-10.5)
[2018-10-13 08:15] LABS: TROPONIN I 2.78 ng/mL
[2018-10-13] MEDS ORDERED: Sod Polystyrene Sulf 15 gm/60 ml Susp PO ONE (08:34)
--- NOTE | 2018-10-13 09:30 | CP.PCM.PN ---
Subjective - Date & Time of Evaluation Date of Evaluation: 10/13/18 Time of Evaluation: 09:20 - Subjective Subjective: NAD, denies chest pain, no SOB Objective - Vital Signs/Intake and Output Vital Signs (last 24 hours): Temp Pulse Resp BP Pulse Ox 97.8 F 60 20 123/64 99 10/13/18 06:00 10/13/18 06:00 10/13/18 06:00 10/13/18 06:00 10/13/18 06:00 Intake and Output: 10/13/18 10/13/18 06:59 18:59 Intake Total 370 Balance 370 - Medications Medications: Current Medications Atorvastatin Calcium (Lipitor) 40 mg PO DIN [facility] Last Admin: 10/12/18 17:13 Dose: 40 mg Famotidine (Pepcid) 20 mg PO HS [facility] Last Admin: 10/12/18 21:53 Dose: 20 mg Furosemide (Lasix) 60 mg IVP DAILY [facility] Last Admin: 10/12/18 11:24 Dose: 60 mg Ceftriaxone Sodium (Rocephin 1 Gram Ivpb) 1 gm in 100 mls @ 100 mls/hr IVPB DAILY [facility]; Protocol Azithromycin (Zithromax 500mg In Ns) 500 mg in 250 mls @ 167 mls/hr IVPB DAILY [facility]; Protocol Last Admin: 10/12/18 11:35 Dose: 167 mls/hr Heparin Sodium/Sodium Chloride (Heparin 26884 Units/250ml 1/2 Normal Saline) 25,000 units in 250 mls @ 8 mls/hr IV .Q24H CON[facility]; Protocol Last Titration: 10/13/18 03:04 Dose: 7.6 mls/hr Sodium Chloride (Sodium Chloride 0.9%) 1,000 mls @ 50 mls/hr IV .Q20H [facility]SU[facility] Insulin Human Regular (Humulin R Low) 0 units SC ACHS [facility]; Protocol Last Admin: 10/13/18 07:52 Dose: Not Given Metoprolol Tartrate (Lopressor) 25 mg PO BID [facility] Last Admin: 10/12/18 17:13 Dose: Not Given Ondansetron HCl (Zofran Inj) 4 mg IVP Q6H PRN PRN Reason: Nausea/Vomiting Last Admin: 10/12/18 13:02 Dose: 4 mg - Labs Labs: 10/13/18 07:00 10/13/18 07:00 APTT 61.5 Seconds (25.1-36.5) H 10/13/18 08:55 - Respiratory Exam Respiratory Exam: Rales - Cardiovascular Exam Cardiovascular Exam: REGULAR RHYTHM, Murmur - GI/Abdominal Exam GI & Abdominal Exam: Soft, Normal Bowel Sounds - Neurological Exam Neurological Exam: Alert, Awake - Skin Skin Exam: Dry, Warm Assessment and Plan (1) Elevated troponin Status: Acute (2) Coronary artery disease Status: Acute (3) Type II diabetes mellitus Status: Chronic (4) Azotemia Status: Chronic (5) HTN (hypertension) Status: Resolved (6) Hyperkalemia Status: Acute - Assessment and Plan (Free Text) Assessment: monitor lytes, for cardiac cath pending correction of hyperkalemia and i mprovement of azotemia, kayexalate ordered, cardiology f/u DRs. Chandler/Murali
[2018-10-13] MEDS: Heparin25000 units/250ml 1/2NS 25,000 UNITS/250 ML BAG IV SCH ×2 (10:03→22:29)
[2018-10-13] MEDS: Sodium Chloride 0.9% 1,000 ML IV SCH (11:38)
[2018-10-13] MEDS: cefTRIAXone 1 gm 1 GM/100 ML BAG IVPB SCH (11:39)
--- NOTE | 2018-10-13 11:49 | CP.PCM.APN ---
Subjective - Date & Time of Evaluation Date of Evaluation: 10/13/18 Time of Evaluation: 09:00 - Subjective Subjective: pt seen and examined at bedside Objective - Vital Signs/Intake and Output Vital Signs (last 24 hours): Temp Pulse Resp BP Pulse Ox 97.8 F 72 20 131/68 99 10/13/18 06:00 10/13/18 10:06 10/13/18 06:00 10/13/18 10:06 10/13/18 06:00 Intake and Output: 10/13/18 10/13/18 06:59 18:59 Intake Total 370 150 Balance 370 150 - Medications Medications: Current Medications Atorvastatin Calcium (Lipitor) 40 mg PO DIN [facility] Last Admin: 10/12/18 17:13 Dose: 40 mg Azithromycin (Zithromax) 500 mg PO DAILY [facility] Stop: 10/17/18 10:16 Famotidine (Pepcid) 20 mg PO HS [facility] Last Admin: 10/12/18 21:53 Dose: 20 mg Furosemide (Lasix) 60 mg IVP DAILY [facility] Last Admin: 10/13/18 10:06 Dose: 60 mg Ceftriaxone Sodium (Rocephin 1 Gram Ivpb) 1 gm in 100 mls @ 100 mls/hr IVPB JULIO LY [facility]; Protocol Last Admin: 10/13/18 11:39 Dose: 100 mls/hr Heparin Sodium/Sodium Chloride (Heparin 27303 Units/250ml 1/2 Normal Saline) 25,000 units in 250 mls @ 8 mls/hr IV .Q24H CONSUELO; Protocol Last Admin: 10/13/18 10:03 Dose: 7.6 mls/hr Sodium Chloride (Sodium Chloride 0.9%) 1,000 mls @ 50 mls/hr IV .Q20H CONSUELO Last Admin: 10/13/18 11:38 Dose: 50 mls/hr Insulin Human Regular (Humulin R Low) 0 units SC ACHS CONSUELO; Protocol Last Admin: 10/13/18 07:52 Dose: Not Given Metoprolol Tartrate (Lopressor) 25 mg PO BID [facility] Last Admin: 10/13/18 10:06 Dose: 25 mg Ondansetron HCl (Zofran Inj) 4 mg IVP Q6H PRN PRN Reason: Nausea/Vomiting Last Admin: 10/12/18 13:02 Dose: 4 mg - Labs Labs: 10/13/18 07:00 10/13/18 07:00 APTT 61.5 Seconds (25.1-36.5) H 10/13/18 08:55 - Constitutional Appears: Non-toxic, No Acute Distress - Head Exam Head Exam: NORMAL INSPECTION, NORMOCEPHALIC - Eye Exam Eye Exam: EOMI Pupil Exam: NORMAL ACCOMODATION - Respiratory Exam Respiratory Exam: Decreased Breath Sounds - Cardiovascular Exam Cardiovascular Exam: +S1, +S2 - GI/Abdominal Exam GI & Abdominal Exam: Normal Bowel Sounds - Extremities Exam Additional comments: aka - Neurological Exam Neurological Exam: Alert, Awake, Oriented x3 - Additional Findings Additional findings: aka Assessment and Plan - Assessment and Plan (Free Text) Plan: 83 yr old white female with pmh sig for dm, aka, avr (tavr) ppm who presented to the ER with generalized malaise nausea and dysuria found to have NSTEMI , UTI and kyperkalemia plan cath possibly Saturday with Dr Carrion for NSTEMI - IV heparin onboard - discussed with Dr Carrion treat hyperkalemia monitor renal function iV antibiotics for gm negative [place] / gm positiove cocci in urine awaiting ID and sensitivity cxr with ? right lobe infiltrate / venous congestion on iV lasix will follow clinical course BPCI/TIC - BPCIA/TIC Educated pt/family on BPCIA/CIR/Med to Bed Programs: Yes Flyers given, including [facility] Beneficiary letter: Yes Pt/family verbalized understanding & agreed to program: Yes
[2018-10-13] MEDS: Azithromycin 500MG/NS 250ml 500 MG/250 ML BAG IVPB SCH (13:46)
[2018-10-13 15:51] LABS: CALCIUM 9.1 mg/dL (8.4-10.5)
[2018-10-14] MEDS ORDERED: Heparin25000 units/250ml 1/2NS 25,000 UNITS/250 ML BAG IV SCH (02:06)
[2018-10-14 06:55] LABS: HEMOGLOBIN 9.8 g/dL (12.0-16.0); MEAN CELL VOLUME 85.4 fl (80.0-105.0); MEAN CORPUSCULAR HEMOGLOBIN 26.5 pg (25.0-35.0); MEAN PLATELET VOLUME 11.1 fl (7.0-11.0); RBC 3.7 10^6/uL (3.5-6.1); RED CELL DISTRIBUTION WIDTH 14.5 % (11.5-14.5); WHITE BLOOD COUNT 6.5 10^3/uL (4.5-11.0)
[2018-10-14 07:30] LABS: ALBUMIN 3.4 g/dL (3.0-4.8)
[2018-10-14] MEDS: Insulin Reg-LOW-Coverage SC SCH ×4 (08:28→22:29)
--- NOTE | 2018-10-14 08:53 | PN ---
DATE: 10/13/2018 REASON FOR CONSULTATION AND FOLLOWUP: Admitted with unstable angina, history of coronary artery disease, history of angioplasty, history of severe peripheral artery disease, status post BKA, history of TAVR, non-ST segment myocardial infarction. SUBJECTIVE: The patient is an 83-year-old. The patient denies chest pain, shortness of breath, or any palpitation. The patient is scheduled for cardiac catheterization today. PHYSICAL EXAMINATION VITAL SIGNS: Temperature afebrile, heart rate 72, and blood pressure 130/68. HEENT: PERRLA intact. NECK: Supple. No carotid bruit or thyromegaly. CHEST: Clear to auscultation. HEART: S1 and S2 regular. ABDOMEN: Soft. EXTREMITIES: Clubbing and cyanosis negative. LABORATORY DATA: Blood workup; WBC , hemoglobin , hematocrit 33.1, and platelet count 233. Chemistry shows sodium 133, potassium 5.6, chloride 103, carbon dioxide 22, anion gap of 14, BUN 75, creatinine 1.6. Troponin 2.78. IMPRESSION: Acute kidney injury, hyperkalemia, creatinine clearance 30 mL an hour, non-ST segment myocardial infarction, coronary artery disease, severe aortic stenosis, status post open transcatheter aortic valve replacement, diabetes, severe peripheral arterial disease, status post bilateral knee amputation, status post single-chamber pacemaker, significant bradycardia on 07/17/2018, history of percutaneous transluminal coronary angioplasty of right coronary artery 06/12/2018, and history of percutaneous transluminal coronary angioplasty of left anterior descending on 05/15/2018, admitted with unstable angina, acute kidney injury, history of transcatheter aortic valve replacement, admitted with unstable angina, the patient was scheduled for cardiac catheterization, but potassium 5.5 and creatinine of 1.6, we will cancel the cardiac catheterization and start hydration, give Kayexalate, resume the diet and we will reassess in 24 hours, if the renal function improves, possible cardiac catheterization on Saturday. Thank you Dr. Grover for providing us the opportunity in taking care of the patient, Basia Sara. Omero Carrion MD cc: Dr. Grover [facility] # [phone]
[2018-10-14] MEDS: cefTRIAXone 1 gm 1 GM/100 ML BAG IVPB SCH (09:07)
[2018-10-14] MEDS: Sodium Chloride 0.9% 1,000 ML IV SCH ×3 (09:10→23:04)
--- NOTE | 2018-10-14 09:32 | PQF ---
PROVIDER RESPONSE TEXT: Patient with diagnosis of probable Chronic Kidney Disease Stage 3 REVIEWER QUERY TEXT: Kidney Disease, Chronic CKD Stage Chronic Kidney Disease (CKD) is documented in the Medical Record. Please specify the disease stage ( includes probable or suspected) Such as: -- Chronic kidney disease Stage 1 -- Chronic kidney disease Stage 2 -- Chronic kidney disease Stage 3 -- Chronic kidney disease Stage 4 -- Chronic kidney disease Stage 5 -- Chronic kidney disease Stage 5, requiring dialysis -- End Stage Renal Disease -- Other, please specify Stages are defined by the [employer] as follows: CKD Stage I GFR >= 90 ml / min per 1.73 m2 and persistent albuminuria CKD Stage 2 GFR between 60 and 89 with persistent albuminuria CKD Stage 3 GFR between 30 and 59 CKD Stage 4 GFR between 15 and 29 CKD Stage 5 GFR between <15 or End Stage Renal Disease The patient's Clinical Indicators include: BUN/creatinine elevated on admission and increasing. Please specify the stage of the CKD. Query created by: Savanah Arreola on 10/14/2018 7:07 AM Electronically signed by: Donald Grover MD 10/14/2018 9:29 AM
--- NOTE | 2018-10-14 10:56 | CP.PCM.APN ---
Subjective - Date & Time of Evaluation Date of Evaluation: 10/14/18 Time of Evaluation: 10:45 - Subjective Subjective: pt seen lying in bed with son at her side Review of Systems - Constitutional Constitutional: absent: As Per HPI, Anorexia, Chills, Daytime Sleepiness, Excessive Sweating, Fatigue, Fever, Frequent Falls, Headache, Increased Appetite, Lethargy, Malaise, Night Sweats, Snoring, Sleep Apnea, Weight Gain, Weight Loss, Weakness, Other Objective - Vital Signs/Intake and Output Vital Signs (last 24 hours): Temp Pulse Resp BP Pulse Ox 97.6 F 64 20 111/53 L 99 10/13/18 18:00 10/14/18 09:07 10/13/18 18:00 10/14/18 09:08 10/13/18 06:00 Intake and Output: 10/14/18 10/14/18 06:59 18:59 Intake Total 3850 30 Output Total 1 Balance 3849 30 - Medications Medications: Current Medications Aspirin (Ecotrin) 81 mg PO DAILY [facility] Atorvastatin Calcium (Lipitor) 40 mg PO DIN [facility] Last Admin: 10/13/18 18:24 Dose: 40 mg Azithromycin (Zithromax) 500 mg PO DAILY [facility] Stop: 10/17/18 10:16 Last Admin: 10/14/18 09:08 Dose: 500 mg Clopidogrel Bisulfate (Plavix) 75 mg PO DAILY [facility] Famotidine (Pepcid) 20 mg PO HS [facility] Last Admin: 10/14/18 00:42 Dose: 20 mg Furosemide (Lasix) 60 mg IVP DAILY [facility] Last Admin: 10/14/18 09:08 Dose: 60 mg Ceftriaxone Sodium (Rocephin 1 Gram Ivpb) 1 gm in 100 mls @ 100 mls/hr IVPB DAILY [facility]; Protocol Stop: 10/17/18 10:59 Last Admin: 10/14/18 09:07 Dose: 100 mls/hr Heparin Sodium/Sodium Chloride (Heparin 39699 Units/250ml 1/2 Normal Saline) 25,000 units in 250 mls @ 7.569 mls/hr IV .Q24H [facility]; Protocol Stop: 10/15/18 02:00 Last Titration: 10/14/18 08:33 Dose: 10.3 units/kg/hr, 7.569 mls/hr Sodium Chloride (Sodium Chloride 0.9%) 1,000 mls @ 75 mls/hr IV .[id number] [facility] Last Admin: 10/14/18 10:19 Dose: 75 mls/hr Insulin Human Regular (Humulin R Low) 0 units SC ACHS [facility]; Protocol Last Admin: 10/14/18 08:28 Dose: Not Given Metoprolol Tartrate (Lopressor) 25 mg PO BID [facility] Last Admin: 10/14/18 09:07 Dose: 25 mg Ondansetron HCl (Zofran Inj) 4 mg IVP Q6H PRN PRN Reason: Nausea/Vomiting Last Admin: 10/14/18 09:59 Dose: 4 mg - Labs Labs: 10/14/18 06:00 10/14/18 06:00 APTT 93.4 Seconds (25.1-36.5) H 10/14/18 07:45 - Constitutional Appears: Non-toxic, No Acute Distress - Head Exam Head Exam: ATRAUMATIC, NORMOCEPHALIC - Eye Exam Eye Exam: Normal appearance Pupil Exam: NORMAL ACCOMODATION - Respiratory Exam Respiratory Exam: Decreased Breath Sounds, NORMAL BREATHING PATTERN - Cardiovascular Exam Cardiovascular Exam: +S1, +S2 - Extremities Exam Additional comments: aka - Neurological Exam Neurological Exam: Alert, Awake - Psychiatric Exam Psychiatric exam: Normal Affect, Normal Mood - Skin Skin Exam: Dry, Intact Assessment and Plan - Assessment and Plan (Free Text) Plan: Microbiology 10/12/18 00:35 Urine Urine Culture - Preliminary Gram Negative Riaz Gram Positive Cocci Plan: 83 yr old white female with pmh sig for dm, aka, avr (tavr) ppm who presented to the ER with generalized malaise nausea and dysuria found to have NSTEMI , UTI and hyperkalemia plan hyperkalemia resolved - now 4.0 monitor renal function - 71 and 1.8 today iV antibiotics for gm negative riaz / gm positiove cocci in urine awaiting ID and sensitivity both > 100,000 cxr with ? right lobe infiltrate / venous congestion on iV lasix cath possibly Saturday with Dr Carrion for NSTEMI - IV heparin onboard - discussed with Dr Carrion , plavix load given repeat labs ordred for am will follow clinical course BPCI/TIC - BPCIA/TIC Educated pt/family on BPCIA/CIR/Med to Bed Programs: Yes Flyers given, including [facility] Beneficiary letter: Yes Pt/family verbalized understanding & agreed to program: Yes
--- NOTE | 2018-10-14 11:53 | CP.PCM.PN ---
Subjective - Date & Time of Evaluation Date of Evaluation: 10/14/18 Time of Evaluation: 09:30 - Subjective Subjective: resting comfortably, NAD, denies chest pain, no SOB Objective - Vital Signs/Intake and Output Vital Signs (last 24 hours): Temp Pulse Resp BP Pulse Ox 97.6 F 64 20 111/53 L 99 10/13/18 18:00 10/14/18 09:07 10/13/18 18:00 10/14/18 09:08 10/13/18 06:00 Intake and Output: 10/14/18 10/14/18 06:59 18:59 Intake Total 3850 30 Output Total 1 Balance 3849 30 - Medications Medications: Current Medications Aspirin (Ecotrin) 81 mg PO DAILY [facility] Atorvastatin Calcium (Lipitor) 40 mg PO DIN [facility] Last Admin: 10/13/18 18:24 Dose: 40 mg Azithromycin (Zithromax) 500 mg PO DAILY [facility] Stop: 10/17/18 10:16 Last Admin: 10/14/18 09:08 Dose: 500 mg Clopidogrel Bisulfate (Plavix) 75 mg PO DAILY [facility] Famotidine (Pepcid) 20 mg PO HS [facility] Last Admin: 10/14/18 00:42 Dose: 20 mg Furosemide (Lasix) 60 mg IVP DAILY [facility] Last Admin: 10/14/18 09:08 Dose: 60 mg Ceftriaxone Sodium (Rocephin 1 Gram Ivpb) 1 gm in 100 mls @ 100 mls/hr IVPB DAILY [facility]; Protocol Stop: 10/17/18 10:59 Last Admin: 10/14/18 09:07 Dose: 100 mls/hr Heparin Sodium/Sodium Chloride (Heparin 75868 Units/250ml 1/2 Normal Saline) 25,000 units in 250 mls @ 7.569 mls/hr IV .Q24H [facility]; Protocol Stop: 10/15/18 02:00 Last Titration: 10/14/18 08:33 Dose: 10.3 units/kg/hr, 7.569 mls/hr Sodium Chloride (Sodium Chloride 0.9%) 1,000 mls @ 75 mls/hr IV .[id number] [facility] Last Admin: 10/14/18 10:19 Dose: 75 mls/hr Insulin Human Regular (Humulin R Low) 0 units SC ACHS [facility]; Protocol Last Admin: 10/14/18 08:28 Dose: Not Given Metoprolol Tartrate (Lopressor) 25 mg PO BID [facility] Last Admin: 10/14/18 09:07 Dose: 25 mg Ondansetron HCl (Zofran Inj) 4 mg IVP Q6H PRN PRN Reason: Nausea/Vomiting Last Admin: 10/14/18 09:59 Dose: 4 mg - Labs Labs: 10/14/18 06:00 10/14/18 06:00 APTT 93.4 Seconds (25.1-36.5) H 10/14/18 07:45 - Respiratory Exam Respiratory Exam: Rales - Cardiovascular Exam Cardiovascular Exam: REGULAR RHYTHM - GI/Abdominal Exam GI & Abdominal Exam: Soft, Normal Bowel Sounds - Neurological Exam Neurological Exam: Alert, Awake - Skin Skin Exam: Dry, Warm Assessment and Plan (1) Elevated troponin Status: Acute (2) Coronary artery disease Status: Acute (3) Type II diabetes mellitus Status: Chronic (4) Azotemia Status: Chronic (5) HTN (hypertension) Status: Resolved (6) Hyperkalemia Status: Chronic - Assessment and Plan (Free Text) Plan: continue present care, for cath in am
--- NOTE | 2018-10-14 15:05 | PN ---
DATE: 10/14/2018 SEX OF THE PATIENT: Female. AGE OF THE PATIENT: 83. REASON FOR CONSULTATION: Follow up unstable angina, acute coronary syndrome, history of coronary artery disease, history of TAVR, history status post angioplasty, severe PAD, status post bilateral BKA, non-ST segment myocardial infarction. SUBJECTIVE: The patient denies chest pain, shortness of breath, or any palpitation. OBJECTIVE: GENERAL: Not in apparent distress. VITAL SIGNS: Temperature afebrile, heart rate 64, and blood pressure 111/53. HEENT: PERRLA, extraocular movements intact. NECK: Supple. No carotid bruit or thyromegaly. CHEST: Clear to auscultation. HEART: S1 and S2 regular. ABDOMEN: Soft. EXTREMITIES: Clubbing and cyanosis negative. LABORATORY DATA: Blood workup as follows; WBC 6.5, hemoglobin 9.8, hematocrit 31.6, and platelet count 219. Chemistry shows sodium 135, potassium 4, chloride 103, carbon dioxide 22, anion gap of 15, BUN ___, creatinine 1.8. IMPRESSION: An 83-year-old female with past medical history significant for severe aortic stenosis, status post transcatheter aortic valve replacement, status post left anterior descending and status post percutaneous transluminal coronary angioplasty of right coronary artery and recently the history of pacemaker because of symptomatic bradycardia 07/17/2018, history of right coronary angioplasty 06/12/2018, history of percutaneous transluminal coronary angioplasty of the left anterior descending artery 05/15/2018, admitted with unstable angina. The patient was scheduled for cardiac catheterization yesterday, but when taken, found to be with elevated BUN and creatinine as is potassium 5.5. The patient was treated with intravenous fluids and Kayexalate. Today, potassium is 4, but creatinine 1.8. RECOMMENDATION: Continue gentle hydration, continue intravenous heparin, continue beta-penelope, atorvastatin. Hold Lasix. We will repeat the labs in the morning. If remained stable, I will do the cardiac cath tomorrow. I discussed with the patient's son yesterday about the patient's prognosis and patient's condition. Thank you Dr. Grover for providing us the opportunity in taking care of the patient. Omero Carrion MD
[2018-10-15] MEDS ORDERED: Morphine 2 mg/ml ISec IVP ONE (00:59)
[2018-10-15 06:21] VITALS: TEMP 97.8
--- NOTE | 2018-10-15 08:09 | CP.PCM.PN ---
Subjective - Date & Time of Evaluation Date of Evaluation: 10/15/18 Time of Evaluation: 06:45 - Subjective Subjective: Awake, alert, feels nausea Reason for consultation and follow up:Cardiac evaluation of unstable angina,history of coronary artery disease, post stents, history of TAVR, peripheral arterial disease, diabetes, bilateral BKA, non ST myocardial infarction. Seen and examined by me and Dr. Carrion Objective - Vital Signs/Intake and Output Vital Signs (last 24 hours): Temp Pulse Resp BP Pulse Ox 97.8 F 60 19 125/72 100 10/15/18 06:00 10/15/18 06:00 10/15/18 06:00 10/15/18 06:00 10/15/18 06:00 Intake and Output: 10/15/18 10/15/18 06:59 18:59 Intake Total 2587.8 Output Total 0 Balance 2587.8 - Medications Medications: Current Medications Aspirin (Ecotrin) 81 mg PO DAILY [facility] Atorvastatin Calcium (Lipitor) 40 mg PO DIN [facility] Last Admin: 10/14/18 18:00 Dose: 40 mg Azithromycin (Zithromax) 500 mg PO DAILY [facility] Stop: 10/17/18 10:16 Last Admin: 10/14/18 09:08 Dose: 500 mg Clopidogrel Bisulfate (Plavix) 75 mg PO DAILY [facility] Famotidine (Pepcid) 20 mg PO HS [facility] Last Admin: 10/14/18 21:22 Dose: 20 mg Furosemide (Lasix) 60 mg IVP DAILY [facility] Last Admin: 10/14/18 09:08 Dose: 60 mg Ceftriaxone Sodium (Rocephin 1 Gram Ivpb) 1 gm in 100 mls @ 100 mls/hr IVPB DAILY [facility]; Protocol Stop: 10/17/18 10:59 Last Admin: 10/14/18 09:07 Dose: 100 mls/hr Sodium Chloride (Sodium Chloride 0.9%) 1,000 mls @ 75 mls/hr IV .[id number] [facility] Last Admin: 10/14/18 23:04 Dose: 75 mls/hr Insulin Human Regular (Humulin R Low) 0 units SC ACHS [facility]; Protocol Last Admin: 10/14/18 22:29 Dose: Not Given Metoprolol Tartrate (Lopressor) 25 mg PO BID [facility] Last Admin: 10/14/18 18:00 Dose: 25 mg Ondansetron HCl (Zofran Inj) 4 mg IVP Q6H PRN PRN Reason: Nausea/Vomiting Last Admin: 10/15/18 06:58 Dose: 4 mg - Labs Labs: 10/14/18 06:00 10/14/18 06:00 APTT 43.7 Seconds (25.1-36.5) H 10/14/18 19:50 - Constitutional Appears: Non-toxic, No Acute Distress - Head Exam Head Exam: NORMAL INSPECTION, NORMOCEPHALIC - Eye Exam Eye Exam: Normal appearance - ENT Exam ENT Exam: Mucous Membranes Dry - Respiratory Exam Respiratory Exam: Clear to Ausculation Bilateral, NORMAL BREATHING PATTERN - Cardiovascular Exam Cardiovascular Exam: +S1, +S2 Additional comments: PPM V pacing - GI/Abdominal Exam GI & Abdominal Exam: Soft, Normal Bowel Sounds Additional comments: nausea - Extremities Exam Extremities Exam: Full ROM Additional comments: bilateral BKA - Neurological Exam Neurological Exam: Alert, Awake, Oriented x3 - Psychiatric Exam Psychiatric exam: Anxious - Skin Skin Exam: Dry, Normal Color, Warm Assessment and Plan - Assessment and Plan (Free Text) Assessment: An 83 year old female who came in to the ER due to general malaise, nausea and dysuria. 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 Scheduled for cardiac cath yesterday however was cancelled due to elevated potassium and BUN/creatinine. IV fluids given and kayexalate. Repeat K 4.0. For cardiac cath today. Plan: Feels nausea, Zofran PRN given For cardiac cath today Heart rate and blood pressure controlled Continue current treatment Continue current medications Further recommendation after cardiac cath Will follow up Plan and treatment discussed with Dr. Carrion
[2018-10-15 08:12] LABS: HEMOGLOBIN 10.2 g/dL (12.0-16.0); MEAN CELL VOLUME 85.9 fl (80.0-105.0); MEAN CORPUSCULAR HEMOGLOBIN 26.2 pg (25.0-35.0); MEAN CORPUSCULAR HGB CONC 30.5 g/dl (31.0-37.0); MEAN PLATELET VOLUME 11.2 fl (7.0-11.0); RBC 3.89 10^6/uL (3.5-6.1); RED CELL DISTRIBUTION WIDTH 14.8 % (11.5-14.5)
[2018-10-15 08:29] LABS: ALB/GLOB RATIO 1.1 (1.1-1.8); ALBUMIN 3.4 g/dL (3.0-4.8); CALCIUM 8.9 mg/dL (8.4-10.5)
[2018-10-15] MEDS: Insulin Reg-LOW-Coverage SC SCH (08:32)
[2018-10-15 08:39] VITALS: BP 121/68; PULSE 65
[2018-10-15] MEDS ORDERED: Lidocaine 2% Inj (20ml) ONE (09:11)
[2018-10-15] MEDS ORDERED: Iodixanol 320 MG/ML 200 ML BOTTLE IV ONE (09:12)
[2018-10-15] MEDS ORDERED: Iohexol 350mgl/ml 50 ML ONE (09:12)
[2018-10-15] MEDS: cefTRIAXone 1 gm 1 GM/100 ML BAG IVPB SCH (09:15)
[2018-10-15 09:24] VITALS: RESP 18; O2SAT 94
[2018-10-15] MEDS ORDERED: Midazolam 2 MG/2 ML VIAL ONE (09:59)
[2018-10-15] MEDS ORDERED: Cefpodoxime (Vantin) 200 mg Tab PO SCH (10:00)
[2018-10-15] MEDS ORDERED: Naloxone 0.4 mg/ml Inj (Adult) ONE ×2 (10:07→10:10)
[2018-10-15] MEDS ORDERED: Flumazenil 0.1 mg/ml Inj (5ml) IVP ONE (10:08)
[2018-10-15] MEDS ORDERED: Sodium Bicarbonate (8.4%) 50 Meq Syringe IVP ONE (10:31)
--- NOTE | 2018-10-15 10:35 | CP.PCM.PN ---
Subjective - Date & Time of Evaluation Date of Evaluation: 10/15/18 Time of Evaluation: 09:00 - Subjective Subjective: resting comfortably, NAD, some nausea from meds, no vomiting, denies chest pain, no SOB Objective - Vital Signs/Intake and Output Vital Signs (last 24 hours): Temp Pulse Resp BP Pulse Ox 97.8 F 65 18 121/68 94 L 10/15/18 06:00 10/15/18 08:37 10/15/18 08:00 10/15/18 08:37 10/15/18 08:00 Intake and Output: 10/15/18 10/15/18 06:59 18:59 Intake Total 2587.8 Output Total 0 Balance 2587.8 - Medications Medications: Current Medications Aspirin (Ecotrin) 81 mg PO DAILY [facility] Last Admin: 10/15/18 09:14 Dose: Not Given Atorvastatin Calcium (Lipitor) 40 mg PO DIN [facility] Last Admin: 10/14/18 18:00 Dose: 40 mg Azithromycin (Zithromax) 500 mg PO DAILY [facility] Stop: 10/17/18 10:16 Last Admin: 10/15/18 09:16 Dose: Not Given Clopidogrel Bisulfate (Plavix) 75 mg PO DAILY [facility] Last Admin: 10/15/18 09:15 Dose: Not Given Famotidine (Pepcid) 20 mg PO HS [facility] Last Admin: 10/14/18 21:22 Dose: 20 mg Furosemide (Lasix) 60 mg IVP DAILY [facility] Last Admin: 10/14/18 09:08 Dose: 60 mg Ceftriaxone Sodium (Rocephin 1 Gram Ivpb) 1 gm in 100 mls @ 100 mls/hr IVPB DAILY [facility]; Protocol Stop: 10/17/18 10:59 Last Admin: 10/15/18 09:15 Dose: Not Given Sodium Chloride (Sodium Chloride 0.9%) 1,000 mls @ 75 mls/hr IV .[id number] [facility] Last Admin: 10/14/18 23:04 Dose: 75 mls/hr Insulin Human Regular (Humulin R Low) 0 units SC ACHS [facility]; Protocol Last Admin: 10/15/18 08:32 Dose: Not Given Metoprolol Tartrate (Lopressor) 25 mg PO BID [facility] Last Admin: 10/15/18 09:15 Dose: Not Given Ondansetron HCl (Zofran Inj) 4 mg IVP Q6H PRN PRN Reason: Nausea/Vomiting Last Admin: 10/15/18 06:58 Dose: 4 mg - Labs Labs: 10/15/18 07:50 10/15/18 07:50 APTT 43.7 Seconds (25.1-36.5) H 10/14/18 19:50 - Respiratory Exam Respiratory Exam: Clear to Ausculation Bilateral, NORMAL BREATHING PATTERN - Cardiovascular Exam Cardiovascular Exam: REGULAR RHYTHM, Murmur - GI/Abdominal Exam GI & Abdominal Exam: Soft, Normal Bowel Sounds - Neurological Exam Neurological Exam: Alert, Awake Assessment and Plan (1) Elevated troponin Status: Acute (2) Coronary artery disease Status: Acute (3) Type II diabetes mellitus Status: Chronic (4) Azotemia Status: Chronic (5) HTN (hypertension) Status: Resolved (6) Hyperkalemia Status: Chronic - Assessment and Plan (Free Text) Plan: for cath today
--- NOTE | 2018-10-15 10:47 | CP.PCM.PN ---
Subjective - Date & Time of Evaluation Date of Evaluation: 10/15/18 Time of Evaluation: 10:08 - Subjective Subjective: [facility] Resident Mervat Cedillo Note Mervat cedillo was called on patient in vascular lab. Patient seen and examined. Pulses were not palpable. CPR already in progress upon arrival. 6 total rounds of ACLS completed. Epi was given every 3-5 minutes with pulse and rhythm checks every 2 minutes. Bicarb administer x 3. Calcium chloride x 1. Round 1: CPR, 2 breaths per 30 compressions, epi administered, pulse check/rhythm check after 2 minutes- no pulse, PEA noted on monitor Round 2: Continued CPR, 2 breaths per 30 compressions, pulse check/rhythm check after 2 minutes- no pulse, PEA noted on monitor Round 3: Continued CPR, 2 breaths per 30 compressions, pulse check/rhythm check after 2 minutes- no pulse, PEA noted on monitor Round 4: Continued CPR, 2 breaths per 30 compressions, pulse check/rhythm check after 2 minutes- no pulse, ventricular tachycardia noted on monitor. Unsynchronized cardioversion 300J administered. No pulse felt. Ventricular tachy noted again on monitor. Unsyncrhonized cardiovernsion 360J, no pulse, CPR continued. Amiodarone 300 was administered during episode of vtach. Round 5: Continued CPR, 2 breaths per 30 compressions, pulse check/rhythm check after 2 minutes- no pulse, PEA noted on monitor Round 6: Continued CPR, 2 breaths per 30 compressions, pulse check/rhythm check after 2 minutes- no pulse, asystole noted on monitor No Response Verbal/Painful Stimuli, Absent Peripheral Pulses{Carotid & Femoral}, Absent Heart & Breath Sounds, No Pupillary Light Reflex, No Corneal Reflex, Pupils Fixed & Dilated, Absence of Vital Signs Time of 10:32am. Code nguyen was run under the supervision of attending physicians, Dr. Carrion and Dr. Sosa. Objective - Vital Signs/Intake and Output Vital Signs (last 24 hours): Temp Pulse Resp BP Pulse Ox 97.8 F 65 18 121/68 94 L 10/15/18 06:00 10/15/18 08:37 10/15/18 08:00 10/15/18 08:37 10/15/18 08:00 Intake and Output: 10/15/18 10/15/18 06:59 18:59 Intake Total 2587.8 Output Total 0 Balance 2587.8 - Medications Medications: Current Medications Aspirin (Ecotrin) 81 mg PO DAILY [facility] Last Admin: 10/15/18 09:14 Dose: Not Given Atorvastatin Calcium (Lipitor) 40 mg PO DIN [facility] Last Admin: 10/14/18 18:00 Dose: 40 mg Azithromycin (Zithromax) 500 mg PO DAILY [facility] Stop: 10/17/18 10:16 Last Admin: 10/15/18 09:16 Dose: Not Given Clopidogrel Bisulfate (Plavix) 75 mg PO DAILY [facility] Last Admin: 10/15/18 09:15 Dose: Not Given Famotidine (Pepcid) 20 mg PO HS [facility] Last Admin: 10/14/18 21:22 Dose: 20 mg Furosemide (Lasix) 60 mg IVP DAILY [facility] Last Admin: 10/14/18 09:08 Dose: 60 mg Ceftriaxone Sodium (Rocephin 1 Gram Ivpb) 1 gm in 100 mls @ 100 mls/hr IVPB DAILY [facility]; Protocol Stop: 10/17/18 10:59 Last Admin: 10/15/18 09:15 Dose: Not Given Sodium Chloride (Sodium Chloride 0.9%) 1,000 mls @ 75 mls/hr IV .[id number] [facility] Last Admin: 10/14/18 23:04 Dose: 75 mls/hr Insulin Human Regular (Humulin R Low) 0 units SC ACHS [facility]; Protocol Last Admin: 10/15/18 08:32 Dose: Not Given Metoprolol Tartrate (Lopressor) 25 mg PO BID [facility] Last Admin: 10/15/18 09:15 Dose: Not Given Ondansetron HCl (Zofran Inj) 4 mg IVP Q6H PRN PRN Reason: Nausea/Vomiting Last Admin: 10/15/18 06:58 Dose: 4 mg - Labs Labs: 10/15/18 07:50 10/15/18 07:50 APTT 43.7 Seconds (25.1-36.5) H 10/14/18 19:50
--- NOTE | 2018-10-15 11:10 | CP.PCM.PRO ---
Pronouncement of Note - Clinical Findings Physical Exam: No Response Verbal/Painful Stimuli, Absent Peripheral Puls es{Carotid & Femoral}, Absent Heart & Breath Sounds, No Pupillary Light Reflex, No Corneal Reflex, Pupils Fixed & Dilated, Absence of Vital Signs - Pronouncement Time Time of Pronouncement of : 10:32 - Notifications Pronouncement Notifications: Family Notified, Atending Notified [place] Notified: No - Autopsy Autopsy Requested: No - [place] [id number]
--- NOTE | 2018-10-15 18:28 | PN ---
DATE: 10/15/2018 PROGRESS NOTE/EXPIRATION NOTE This was an 83-year-old female with a past medical history significant for TAVR, aortic stenosis, status post bilateral BKA, diabetes, hypertension, hyperlipidemia, history of coronary artery disease, status post stent, admitted with non-STEMI. The patient was taken to the lab intern for cardiac catheterization, history of pacemaker placed for symptomatic bradycardia on 07/17/2018. Cath was also scheduled on Saturday, but because of the worsening renal insufficiency and potassium was 5.5, it was canceled. Today, potassium was 5.4 and the creatinine was 2.1, but the troponin went up to 4.32, so the patient was taken to the lab intern, prepped and draped in sterile surgical fashion. Before starting, conscious sedation was given. After that, the patient dropped the blood pressure, heart rate stopped, and CPR was done. Stopped breathing, also CPR done, tried to resuscitate for 20 minutes. Before that, sedation was reversed with Narcan and Romazicon amiodarone and multiple times shocked because of the Vfib, but the patient did not respond to the resuscitative measures. Son was informed. Both sons were there physically present, so we informed in person as well as Dr. Grover was notified. The patient was pronounced at 10:23 p.m. LABORATORY DATA: Today labs were, WBC 8, hemoglobin 10.8, hematocrit 33.4, platelet count 229. Chemistries were 135 sodium, potassium , chloride 103, carbon dioxide 22, anion gap 14, BUN 69, creatinine 2.1. At 1 a.m., troponin was 4.68. Thank you, Dr. Grover for providing us the opportunity in taking care of the patient, Basia Ruiz. Omero Carrion MD
== END 2018-10-15 10:55 ==
LOC: ED 21:29 → ERH 10-12 01:56 → 2RSO 10-12 03:27 → OBSVTOIN 10-13 09:46 → CCU 10-15 10:50
PROVIDERS: ADMIT Internal Medicine; ATTEND Internal Medicine
PROC: 5A12012 Performance of Cardiac Output, Single, Manual (ICD-10-PCS; principal; 2018-10-15)
PROC: 5A2204Z Restoration of Cardiac Rhythm, Single (ICD-10-PCS; 2018-10-15)
DX: I21.4 Non-ST elevation (NSTEMI) myocardial infarction (principal); J18.1 Lobar pneumonia, unspecified organism; I13.0 Hypertensive heart and chronic kidney disease with heart failure and stage 1 through stage 4 chronic kidney disease, or unspecified chronic kidney disease; N39.0 Urinary tract infection, site not specified; I47.2 Ventricular tachycardia; I50.9 Heart failure, unspecified; E11.22 Type 2 diabetes mellitus with diabetic chronic kidney disease; N18.3 Chronic kidney disease, stage 3 (moderate); E11.51 Type 2 diabetes mellitus with diabetic peripheral angiopathy without gangrene; I25.110 Atherosclerotic heart disease of native coronary artery with unstable angina pectoris; I49.01 Ventricular fibrillation; E87.5 Hyperkalemia; E03.9 Hypothyroidism, unspecified; I35.0 Nonrheumatic aortic (valve) stenosis; E78.5 Hyperlipidemia, unspecified; Z95.2 Presence of prosthetic heart valve; Z89.612 Acquired absence of left leg above knee; Z89.611 Acquired absence of right leg above knee; Z95.5 Presence of coronary angioplasty implant and graft; Z95.1 Presence of aortocoronary bypass graft; Z79.4 Long term (current) use of insulin; Z79.82 Long term (current) use of aspirin; Z79.02 Long term (current) use of antithrombotics/antiplatelets